=== PATIENT | female | born 1990 | race Caucasian/White ===

== ENCOUNTER 2023-07-03 10:30 | Day surgery (SDC) | payer BC, SELFPAY ==
[2023-07-03] VITALS (9 sets, daily range): BP systolic 94–151; BP diastolic 47–118; PULSE 82–127; RESP 16–21; TEMP 36.3–37.4; O2SAT 96–100
--- NOTE | 2023-07-03 10:56 | EDS_ITS ---
HPI HPI - Female History of Present Illness Chief Complaint: Vag Bld, Preg Detail of Chief Complaint: Spontaneous miscarriage 0930 this morning. Presents with significant vagin Pain Pain: Positive for Pelvic Pain and Vaginal Pain Current Severity: Moderate Maximum Severity: Severe Worsened by: - (Speculum exam) Relieved by: - (Nothing) Bleeding Issue: Positive for Vaginal bleeding, Passing clots and Passing tissue Onset: Today (0930) Context: Sudden Onset Timing: Continuous Current Severity: Heavy Associated Symptoms Associated Symptoms: Positive for Frequency; Negative for Dysuria, Urgency, Hematuria, Missed Period or Irregular Period Test: Positive Sexually: Positive for Active Control: No control P: 2 Narrative Narrative: Patient is a 33-year-old female. She is seen by a cabinetmaker apprentice. She does not have a web ui developer. She believes her blood type is a positive. She did not require RhoGAM with prior . She last ate last evening at 2100 per . She was seen by cabinetmaker apprentice. Apparently she passed fetus at approximately 0930. She presents because of severe bleeding and pain. Prior similar symptoms: No Recent Illness/Hospitalization: No PFSH PFSH Medical History (Updated 07/03/23 @ 12:[address] Marguerite Ayers MD) Connective tissue disease Medical History no medical history no medical history Home Medications ascorbic acid (vitamin C) 100 mg PO DAILY 03/07/18 [History Last Taken Unknown] Allergy/AdvReac Type Severity Reaction Status Date / Time No Known Allergies Allergy Verified 07/03/23 10:30 Surgical History no surgical history no surgical history Social History Smoking Status: Never smoker alcohol intake: never ROS ROS ED Constitutional Constitutional ED: Denies chills, fever(s), subjective or sweats Eyes Eyes: Denies blurry vision or change in vision ENT ENT ED: Denies ear pain or rhinorrhea Cardiovascular Cardiovascular: Denies chest pain or palpitations Respiratory/Chest Respiratory/Chest: Denies cough, dyspnea or dyspnea on exertion Gastrointestinal Gastrointestinal: Reports abdominal pain, nausea and vomiting; Denies constipation, diarrhea or melena Genitourinary Genitourinary ED: Reports urinary frequency; Denies dysuria or hematuria Musculoskeletal Musculoskeletal: Denies arthralgias, myalgias or neck pain Integumentary Denies rash Neurologic Neurologic: Denies paresthesias or weakness Endocrine Endocrinology: Denies heat intolerance, polydipsia or polyphagia Hematologic/Lymphatic Hematologic/Lymphatic: Denies easy bleeding or easy bruising EXAM Physical Exam Const Vital Signs: 07/03/23 10:30 07/03/23 11:30 07/03/23 11:53 Temperature 99 F 98.4 F Temperature Source Temporal Pulse Rate 127 H 97 105 H Respiratory Rate 20 H 21 H 16 Respiratory Pattern Blood Pressure 135/95 H 128/85 H 147/78 H Blood Pressure Mean 108 99 101 Blood Pressure Source Blood Pressure Position Blood Pressure Location Baseline BP Pulse Ox 97 98 98 Oxygen Delivery Method Room Air Room Air 07/03/23 13:01 07/03/23 13:05 07/03/23 13:10 Temperature 98 F Temperature Source Temporal Pulse Rate 103 H 90 92 Respiratory Rate 18 18 18 Respiratory Pattern Normal Blood Pressure 151/118 H 107/47 L 94/51 L Blood Pressure Mean 129 67 65 Blood Pressure Source Monitor Monitor Monitor Blood Pressure Position Semi-Fowlers Semi-Fowlers Semi-Fowlers Blood Pressure Location Right Arm Left Arm Right Arm Baseline BP 135/95 135/95 135/95 Pulse Ox 96 98 100 Oxygen Delivery Method Room Air Room Air Room Air 07/03/23 13:15 07/03/23 13:30 07/03/23 14:01 Temperature 99.4 F H Temperature Source Temporal Pulse Rate 95 82 Respiratory Rate 18 18 Respiratory Pattern Normal Blood Pressure 118/83 H 107/68 Blood Pressure Mean 94 81 Blood Pressure Source Monitor Monitor Blood Pressure Position Semi-Fowlers Semi-Fowlers Blood Pressure Location Right Arm Right Arm Baseline BP 135/95 135/95 Pulse Ox 99 100 Oxygen Delivery Method Room Air Room Air 07/03/23 14:56 Temperature 97.4 F L Temperature Source Temporal Pulse Rate 96 Respiratory Rate 16 Respiratory Pattern Blood Pressure 114/72 Blood Pressure Mean 86 Blood Pressure Source Monitor Blood Pressure Position Semi-Fowlers Blood Pressure Location Right Arm Baseline BP 135/95 Pulse Ox 100 Oxygen Delivery Method Room Air Positive well nourished, well developed and obese Constitutional Narrative: Patient is nervous and appears uncomfortable. Vital signs remarkable for heart rate of 127. General Appearance ED: well developed and pallor Nutritional Appearance: obese HEENT Reports dry mucous membranes HEENT Narrative: Head is atraumatic, cephalic. Mouth ED: Yes dry mucous membranes Mouth: dry mucous membranes Eyes PERRL and EOMs intact bilaterally General Eye ED: Negative for pale conjunctiva or scleral icterus Neck no lymphadenopathy, supple and no JVD Chest Wall inspection of chest normal and palpation of chest normal Resp normal respiratory effort and clear to auscultation bilaterally Cardio regular rhythm, S1 normal heart sound, no murmurs and no JVD GI normal to inspection, nondistended, normoactive bowel sounds, soft to palpation, non-tender, non-distended and no masses Auscultation: normoactive bowel sounds Narrative: Patient's external genitalia is normal. Unable to see the cervix. Every time the speculum was inserted the speculum was filled with large clots which were evacuated. This was repeated 3 times. Since patient is actively bleeding Dr. Ayers who is on-call for SENIOR CATERING SALES MANAGER was paged. Back/Spine no CVA tenderness Extremity normal to inspection and full ROM Neuro oriented x3 and CN's II-XII intact bilaterally Sensorium / Orientation: alert Psych Mood & Affect: anxious Skin no rashes or lesions noted and no wounds General Skin Exam: pallor; Negative for jaundice MDM MDM MDM Narrative Medical decision making narrative: Spontaneous miscarriage suspect incomplete versus complete. Patient been typed and screened. CBC was obtained to assess H&H and platelet count. IV was established. She received 1 L of normal saline since she is tachycardic. Patient was made NPO. She was placed on the monitor. Lab Data Attestation: I reviewed the patient's lab results. Lab results narrative: Hemoglobin is 15.2 with hematocrit of 42.6. Platelet count is normal. Patient does have a positive blood. Labs: Laboratory Results - last 24 hr 07/03/23 07/03/23 10:44 11:12 WBC 13.4 H RBC 4.78 Hgb 15.2 H Hct 42.6 MCV 89.1 MCH 31.8 MCHC 35.7 RDW Std Deviation 41.4 RDW Coeff of Judah 12.6 Plt Count 295 MPV 9.3 Sodium 139 Potassium 3.8 Chloride 109 H Carbon Dioxide 23.0 Anion Gap 7 BUN 7 Creatinine 0.61 Est GFR (MDRD) Af Amer 143 Est GFR (MDRD) Non-Af 118 BUN/Creatinine Ratio 11.5 Glucose 116 H Calcium 9.2 Blood Type Cancelled A POSITIVE Antibody Screen Cancelled NEGATIVE Radiography Diagnostic Testing: Clinical Impression(s) from Imaging Studies Pelvis Ultrasound 07/03/23 11:07 IMPRESSION: Heterogeneous thickening of the endometrium. Findings suggestive of retained products of conception within the endometrium. Electronically Signed: Phil Haddad MD at 12:47 EDT , Management Discussion w/another healthcare provider: Assistant Professor Of Marine Biology (Spoke with Dr. Solis. She requested 0.2 mg of Methergine. She would like an ultrasound. satellite tv technician was contacted.) Treatment and Re-Evaluation Narrative: Transabdominal ultrasound performed by fabric pattern grader Loren. There is retained products of conception right superior portion of the uterus and centrally as well. The uterus is full with blood as well. Will contact Dr. Ayers regarding ultrasound results. Plan is to OR With 800 cc of liter infused heart rate has improved to 108. Blood pressure has dropped to [address] Ayers was notified of results. She is on her way into see patient. She is currently on first stat D&C. Critical Care Time Critical Care Time: Yes Critical care time (excluding procedures): 30-74 minutes (32), Including time spent: (History, physical, documentation, review of prior records. There are no prior records), Discussing w/Patient &/or Family/Fiscal Economist, Discussing w/Consultants, Performing Direct Patient Care at Bedside and - (Contacted ultrasound for stat ultrasound at bedside since patient has been bleeding briskly.) Discharge Plan Dx/Rx/DC Orders Clinical Impression: Incomplete spontaneous , Sinus tachycardia, Acute hypotension Disposition Disposition: Acute Care Hospital [facility] Discharge Date/Time: 07/03/23 12:11
[2023-07-03] MEDS: 0.9% Normal Saline (1000mL) 1,000 ML 999 ML IV (11:02)
[2023-07-03 11:04] LABS: Hematocrit 42.6 % (37-47); Hemoglobin 15.2 g/dL (12.0-15.0); Mean Corp Hgb Conc 35.7 g/dL (32-36); Mean Corpuscular Hgb 31.8 pg (27.0-32.0); Mean Corpuscular Volume 89.1 fL (81-99); Mean Platelet Vol. 9.3 fl (6.2-12.0); Platelet Count 295 K/mm3 (150-450); RBC Distribution Width CV 12.6 % (11.6-14.6); RBC Distribution Width SD 41.4 fl (35.1-43.9); Red Blood Count 4.78 M/mm3 (4.2-5.4); White Blood Count 13.4 K/mm3 (4.4-11.0)
--- NOTE | 2023-07-03 11:07 | US_ITS ---
STUDY: ULTRASOUND OF THE FEMALE PELVIS - COMPLETE REASON FOR EXAM: Female, 33 years old. Vaginal bleeding / active miscarriage - Needs to be done portable LMP: Unknown TECHNIQUE: Transabdominal TECHNICAL QUALITY: Adequate. COMPARISON: None. FINDINGS: The uterus is retroverted and is in a midline position. The uterus measures 12.7 cm x 9.8 cm x 10.9 cm. Normal uterine cervix. The endometrium is heterogeneous and measures 22.4 mm in thickness, and is heterogeneous (striated). Findings suggestive of a retained products of conception. There is no demonstrated myometrial mass. I.U.D. - The patient does not have an I.U.D. The right ovary is non-visualized. The left ovary is non-visualized. There is no fluid in the cul-de-sac. US/Pelvic (Non ) IMPRESSION: Heterogeneous thickening of the endometrium. Findings suggestive of retained products of conception within the endometrium. Electronically Signed: Phil Haddad MD at 12:47 EDT ,
[2023-07-03 11:18] LABS: Anion Gap 7 (5-15); BUN 7 mg/dL (7-18); BUN/Creat Ratio 11.5 RATIO (10-20); Calcium,Total 9.2 mg/dL (8.5-10.1); Chloride 109 mmol/L (98-107); Creatinine, Serum 0.61 mg/dL (0.55-1.02); EST Glomerular Filtration Rate 118 mL/min (>60); Est Glom Filt Rate - Afr Amer 143 mL/min (>60); Glucose 116 mg/dL (74-106); Potassium 3.8 mmol/L (3.5-5.1); Sodium Level 139 mmol/L (136-145)
--- NOTE | 2023-07-03 11:51 | ED.RN ---
DR DEB HARMAN AT BEDSIDE
--- NOTE | 2023-07-03 11:52 | ED.RN ---
METHERGINE PUT ON HOLD BY DR HARMAN SINCE PT IS GOING TO OR. DR LINDER MADE AWARE ALSO
--- NOTE | 2023-07-03 11:53 | NURSING ---
DR HARMAN OR INCOMPLETE
--- NOTE | 2023-07-03 12:13 | HP.PCM_ITS ---
HPI - General General Date of Service: 07/03/23 Chief Complaint: Vaginal bleeding and pain HPI Narrative GIOVANNA VEGAS, is a 33 F who presents with vaginal bleeding. She reports passing the fetus at 9:30am today. Then patient starting to have heaving bleeding and intense cramping. Patient was seeing a surface lay out technician and reports being 16&3. Previously she had 2 FT vaginal deliveries at home without complications, REPLACED BY [facility] Medical History (Updated 07/03/23 @ 12:[address] Marguerite Ayers MD) Connective tissue disease Medical History no medical history Home Medications ascorbic acid (vitamin C) 100 mg PO DAILY 03/07/18 [History Last Taken Unknown] Allergy/AdvReac Type Severity Reaction Status Date / Time No Known Allergies Allergy Verified 07/03/23 10:30 Surgical History no surgical history Social History Smoking Status: Never smoker alcohol intake: never Vital Signs Vital Signs Vital Signs: 07/03/23 10:30 07/03/23 11:30 07/03/23 11:53 Temperature 99 F 98.4 F Temperature Source Temporal Pulse Rate 127 H 97 105 H Respiratory Rate 20 H 21 H 16 Blood Pressure 135/95 H 128/85 H 147/78 H Blood Pressure Mean 108 99 101 Pulse Ox 97 98 98 Oxygen Delivery Method Room Air Room Air Physical Exam Narrative - per ED physician patient with blood pouring out vaginal cavity on speculum exam Const alert and oriented x3 GI soft to palpation GI Narrative: minimal tenderness Extremity no calf tenderness Neuro CN's II-XII intact bilaterally Results Lab / Micro Data 07/03/23 10:44 07/03/23 10:44 Labs: Laboratory Results - last 24 hr 07/03/23 10:44: WBC 13.4 H, RBC 4.78, Hgb 15.2 H, Hct 42.6, MCV 89.1, MCH 31.8, MCHC 35.7, RDW Std Deviation 41.4, RDW Coeff of Judah 12.6, Plt Count 295, MPV 9.3, Sodium 139, Potassium 3.8, Chloride 109 H, Carbon Dioxide 23.0, Anion Gap 7, BUN 7, Creatinine 0.61, Est GFR (MDRD) Af Amer 143, Est GFR (MDRD) Non-Af 118, BUN/Creatinine Ratio 11.5, Glucose 116 H, Calcium 9.2, Blood Type Cancelled, Antibody Screen Cancelled Assessment & Plan Assessment/Plan (1) Incomplete : (2) Connective tissue disease: PLAN: Plan Discussed R/B/A of treatment options. Recommend proceeding with emergent D&C due to active bleeding and tachycardia. Informed consent signed and patient agrees with plan.
--- NOTE | 2023-07-03 12:45 | POC_PTH ---
PATIENT: GIOVANNA VEGAS LOC: [facility] – [place], [place] U#:[id number] AGE/SX: 33/F ROOM: RE07/03/[address]: Dr. Marguerite Ayers MD : 1990 BED: DIS: 07/03/2023 SPEC #: [id number] RECD: 07/03/23 13:22 STATUS: OVIDIO MANISHA #: [id number] IRON: 07/03/23 12:[address]: Marguerite Ayers DEPT: SURGICAL PATHOLOGY RECD BY: Jannet Torres ENTERED: 07/03/23 13:47 SP TYPE: PROD CONC OTHR DR: No Primary Care Phys Tissues: Product of conception, NOS Procedures: Surgery Specimen Level IV HEADER OPERATION: Dilation and Curetting, suction PRE-OP DIAGNOSIS: Incomplete TISSUE SUBMITTED: Products of conception MICROSCOPIC DIAGNOSIS Products of conception, dilation and curettage: Decidua and immature placental tissue (products of conception), clinically incomplete . SJ: 07/04/2023 MICROSCOPIC DESCRIPTION Slides are reviewed. GROSS DESCRIPTION Received in fixative is one container labeled with the patient's name and designated Products of conception. The specimen consists of multiple irregular fragments of pink soft tissue that in aggregate measure in aggregate 8.0 x 9.0 x 3.0 cm. tissue is not identified. Roofing Apprentice tissue is submitted in two cassettes. RACHNA/ 07/03/23 TC:5 CPT: 39230
[2023-07-03] MEDS: Methylergonovine 0.2 MG/ML Ampul IM (12:50)
--- NOTE | 2023-07-03 13:06 | PCM.OPRPT ---
Report of Operation Date of Procedure: 07/03/23 Pre-Operative Diagnosis: Incomplete Post-Operative Diagnosis: Same Surgery/Procedure Performed:: Suction dilation and curettage Description of Surgical Findings:: uterus with retained products of conception Surgeon: Marguerite Ayers Type of Anesthesia: MAC Specimen's removed: products of conception Drains: none Estimated Blood Loss (mL): 300ml Fluids Replaced: 1400ml Description of Procedure: Patient taken to OR when MAC anesthesia placed and found to be adequate. She was placed in the dorsal lithotomy position, prepped and draped in normal sterile fashion. Cervix was grasped with a tenaculum. Ring forceps used to removed some POC's. Then #12 suction curette gently inserted into the uterine cavity and used 5 times for good return of POC's. 1 pass of gentle sharp curettage performed to ensure no retained POC's. TAUS also completed and showed no retained POC's. At the end of the procedure all instruments were removed from the vaginal cavity and patient taken to the recovery room in stable condition. Procedure Start Time: 12:33 Procedure Stop Time: 12:50 Complications None Admit VTE Documentation VTE Present on Admission: No VTE Pharm Prophylaxis ordered?: No
--- NOTE | 2023-07-03 13:16 | DCINST_ITS ---
Discharge Instructions Diet Discharge Diet: No restrictions Activity Discharge Activity: May Shower May resume sexual activity in: 2 weeks Weight Bearing Status: Weight bearing as tolerated Dressing / Incision Call your doctor if you observe: Fever of 101 or Higher, Coldness, Increased Pain, Change in Color, Inability to urinate, Using more than 1 pad per hour, Shortness of breath, Dizziness, Fainting spells, Chest pain, Increased palpitations (irregular heartbeat), Calf discomfort and Uncontrolled pain Follow Up Care Please Follow Up With: Marguerite Ayers When: 2 weeks Test Results: Test results from this visit will be discussed in further detail at your follow-up appointment, if applicable. Discharge Plan Admission Primary Reason for Your Visit: Incomplete miscarriage Attending Provider: Marguerite Ayers Primary Care Provider: Care PhysicianCristal Primary Discharge Orders/Prescriptions Prescriptions: No Action ascorbic acid (vitamin C) crystals crystals 100 mg PO DAILY Referrals / Follow Up: Sin Elder MD [Med Staff - Automotive Glass Specialist] - Disposition Disposition (needs filled in before D/C Order can be placed): Home, Self Care
[2023-07-03] MEDS: Lactated Ringers 1,000 ML 75 ML IV (13:57)
== END 2023-07-03 14:59 | disposition home or self-care (01) ==
LOC: ED 11:37 → SDC 11:56 → AC 13:07
PROVIDERS: Emergency Provider Emergency Medicine; Visit Provider Obstetrics & Gynecology
PROC: (CPT 59812; principal; 2023-07-03 12:30)
DX: O03.4 Incomplete spontaneous abortion without complication (principal)
CPT/HCPCS: 59812; 01965; 76856; 80048; 85027; 86850; 86900; 86901; 88305; 99285; J7030; J7120; A4216; J2405

== ENCOUNTER → 2023-11-26 | Outpatient (CLI) | payer BC, SELFPAY ==
--- NOTE | 2023-11-26 08:44 | ECHOD_ITS ---
Reason For Study: CHEYENNE DANLOS Procedure This was a 2D Doppler, Color Flow transthoracic echocardiogram. Exam performed in department. Left Ventricle Normal size and thickness. The left ventricular ejection fraction is 60 %. Normal diastololic function. Right Ventricle Normal right ventricle. Atria The left and right atria are normal. Mitral Valve Trivial mitral valve insufficiency. Tricuspid Valve Normal tricuspid valve. Aortic Valve Trisinus/trileaflet aortic valve. Pulmonic Valve The pulmonic valve is not well visualized. Trivial pulmonic valve insufficiency. Great Vessels Normal sized aortic root. Pericardium/Pleural No pericardial effusion. MMode/2D Measurements & Calculations LVIDd: 5.1 cm IVSd: 0.65 cm LVOT diam: 1.9 cm LVIDs: 2.8 cm LVPWd: 0.94 cm LVOT area: 2.7 cm2 RVDd: 2.4 cm FS: 45.2 % Ao root diam: 2.7 cm LAV(MOD-bp): 33.8 ml LVAd ap4: 25.6 cm2 LAV(MOD-bp) Indexed: 16.5 ml/m2 LVLd ap4: 7.9 cm LAV(MOD-sp2): 22.0 ml EDV(MOD-sp4): 69.4 ml LAV(MOD-sp4): 39.6 ml EDV(sp4-el): 69.9 ml LVAs ap4: 15.1 cm2 LVLs ap4: 6.4 cm ESV(MOD-sp4): 31.3 ml ESV(sp4-el): 30.5 ml EF(MOD-sp4): 54.9 % EF(sp4-el): 56.4 % SV(MOD-sp4): 38.1 ml SV(sp4-el): 39.4 ml LA A4 area: 17.2 cm2 LA dimension(2D): 3.6 cm RA A4 area: 15.1 cm2 TAPSE: 2.8 cm Time Measurements MV dec time: 0.11 sec Doppler Measurements & Calculations MV E max [place]: 79.2 cm/sec Lat Peak E' [place]: 18.5 cm/sec Med Peak E' [place]: 11.3 cm/sec MV A max [place]: 55.7 cm/sec E/E' lat: 4.3 E/E' med: 7.0 MV E/A: 1.4 MV V2 max: 91.0 cm/sec Ao V2 max: 122.9 cm/sec MV max P.3 mmHg MV dec slope: 708.4 cm/sec2 Ao max P.0 mmHg MV V2 mean: 65.8 cm/sec Ao V2 mean: 87.3 cm/sec MV mean P.8 mmHg Ao mean P.4 mmHg MV V2 VTI: 23.5 cm Ao V2 VTI: 27.7 cm AV (velocity ratio): 0.90 MVA(VTI): 2.9 cm2 JOHANA(I,D): 2.4 cm2 JOHANA(V,D): 2.5 cm2 LV V1 max: 114.8 cm/sec SV(LVOT): 67.2 ml PA V2 max: 112.0 cm/sec LV V1 max P.3 mmHg PA V2 mean: 79.3 cm/sec LV V1 mean P.3 mmHg LV V1 mean: 87.4 cm/sec LV V1 VTI: 25.0 cm ECHO/Echo Complete Interpretation Summary The left ventricular ejection fraction is 60 %. Ordering Physician: Prerna Cleaning Referring Physician: Prerna Cleaning Performed By: Deana Liu RCS
== END | disposition home or self-care (01) ==
PROVIDERS: PCP Nurse Practitioner Family; Referring Provider Nurse Practitioner Family; Visit Provider Nurse Practitioner Family
DX: Q79.62 Hypermobile Ehlers-Danlos syndrome (principal); I34.0 Nonrheumatic mitral (valve) insufficiency
CPT/HCPCS: 93306

== ENCOUNTER → 2024-03-17 | Outpatient (CLI) | payer BC, SELFPAY ==
[2024-03-24 13:07] LABS: HPV APTIMA, High Risk Negative (Negative)
== END | disposition home or self-care (01) ==
LOC: BWCLAB 14:42
PROVIDERS: PCP Nurse Practitioner Family; Referring Provider Obstetrics & Gynecology; Visit Provider Obstetrics & Gynecology
DX: Z12.4 Encounter for screening for malignant neoplasm of cervix (principal)
CPT/HCPCS: 87624; 88175; G0145

== ENCOUNTER 2024-09-20 02:43 | Emergency (ER) | payer BC, SELFPAY ==
[2024-09-20 02:45] VITALS: BP 136/67; PULSE 95; RESP 18; TEMP 36.9; O2SAT 100; BMI 39.5
--- OUTSIDE RECORDS SUMMARY | 2024-09-20 02:53 | XMS RPT_ITS | CCD ---
Author Organization [facility] Care Team Providers Care Leg Breaker Name Role Phone Leena Elder MD Primary Care Provider [place] CNM, Crystal K Unavailable Drea SLATER, Darrell Unavailable Unavailable Leena Elder MD Primary Care Provider Leena Elder MD Primary Care Provider JAMES GREWAL Attending Unavailable GENERIC PROVIDER, NO ASSIGNED PCP Primary Care Unavailable Generic Provider , No Assigned Pcp Primary Car e Provider Unavailable Jessie Harman Attending Unavailable Care Physician, No Primary Primary Care Unava ilable Black CHUCKING MACHINE SET UP OPERATOR TOOL, Erick Primary Care Unavailable Jessica Benson Referring Unavailable Jessica Benson Attending Unavailable Black CHUCKING MACHINE SET UP OPERATOR TOOL, Erick Primary Care Unavailable Black CHUCKING MACHINE SET UP OPERATOR TOOL, Erick Referring Unavailable Black CHUCKING MACHINE SET UP OPERATOR TOOL, Erick Attending Unavailable Black CHUCKING MACHINE SET UP OPERATOR TOOL, Erick Primary Care Unavailable Care Physician, No Primary Referring Unava ilable Jessica Benson Attending Unavailable Black CHUCKING MACHINE SET UP OPERATOR TOOL, Erick Primary Care Unavailable Desirae Barnes Attending Unavailable BLACK, ERICK Admitting Unavailable BLACK, ERICK Primary Care Unavailable BLACK, ERICK Attending Unavailable JUAN RECINOS DO Consulting Unavailable PROVIDER, UNKNOWN Consulting Unavailable PROVIDER, UNKNOWN Consulting Unavailable BLACK, ERICK Primary Care Unavailable DHARMESH CLEANINGA Attending Unavailable JUAN RECINOS DO Consulting Unavailable BLACK, ERICK Admitting Unavailable PROVIDER, UNKNOWN Consulting Unavailable PROVIDER, UNKNOWN Consulting Unavailable LEENA ELDER Primary Care Unavailabl SHAKA Quiros Attending Unavailable LEENA ELDER Primary Care Unavailabl ALONDRA Garcia Attending Unavailable JESSIE HARMAN Referring Unavailable JASON DYKES Attending Unavailable LEENA ELDER Primary Care Unavailabl e Allergies Allergy Classification Reported Allergen(s) Allergy Type Date of Onset Reaction(s) Facility (2 sources) Naloxone Drug Allergy [facility], [facility]. (2 sources) Naltrexone Drug Allergy 05-28-2024 Other: See Comments [facility] Medications Current Medications Medication Drug Class(es) Dates Sig (Normalized) Sig (Original) ascorbic acid (vitamin C) crystals (2 sources) Start: 03-07-2018 take 100 mg by mouth once daily ascorbic acid (vitamin C) crystals Active 100 MG PO DAILY March 07, 2018 1:00am azithromycin 250 mg oral tablet (1 source) Macrolide Antimicrobial Start: 09-08-2023 azithromycin (Zithromax Z-Fede) 250 mg tablet Indications: Exposure to pertussis Take 2 tablets by mouth at once on day 1, then 1 tablet once a day on days 2-5. Take with a meal. 6 tablet 09/08/2023 Active Calcium Carbonate (9 sources) calcium carbonat e (CALCIUM 500 ORAL) Take by mouth once daily. Active calcium carbonat e (CALCIUM 500 ORAL) Take by mouth once daily. 0 Active calcium carbonate (Tums) 250 mg (manchester 100 mg) chewable split tablet (1 source) calcium carbonat e (Tums) 250 mg (manchester 100 mg) chewable split tablet Take by mouth once daily. Active magnesium oxide 400 mg oral capsule (10 sources) magnesium oxide 400 mg magnesium cap Take by mouth. Active nystatin [id number] unt oral tablet (13 sources) Polyene Antifungal Start: 12-13-2022 nystatin (Mycostatin) 500,000 unit tablet 12/13/2022 Active Start: 10-18-2022 take 2 tablets by mo uth twice daily nystatin (MYCOSTATIN, NILSTAT) 500,000 unit tab Take 2 tablets by mouth twice daily. 120 tablet 2 10/18/2022 Active Comment on above: Take 2 tablets by mo uth twice daily. Vitamin B Complex (9 sources) vitamin B comple x (B COMPLEX ORAL) Take by mouth once daily. Active vitamin B comple x (B COMPLEX ORAL) Take by mouth once daily. 0 Active vitamin-B complex split tablet (1 source) vitamin-B comple x split tablet Take by mouth once daily. Active WellBetX PGX Ultra Matrix (Natural Factors) diabetes/blood sugar/weight management (20 sources) Start: 08-16-2022 WellBetX PGX Ultra Matrix (Natural Factors) diabetes/blood sugar/weight management Take 2 capsules with 8 ounces of water 5-10 minutes before meals. 0 08/16/2022 Active Comment on above: Take 2 capsules with 8 ounces of water 5-10 minutes before meals. Completed/Discontinued Medications Medication Drug Class(es) Dates Sig (Normalized) Sig (Original) amoxicillin 500 mg oral capsule (2 sources) Penicillin-class Antibacterial Start: 03-07-2018 End: 03-17-2018 take 1000 mg by mouth twice daily Amoxicillin Discontinued 1000 MG PO TWICE A DAY 40 10 March 07, 2018 1:00am March 17, 2018 1:19am Biocidin Advanced Formula (Mark43) gut microbial (bacteria/yeast) balance (9 sources) Start: 10-18-2022 End: 01-12-2023 Biocidin Advanced Formula (Mark43) gut microbial (bacteria/yeast) balance Take 5 Drops by mouth three times daily. Biocidin - Begin with 1 drop and gradually increase up to 5 drops 3 times per day for 6-8 weeks 0 10/18/2022 01/12/2023 Discontinued Start: 10-18-2022 Biocidin Advan sarah Formula (Mark43) gut microbial (bacteria/yeast) balance Take 5 Drops by mouth three times daily. Biocidin - Begin with 1 drop and gradually increase up to 5 drops 3 times per day for 6-8 weeks 0 10/18/2022 Active Comment on above: Take 5 Drops by mout h three times daily. Biocidin - Begin with 1 drop and gradually increase up to 5 drops 3 times per day for 6-8 weeks Dentalcidin (Bio-Botanical) (9 sources) Start: 10-18-2022 End: 01-12-2023 Dentalcidin (Bio-Botanical) For adults and children 2 years of age and older, use approx. a 1/2 inch ribbon on your toothbrush. 0 10/18/2022 01/12/2023 Discontinued Start: 10-18-2022 Dentalcidin (B io-Botanical) For adults and children 2 years of age and older, use approx. a 1/2 inch ribbon on your toothbrush. 0 10/18/2022 Active Comment on above: For adults and child yana 2 years of age and older, use approx. a 1/2 inch ribbon on your toothbrush. Dentalcidin LS - Liposomal Oral Care Solution (Bio-Botanical) (9 sources) Start: 10-18-2022 End: 01-12-2023 Dentalcidin LS - Liposomal Oral Care Solution (Bio-Botanical) Swish using 2 pumps for 1 minute or more than expel. Use 2 - 3 times per day after brushing with Dentalcidin toothpaste. 0 10/18/2022 01/12/2023 Discontinued Start: 10-18-2022 Dentalcidin LS - Liposomal Oral Care Solution (Bio-Botanical) Swish using 2 pumps for 1 minute or more than expel. Use 2 - 3 times per day after brushing with Dentalcidin toothpaste. 0 10/18/2022 Active Comment on above: Swish using 2 pumps for 1 minute or more than expel. Use 2 - 3 times per day after brushing with Dentalcidin toothpaste. Digestive Enzymes Ultra 180 ct. (Pure Encapsulations) (9 sources) Start: 10-18-2022 End: 01-12-2023 Digestive Enzymes Ultra 180 ct. (Pure Encapsulations) Take 2 capsules twice daily. 0 10/18/2022 01/12/2023 Discontinued Start: 10-18-2022 Digestive Enzy mes Ultra 180 ct. (Pure Encapsulations) Take 2 capsules twice daily. 0 10/18/2022 Active Comment on above: Take 2 capsules twic e daily. fluconazole 100 mg oral tablet (13 sources) Azole Antifungal Start: take 1 tablet by mouth two times weekly fluconazole (DIFLUCAN) 100 mg tablet Indications: Thrush Take 1 tab by mouth twice weekly for 1 month. 8 tablet 1 01/12/2023 Active Start: 10-18-2022 End: 01-12-2023 fluconazole (DIFLUCAN) 150 m g tablet Indications: Bloating , Thrush (oral) Take one x 1, repeat in 3 days x 1. 2 tablet 1 10/18/2022 01/12/2023 Discontinued Comment on above: Take one x 1, repeat in 3 days x 1. Take 1 tab by mouth twice weekly for 1 month. G.I. Detox (Boutique Window) (8 sources) Start: 12-13-2022 G.I. Detox (Boutique Window) 1-2 capsules with full glass of water 2 times daily between meals 0 12/13/2022 Active Comment on above: 1-2 capsules with fu ll glass of water 2 times daily between meals NAC 600mg 90 ct. (Pure Encapsulations) (8 sources) Start: 12-13-2022 NAC 600mg 90 ct. (Pure Encapsulations) Take 1 capsule twice daily, between meals. 0 12/13/2022 Active Comment on above: Take 1 capsule twice daily, between meals. Naltrexone (3 sources) Opioid Antagonist Start: 01-15-2023 naltrexone capsule 1 mg (CPD) Start with 1 capsule by mouth every night, increase every 3-4 days by 1 capsule until pain relief. Max of 5 capsules daily. 90 capsule 1 01/15/2023 Active Start: 01-15-2023 naltrexone cap nakia 1 mg (CPD) Take 1 capsule by mouth once daily. Start with 1 mg every night, increase every 3-4 days by 1 mg until pain relief. Max dose 5 mg daily. 90 capsule 1 01/15/2023 Active Comment on above: Take 1 capsule by mo [facility] once daily. Start with 1 mg every night, increase every 3-4 days by 1 mg until pain relief. Max dose 5 mg daily. Start with 1 capsule by mouth every night, increase every 3-4 days by 1 capsule until pain relief. Max of 5 capsules daily. Saccharomyces boulardii (8 sources) Start: 12-14-19 take 1 capsule by mouth twice daily at mealtime Saccharomyces Boulardii 60 ct. (Klaire/Prothera) Take 1 capsule by mouth twice daily with meals. 0 12/13/2022 Active Comment on above: Take 1 capsule by mo [facility] twice daily with meals. The Whole Probiotic (Talkbits) (12 sources) Start: 10-19-19 take 1 capsule by mouth once daily The Whole Probiotic (Talkbits) Take 1 capsule by mouth once daily. Treatment 3-6 months 0 10/18/2022 Active Comment on above: Take 1 capsule by mo [facility] once daily. Treatment 3-6 months Yeast Balance Complex (Integrative Therapeutics) gut microbial (bacteria/yeast) balance (4 sources) Start: 01-13-20 Yeast Balance Complex (Integrative Therapeutics) gut microbial (bacteria/yeast) balance Take 2 capsules three times daily between meals. Take saccharomyces boullardi 2 hrs away. 0 01/12/2023 Active Comment on above: Take 2 capsules thre e times daily between meals. Take saccharomyces boullardi 2 hrs away. Problems Active Problems Problem Classification Problem Date Documented Da te Episodic/Chronic Administrative/social admission (3 sources) Patient encounter status; Translations: [Dietary counseling and surveillance] Episodic Allergic reactions (1 source) Chronic urticaria; Translations: [Other urticaria] 05-28-2024 Episodic Cardiac dysrhythmias (4 sources) Sinus tachycardia; Translations: [Tachycardia, unspecified] 07-03-2023 Episodic Deficiency and other anemia (3 sources) Anemia 05-08-2023 Episodic Comment on above: Concerns about anemi a. Had anemia with her first . Diseases of mouth; excluding dental (2 sources) Disorder of oral soft tissues; Translations: [Unspecified lesions of oral mucosa] 03-05-2023 Episodic Immunity disorders (2 sources) Monoclonal mast cell activation syndrome; Translations: [Other specified disorders involving the immune mechanism] Onset: 05-28-2024 05-22-2024 Chronic Immunizations and screening for infectious disease (3 sources) Contact with and (suspected) exposure to other bacterial communicable diseases; Translations: [Exposure to Bordetella pertussis] Onset: 09-08-2023 Episodic Malaise and fatigue (1 source) Fatigue; Translations: [Chronic fatigue, unspecified] 01-12-2023 Chronic Malaise and fatigue (2 sources) Fatigue; Translations: [Other fatigue] 07-10-2023 Episodic Mycoses (5 sources) Candidiasis of mouth; Translations: [Candidal stomatitis] 10-18-2022 Episodic Other circulatory disease (2 sources) Low blood pressure; Translations: [Hypotension, unspecified] 07-03-2023 Episodic Other circulatory disease (2 sources) Hypotension, unspecified; Translations: [Hypotension, unspecified] 07-03-2023 Episodic Other complications of (2 sources) Fatigue during ; Translations: [ related exhaustion and fatigue, unspecified trimester] 05-10-2023 Episodic Other connective tissue disease (1 source) Pelvic floor tension; Translations: [Other specified disorders of muscle] 09-18-2023 Episodic Other connective tissue disease (2 sources) Hypermobility syndrome; 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] 05-28-2024 Episodic Other connective tissue disease (1 source) Hypermobility syndrome; 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] Onset: 05-28-2024 Episodic Other endocrine disorders (1 source) Disorder of endocrine system; Translations: [Endocrine disorder, unspecified] 12-13-2022 Episodic Other female genital disorders (2 sources) Cervical incompetence; Translations: [Incompetence of cervix uteri] 05-28-2024 Episodic Other female genital disorders (1 source) Incompetence of cervix uteri; Translations: [Incompetent cervix] Onset: 05-28-2024 Episodic Other gastrointestinal disorders (2 sources) Abdominal bloating; Translations: [Abdominal distension (gaseous)] Episodic Other gastrointestinal disorders (3 sources) Other functional disorders of intestine; Translations: [Intestinal dysbiosis] 10-18-2022 Episodic Other hematologic conditions (2 sources) History of anemia; Translations: [Personal history of diseases of the blood and blood-forming organs and certain disorders involving the immune mechanism] 05-10-2023 Episodic Other nervous system disorders (1 source) Disturbance of attention; Translations: [Attention and concentration deficit] 05-28-2024 Chronic Other non-traumatic joint disorders (1 source) Instability of joint; Translations: [Other instability, unspecified joint] 05-28-2024 Episodic Other nutritional; endocrine; and metabolic disorders (1 source) Morbid (severe) obesity due to excess calories; Translations: [Morbid (severe) obesity due to excess calories] Onset: 11-05-2023 Chronic Other nutritional; endocrine; and metabolic disorders (2 sources) Weight gain; Translations: [Abnormal weight gain] Episodic Other skin disorders (1 source) Eruption; Translations: [Rash and other nonspecific skin eruption] 05-28-2024 Episodic Otitis media and related conditions (2 sources) Otitis media of left ear; Translations: [Otitis media, unspecified, left ear] 03-07-2018 Episodic Residual codes; unclassified (1 source) At risk for infection; Translations: [Other specified personal risk factors, not elsewhere classified] 12-18-2022 Episodic Residual codes; unclassified (2 sources) FH: Twin ; Translations: [Family history of other specified conditions] 05-10-2023 Episodic Residual codes; unclassified (2 sources) Sensation of being cold; Translations: [Other symptoms and signs involving general sensations and perceptions] 05-10-2023 Episodic Residual codes; unclassified (1 source) Total body pain syndrome; Translations: [Pain, unspecified] 05-28-2024 Episodic Systemic lupus erythematosus and connective tissue disorders (12 sources) Disorder of connective tissue; Translations: [Systemic involvement of connective tissue, unspecified] Onset: 08-21-2023 07-03-2023 Chronic Unclassified (2 sources) Number of Children 05-08-2023 Comment on above: 2. Unclassified (2 sources) Number of Pregnancies 05-08-2023 Comment on above: 3. Unclassified (2 sources) Vaginal deliveries 05-08-2023 Comment on above: 2. 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] Onset: 11-05-2023 Unclassified (1 source) Monoclonal MCAS (HCC) 05-28-2024 Past or Other Problems Problem Classification Problem Date Documented Date Episodic/Chronic Diabetes mellitus without complication (1 source) Impaired fasting glucose; Translations: [Impaired fasting glucose] Onset: 11-05-2023 Episodic Other complications of (3 sources) Supervision of with other poor reproductive or obstetric history, second trimester; Translations: [Supervision of high-risk with other poor reproductive history] Onset: 08-21-2023 07-10-2023 Episodic Other screening for suspected conditions (not mental disorders or infectious disease) (4 sources) Encounter for screening for malignant neoplasm of cervix; Translations: [Encounter for screening for diseases of the blood and blood-forming organs and certain disorders involving the immune mechanism] Onset: 11-05-2023 Episodic Residual codes; unclassified (15 sources) Contact with and (suspected) exposure to mold (toxic); Translations: [Contact with and (suspected) exposure to mold] Onset: 02-16-2023 12-13-2022 Episodic Residual codes; unclassified (10 sources) History of loss in non- woman; Translations: [Personal history of other complications of , childbirth and the puerperium] Onset: 08-21-2023 08-21-2023 Episodic Spontaneous (10 sources) Incomplete miscarriage; Translations: [Incomplete spontaneous without complication] Onset: 08-21-2023 07-03-2023 Episodic Unclassified (2 sources) 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 She is a with an NICANOR by LMP (03/23/2023) of 12/28/2023. EGA by LMP is 6 w 4 d. + UPT at home 2023. LMP was normal, lasting 5 days. Menses are regular every 27-28 days. States that she is often very cold, and feels very fatigued. Food aversions at this time, but denies N/V. 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 05-08-2023 Results Test Name Value Interpretation Reference Range Facility [facility] 08-01-2024 CNPN Telephone (RHEUMN) GIOVANNA DAY ([id number]) 1990 F Date Time Provider Department 08/01/24 SHAKA MOCK During your visit today, we recorded the following information about you: Jon Bowers Ma 08/01/2024 3:36 PM Signed Faxed written order form to [facility] [phone] Allergies As of Date: 08/01/2024 Noted Allergy Reaction NALTREXONE 05/28/2024 14 - Other: See Comments Date Reviewed: 05/28/2024 Reviewed by: Katerin Abebe OCCA - Fully Assessed Reason for Visit: Orders [681] Forms [973] Prescriptions as of 08/01/2024 - magnesium oxide 400 mg magnesium cap Take by mouth. - calcium carbonate (CALCIUM 500 ORAL) Take by mouth once daily. - vitamin B complex (B COMPLEX ORAL) Take by mouth once daily. - WellBetX PGX Ultra Matrix (Natural Factors) diabetes/blood sugar/weight management Take 2 capsules with 8 ounces of water 5-10 minutes before meals. Problem List As Of Date 08/01/2024 Noted Resolved Mold exposure [Z77.120] 02/16/2023 Connective tissue disorder (HCC) [M35.9] 08/21/2023 History of loss, not currently pregna*08/21/2023 Encounter Status:Closed by JON BOWERS MA on 08/01/24 Normal [facility] BMP with eGFRon 07-15-2024 AGE 34 years Normal [facility] Comment on above: Performed By: #### 2 [id number] #### [facility],[address] [place], [place] [id number] Anion gap [Moles/Vol] 15 mmol/L Normal 10 - 20 [facility] Comment on above: Performed By: #### 2 [id number] #### [facility],[address] [place] [address]294 BMP with eGFR Normal [facility] Comment on above: Result Comment: BASI C METABOLIC PANEL Performed By: #### 2 [id number] #### [facility],[address] [place] [address]9527 Calcium [Mass/Vol] 9.2 mg/dL Normal 8.5 - 10.1 [facility] Comment on above: Performed By: #### 2 [id number] #### [facility],[address] [place] [address] 62056 Chloride [Moles/Vol] 107 mmol/L Normal 98 - 107 [facility] Comment on above: Performed By: #### 2 [id number] #### [facility],[address] [place] [address] 03169 CO2 [Moles/Vol] 28.4 mmol/L Normal 21.0 - 32.0 [facility] Comment on above: Performed By: #### 2 [id number] #### [facility],[address] [place] [address] 22565 Creatinine [Mass/Vol] 0.72 mg/dL Normal 0.55 - 1.02 [facility] Comment on above: Performed By: #### 2 [id number] #### [facility],[address] [place] [address]386 GFR/1.73 sq M.predicted among non-blacks MDRD (S/P/Bld) [Vol rate/Area] mL/min/{1.73_m2} Normal 60 - 999 [facility] Comment on above: Performed By: #### 2 [id number] #### [facility],[address] [place], [place] [id number] Result Comment: ACCO RDING TO THE NATIONAL KIDNEY DISEASE EDUCATION PROGRAM(NKDE), A NORMAL eGFR IS A VALUE GREATER THAN OR EQUAL TO 60 ML/MIN/1.73 SQ METERS. CHRONIC KIDNEY DISEASE: <60mL/MIN/1.73 SQ METERS KIDNEY FAILURE: <15mL/MIN/1.73 SQ METERS THIS TEST SHOULD ONLY BE USED FOR PATIENTS 18 YEARS OF AGE AND OLDER. Glucose [Mass/Vol] 99 mg/dL Normal 74 - 106 [facility] Comment on above: Performed By: #### 2 [id number] #### [facility],[address] [place] [address]24 Potassium [Moles/Vol] 4.7 mmol/L Normal 3.5 - 5.1 [facility] Comment on above: Performed By: #### 2 [id number] #### [facility],[address] [place] [address] 03497 Sodium [Moles/Vol] 146 mmol/L High 136 - 145 [facility] Comment on above: Performed By: #### 2 [id number] #### [facility],[address] [place] [address] 12297 Urea nitrogen [Mass/Vol] 16 mg/dL Normal 7 - 18 [facility] Comment on above: Performed By: #### 2 [id number] #### [facility],[address] [place] [address]359 HEMOGLOBIN A1C (POM)on 07-15 Glucose [Mass/Vol] 96.8 mg/dL High 0.0 - 0.0 [facility] Comment on above: Result Comment: BLDo HEMOGLOBIN A1C REFERENCE RANGESBLDo Suggested Diagnosis HbA1c(%) HbA1C (mmol/mol Diabetic >/=6.5 >/=48 Prediabetes 5.7 - 6.4 39 - 47 Normal <5.7 <39 Performed By: #### 2 [id number] #### [facility],[address] [place] [address] HbA1c (Bld) [Mass fraction] 5.0 % Normal 0.0 - 6.5 [facility] Comment on above: Performed By: #### 2 [id number] #### [facility],[address] [place] [address] MAGNESIUMon 07-15-2024 Magnesium [Mass/Vol] 2.1 mg/dL Normal 1.8 - 2.4 [facility] Comment on above: Performed By: #### 2 [id number] #### [facility],[address] [place], [place] [id number] CNOVon 05-28-2024 CNOV Office Visit (RHARMN ) GIOVANNA DAY ([id number]) 1990 F Date Time Provider Department 05/28/24 9:00 AM SHAKA MOCK RHARMBrice During your visit today, we recorded the following information about you: Temperature Pulse Blood pressure Weight 98.1 degrees 104/minute 134/96 97.6 kg Last Period 05/25/24 Shaka Mock MD 05/28/2024 1:34 PM Signed +hypermobility, saw Dr. Vasquez in [place], diagnosed as hypermobility spectrum + loss, referred to [facility] clinic for management to see if she can safely get again (previously had two healthy pregnancies) +chronic pain entire life +Neck, back, hips subluxing No POTS symptoms No significant GI symptoms Wants to see allergy, previously had persistent hives, have since resolved +left hip labrum tear in 2019 Did not get repaired due to having young kids and recovery time, has significant hip pain as a result +fatigue, word finding difficulties, exhaustibility Passive Dorsiflexion of the fifth finger >90 degrees 2 Passive apposition of the thumb to the flexor aspect of the forearm 2 Hyperextension of the elbow >10 degrees 2 Hyperextensibility of the knees > 10 degrees 2 Flexion of the waist with palms on the floor (and with the knees fully extended) 1 Skin Hyperextensibility-str etch skin more than 4 cm from a neutral site YES Mitral Valve Prolapse 2 or more of the following A. Soft velvety skin YES mild skin hyperextensibility YES striae (without weight gain or loss) YES bilateral piezogenic heel papules YES abdominal hernias NO atrophic scarring prolapse of the pelvis floor She has a bladder prolapse, and uterus was tilted with last baby. 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 NO mitral valve prolapse B. Positive family history in first degree relatives diagnosed with these criteria Grandmother likely had this (on mom's side). Is one of 7 siblings, none of the other siblings have the same issues. C. Daily musculoskeletal pain in two or more extremities (for at least 3 months) YES Had a miscarriage back in July 2022, r/t incompetent cervix at 16.5 weeks Before trying to get again she was told she needed to be established with a printer maintainer [place] [address] Vasquez with a connective tissue disorder, he didn't think she qualified for EDS at that point Chronic pain for entire life Has very flat feet Seen a chiropractor her whole life Neck, back, hips are always out Neck locks up and she can't turn it Recently left shoulder has dislocated twice in the last couple months When she was younger tried to do karate and every time she tried to kick her hips would sublux No dislocations requiring ER care Chiropractor usually pops shoulder back in for her when it pops out No significant GI symptoms Has a lot of food sensitivities, can't eat a lot of things because it gives her terrible stomach pain Chronic hives for 2.5 years Never been worked up for [facility]AS, hives are now gone No POTS symptoms Has done PT on and off, has helped somewhat but not a huge amount Sleeps with a million pillows for shoulders while sleeping, and has computer elevated and propped up with pillows Not interested in bracing right now for knees or ankles I don't like to use a lot of extra things Ankles have not been problematic of late +fatigue +word finding difficulties +brain fog Everything feels good in the morning and about longterm through the day feels worse Left hip labrum tore when she was with first child in 2019, and then tore worse with second Difficult for her to function physically because of the hip pain from this Saw someone in ortho but they said she didn't qualify for the surgery and then she also had two toddlers and couldn't deal with the recovery time Thinks her pain is mostly muscles I think the muscles are over-compensating trying to hold everything together [facility] [place] Department of Rheumatic and Immunologic Diseases This consult was requested by the doctor listed below for an opinion regarding the chief complaint listed below, and my final recommendations will be communicated to the requesting health care provider by way of the shared medical record for internal providers or letter via the U.S. Postal Service for external providers. Referring Physician: No referring provider defined for this encounter. 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 Normal [facility] Vicente 05-26-2024 CNPN Telephone (RHEUMN) GIOVANNA DAY ([id number]) 1990 F Date Time Provider Department 05/26/24 SHAKA MOCK During your visit today, we recorded the following information about you: Jon Bowers Ma 05/26/2024 10:03 AM Signed Received office note from Dr Vasquez. New EDS patient scheduled for 05/28 Scan on 05/26/2024 9:42 AM by Provider, SHIRA Gabriel: Miscellaneous Clinical Documents Allergies As of Date: 05/26/2024 (No Known Allergies) Date Reviewed: 08/21/2023 Reviewed by: Naima Early LPN - Fully Assessed Reason for Visit: Received Outside Medical Records [3576] Prescriptions as of 05/26/2024 - magnesium oxide 400 mg magnesium cap Take by mouth. - calcium carbonate (CALCIUM 500 ORAL) Take by mouth once daily. - vitamin B complex (B COMPLEX ORAL) Take by mouth once daily. - WellBetX PGX Ultra Matrix (Natural Factors) diabetes/blood sugar/weight management Take 2 capsules with 8 ounces of water 5-10 minutes before meals. Problem List As Of Date 05/26/2024 Noted Resolved Mold exposure [Z77.120] 02/16/2023 Connective tissue disorder (HCC) [M35.9] 08/21/2023 History of loss, not currently pregna*08/21/2023 Encounter Status:Closed by JON BOWERS MA on 05/26/24 Normal [facility] PAP IG HPV APTIMA 16/18,45on 03-24-2024 ADEQ Comment Normal . [facility] Comment on above: Order Comment: Speci men Comment: [id number] Specimen Comment: Source.............Cervix Specimen Comment: No. of containers..01 ThinPrep Vial Result Comment: Sati sfactory for evaluation. Endocervical and/or squamous metaplastic cells (endocervical component) are present. Performed By: #### L 7400.0280 #### [facility] [address] [place], [address] COMM . Normal . [facility] Comment on above: Order Comment: Speci men Comment: [id number] Specimen Comment: Source.............Cervix Specimen Comment: No. of containers..01 ThinPrep Vial Performed By: #### L 7400.0280 #### [facility] [address] [place], [place], [id number] COMMENT Comment Normal . [facility] Comment on above: Order Comment: Speci men Comment: [id number] Specimen Comment: Source.............Cervix Specimen Comment: No. of containers..01 ThinPrep Vial Result Comment: This liquid based ThinPrep(R) pap test was screened with the use of an image guided system. Performed By: #### L 7400.0280 #### [facility] [address] [place], [address] DIAG Comment Normal . [facility] Comment on above: Order Comment: Speci men Comment: [id number] Specimen Comment: Source.............Cervix Specimen Comment: No. of containers..01 ThinPrep Vial Result Comment: NEGA TIVE FOR INTRAEPITHELIAL LESION OR MALIGNANCY. Performed By: #### L 7400.0280 #### [facility] [address] [place], [address] HPV APTIMA, HR Negative Normal Negative [facility] Comment on above: Order Comment: Speci men Comment: [id number] Specimen Comment: Source.............Cervix Specimen Comment: No. of containers..01 ThinPrep Vial Result Comment: This nucleic acid amplification test detects fourteen high- risk HPV types (16,18,31,33,35,39,45,51,52,56,58,59,66,68) without differentiation. Performed By: #### L 7400.0280 #### [facility] [address] [place], [place], [id number] HPV Ness Rfx Comment Normal . [facility] Comment on above: Order Comment: Speci men Comment: [id number] Specimen Comment: Source.............Cervix Specimen Comment: No. of containers..01 ThinPrep Vial Result Comment: Crit ergraham not met, HPV Genotype not performed. Performed at: - [facility] [id number] Gis Coordinator: Rhina Angeles MD, Phone: [phone] Performed at: = - [facility] [address] [id number] Gis Coordinator: Rhina Angeles MD, Phone: [phone] Performed By: #### L 7400.0280 #### [facility] [address] [place], [place], [id number] PAPSMR Comment Normal . [facility] Comment on above: Order Comment: Speci men Comment: [id number] Specimen Comment: Source.............Cervix Specimen Comment: No. of containers..01 ThinPrep Vial Result Comment: The Pap smear is a screening test designed to aid in the detection of premalignant and malignant conditions of the uterine cervix. It is not a diagnostic procedure and should not be used as the sole means of detecting cervical cancer. Both false-positive and false-negative reports do occur. Performed By: #### L 7400.0280 #### [facility] [address] [place], [place], [id number] PERFORM Comment Normal . [facility] Comment on above: Order Comment: Speci men Comment: [id number] Specimen Comment: Source.............Cervix Specimen Comment: No. of containers..01 ThinPrep Vial Result Comment: Leida Lee Manager Recruitment (ASCP) Performed By: #### L 7400.0280 #### [facility] [address] [place], [place], [address] Scrap Materials Buyer Office Visit Reporton 03-17-2024 Scrap Materials Buyer Office Visit Report [facility] [address], [address] [place] [address] OFFICE VISIT Date of Service: 03/17/24 MR#: [id number] Acct: [id number] Name: GIOVANNA DAY Rep #: [id number] : 1990 Provider: Dr. 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) Community Outreach Manager Required: No Is patient in pain?: No Medications ???Medication ???Instructions ???Recorded ???Confirmed ???Type NK 03/17/24 03/17/24 History Is last menstrual period known: Yes Last Menstrual Period: 03/02/24 Post menopausal: No Patient : No : No [facility] Medical History History of back problems Hives Gastrointestinal problem Hx of migraine headaches Connective tissue disease Surgical History (Updated 03/17/24 @ 11:42 by Susan Francois) S/P D C (status post dilation and curettage) Family History Grandfather Alcoholism Cancer skin cancer Grandmother Alcoholism Sister Anemia Mother Cancer, Onset Age: 40 cervical cancer Hypertension Brother Seizures Social History number of children: 2 current occupational status: unemployed current occupation: [employer] Smoking Status: Never smoker alcohol intake: never substance use type: does not use what type of physical activity do you participate in: walking farhan/christian: Sabianist seatbelt use: always do you feel safe at home: Yes additional social history: - Jonel History Past Pregnancies Del. Date Name GA/Weeks Outcome Route Bth Weight Infant Gen Labor Lgth Anesthesia Del Locatn Provider FOB Unknown 2019 Chrisi Home Unknown 2020 Sintia [facility] Home 07/03/23 boy Brad spontaneous HPI Encounter for routine gynecological examination Details: GIOVANNA DAY is a 34 year old who presents for annual exam. wants to establish care, saw M and wanting to conceive. Last PAP: has never had a PAP History of abnormal PAP: Last mammogram: not due Other preventative health care screenings: [facility]EN[facility] Cleaning at [facility] Female Reproductive History Last Menstrual Period: 03/02/24 Cycle Length: 21-35 Bleeding Duration: 5 Questions: metorrhagia: No, sexually active: Yes, dyspareunia: No and PCB: No Menopausal Symptoms: No hot flashes, No night sweats, No weight change, No mood changes, No difficulty concentrating, No sleep problems and No change in libido ROS Const Constitutional: Reports as per HPI; Denies fatigue, increased appetite, poor appetite, night sweats, weight gain or weight loss Cardio Card: Denies chest pain Resp Resp: Denies cough or dyspnea GI GI: Reports as per HPI; Denies abdominal pain, bloating, constipation, nausea or vomiting : Reports as per HPI and other; Denies difficulty voiding, dysuria, hematuria, hot flashes, nipple discharge, pelvic pain, prolapse symptoms, urinary frequency, urinary incontinence, urinary urgency, vaginal discharge, vaginal dryness, vaginal odor or vaginal pruritus Skin Skin/Breast: Denies changing lesions, breast mass, breast pain, breast skin changes or nipple discharge Psych Psych: Denies anxiety, change in libido, depression or difficulty concentrating Exam Const General: cooperative, healthy appearing, comfortable, no acute distress, well developed and well groomed [facility] Head: normal to inspection and normocephalic Ears: hearing grossly normal bilaterally and external ears normal Nose: external nose normal Face and sinus: normal facial exam Neck Neck: normal visual inspection, full ROM and no lymphadenopathy Thyroid: thyroid normal Chest Chest palpation inspection: normal inspection of the chest Breast inspection: normal inspection of the breasts and normal inspection of the axillae Breast palpation: normal palpation of the breasts, normal palpation of the axillae and no axillary lymphadenopathy Resp Effort Inspection: normal respiratory effort GI Inspection: normal to inspection and non-distended Palpation: soft, no hepatosplenomegaly and no guarding General: bladder normal to palpation External Female Exam: normal external appearance, normal appearance of the urethra and no lesions Urethra: normal appearance of the urethra and normal palpation Speculum Exam - Vagina: normal appearance of the vagina and normal vaginal discharge Speculum Exam - Cervix: normal appearance of the cervix, no cervical discharge, no lesions and nontender Bimanual Exam- Vagina Uterus: normal bimanual exam, uterine s (more content not included)... Normal [facility] Echo Completeon 11-26-2023 Echo Complete [facility] [place] [place] [address] Echo Complete 11/26/23 0908 MR#: [id number] Acct: [id number] Name: GIOVANNA DAY Rep #: [id number] : 1990 33 From: Desirae Barnes MD Attending Dr: Erick Cleaning CHUCKING MACHINE SET UP OPERATOR TOOL-C Status: REG CLI Ordering Dr: Erick Cleaning NP CHUCKING MACHINE SET UP OPERATOR TOOL-C Date: 11/26/23 Location: CVS Sex: F C Admitted: Reason For Study: CHEYENNE DANLOS Procedure This was a 2D Doppler, Color Flow transthoracic echocardiogram. Exam performed in department. Left Ventricle Normal size and thickness. The left ventricular ejection fraction is 60 %. Normal diastololic function. Right Ventricle Normal right ventricle. Atria The left and right atria are normal. Mitral Valve Trivial mitral valve insufficiency. Tricuspid Valve Normal tricuspid valve. Aortic Valve Trisinus/trileaflet aortic valve. Pulmonic Valve The pulmonic valve is not well visualized. Trivial pulmonic valve insufficiency. Great Vessels Normal sized aortic root. Pericardium/Pleural No pericardial effusion. MMode/2D Measurements Calculations LVIDd: 5.1 cm IVSd: 0.65 cm LVOT diam: 1.9 cm LVIDs: 2.8 cm LVPWd: 0.94 cm LVOT area: 2.7 cm2 RVDd: 2.4 cm FS: 45.2 % Ao root diam: 2.7 cm LAV(MOD-bp): 33.8 ml LVAd ap4: 25.6 cm2 LAV(MOD-bp) Indexed: 16.5 ml/m2 LVLd ap4: 7.9 cm LAV(MOD-sp2): 22.0 ml EDV(MOD-sp4): 69.4 ml LAV(MOD-sp4): 39.6 ml EDV(sp4-el): 69.9 ml LVAs ap4: 15.1 cm2 LVLs ap4: 6.4 cm ESV(MOD-sp4): 31.3 ml ESV(sp4-el): 30.5 ml EF(MOD-sp4): 54.9 % EF(sp4-el): 56.4 % SV(MOD-sp4): 38.1 ml SV(sp4-el): 39.4 ml LA A4 area: 17.2 cm2 LA dimension(2D): 3.6 cm RA A4 area: 15.1 cm2 TAPSE: 2.8 cm Time Measurements MV dec time: 0.11 sec Doppler Measurements Calculations MV E max nilda: 79.2 cm/sec Lat Peak E' Nilda: 18.5 cm/sec Med Peak E' Nilda: 11.3 cm/sec MV A max nilda: 55.7 cm/sec E/E' lat: 4.3 E/E' med: 7.0 MV E/A: 1.4 MV V2 max: 91.0 cm/sec Ao V2 max: 122.9 cm/sec MV max P.3 mmHg MV dec slope: 708.4 cm/sec2 Ao max P.0 mmHg MV V2 mean: 65.8 cm/sec Ao V2 mean: 87.3 cm/sec MV mean P.8 mmHg Ao mean P.4 mmHg MV V2 VTI: 23.5 cm Ao V2 VTI: 27.7 cm AV (velocity ratio): 0.90 MVA(VTI): 2.9 cm2 JOHANA(I,D): 2.4 cm2 JOHANA(V,D): 2.5 cm2 LV V1 max: 114.8 cm/sec SV(LVOT): 67.2 ml PA V2 max: 112.0 cm/sec LV V1 max P.3 mmHg PA V2 mean: 79.3 cm/sec LV V1 mean P.3 mmHg LV V1 mean: 87.4 cm/sec LV V1 VTI: 25.0 cm ECHO/Echo Complete Interpretation Summary The left ventricular ejection fraction is 60 %. Ordering Physician: Erick Cleaning Referring Physician: Erick Cleaning Performed By: Deana Liu RCS 11/26/23 1114 Date Desirae Barnes MD CC: CHUCKING MACHINE SET UP OPERATOR TOOL-Maggie Cleaning Date Dictated: 11/26/23907 Date Transcribed: 11/26/23 1114 Clinical Data Programmer: Signed Normal [facility] ALLERGEN FOOD ADULT/CHILD [C CL]on 11-08-2023 Clam <0.35 Normal <0.35 [facility] Comment on above: Performed By: #### 2 46405 #### [facility],[address] [place] [address] Clam-Class Class 0 Normal Class 0 [facility] Comment on above: Performed By: #### 2 36440 #### [facility],[address] [place] [address] Codfish <0.35 Normal <0.35 [facility] Comment on above: Performed By: #### 2 92067 #### [facility],[address] [place] [address] Codfish-Class Class 0 Normal Class 0 [facility] Comment on above: Performed By: #### 2 90900 #### [facility],[address] [place] [address] Delmont Class Class 0 Normal Class 0 [facility] Comment on above: Performed By: #### 2 52270 #### [facility],[address] [place], [place] [id number] Delmont IgE <0.35 Normal <0.35 [facility] Comment on above: Performed By: #### 2 13215 #### [facility],[address] [place], [place] [id number] Egg White Class Class 0 Normal Class 0 [facility] Comment on above: Result Comment: [address] [address] Devang Pitts III, M.D. [id number] Performed By: #### 2 32270 #### [facility],[address] [place] [address] Egg White IgE <0.35 Normal <0.35 [facility] Comment on above: Performed By: #### 2 36316 #### [facility],[address] [place] [address] Milk, Cow Class Class 0 Normal Class 0 [facility] Comment on above: Performed By: #### 2 36905 #### [facility],[address] [place] [address] Milk, Cow IgE <0.35 Normal <0.35 [facility] Comment on above: Performed By: #### 2 39822 #### [facility],[address] [place] [address] Peanut Class Class 0 Normal Class 0 [facility] Comment on above: Performed By: #### 2 91651 #### [facility],[address] [place] [address] Peanut IgE <0.35 Normal <0.35 [facility] Comment on above: Performed By: #### 2 47986 #### [facility],[address] [place] [address] Scallop <0.35 Normal <0.35 [facility] Comment on above: Performed By: #### 2 72672 #### [facility],[address] [place] [address] Scallop-Class Class 0 Normal Class 0 [facility] Comment on above: Performed By: #### 2 17148 #### [facility],[address] [place] [address] Shrimp Class Class 0 Normal Class 0 [facility] Comment on above: Performed By: #### 2 63118 #### [facility],[address] [place] [address] Shrimp IgE <0.35 Normal <0.35 [facility] Comment on above: Performed By: #### 2 31929 #### [facility],[address] [place], [place] [id number] Soybean Class Class 0 Normal Class 0 [facility] Comment on above: Performed By: #### 2 13817 #### [facility],[address] [place] [address] Soybean IgE <0.35 Normal <0.35 [facility] Comment on above: Performed By: #### 2 60977 #### [facility],[address] [place] [address] Rocky, IgE <0.35 Normal <0.35 [facility] Comment on above: Performed By: #### 2 52104 #### [facility],[address] [place] [address] Rocky-Class Class 0 Normal Class 0 [facility] Comment on above: Performed By: #### 2 36624 #### [facility],[address] [place] [address] Wheat Class Class 0 Normal Class 0 [facility] Comment on above: Performed By: #### 2 76105 #### [facility],[address] [place] [address] Wheat IgE <0.35 Normal <0.35 [facility] Comment on above: Performed By: #### 2 77571 #### [facility],[address] [place] [address] HIGH SENSITIVITY CRP [CCL]on 11-08-2023 UltraSens C-ReacProt 3.8 mg/L High <3.1 [facility] Comment on above: Result Comment: hsCR P < 1.0 mg/L, relative risk is low hsCRP 1.0-3.0 mg/L, relative risk is average hsCRP > 3.0 mg/L, relative risk is high Reference: Susu TA, Fely GA, Hao RW, et al. Markers of Inflammation and Cardiovascular Disease. Application to Clinical and Public Health Practice. A Statement for Healthcare Professionals from the Centers for Disease Control and Prevention and the [place] [employer]. Circulation 2003;107:499-511. [facility] [place] [id number] Devang Pitts III, M.D. [id number] Performed By: #### 2 85833 #### [facility],[address] [place] [address] INSULIN [CCL]on 11-08-2023 Insulin 4.9 mU/L Normal 3.0-25.0 [facility] Comment on above: Result Comment: [facility] [address] [place] [address] Devang Pitts III, M.D. [id number] Performed By: #### 2 96784 #### [facility],[address] [place] [address] ALGN FOOD ADULT/CHILDon Clam IgE Qn (S) <0.35 Normal <0.35 [facility] Comment on above: Order Comment: Speci men Type: BLOOD SPECIMEN Ordering Facility: [facility] Address: [address] [place], [place] [address] Performed By: #### Susanna FIGUEROA, 22866-9, #### [facility] CLIA [id number] [address] [place] [address] [place] Clam IgE RAST class (S) Class 0 Normal Class 0 [facility] Comment on above: Order Comment: Speci men Type: BLOOD SPECIMEN Ordering Facility: [facility] Address: [address] [place], [place] [address] Performed By: #### F [place], 88473-5, #### [facility] CLIA [id number] [address] [place] [address] [place] Codfish IgE Qn (S) <0.35 Normal <0.35 [facility] Comment on above: Order Comment: Speci men Type: BLOOD SPECIMEN Ordering Facility: [facility] Address: [address] [place] [address] Performed By: #### F CAROLINA, , #### [facility] CLIA [id number] [address] [place] [address] [place] Codfish IgE RAST class (S) Class 0 Normal Class 0 [facility] Comment on above: Order Comment: Speci men Type: BLOOD SPECIMEN Ordering Facility: [facility] Address: [address] [place] [address] Performed By: #### Susanna FIGUEROA, , #### [facility] CLIA [id number] [address] [place] [address] [place] Delmont IgE Qn (S) <0.35 Normal <0.35 [facility] Comment on above: Order Comment: Speci men Type: BLOOD SPECIMEN Ordering Facility: [facility] Address: [address] [place] [address] Performed By: #### Susanna FIGUEROA, , #### [facility] CLIA [id number] [address] [place] [address] [place] Delmont IgE RAST class (S) Class 0 Normal Class 0 [facility] Comment on above: Order Comment: Speci men Type: BLOOD SPECIMEN Ordering Facility: [facility] Address: [address] [place] [address] Performed By: #### Susanna FIGUEROA, , #### [facility] CLIA [id number] [address] [place] [id number] [place] Cow milk IgE Qn (S) <0.35 Normal <0.35 [facility] Comment on above: Order Comment: Speci men Type: BLOOD SPECIMEN Ordering Facility: [facility] Address: [address] [place] [address] Performed By: #### Susanna FIGUEROA, , #### [facility] CLIA [id number] [address] [place] [address] [place] Cow milk IgE RAST class (S) Class 0 Normal Class 0 [facility] Comment on above: Order Comment: Speci men Type: BLOOD SPECIMEN Ordering Facility: [facility] Address: [address] [place] [address] Performed By: #### F CAROL[place], 72380-9, #### [facility] CLIA [id number] [address] [place] [address] [place] Egg white IgE Qn (S) <0.35 Normal <0.[address] [facility] Comment on above: Order Comment: Speci men Type: BLOOD SPECIMEN Ordering Facility: [facility] Address: [address] [place] [address] Performed By: #### F CAROL[place], 37848-1, #### [facility] CLIA [id number] [address] [place] [address] [place] Egg white IgE RAST class (S) Class 0 Normal Class 0 [facility] Comment on above: Order Comment: Speci men Type: BLOOD SPECIMEN Ordering Facility: [facility] Address: [address] [place] [address] Performed By: #### F CAROLINA, , #### [facility] CLIA [id number] [address] [place] [address] [place] Peanut IgE Qn (S) <0.35 Normal <0.35 [facility] Comment on above: Order Comment: Speci men Type: BLOOD SPECIMEN Ordering Facility: [facility] Address: [address] [place] [address] Performed By: #### F [place], , #### [facility] CLIA [id number] [address] [id number] [place] Peanut IgE RAST class (S) Class 0 Normal Class 0 [facility] Comment on above: Order Comment: Speci men Type: BLOOD SPECIMEN Ordering Facility: [facility] Address: [address] [place] [address] Performed By: #### Susanna FIGUEROA, , #### [facility] CLIA [id number] [address] [place] [address] [place] Scallop IgE Qn (S) <0.35 Normal <0.35 [facility] Comment on above: Order Comment: Speci men Type: BLOOD SPECIMEN Ordering Facility: [facility] Address: [address] [place] [address] Performed By: #### Susanna FIGUEROA, , #### [facility] CLIA [id number] [address] [place] [address] [place] Scallop IgE RAST class (S) Class 0 Normal Class 0 [facility] Comment on above: Order Comment: Speci men Type: BLOOD SPECIMEN Ordering Facility: [facility] Address: [address] [place] [address] Performed By: #### Susanna FIGUEROA, , #### [facility] CLIA [id number] [address] [place] [address] [place] Shrimp IgE Qn (S) <0.35 Normal <0.35 [facility] Comment on above: Order Comment: Speci men Type: BLOOD SPECIMEN Ordering Facility: [facility] Address: [address] [place] [address] Performed By: #### Susanna FIGUEROA, , #### [facility] CLIA [id number] [address] [place] [address] [place] Shrimp IgE RAST class (S) Class 0 Normal Class 0 [facility] Comment on above: Order Comment: Speci men Type: BLOOD SPECIMEN Ordering Facility: [facility] Address: [address] [place] [address] Performed By: #### F [place], , #### [facility] CLIA [id number] [address] [place] [address] [place] Soybean IgE Qn (S) <0.35 Normal <0.35 [facility] Comment on above: Order Comment: Speci men Type: BLOOD SPECIMEN Ordering Facility: [facility] Address: [address] [place] [address] Performed By: #### Susanna FIGUEROA, , #### [facility] CLIA [id number] [address] [place] [address] [place] Soybean IgE RAST class (S) Class 0 Normal Class 0 [facility] Comment on above: Order Comment: Speci men Type: BLOOD SPECIMEN Ordering Facility: [facility] Address: [address] [place], [place] [address] Performed By: #### Susanna FIGUEROA, , #### [facility] CLIA [id number] [address] [place] [address] [place] Rocky IgE Qn (S) <0.35 Normal <0.35 [facility] Comment on above: Order Comment: Speci men Type: BLOOD SPECIMEN Ordering Facility: [facility] Address: [address] [place], [place] [address] Performed By: #### Susanna FIGUEROA, , #### [facility] CLIA [id number] [address] [place] [address] [place] Rocky IgE RAST class (S) Class 0 Normal Class 0 [facility] Comment on above: Order Comment: Speci men Type: BLOOD SPECIMEN Ordering Facility: [facility] Address: [address] [place], [place] [address] Performed By: #### Susanna FIGUEROA, , #### [facility] CLIA [id number] [address] [place] [address] [place] Wheat IgE Qn (S) <0.35 Normal <0.35 [facility] Comment on above: Order Comment: Speci men Type: BLOOD SPECIMEN Ordering Facility: [facility] Address: [address] [place] [address] Performed By: #### F [place], 78584-1, 32685-2 #### [facility] CLIA [id number] [address] [place] [address] [place] Wheat IgE RAST class (S) Class 0 Normal Class 0 [facility] Comment on above: Order Comment: Speci men Type: BLOOD SPECIMEN Ordering Facility: [facility] Address: [address] [place] [address] Performed By: #### F [place], 00691-1, #### [facility] CLIA [id number] [address] [place] [address] OF [facility] CBC + DIFFon 11-05-2023 Baso # 0.03 x10EE3/UL Normal 0.00 - 0.10 [facility] Comment on above: Performed By: #### 2 46629 #### [facility],[address] [place] [address] Basophils/100 WBC (Bld) 0.3 % Normal 0.0 - 2.0 [facility] Comment on above: Performed By: #### 2 32864 #### [facility],[address] [place] [address] CBC + DIFF Normal [facility] Comment on above: Result Comment: CBC- COMPLETE BLOOD COUNT Performed By: #### 2 57939 #### [facility],[address] [place] [address] 15766 EO # 0.39 x10EE3/UL Normal 0.00 - 0.50 [facility] Comment on above: Performed By: #### 2 80025 #### [place] [address],[place] [address] Eosinophils/100 WBC (Bld) 4.6 % Normal 0.0 - 7.0 [facility] Comment on above: Performed By: #### 2 22231 #### [facility],[address] [place] [address] Erythrocyte distribution width (RBC) [Ratio] 13.7 % Normal 12.0 - 15.6 [facility] Comment on above: Performed By: #### 2 64773 #### [facility],[address] [place] [address] Hematocrit (Bld) [Volume fraction] 46.7 % High 34.0 - 46.0 [facility] Comment on above: Performed By: #### 2 95818 #### [facility],[address] [place] [address] Hemoglobin (Bld) [Mass/Vol] 16.0 g/dL Normal 12.0 - 16.0 [facility] Comment on above: Performed By: #### 2 04288 #### [facility],[address] [place] [address] Lymph # 2.14 x10EE3/UL Normal 0.80 - 2.80 [facility] Comment on above: Performed By: #### 2 13906 #### [facility],[address] [place], [place] [address] Lymphocytes/100 WBC (Bld) 24.9 % Normal 20.0 - 45.0 [facility] Comment on above: Performed By: #### 2 06968 #### [facility],[address] [place] [address] MANUAL DIFF N/A Normal [facility] Comment on above: Performed By: #### 2 13378 #### [facility],[address] [place], [place] [address] MCH (RBC) [Entitic mass] 31 pg Normal 27 - 33 [facility] Comment on above: Performed By: #### 2 54397 #### [facility],[address] [place] [address] MCHC 34 X10 3 Normal 32 - 36 [facility] Comment on above: Performed By: #### 2 11389 #### [facility],[address] [place], [place] [address] MCV (RBC) [Entitic vol] 89 fL Normal 80 - 99 [facility] Comment on above: Performed By: #### 2 36271 #### [facility],[address] [place] [address] [place] # 0.43 x10EE3/UL Normal 0.20 - 1.00 [facility] Comment on above: Performed By: #### 2 96177 #### [facility],[address] [place] [address] MONOS % 5.0 % Normal 0.0 - 10.0 [facility] Comment on above: Performed By: #### 2 93384 #### [facility],[address] [place], [place] [address] Morphology Tin (Bld) [Interp] N/A Normal [facility] Comment on above: Performed By: #### 2 07089 #### [facility],[address] [place] [address] Neut # 5.61 x10EE3/UL Normal 1.50 - 7.10 [facility] Comment on above: Performed By: #### 2 13520 #### [facility],[address] [place], [place] [address] Neutrophils/100 WBC (Bld) 65.2 % Normal 46.0 - 76.0 [facility] Comment on above: Performed By: #### 2 33780 #### [facility],[address] [place] [address] PLATELET 281 x10EE3/UL Normal 150 - 450 [facility] Comment on above: Performed By: #### 2 31377 #### [facility],[address] [place] [address] Platelet mean volume (Bld) [Entitic vol] 8.4 fL Normal 6.6 - 10.5 [facility] Comment on above: Result Comment: AUTO MATED DIFFERENTIAL Performed By: #### 2 27630 #### [facility],[address] [place] [address]144 RBC 5.25 x 10EE6/UL Normal 4.10 - 5.30 [facility] Comment on above: Performed By: #### 2 67759 #### [facility],[address] [place] [address]39[address] WBC 8.6 x 10EE3/UL Normal 4.5 - 10.8 [facility] Comment on above: Performed By: #### 2 79967 #### [facility],[address] [place] [address] CMP with eGFRon 11-05-2023 AGE 33 years Normal [facility] Comment on above: Performed By: #### 2 48413 #### [facility],[address] [place] [address] 59198 Albumin [Mass/Vol] 3.8 g/dL Normal 3.4 - 5.0 [facility] Comment on above: Performed By: #### 2 85559 #### [facility],[address] [place] [address] 6[address]99 Albumin/Globulin [Mass ratio] 1.5 {ratio} Normal 0.9 - 1.6 [facility] Comment on above: Performed By: #### 2 19222 #### [facility],[address] [place] [address]204 ALK PHOS 50 U/L Normal 46 - 116 [facility] Comment on above: Performed By: #### 2 70857 #### [facility],[address] [place] [address] 91161 ALT [Catalytic activity/Vol] 24 U/L Normal 16 - 63 [facility] Comment on above: Performed By: #### 2 81530 #### [facility],[address] [place] [address]39 Anion gap [Moles/Vol] 13 mmol/L Normal 10 - 20 [facility] Comment on above: Performed By: #### 2 01145 #### [facility],[address] [place] [address] 92458 AST [Catalytic activity/Vol] 16 U/L Normal 13 - 39 [facility] Comment on above: Performed By: #### 2 50531 #### [facility],[address] [place] [address] 07749 B/C RATIO 15 ratio Normal 0 - 30 [facility] Comment on above: Performed By: #### 2 46912 #### [facility],[address] [place] [address]8817 Bilirubin [Mass/Vol] 1.8 mg/dL High 0.2 - 1.0 [facility] Comment on above: Performed By: #### 2 78295 #### [facility],[address] [place] [address]4494 Calcium [Mass/Vol] 9.1 mg/dL Normal 8.5 - 10.1 [facility] Comment on above: Performed By: #### 2 40234 #### [facility],[address] [place] [address] 57591 Chloride [Moles/Vol] 104 mmol/L Normal 98 - 107 [facility] Comment on above: Performed By: #### 2 19616 #### [facility],[address] [place] [address] 24141 CMP with eGFR Normal [facility] Comment on above: Result Comment: COMP REHENSIVE METABOLIC PANEL Performed By: #### 2 35534 #### [facility],[address] [place] [address] 38182 CO2 [Moles/Vol] 27.7 mmol/L Normal 21.0 - 32.0 [facility] Comment on above: Performed By: #### 2 49773 #### [facility],[address] [place] [address] 23601 Creatinine [Mass/Vol] 0.71 mg/dL Normal 0.55 - 1.02 [facility] Comment on above: Performed By: #### 2 96508 #### [facility],[address] [place] [address] 85626 GFR/1.73 sq M.predicted among non-blacks MDRD (S/P/Bld) [Vol rate/Area] mL/min/{1.73_m2} Normal 60 - 999 [facility] Comment on above: Performed By: #### 2 97166 #### [facility],[address] [place] [address] Result Comment: ACCO RDING TO THE NATIONAL KIDNEY DISEASE EDUCATION PROGRAM(NKDE), A NORMAL eGFR IS A VALUE GREATER THAN OR EQUAL TO 60 ML/MIN/1.73 SQ METERS. CHRONIC KIDNEY DISEASE: <60mL/MIN/1.73 SQ METERS KIDNEY FAILURE: <15mL/MIN/1.73 SQ METERS THIS TEST SHOULD ONLY BE USED FOR PATIENTS 18 YEARS OF AGE AND OLDER. Globulin (S) [Mass/Vol] 2.6 g/dL Normal 1.5 - 3.8 [facility] Comment on above: Performed By: #### 2 78311 #### [facility],[address] [place] [address]4635 Glucose [Mass/Vol] 92 mg/dL Normal 74 - 106 [facility] Comment on above: Performed By: #### 2 39025 #### [facility],[address] [place] [address] 07826 Potassium [Moles/Vol] 4.4 mmol/L Normal 3.5 - 5.1 [facility] Comment on above: Performed By: #### 2 54809 #### [facility],[address] [place] [address] 66496 Protein [Mass/Vol] 6.4 g/dL Normal 6.4 - 8.2 [facility] Comment on above: Performed By: #### 2 97708 #### [facility],[address] [place] [address] Sodium [Moles/Vol] 140 mmol/L Normal 136 - 145 [facility] Comment on above: Performed By: #### 2 18338 #### [facility],[address] [place] [address] Urea nitrogen [Mass/Vol] 11 mg/dL Normal 7 - 18 [facility] Comment on above: Performed By: #### 2 07638 #### [facility],[address] [place], [place] [address] CRP SerPl HS-mCncon 11-05-19 24 CRP High sensitivity method [Mass/Vol] 3.8 mg/L High <3.1 [facility] Comment on above: Order Comment: Speci men Type: BLOOD SPECIMEN Ordering Facility: [facility] Address: [address] [place] [address] Result Comment: hsCR P < 1.0 mg/L, relative risk is low hsCRP 1.0-3.0 mg/L, relative risk is average hsCRP > 3.0 mg/L, relative risk is high Reference: uSsu TA, Fely GA, Hao RW, et al. Markers of Inflammation and Cardiovascular Disease. Application to Clinical and Public Health Practice. A Statement for Healthcare Professionals from the Centers for Disease Control and Prevention and the [place] [employer]. Circulation 2003;107:499-511. Performed By: #### F [place], 13352-3, 68334-6 #### [facility] CLIA [id number] [address] [place] [address] [place] HEMOGLOBIN A1C (POM)on 11-04 Glucose [Mass/Vol] 91.1 mg/dL High 0.0 - 0.0 [facility] Comment on above: Result Comment: BLDo HEMOGLOBIN A1C REFERENCE RANGESBLDo Suggested Diagnosis HbA1c(%) HbA1C (mmol/mol Diabetic >/=6.5 >/=48 Prediabetes 5.7 - 6.4 39 - 47 Normal <5.7 <39 Performed By: #### 2 40731 #### [facility],[address] [place] [address] 64867 HbA1c (Bld) [Mass fraction] 4.8 % Normal 0.0 - 6.5 [facility] Comment on above: Performed By: #### 2 71951 #### [facility],[address] [place], [place] [address] Insulin SerPl-aCncon 024 Insulin Qn 4.9 u[IU]/mL Normal 3.0-25.0 [facility] Comment on above: Order Comment: Speci men Type: BLOOD SPECIMEN Ordering Facility: [facility] Address: [address] [place] [address] Performed By: #### F [place], 76951-4, 81026-1 #### [facility] CLIA [id number] [address] [place] [address] [place] LIPID PROFILEon 11-05-2023 Cholesterol [Mass/Vol] 193 mg/dL Normal 0 - 240 [facility] Comment on above: Performed By: #### 2 72793 #### [facility],[address] [place] [address] 10414 Cholesterol in HDL [Mass/Vol] 81 mg/dL High 40 - 60 [facility] Comment on above: Performed By: #### 2 47953 #### [facility],[address] [place] [address] 88352 Cholesterol in LDL [Mass/Vol] 102 mg/dL Normal 0 - 129 [facility] Comment on above: Performed By: #### 2 71746 #### [facility],[address] [place] [address] 56870 Cholesterol.total/Chol esterol in HDL [Mass ratio] 2.4 {ratio} Normal 0.0 - 5.0 [facility] Comment on above: Performed By: #### 2 10808 #### [facility],[address] [place] [address] 15688 Lipid 1996 panel Normal [facility] Comment on above: Result Comment: LIPI D PROFILE Performed By: #### 2 58451 #### [facility],[address] [place] [address]356 Triglyceride [Mass/Vol] 49 mg/dL Normal 0 - 150 [facility] Comment on above: Performed By: #### 2 41956 #### [facility],[address] [place] [address] 81537 URIC ACIDon 11-05-2023 Urate [Mass/Vol] 3.8 mg/dL Normal 2.6 - 6.0 [facility] Comment on above: Performed By: #### 2 66352 #### [facility],[address] [place], [place] [address] [facility] GIOVANNA DAY ([id number]) 1990 F Date Time Provider Department 09/27/23 JESSIE HARMAN During your visit today, we recorded the following information about you: Yissel Knowles RN 09/27/2023 11:28 AM Signed Received fax form from [facility]. Needs signature from Dr. Harman. Fax paperwork placed on Dr. Armen swann for signature. Vicky Moore, NOHEMY 09/27/2023 2:11 PM Signed Faxed Vicky Moore RN Allergies As of Date: 09/27/2023 (No Known Allergies) Date Reviewed: 08/21/2023 Reviewed by: Naima Early LPN - Fully Assessed Reason for Visit: Orders [681] Prescriptions as of 09/27/2023 - magnesium oxide 400 mg magnesium cap Take by mouth. - calcium carbonate (CALCIUM 500 ORAL) Take by mouth once daily. - vitamin B complex (B COMPLEX ORAL) Take by mouth once daily. - WellBetX PGX Ultra Matrix (Natural Factors) diabetes/blood sugar/weight management Take 2 capsules with 8 ounces of water 5-10 minutes before meals. Problem List As Of Date 09/27/2023 Noted Resolved Mold exposure [Z77.120] 02/16/2023 Connective tissue disorder (HCC) [M35.9] 08/21/2023 History of loss, not currently pregna*08/21/2023 Encounter Status:Closed by VICKY MOORE on 09/27/23 [facility] 09-17-2023 CNPN Telephone (OBGYWM) GIOVANNA DAY ([id number]) 1990 F Date Time Provider Department 09/17/23 JESISE HARMANWDaniel During your visit today, we recorded the following information about you: Yissel Knowles RN 09/17/2023 8:39 AM Signed Patient calling to ask for pelvic floor therapy order. Patient states she sees Truly Norris PT from [facility]. Pt has connective tissue disorder. States she wants this therapy for pelvic floor issues. Pt aware Dr Harman out of office until Sunday Pt would like faxed to [facility]. And would like a call to let her know it was completed. 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 Please inform patient. MD Jessica Westbrook Lindsey, NOHEMY 09/18/2023 2:07 PM Signed Patient notified and voiced understanding. Patient still wishes to have order faxed to [facility]. Order faxed. Beatris Ladd RN Allergies As of Date: 09/17/2023 (No Known Allergies) Date Reviewed: 08/21/2023 Reviewed by: Naima Early LPN - Fully Assessed Reason for Visit: Orders [681] Primary Visit Diagnosis:Pelvic floor tension [M62.89] Order(s):CONSULT TO PHYSICAL THERAPY [9032] Order #: [id number]: 1 FUTURE Prescriptions as of 09/18/2023 - magnesium oxide 400 mg magnesium cap Take by mouth. - calcium carbonate (CALCIUM 500 ORAL) Take by mouth once daily. - vitamin B complex (B COMPLEX ORAL) Take by mouth once daily. - WellBetX PGX Ultra Matrix (Natural Factors) diabetes/blood sugar/weight management Take 2 capsules with 8 ounces of water 5-10 minutes before meals. Problem List As Of Date 09/17/2023 Noted Resolved Mold exposure [Z77.120] 02/16/2023 Connective tissue disorder (HCC) [M35.9] 08/21/2023 History of loss, not currently pregna*08/21/2023 Encounter Status:Closed by BEATRIS LADD on 09/18/23 Normal [facility] CBC W Auto Differential pane l (Bld)on 07-10-2023 Basophils (Bld) [#/Vol] <0.11 k/uL [facility] Basophils/100 WBC (Bld) 0.3 % [facility] Differential cell count method Nom (Bld) Auto [facility] Eosinophils (Bld) [#/Vol] 0.23 10*3/uL <0.46 k/uL [facility] Eosinophils/100 WBC (Bld) 3.0 % [facility] Erythrocyte distribution width (RBC) [Ratio] 13.2 % 11.5 - 15.0 % [facility] Hematocrit (Bld) [Volume fraction] 33.1 % Low 36.0 - 46.0 % [facility] Hemoglobin (Bld) [Mass/Vol] 11.4 g/dL Low 11.5 - 15.5 g/dL [facility] Immature granulocytes (Bld) [#/Vol] 0.04 10*3/uL <0.10 k/uL [facility] Immature granulocytes/100 WBC (Bld) 0.5 % [facility] Lymphocytes (Bld) [#/Vol] 2.15 10*3/uL 1.00 - 4.00 k/uL [facility] Lymphocytes/100 WBC (Bld) 27.7 % [facility] MCH (RBC) [Entitic mass] 31.1 pg 26.0 - 34.0 pg [facility] MCHC (RBC) [Mass/Vol] 34.4 g/dL 30.5 - 36.0 g/dL [facility] MCV (RBC) [Entitic vol] 90.2 fL 80.0 - 100.0 fL [facility] Monocytes (Bld) [#/Vol] 0.40 10*3/uL <0.87 k/uL [facility] Monocytes/100 WBC (Bld) 5.1 % [facility] Neutrophils (Bld) [#/Vol] 4.93 10*3/uL 1.45 - 7.50 k/uL [facility] Neutrophils/100 WBC (Bld) 63.4 % [facility] Nucleated RBC (Bld) [#/Vol] <0.01 k/uL [facility] Nucleated RBC/100 WBC (Bld) [Ratio] 0.0 /100 WBC [facility] Platelet mean volume (Bld) [Entitic vol] 9.1 fL 9.0 - 12.7 fL [facility] Platelets (Bld) [#/Vol] 350 10*3/uL 150 - 400 k/uL [facility] RBC (Bld) [#/Vol] 3.67 10*6/uL Low 3.90 - 5.2 0 m/uL [facility] WBC (Bld) [#/Vol] 7.77 10*3/uL 3.70 - 11. 00 k/uL [facility] TSH BLDon 07-10-2023 TSH Qn 0.875 m[IU]/L 0.270 - 4.200 mIU/L [facility] VITAMIN D 25 HYDROXYon 07-09 25-hydroxyvitamin D3 [Mass/Vol] 57.5 ng/mL 31.0 - 80.0 ng/mL [facility] Basic Metabolic Profile (BMP )on 07-03-2023 BUN/CRE 11.5 RATIO Normal 10-20 [facility] Comment on above: Performed By: #### L 500.2500, L100.0500, BTS #### [facility] [address] [place], [address] CA,Total 9.2 mg/dL Normal 8.5-10.1 [facility] Comment on above: Performed By: #### L 500.2500, L100.0500, BTS #### [facility] [address] [place], [address] Chloride [Moles/Vol] 109 mmol/L High 98-107 [facility] Comment on above: Performed By: #### L 500.2500, L100.0500, BTS #### [facility] [address] [place], [address] CO2 [Moles/Vol] 23.0 mmol/L Normal 21.0-32.0 [facility] Comment on above: Performed By: #### L 500.2500, L100.0500, BTS #### [facility] [address] [place], [address] Creatinine [Mass/Vol] 0.61 mg/dL Normal 0.55-1.02 [facility] Comment on above: Result Comment: The validity of the calculated GFR GFRAA in patients over 70 years has not been determined. Clinical correlation is essential. Performed By: #### L 500.2500, L100.0500, BTS #### [facility] [address] [place], [address] EST GFR - AA 143 mL/min Normal >60 [facility] Comment on above: Result Comment: Afri can [place] GFR Calc Performed By: #### L 500.2500, L100.0500, BTS #### [facility] [address] [place], [address] GAP 7 Normal 5-15 [facility] Comment on above: Performed By: #### L 500.2500, L100.0500, BTS #### [facility] [address] [place], [address] GFR/1.73 sq M.predicted among non-blacks MDRD (S/P/Bld) [Vol rate/Area] 118 mL/min/{1.73_m2} Normal >60 [facility] Comment on above: Result Comment: Non- GFR Calc Performed By: #### L 500.2500, L100.0500, BTS #### [facility] [address] [place], [address] Glucose [Mass/Vol] 116 mg/dL High 74-106 [facility] Comment on above: Result Comment: Fast ing Glucose result from 100 to 125 mg/dL suggests IMPAIRED HOMEOSTASIS per A.D.A. criteria. Performed By: #### L 500.2500, L100.0500, BTS #### [facility] [address] [place], [address] Potassium [Moles/Vol] 3.8 mmol/L Normal 3.5-5.1 [facility] Comment on above: Performed By: #### L 500.2500, L100.0500, BTS #### [facility] [address] [place], [address] Sodium [Moles/Vol] 139 mmol/L Normal 136-145 [facility] Comment on above: Performed By: #### L 500.2500, L100.0500, BTS #### [facility] [address] [place], [address] Urea nitrogen [Mass/Vol] 7 mg/dL Normal 7-18 [facility] Comment on above: Performed By: #### L 500.2500, L100.0500, BTS #### [facility] [address] [place], [address] Basophil percentageOrdered B y: Michael Alfaro on 07-03-2023 Chloride [Moles/Vol] 109 mmol/L 98-107 [facility] Glucose [Mass/Vol] 116 mg/dL 74-106 [facility] Comment on above: Fasting Glucose resu lt from 100 to 125 mg/dL suggests IMPAIRED HOMEOSTASIS per A.D.A. criteria. Hemoglobin (Bld) [Mass/Vol] 15.2 g/dL 12.0-15.0 [facility] Potassium [Moles/Vol] 3.8 mmol/L 3.5-5.1 [facility] Sodium [Moles/Vol] 139 mmol/L 136-145 [facility] WBC (Bld) [#/Vol] 13.4 10*3/uL 4.4-11.0 [facility] CBC-Complete Blood Cnt No Di ffon 07-03-2023 Erythrocyte distribution width (RBC) [Ratio] 12.6 % Normal 11.6-14.6 [facility] Comment on above: Performed By: #### L 500.2500, L100.0500, BTS #### [facility] [address] [place], [address] Hematocrit (Bld) [Volume fraction] 42.6 % Normal 37-47 [facility] Comment on above: Performed By: #### L 500.2500, L100.0500, BTS #### [facility] [address] [place], [address] Hemoglobin (Bld) [Mass/Vol] 15.2 g/dL High 12.0-15.0 [facility] Comment on above: Performed By: #### L 500.2500, L100.0500, BTS #### [facility] [address] [place], [address] MCH (RBC) [Entitic mass] 31.8 pg Normal 27.0-32.0 [facility] Comment on above: Performed By: #### L 500.2500, L100.0500, BTS #### [facility] [address] [place], [address] MCHC (RBC) [Mass/Vol] 35.7 g/dL Normal 32-36 [facility] Comment on above: Performed By: #### L 500.2500, L100.0500, BTS #### [facility] [address] [place], [address] MCV (RBC) [Entitic vol] 89.1 fL Normal 81-99 [facility] Comment on above: Performed By: #### L 500.2500, L100.0500, BTS #### [facility] [address] [place], [address] Platelet mean volume (Bld) [Entitic vol] 9.3 fL Normal 6.2-12.0 [facility] Comment on above: Performed By: #### L 500.2500, L100.0500, BTS #### [facility] [address] [place], [address] Platelets (Bld) [#/Vol] 295 10*3/uL Normal 150-450 [facility] Comment on above: Performed By: #### L 500.2500, L100.0500, BTS #### [facility] [address] [place], [address] RBC (Bld) [#/Vol] 4.78 10*6/uL Normal 4.2-5.4 [facility] Comment on above: Performed By: #### L 500.2500, L100.0500, BTS #### [facility] [address] [place], [address] RDW SD 41.4 fl Normal 35.1-43.9 [facility] Comment on above: Performed By: #### L 500.2500, L100.0500, BTS #### [facility] [address] [place], [address] WBC (Bld) [#/Vol] 13.4 10*3/uL High 4.4-11.0 [facility] Comment on above: Performed By: #### L 500.2500, L100.0500, BTS #### [facility] [address] [place], [address] Determination of erythrocyte mean corpuscular volume (MCV)Ordered By: Michael Alfaro on 07-03-2023 MCV (RBC) [Entitic vol] 89.1 fL 81-99 [facility] Discharge Instructionon 04-0 Discharge Instruction [facility] Medical Records Department [address] [place] [address] Instructions for Home/Discharge Instructions 07/03/23 1316 MR#: [id number] Acct: [id number] Name: GIOVANNA DAY Rep #: [id number] : 1990 33 From: Jessie Harman MD PCP: Care Physician,No Primary Status:REG [facility] Discharge Instructions Diet Discharge Diet: No restrictions Activity Discharge Activity: May Shower May resume sexual activity in: 2 weeks Weight Bearing Status: Weight bearing as tolerated Dressing / Incision Call your doctor if you observe: Fever of 101 or Higher, Coldness, Increased Pain, Change in Color, Inability to urinate, Using more than 1 pad per hour, Shortness of breath, Dizziness, Fainting spells, Chest pain, Increased palpitations (irregular heartbeat), Calf discomfort and Uncontrolled pain Follow Up Care Please Follow Up With: Jessie Harman When: 2 weeks Test Results: Test results from this visit will be discussed in further detail at your follow-up appointment, if applicable. Discharge Plan Admission Primary Reason for Your Visit: Incomplete miscarriage Attending Provider: Jessie Harman Primary Care Provider: Care Physician,No Primary Discharge Orders/Prescriptions Prescriptions: No Action ascorbic acid (vitamin C) crystals crystals 100 mg PO DAILY Referrals / Follow Up: Sin Elder MD [Med Staff - [facility] Dipper] - Disposition Disposition (needs filled in before D/C Order can be placed): Home, Self Care 07/03/23 1317 Jessie Harman MD CC: No Primary Care Physician Signed Normal [facility] Emergency Department Summary on 07-03-2023 Emergency Department Summary [facility] Medical Records Department [address] [place] [address] Emergency Department Summary 07/03/23 MR#: [id number] Acct: [id number] Name: GIOVANNA DAY Rep #: [id number] : 1990 33 From: Michael Alfaro MD PCP: Care Physician,No Primary Status:DEP [facility] Location: [facility] HPI HPI - Female History of Present Illness Chief Complaint: Vag Bld, Preg Detail of Chief Complaint: Spontaneous miscarriage 0930 this morning. Presents with significant vagin Pain Pain: Positive for Pelvic Pain and Vaginal Pain Current Severity: Moderate Maximum Severity: Severe Worsened by: - (Speculum exam) Relieved by: - (Nothing) Bleeding Issue: Positive for Vaginal bleeding, Passing clots and Passing tissue Onset: Today (09) Context: Sudden Onset Timing: Continuous Current Severity: Heavy Associated Symptoms Associated Symptoms: Positive for Frequency; Negative for Dysuria, Urgency, Hematuria, Missed Period or Irregular Period Test: Positive Sexually: Positive for Active Control: No control P: 2 Narrative Narrative: Patient is a 33-year-old female. She is seen by a bacteriologist pharmaceutical. She does not have a bacteriologist pharmaceutical. She believes her blood type is a positive. She did not require RhoGAM with prior . She last ate last evening at 2100 per . She was seen by bacteriologist pharmaceutical. Apparently she passed fetus at approximately 0930. She presents because of severe bleeding and pain. Prior similar symptoms: No Recent Illness/Hospitalizatio n: No PFSH PFSH Medical History (Updated 07/03/23 @ 12:[address] Jessie Harman MD) Connective tissue disease Medical History no medical history no medical history Home Medications ascorbic acid (vitamin C) 100 mg PO DAILY 03/07/18 [History Last Taken Unknown] Allergy/AdvReac Type Severity Reaction Status Date / Time No Known Allergies Allergy Verified 07/03/23 10:30 Surgical History no surgical history no surgical history Social History Smoking Status: Never smoker alcohol intake: never ROS ROS ED Constitutional Constitutional ED: Denies chills, fever(s), subjective or sweats Eyes Eyes: Denies blurry vision or change in vision ENT ENT ED: Denies ear pain or rhinorrhea Cardiovascular Cardiovascular: Denies chest pain or palpitations Respiratory/Chest Respiratory/Chest: Denies cough, dyspnea or dyspnea on exertion Gastrointestinal Gastrointestinal: Reports abdominal pain, nausea and vomiting; Denies constipation, diarrhea or melena Genitourinary Genitourinary ED: Reports urinary frequency; Denies dysuria or hematuria Musculoskeletal Musculoskeletal: Denies arthralgias, myalgias or neck pain Integumentary Denies rash Neurologic Neurologic: Denies paresthesias or weakness Endocrine Endocrinology: Denies heat intolerance, polydipsia or polyphagia Hematologic/Lymphatic Hematologic/Lymphatic: Denies easy bleeding or easy bruising EXAM Physical Exam Const Vital Signs: 07/03/23 10:30 07/03/23 11:30 07/03/23 11:53 Temperature 99 F 98.4 F Temperature Source Temporal Pulse Rate 127 H 97 105 H Respiratory Rate 20 H 21 H 16 Respiratory Pattern Blood Pressure 135/95 H 128/85 H 147/78 H Blood Pressure Mean 108 99 101 Blood Pressure Source Blood Pressure Position Blood Pressure Location Baseline BP Pulse Ox 97 98 98 Oxygen Delivery Method Room Air Room Air 07/03/23 13:01 07/03/23 13:05 07/03/23 13:10 Temperature 98 F Temperature Source Temporal Pulse Rate 103 H 90 92 Respiratory Rate 18 18 18 Respiratory Pattern Normal Blood Pressure 151/118 H 107/47 L 94/51 L Blood Pressure Mean 129 67 65 Blood Pressure Source Monitor Monitor Monitor Blood Pressure Position Semi-Fowlers Semi-Fowlers Semi-Fowlers Blood Pressure Location Right Arm Left Arm Right Arm Baseline BP 135/95 135/95 135/95 Pulse Ox 96 98 100 Oxygen Delivery Method Room Air Room Air Room Air 07/03/23 13:15 07/03/23 13:30 07/03/23 14:01 Temperature 99.4 F H Temperature Source Temporal Pulse Rate 95 82 Respiratory Rate 18 18 Respiratory Pattern Normal Blood Pressure 118/83 H 107/68 Blood Pressure Mean 94 81 Blood Pressure Source Monitor Monitor Blood Pressure Position Semi-Fowlers Semi-Fowlers Blood Pressure Location Right Arm Right Arm Baseline BP 135/95 135/95 Pulse Ox 99 100 Oxygen Delivery Method Room Air Room Air 07/03/23 14:56 Temperature 97.4 F L Temperature Source Temporal Pulse Rate 96 Respiratory Rate 16 Respiratory Pattern Blood Pressure 114/72 Blood Pressure Mean 86 Blood Pressure Source Monitor Blood Pressure Position Semi-Fowlers Blood Pressure Loca (more content not included)... Normal [facility] Erythrocyte distribution wid th ratioOrdered By: Michael Alfaro on 07-03-2023 Erythrocyte distribution width (RBC) [Ratio] 12.6 % 11.6-14.6 [facility] Erythrocyte distribution wid th standard deviationOrdered By: Michaelcory Alfaro on 07-03-2023 Erythrocyte distribution width (RBC) [Entitic vol] 41.4 fL 35.1-43.9 [facility] Hematocrit Auto (Bld) [Volum e fraction]Ordered By: [facility] on 07-03-2023 Hematocrit (Bld) [Volume fraction] 42.6 % 37-47 [facility] - Chemistry and C hemistry - challengeOrdered By: [facility] on 07-03-2023 CO2 [Moles/Vol] 23.0 mmol/L 21.0-32.0 [facility] Urea nitrogen/Creatinine [Mass ratio] 11.5 mg/mg 10-20 [facility] - Hematology and Cell countsOrdered By: [facility] on 07-03-2023 MCH (RBC) [Entitic mass] 31.8 pg 27.0-32.0 [facility] MCHC (RBC) [Mass/Vol] 35.7 g/dL 32-36 [facility] Platelet mean volume (Bld) [Entitic vol] 9.3 fL 6.2-12.0 [facility] Platelets (Bld) [#/Vol] 295 10*3/uL 150-450 [facility] No Panel InformationOrdered By: Michaelcory Alfaro on 07-03-2023 Estimated GFR (MDRD) Amer 143 mL/min >60 [facility] Comment on above: GFR Calc Estimated GFR (MDRD) Non-Af Amer 118 mL/min >60 [facility] Comment on above: Non- GFR Calc Operative Reporton 4 Operative Report [facility] Medical Records Department [address] [place] [address] Operative Report 07/03/23 1306 MR#: [id number] Acct: [id number] Name: GIOVANNA DAY Rep #: [id number] : 1990 33 From: Jessie Harman MD PCP: Care Physician,No Primary Status:[facility] Location: [place] [address] Report of Operation Date of Procedure: 04/02/24 Pre-Operative Diagnosis: Incomplete Post-Operative Diagnosis: Same Surgery/Procedure Performed:: Suction dilation and curettage Description of Surgical Findings:: uterus with retained products of conception Surgeon: Jessie Harman Type of Anesthesia: MAC Specimen's removed: products of conception Drains: none Estimated Blood Loss (mL): 300ml Fluids Replaced: 1400ml Description of Procedure: Patient taken to OR when MAC anesthesia placed and found to be adequate. She was placed in the dorsal lithotomy position, prepped and draped in normal sterile fashion. Cervix was grasped with a tenaculum. Ring forceps used to removed some POC's. Then #12 suction curette gently inserted into the uterine cavity and used 5 times for good return of POC's. 1 pass of gentle sharp curettage performed to ensure no retained POC's. TAUS also completed and showed no retained POC's. At the end of the procedure all instruments were removed from the vaginal cavity and patient taken to the recovery room in stable condition. Procedure Start Time: 12:33 Procedure Stop Time: 12:50 Complications None Admit VTE Documentation VTE Present on Admission: No VTE Pharm Prophylaxis ordered?: No 07/03/23 1314 Cosigner Signature (if applicable): CC: Dr. Jessie Harman MD; No Primary Care Physician Signed Normal [facility] Pelvic (Non )on Pelvic (Non ) [facility] [address] [place] [address] Pelvic (Non ) MR#: [id number] Acct: [id number] Name: GIOVANNA DAY Rep #: [id number] : 1990 F 33 From: Phil olmos MD PCP: Care Physician,No Primary Status: [facility] Study: Pelvic (Non ) Date of Exam: 07/03/23 Exam# [id number] Ordering Dr: Michael Alfaro MD [id number] STUDY: ULTRASOUND OF THE FEMALE PELVIS - COMPLETE REASON FOR EXAM: Female, 33 years old. Vaginal bleeding / active miscarriage - Needs to be done portable LMP: Unknown TECHNIQUE: Transabdominal TECHNICAL QUALITY: Adequate. COMPARISON: None. FINDINGS: The uterus is retroverted and is in a midline position. The uterus measures 12.7 cm x 9.8 cm x 10.9 cm. Normal uterine cervix. The endometrium is heterogeneous and measures 22.4 mm in thickness, and is heterogeneous (striated). Findings suggestive of a retained products of conception. There is no demonstrated myometrial mass. I.U.D. - The patient does not have an I.U.D. The right ovary is non-visualized. The left ovary is non-visualized. There is no fluid in the cul-de-sac. US/Pelvic (Non ) IMPRESSION: Heterogeneous thickening of the endometrium. Findings suggestive of retained products of conception within the endometrium. Electronically Signed: Phil Haddad MD at 12:47 EDT , CC: Dr. Michael Alfaro MD; No Primary Care Physician Clinical Data Programmer: Signed Normal [facility] RBC Auto (Bld) [#/Vol]Ordere d By: Michael Alfaro on 07-03-2023 RBC (Bld) [#/Vol] 4.78 10*6/uL 4.2-5.4 [facility] Serum or plasma calcium rachid urement (mass/volume)Ordered By: Michael Alfaro on 07-03-2023 Calcium [Mass/Vol] 9.2 mg/dL 8.5-10.1 [facility] Serum or plasma creatinine m easurement (mass/volume)Ordered By: Michael Alfaro on 07-03-2023 Creatinine [Mass/Vol] 0.61 mg/dL 0.55-1.02 [facility] Comment on above: The validity of the calculated GFR & GFRAA in patients over 70 years has not been determined. Clinical correlation is essential. Serum or plasma urea nitroge n measurement (mass/volume)Ordered By: Michael Alfaro on 07-03-2023 Urea nitrogen [Mass/Vol] 7 mg/dL 7-18 [facility] Surgery Specimen Level Scot 07-03-2023 Surgery Specimen Level IV Patient Age/Sex Location Account Attending Physician ASCENCIONGIOVANNA 33/F [facility] [id number] Dr. Jessie Harman MD Specimen: [id number] Received: 07/03/23 Status: OVIDIO Venegas Num: [id number] Spec Type: PROD CONC Subm Dr: Dr. Jessie Harman MD HEADER OPERATION: Dilation and Curetting, suction PRE-OP DIAGNOSIS: Incomplete TISSUE SUBMITTED: Products of conception ---- MICROSCOPIC DIAGNOSIS Products of conception, dilation and curettage: Decidua and immature placental tissue (products of conception), clinically incomplete . SJ: 07/04/2023 MICROSCOPIC DESCRIPTION Slides are reviewed. GROSS DESCRIPTION Received in fixative is one container labeled with the patient's name and designated Products of conception. The specimen consists of multiple irregular fragments of pink soft tissue that in aggregate measure in aggregate 8.0 x 9.0 x 3.0 cm. tissue is not identified. Wood Boat Builder Supervisor tissue is submitted in two cassettes. / 07/03/23 TC:5 [facility]: [id number] ---- Patient Age/Sex Location Account Attending Physician ---- GIOVANNA DAY 33/F [facility] [id number] Dr. Jessie Harman MD ---- Signed (signature on file) Dr. Mario Birmingham MD 07/04/23 1450 ---- Normal [facility] Comment on above: Performed By: #### P SUIV #### [facility] [address] [facility] [place], [address] Thin prep Papanicolaou smear with manual screeningOrdered By: Michael Alfaro on 07-03-2023 Thin prep Papanicolaou smear with manual screening 7 5-15 [facility] Type AND Screenon 07-03-2023 ABO and Rh group Nom (Bld) Blood group A Rh(D) positive Normal [facility] Comment on above: Order Comment: ANGELICA Mcdowell PREVIOUS SPECIMEN REJECTED DUE TO DRAW TIME MISSING. 07/03/23 1116 Drea Presley. HVAG Performed By: #### B TS #### [facility] [address] [place], [address] A1 CELL Not performed Normal [facility] Comment on above: Order Comment: HVAG Result Comment: This specimen has been REJECTED due to Laboratory criteria: MisLabelled. EMBER has been notified of need of recollection. 07/03/235 Drea Presley Performed By: #### L 500.2500, L100.0500, BTS #### [facility] [address] [place], [address] Ab SCREEN GEL Not performed Normal [facility] Comment on above: Order Comment: HVAG Result Comment: This specimen has been REJECTED due to Laboratory criteria: MisLabelled. EMBER has been notified of need of recollection. 07/03/231114 Drea Presley Performed By: #### L 500.2500, L100.0500, BTS #### [facility] [address] [place], [address] ABO and Rh group Nom (Bld) Test Not Performed Normal [facility] Comment on above: Order Comment: HVAG Result Comment: This specimen has been REJECTED due to Laboratory criteria: MisLabelled. EMBER has been notified of need of recollection. 07/03/235 Drea Presley Performed By: #### L 500.2500, L100.0500, BTS #### [facility] [address] [place], [address] ANTI A Not performed Normal [facility] Comment on above: Order Comment: HVAG Result Comment: This specimen has been REJECTED due to Laboratory criteria: MisLabelled. EMBER has been notified of need of recollection. 07/03/23 1115 Drea Presley Performed By: #### L 500.2500, L100.0500, BTS #### [facility] [address] [place], [address] ANTI B Not performed Normal [facility] Comment on above: Order Comment: HVAG Result Comment: This specimen has been REJECTED due to Laboratory criteria: MisLabelled. EMBER has been notified of need of recollection. 04/02/24 1115 Drea Presley Performed By: #### L 500.2500, L100.0500, BTS #### [facility] [address] [place], [address] ANTI D Not performed Normal [facility] Comment on above: Order Comment: HVAG Result Comment: This specimen has been REJECTED due to Laboratory criteria: MisLabelled. EMBER has been notified of need of recollection. 07/03/23 1115 Drea Presley Performed By: #### L 500.2500, L100.0500, BTS #### [facility] [address] [place], [address] B CELLS Not performed Normal [facility] Comment on above: Order Comment: HVAG Result Comment: This specimen has been REJECTED due to Laboratory criteria: MisLabelled. EMBER has been notified of need of recollection. 07/03/23 1115 Drea Presley Performed By: #### L 500.2500, L100.0500, BTS #### [facility] [address] [place], [address] BLD TYPE RECHEK Not performed Normal [facility] Comment on above: Order Comment: HVAG Result Comment: This specimen has been REJECTED due to Laboratory criteria: MisLabelled. EMBER has been notified of need of recollection. 07/03/23 111 Drea Presley Performed By: #### L 500.2500, L100.0500, BTS #### [facility] [address] [place], [address] FERRITINon 05-09-2023 Ferritin [Mass/Vol] 93 ng/mL Normal 16-154 [facility] Comment on above: Performed By: #### 8 99, 866, 37732, 457 #### [facility] [address] [facility] [place] [address] Bander: Hasmukh Leon MD T3, FREEon 05-09-2023 Free T3 [Mass/Vol] 3.3 pg/mL Normal 2.3-4.2 [facility] Comment on above: Performed By: #### 8 99, 866, 60293, 457 #### [facility] [address], [address] [place] [address] Bander: Hasmukh Leon MD T4, FREEon 05-09-2023 Free T4 [Mass/Vol] 1.2 ng/dL Normal 0.8-1.8 [facility] Comment on above: Performed By: #### 8 99, 866, 42470, 457 #### [facility] [address], [address] [place] [address] Bander: Hasmukh Leon MD TSHon 05-09-2023 TSH Qn 0.78 m[IU]/L Normal [facility] Comment on above: Result Comment: Refe rence Range > or = 20 Years 0.40-4.50 Ranges First trimester 0.26-2.66 Second trimester 0.55-2.73 Third trimester 0.43-2.91 Performed By: #### 8 99, 866, 27272, 457 #### [facility] [address], [address] [place] [address] Bander: Hasmukh Leon MD Laboratory - Chemistry and C hemistry - challengeon 05-08-2023 Ferritin [Mass/Vol] 93 ng/mL Normal 16 - 154 ng/mL [facility] Free T3 [Mass/Vol] 3.3 pg/mL Normal 2.3 - 4.2 pg/mL [facility] Free T4 [Mass/Vol] 1.2 ng/dL Normal 0.8 - 1.8 ng/dL [facility] TSH Qn 0.78 m[IU]/L Normal [facility] VITAMIN B6/PYRIDOXINon 06-17 VITAMIN B6 190.5 nmol/L High 20.0-125.0 [facility] Comment on above: Order Comment: Speci men Type: BLOOD SPECIMEN Ordering Facility: [facility] Address: [address] [place] [address] Result Comment: INTE RPRETIVE INFORMATION: Vitamin B6 (Pyridoxal 5-Phosphate) Pyridoxal 5'-phosphate measured in a specimen collected following an 8-hour or overnight fast accurately indicates vitamin B6 nutritional status. Non-fasting specimen concentration reflects recent vitamin intake. This test was developed and its performance characteristics determined by [facility]. It has not been cleared or approved by the [place] Food and Drug Administration. This test was performed in a CLIA certified laboratory and is intended for clinical purposes. Performed By: [facility] [address] [place] [address] Front Office Secretary: Ortega Espinoza MD, PhD Performed By: #### V ITB6 #### [facility] CLIA [id number] [address] [place] [address] 1,25-dihydroxyvitamin D3 [Ma ss/Vol]on 06-15-2022 VIT D1,25 DIHYDROXY 60.7 pg/mL Normal 19.9-79.3 [facility] Comment on above: Order Comment: Speci men Type: BLOOD SPECIMEN Ordering Facility: [facility] Address: [address] [place] [address] Performed By: #### 1 649-3 #### [facility] CLIA [id number] [address] [place] [address] [place] HbA1c (Bld)on 06-15-2022 Average glucose Estimated from glycated hemoglobin (Bld) [Mass/Vol] 94 mg/dL Normal [facility] Comment on above: Order Comment: Speci men Type: BLOOD SPECIMEN Ordering Facility: [facility] Address: [address] [place] [address] Result Comment: eAG: (Estimated average glucose) is a calculated value from HgbA1c and is account development representative of the average blood glucose level in the last 2-3 month period. Performed By: #### 5 5454-3 #### [facility] CLIA [id number] [address] [place] [address] [place] HbA1c (Bld) [Mass fraction] 4.9 % Normal 4.3-5.6 [facility] Comment on above: Order Comment: Scott ramirez Type: BLOOD SPECIMEN Ordering Facility: [facility] Address: [address] [place] [address] Result Comment: Amer ican Diabetes Association guidelines indicate that patients with HgbA1c in the range 5.7-6.4% are at increased risk for development of diabetes, and intervention by lifestyle modification may be beneficial. HgbA1c greater or equal to 6.5% is considered diagnostic of diabetes. Performed By: #### 5 5454-3 #### [facility] CLIA [id number] [address] [place] [address] [place] HGB A1Con 07-16-2021 Average glucose Estimated from glycated hemoglobin (Bld) [Mass/Vol] 88 mg/dL Normal [facility] Comment on above: Order Comment: Scott ramirez Type: BLOOD SPECIMEN Ordering Facility: [facility] Address: [address] [place] [address] Result Comment: eAG: (Estimated average glucose) is a calculated value from HgbA1c and is account development representative of the average blood glucose level in the last 2-3 month period. Performed By: #### 2 0448-7, HBA1C #### [facility] CLIA [id number] [address] [place] [address] [place] HbA1c (Bld) [Mass fraction] 4.7 % Normal 4.3-5.6 [facility] Comment on above: Order Comment: Scott ramirez Type: BLOOD SPECIMEN Ordering Facility: [facility] Address: [address] [place] [address] Result Comment: Amer ican Diabetes Association guidelines indicate that patients with HgbA1c in the range 5.7-6.4% are at increased risk for development of diabetes, and intervention by lifestyle modification may be beneficial. HgbA1c greater or equal to 6.5% is considered diagnostic of diabetes. Performed By: #### 2 0448-7, HBA1C #### [facility] CLIA [id number] [address] [place] [address] [place] Insulin SerPl-aCncon 022 Insulin Qn 12.9 u[IU]/mL Normal 3.0-25.0 [facility] Comment on above: Order Comment: Speci men Type: BLOOD SPECIMEN Ordering Facility: [facility] Address: [place] [address] Performed By: #### 2 0448-7, HBA1C #### [facility] CLIA [id number] [address] [facility] [place] [address] [place] LYME AB SCREEN + REFLEX TO I MMUNOBLOT; <4 WKS POST SYMPTOMSon 11-23-2019 LYME ANTIBODIES SCREEN 0.20 BETSY Normal 0.00-1.20 [facility] Comment on above: Result Comment: When the Borrelia burgdorferi Abs, Total by HAO result is negative, no further testing is done. INTERPRETIVE INFORMATION: Borrelia Burgdorferi Abs,Total by HAO 0.99 BETSY or Less: ...... Negative: Antibody to B. burgdorferi not detected. 1.00 - 1.20 BETSY......... Equivocal: Repeat testing in 10-14 days may be helpful. 1.21 BETSY or Greater: ... Positive: Probable presence of antibody to B. burgdorferi detected. Performed By: [facility] [address] [place] [address] Front Office Secretary: Jignesh Bazzi MD, [place] Performed By: #### L YMED #### [facility] [address] [place] [address] Provider Note - ED v2on 08-31 Provider Note - ED v2 Provider Note - ED v2: Chart Review: HISTORY OF PRESENTING ILLNESS GIOVANNA is a 29 year old Female and was seen by me at 18-Sep-2019 08:24. Triage Information: Most recent Vital Sign Value Date PAST MEDICAL HISTORY ATTESTATION: I have reviewed and confirmed nurse's/medic's notes for patient's medications, allergies, medical history, and surgical history ALLERGIES/INTOLERANCES : No Known Allergies HEALTH HISTORY: No documented data. OUTPATIENT MEDICATIONS: Home Medications Review Status for Reconciliation: Complete Med Status: Patient Currently Takes Medications Drug Name: amoxicillin-clavulanat e 875 mg-125 mg oral tablet Instructions: 875 milligram(s) orally 2 times a day SIGNIFICANT EVENTS: No documented data. INDUSTRIAL SAFETY AND HEALTH SPECIALIST: Is : yes Is : no RESULTS/VITAL SIGNS VITAL SIGNS: T PRBP SpO2O2(LPM) %FiO2 Method 18-Sep-2019 08:26:[id number] 3 100 MEDICAL DECISION MAKING/ED COURSE MDM/ED COURSE: This note was generated with voice recognition software and may contain errors including spelling, grammar, syntax, and misrecognization of what was dictated Chief Complaint Pain and swelling to left foot History of Present Illness Patient presents with complaints of sunburn to her feet bilaterally which has since resolved. Over the past 3 days patient has developed some pain and swelling to the left foot. Patient states there is a slight pain still remaining from the sunburn however, the swelling and erythema have increased over the past 3 days. Patient does not rate the severity of her pain at this time and she does complain of some tingling to the distal left foot. Patient denies use of any yjhv-dtj-sthgpyi medications at home prior to her for symptom management Review of Systems 10 systems reviewed negative with exception of history of present illness listed above Physical Examination General: Alert and oriented, No acute distress. Eye: Pupils are equal, round and reactive to light. HENT: Normocephalic Neck: Supple Cardiovascular: Capillary refill less than 3 seconds to the distal left foot Musculoskeletal: Normal range of motion, normal strength, there is some tenderness and swelling noted to the anterior aspect of the left foot Integumentary: [place], warm, with some erythema noted on the anterior aspect of the left foot with a band of tender erythematous cellulitis is approximately 6 cm in length by 3 cm in width. At the center of the cellulitis is a yellowish patch of fluid-filled blisters Neurologic: Alert, Oriented, Normal sensory, Normal motor function. Cognition and Speech: Oriented, Speech clear and coherent. Psychiatric: Cooperative, Appropriate mood & affect. Impression and Plan Course: Worsening Plan: Patient will be discharged home with oral antibiotics, instructed to use appropriate over the counter medications for symptom management, and is instructed to follow-up with their primary care provider in 3-5 days for any increase in severity of symptoms or any additional concerns. Patient agrees with plan of care, questions were encouraged and answered. Patient Instructions: Cellulitis CLINICAL IMPRESSION Diagnosis/Annotation: ED Dx Name:Cellulitis of left foot Code:L03.116 Dispostion: discharged Type: home ATTESTATION CRITICAL CARE TIME Is this a critically ill patient: no Electronic Signatures: Judah Morales (FENCE INSTALLER FOREMAN-TRACK INSPECTING SUPERVISOR) (Signed 18-Sep-2019 08:57) Authored: Provider Note - ED v2 Last Updated: 18-Sep-2019 08:57 by Judah Morales (FENCE INSTALLER FOREMAN-TRACK INSPECTING SUPERVISOR) [facility] Vital Signs Date Time Vital Sign Value Performing Clinician Facility 05-28-2024 09:38-0500 Body temperature 98.1 [degF] Shaka Mock MD Work Phone: [facility] 05-28-2024 09:38-0500 Body weight 97.57 kg Shaka Mock MD Work Phone: [facility] 05-28-2024 09:38-0500 Diastolic blood pressure 96 mm[Hg] Shaka Mock MD Work Phone: [facility] 05-28-2024 09:38-0500 Heart rate 104 /min Shaka Mock MD Work Phone: [facility] 05-28-2024 09:38-0500 Systolic blood pressure 134 mm[Hg] Shaka Mock MD Work Phone: [facility] 09-08-2023 11:05-0400 Body height 162.6 cm James Grewal FENCE INSTALLER FOREMAN-TRACK INSPECTING SUPERVISOR Work Phone: [facility] 09-08-2023 11:05-0400 Body mass index (BMI) [Ratio] 39.48 kg/m2 James Grewal FENCE INSTALLER FOREMAN-TRACK INSPECTING SUPERVISOR Work Phone: [facility] 09-08-2023 11:05-0400 Body temperature 97.59 [degF] James Platata FENCE INSTALLER FOREMAN-TRACK INSPECTING SUPERVISOR Work Phone: [facility] 09-08-2023 11:05-0400 Body weight 104.33 kg James Grewal FENCE INSTALLER FOREMAN-TRACK INSPECTING SUPERVISOR Work Phone: [facility] 09-08-2023 11:05-0400 Diastolic blood pressure 79 mm[Hg] James Platata FENCE INSTALLER FOREMAN-TRACK INSPECTING SUPERVISOR Work Phone: [facility] 09-08-2023 11:05-0400 Heart rate 75 /min James Grewal FENCE INSTALLER FOREMAN-TRACK INSPECTING SUPERVISOR Work Phone: [facility] 09-08-2023 11:05-0400 Respiratory rate 16 /min James Aleks FENCE INSTALLER FOREMAN-TRACK INSPECTING SUPERVISOR Work Phone: [facility] 09-08-2023 11:05-0400 SaO2% (BldA) [Mass fraction] 97 % James Platata FENCE INSTALLER FOREMAN-TRACK INSPECTING SUPERVISOR Work Phone: [facility] 09-08-2023 11:05-0400 Systolic blood pressure 113 mm[Hg] James Platata FENCE INSTALLER FOREMAN-TRACK INSPECTING SUPERVISOR Work Phone: [facility] 08-21-2023 10:20-0400 Body weight 103.42 kg Jason Dykes MD Work Phone: [facility] 08-21-2023 10:20-0400 Diastolic blood pressure 78 mm[Hg] Jason Dykes MD Work Phone: [facility] 08-21-2023 10:20-0400 Systolic blood pressure 112 mm[Hg] Jason Dykes MD Work Phone: [facility] 07-10-2023 14:27-0400 Body weight 101.52 kg Jessie Harman MD Work Phone: [facility] 07-10-2023 14:27-0400 Diastolic blood pressure 70 mm[Hg] Jessie Harman MD Work Phone: [facility] 07-10-2023 14:27-0400 Systolic blood pressure 102 mm[Hg] Jessie Harman MD Work Phone: [facility] 07-03-2023 14:56-0400 Body temperature 97.4 [degF] [facility] 07-03-2023 14:56-0400 Diastolic blood pressure 72 mm[Hg] [facility] 07-03-2023 14:56-0400 Heart rate 96 /min [facility] 07-03-2023 14:56-0400 Respiratory rate 16 /min [facility] 07-03-2023 14:56-0400 SaO2% (BldA) [Mass fraction] 100 % [facility] 07-03-2023 14:56-0400 Systolic blood pressure 114 mm[Hg] [facility] 07-03-2023 11:53-0400 Body temperature 98.4 [degF] [facility] 07-03-2023 11:53-0400 Diastolic blood pressure 78 mm[Hg] [facility] 07-03-2023 11:53-0400 Heart rate 105 /min [facility] 07-03-2023 11:53-0400 Respiratory rate 16 /min [facility] 07-03-2023 11:53-0400 SaO2% (BldA) [Mass fraction] 98 % [facility] 07-03-2023 11:53-0400 Systolic blood pressure 147 mm[Hg] [facility] 07-03-2023 10:30-0400 Body height 162.56 cm [facility] 05-08-2023 14:03-0500 Body height 162.56 cm Darrell Shepard RN [facility] [employer] 05-08-2023 14:03-0500 Body mass index (BMI) [Ratio] 39.14 kg/m2 Darrell Shepard [facility] [employer]. 05-08-2023 14:03-0500 Body surface area Derived from formula 2.07 m2 Darrell Shepard RN [facility] [employer] 05-08-2023 14:03-0500 Body weight 103.42 kg Darrell Shepard RN [employer] [facility] [employer]. 05-08-2023 14:03-0500 Diastolic blood pressure 82 mm[Hg] Darrell Shepard RN [employer]. Comment on above: Patient Position: Sitting; Cuff Location : Left Arm; Cuff Size: Standard 05-08-2023 14:03-0500 Heart rate 92 /min Darrell Shepard RN [facility] [employer]. Comment on above: Pattern: Regular 05-08-2023 14:03-0500 Systolic blood pressure 127 mm[Hg] Darrell Shepard RN [facility] Comment on above: Patient Position: Sitting; Cuff Location : Left Arm; Cuff Size: Standard Encounters Encounter Date Encounter Type Care Provider Facility Start: 08-01-2024 End: 08-01-2024 Telephone encounter Shaka Mock MD Work Phone: Rheumatology Comment on above: Orders; Forms Start: 07-15-2024 End: 07-15-2024 ambulatory [facility] Start: 05-28-2024 End: 05-28-2024 ambulatory LEENA ELDER Facility:[facility] Start: 05-28-2024 End: 05-28-2024 Patient encounter procedure Shaka Mock MD Work Phone: [facility] Comment on above: Monoclonal MCAS (HCC ) (Primary Dx); Incompetent cervix; Hypermobility syndrome; Rash and nonspecific skin eruption; Chronic urticaria; Joint instability; Malaise and fatigue; Concentration deficit; Total body pain Start: 05-26-2024 End: 05-26-2024 Telephone encounter Shaka Mock MD Work Phone: Rheumatology Comment on above: Received Outside Med [facility] Start: 03-17-2024 End: 03-17-2024 ambulatory Erick Cleaning CHUCKING MACHINE SET UP OPERATOR TOOL Facility:[facility] Start: 03-17-2024 End: 03-17-2024 ambulatory Erick Cleaning CHUCKING MACHINE SET UP OPERATOR TOOL Facility:[facility] Start: 11-26-2023 ambulatory Erick Cleaning CHUCKING MACHINE SET UP OPERATOR TOOL Facility :[facility] Start: 11-26-2023 End: 11-26-2023 ambulatory Erick Cleaning CHUCKING MACHINE SET UP OPERATOR TOOL Facility:[facility] Start: 11-05-2023 End: 11-05-2023 ambulatory [facility] Start: 11-05-2023 Encounter for genera l adult medical examination without abnormal findings [facility] Start: 09-27-2023 End: 09-27-[address] Functional Medicine Comment on above: Weight gain (Primary Dx); Dietary counseling and surveillance Start: 09-27-2023 End: 09-27-2023 Telemedicine consultation with patient Alondra Monahan RD [facility] Start: 09-27-2023 Telephone encounter Jessie nova MD Work Phone: OB/Gynecology Comment on above: Orders Start: 09-17-2023 Telephone encounter Jessie nova MD Work Phone: OB/Gynecology Comment on above: Orders Start: 09-08-2023 End: 09-08-2023 Patient encounter procedure James Grewal FENCE INSTALLER FOREMAN-TRACK INSPECTING SUPERVISOR Work Phone: [facility] Comment on above: Exposure to pertussi s (Primary Dx) Start: 09-08-2023 End: 09-08-2023 ambulatory [facility] Start: 08-24-2023 ambulatory Jessie Miranda Work Phone: OB/Gynecology Start: 08-24-2023 Patient encounter procedure Jessie Harman MD Work Phone: OB/Gynecology Comment on above: Referral Start: 08-23-2023 ambulatory Jessie Miranda Work Phone: OB/Gynecology Comment on above: Fluid retention Start: 08-21-2023 End: 08-21-2023 ambulatory JESSIE HARMAN Facility:[facility] Start: 08-21-2023 End: 08-21-2023 Patient encounter procedure Jason Dykes MD Work Phone: Maternal Medicine Comment on above: Connective tissue di sorder (HCC) (Primary Dx); Complete miscarriage; Prior loss, antepartum, second trimester; History of loss, not currently Start: 07-10-2023 End: 07-10-2023 Patient encounter procedure Jessie Harman MD Work Phone: OB/Gynecology Comment on above: Other fatigue (Prima ry Dx); Complete miscarriage; Prior loss, antepartum, second trimester Start: 07-09-2023 Telephone encounter Jessie nova MD Work Phone: OB/Gynecology Comment on above: f/u d&c Start: 07-03-2023 End: 07-03-2023 Admission to same day surgery center [facility] Start: 07-03-2023 End: 07-03-2023 ambulatory Jessie Harman [facility] Work Phone: Start: 05-08-2023 End: 05-10-2023 Office outpatient new 20 minutes Crystal Uptain CNM Work Phone: [facility] Start: 05-08-2023 Review Margot Uptain CNM Work Phone: [facility] Start: 03-05-2023 End: 03-05-2023 ambulatory Ernesto Shah MD Work Phone: Infectious Disease Comment on above: Diseases of the oral soft tissues, excluding lesions specific for gingiva and tongue (Primary Dx); Lesion of tongue Start: 03-05-2023 End: 03-05-2023 Telemedicine consultation with patient Ernesto Shah MD Work Phone: [facility] Start: 02-16-2023 End: 02-16-2023 ambulatory Estela Fontanez APRN.TRACK INSPECTING SUPERVISOR Work Phone: Functional Medicine Comment on above: Mold exposure (Prima ry Dx); Thrush Start: 02-16-2023 End: 02-16-2023 Telemedicine consultation with patient Estela Fontanez APRN.TRACK INSPECTING SUPERVISOR Work Phone: [facility] Start: 01-15-2023 Orders Only Estela Fontanez FENCE INSTALLER FOREMAN.TRACK INSPECTING SUPERVISOR Work Phone: Functional Medicine Start: 01-12-2023 End: 01-12-2023 ambulatory Estela Fontanez APRN.TRACK INSPECTING SUPERVISOR Work Phone: Functional Medicine Comment on above: Thrush (Primary Dx); Chronic fatigue Start: 01-12-2023 End: 01-12-2023 Telemedicine consultation with patient Estela Fontanez APRN.TRACK INSPECTING SUPERVISOR Work Phone: [facility] Start: 12-28-2022 End: 12-28-[address] Work Phone: Functional Medicine Comment on above: Thrush (oral) (Prima ry Dx); Intestinal dysbiosis; Dietary counseling and surveillance Start: 12-28-2022 End: 12-28-2022 Telemedicine consultation with patient Kendal Coffman RD Work Phone: [facility] Start: 12-18-2022 Orders Only Estela Fontanez FENCE INSTALLER FOREMAN.TRACK INSPECTING SUPERVISOR Work Phone: Functional Medicine Comment on above: Risk of exposure to Lyme disease (Primary Dx) Start: 12-13-2022 End: 12-13-2022 ambulatory Estela Fontanez FENCE INSTALLER FOREMAN.TRACK INSPECTING SUPERVISOR Work Phone: Functional Medicine Comment on above: Hormone imbalance (P rimary Dx); Intestinal dysbiosis; Thrush; Mold exposure Tick bite Start: 12-13-2022 End: 12-13-2022 Telemedicine consultation with patient Estela Fontanez MIRI.TRACK INSPECTING SUPERVISOR Work Phone: [facility] Start: 12-07-2022 ambulatory Whitley amaro MD Work Phone: Functional Medicine Comment on above: Nystatin Start: 11-16-2022 ambulatory Whitley amaro MD Work Phone: Functional Medicine Comment on above: Still have thrush an d stomach pain Start: 10-29-2022 ambulatory Whitley amaro MD Work Phone: Functional Medicine Comment on above: Biocidin Start: 10-18-2022 End: 10-18-2022 ambulatory Whitley Pollard MD Work Phone: Functional Medicine Comment on above: Bloating (Primary Dx ); Thrush (oral); Intestinal dysbiosis Start: 10-18-2022 End: 10-18-2022 Telemedicine consultation with patient Whitley Pollard MD Work Phone: [facility] Start: 09-20-2022 End: 09-20-[address] Work Phone: [facility] Start: 09-20-2022 End: 09-20-2022 FQHC visit, estab pt Kendal Coffman RD Work Phone: Functional Medicine Comment on above: Established Patient Procedures Date Procedure Procedure Detail Performing Clinician Start: 07-03-2023 Dilation and curetta ge of uterus Start: 07-03-2023 Pelvic echography Unlisted procedure dentoalveolar structures Crystal K Douglas CNM Work Phone: Comment on above: No post-op complicat ions. Plan of Treatment Date Care Activity Detail Author Start: 2038 Zoster Vaccines (1 o f 2) Zoster Vaccines (1 of 2) [facility] Start: 12-01-2024 Influenza vaccination Influenz a Vaccine (Season Ended) [facility] Start: 05-28-2024 End: 05-28-2024 Patient encounter procedure 05/28/2024 9:00 AM EST Office Visit [facility] [address] [id number] Shaka Mock MD [address] [place], [place] [id number] [facility] Comment on above: [facility] Start: 12-02-2023 Covid-19 Vaccine ( season) Covid-19 Vaccine ( season) [facility] Start: 12-02-2023 Influenza vaccination C [facility] Start: 08-21-2023 End: 11-20-2023 Hemoglobin A1c in Blood HEMOGLOBIN A1C Lab Routine History of loss, not currently Expected: 08/21/2023, Expires: 11/20/2023 [facility] Work Phone: Comment on above: Expected: 08/21/2023 , Expires: 11/20/2023 Start: 07-03-2023 Ambulation without limitation [facility] Start: 07-03-2023 Medication education [facility] Start: 07-03-2023 Patient discharge [facility] Start: 07-03-2023 Taking patient vital signs [facility] Start: 07-03-2023 Vital signs measurements [facility] Start: 07-03-2023 [facility] Start: 07-03-2023 Planned voiding [facility] Start: 07-03-2023 Dilation and curetta ge of uterus Dilation and Curettage, Suction (Not Applicable) [facility] Start: 07-03-2023 [facility] Start: 07-03-2023 Pelvic echography Pelvic (Non Pregna nt) [facility] Start: 07-03-2023 US Pelvis [facility] Start: 05-10-2023 Us uterus limited 1/> fetuses LIMITED OBSTETRICAL ULTRASOUND (10798) Start: 10-May-2023 [facility] Start: 04-02-2023 Behavioral Health Screening Behavioral Health Screening [facility] Start: 03-05-2023 End: 06-04-2023 HIV 1+2 Ab [Presence] in Serum or Plasma by Immunoassay HIV 1 2 COMBO(AG/AB),WITH REFLEX TO DIFFERENTIATION Lab Routine Diseases of the oral soft tissues, excluding lesions specific for gingiva and tongue Lesion of tongue Expected: 03/05/2023, Expires: 06/04/2023 [facility] Work Phone: Comment on above: Expected: 03/05/2023 , Expires: 06/04/2023 Start: 03-05-2023 End: 06-04-2023 SYPHILIS TOTAL W/REFLEX SYPHILIS TOTAL W/REFLEX Lab Routine Diseases of the oral soft tissues, excluding lesions specific for gingiva and tongue Lesion of tongue Expected: 03/05/2023, Expires: 06/04/2023 [facility] Work Phone: Comment on above: Expected: 03/05/2023 , Expires: 06/04/2023 Start: 03-05-2023 End: 06-04-2023 T-cell helper (CD4) subset panel - Blood CD4 ABSOLUTE COUNT Lab Routine Diseases of the oral soft tissues, excluding lesions specific for gingiva and tongue Lesion of tongue Expected: 03/05/2023, Expires: 06/04/2023 [facility] Work Phone: Comment on above: Expected: 03/05/2023 , Expires: 06/04/2023 Start: 01-13-2023 End: 03-15-2023 DHEA-S BLD DHEA-S BLD Lab Routine Hormone imbalance Expected: 01/13/2023, Expires: 03/15/2023 [facility] Work Phone: Comment on above: Expected: 01/13/2023 , Expires: 03/15/2023 Start: 01-13-2023 End: 03-15-2023 ESTROGEN FRACTION BL ESTROGEN FRACTION BL Lab Routine Hormone imbalance Expected: 01/13/2023, Expires: 03/15/2023 [facility] Work Phone: Comment on above: Expected: 01/13/2023 , Expires: 03/15/2023 Start: 01-13-2023 End: 03-15-2023 Follitropin [Units/volume] in Serum or Plasma FSH BLD Lab Routine Hormone imbalance Expected: 01/13/2023, Expires: 03/15/2023 [facility] Work Phone: Comment on above: Expected: 01/13/2023 , Expires: 03/15/2023 Start: 01-13-2023 End: 03-15-2023 Lutropin [Units/volume] in Serum or Plasma LUTEINIZING HORMONE Lab Routine Hormone imbalance Expected: 01/13/2023, Expires: 03/15/2023 [facility] Work Phone: Comment on above: Expected: 01/13/2023 , Expires: 03/15/2023 Start: 01-13-2023 End: 03-15-2023 Sex hormone binding globulin [Moles/volume] in Serum or Plasma SEX-HORMONE BINDING Lab Routine Hormone imbalance Expected: 01/13/2023, Expires: 03/15/2023 [facility] Work Phone: Comment on above: Expected: 01/13/2023 , Expires: 03/15/2023 Start: 01-12-2023 End: 03-14-2023 MISC SEND OUT TST 1 MISC SEND OUT TST 1 Lab Routine Chronic fatigue Expected: 01/12/2023, Expires: 03/14/2023 [facility] Work Phone: Comment on above: Expected: 01/12/2023 , Expires: 03/14/2023 Start: 12-18-2022 End: 11-18-2023 BABESIA GIOVANNI IGG/IGM BABESIA GIOVANNI IGG/IGM Lab Routine Risk of exposure to Lyme disease Expected: 12/18/2022, Expires: 02/17/2023 [facility] Work Phone: Comment on above: Expected: 12/18/2022 , Expires: 02/17/2023 Start: 12-18-2022 End: 02-17-2023 BARTONELLA AB PANEL BARTONELLA AB PANEL Lab Routine Risk of exposure to Lyme disease Expected: 12/18/2022, Expires: 02/17/2023 [facility] Work Phone: Comment on above: Expected: 12/18/2022 , Expires: 02/17/2023 Start: 12-18-2022 End: 02-17-2023 BARTONELLA PCR BARTONELLA PCR Lab Routine Risk of exposure to Lyme disease Expected: 12/18/2022, Expires: 02/17/2023 [facility] Work Phone: Comment on above: Expected: 12/18/2022 , Expires: 02/17/2023 Start: 12-18-2022 End: 02-17-2023 Borrelia burgdorferi IgG and IgM panel - Serum LYME AB LATE >30 DAYS SYMPTOMS Lab Routine Risk of exposure to Lyme disease Expected: 12/18/2022, Expires: 02/17/2023 [facility] Work Phone: Comment on above: Expected: 12/18/2022 , Expires: 02/17/2023 Start: 12-18-2022 End: 02-17-2023 EHRLICHIA CHAF ABS EHRLICHIA CHAF ABS Lab Routine Risk of exposure to Lyme disease Expected: 12/18/2022, Expires: 02/17/2023 [facility] Work Phone: Comment on above: Expected: 12/18/2022 , Expires: 02/17/2023 Start: 12-13-2022 End: 02-12-2023 Progesterone [Mass/volume] in Serum or Plasma PROGESTERONE BLD Lab Routine Hormone imbalance Expected: 12/13/2022, Expires: 02/12/2023 [facility] Work Phone: Comment on above: Expected: 12/13/2022 , Expires: 02/12/2023 Start: 12-01-2022 Covid-19 Vaccine () Covid-19 Vaccine ( season) [facility] Start: 12-01-2022 Influenza vaccination [facility] Start: 04-02-2022 DEPRESSION ASSESSMENT DEPRESSION ASS ESSMENT [facility] Start: 2018 HPV TESTING HPV TESTING [facility] Start: 2018 Screening for malignant neoplasm of cervix HPV Testing [facility] Start: 2010 DTaP/Tdap/Td Vaccine s (1 - Tdap) DTaP/Tdap/Td Vaccines (1 - Tdap) [facility] Start: 2009 PAP TESTING PAP TESTING [facility] Start: 2009 Screening for malignant neoplasm of cervix [facility] Start: 2007 Hepatitis B Vaccine (1 of 3 - 19+ 3-dose series) Hepatitis B Vaccine (1 of 3 - 19+ 3-dose series) [facility] Start: 2007 Hepatitis B Vaccines (1 of 3 - 19+ 3-dose series) Hepatitis B Vaccines (1 of 3 - 19+ 3-dose series) [facility] Start: 2007 Urine microalbumin profile [facility] Start: 2006 Anxiety Screening Anxiety Screening [facility] Start: 2006 Depression Screening Depression Scre [facility] Start: 2006 HEPATITIS C SCREENING HEPATITIS C [facility] Start: 2006 Hepatitis C screening Hepatitis C [facility] Start: 2006 HIV SCREENING HIV SCREENING [facility] Start: 2006 HIV screening HIV Screening [facility] Start: 2001 Varicella vaccination Varicell a Vaccines (1 of 2 - 13+ 2-dose series) [facility] Start: 1989 MMR Vaccines (1 of 1 - Standard series) MMR Vaccines (1 of 1 - Standard series) [facility] Start: 1988 COVID-19 VACCINE (#1) COVID-19 VACCI NE (#1) [facility] Start: 1988 HEPATITIS B (1 of 3 - 3-dose series) HEPATITIS B (1 of 3 - 3-dose series) [facility] Start: 1988 Hepatitis B Vaccine (1 of 3 - 3-dose series) Hepatitis B Vaccine (1 of 3 - 3-dose series) [facility] Start: 1988 HIV screening HIV Screening [facility] Start: 1988 Lipid panel Lipid Panel [facility] Start: 1988 Yearly Adult Physical Yearly Adult P [facility] Patient referral [facility] Work Phone: [facility] Payers Date Payer Category Payer Self-pay [id number] 2023 Unknown [id number] 2022 Blue Cross Blue Shield BLUE CARD PPO OOS Member Subscriber Plan / Payer (Effective 2022-Present) Name: Giovanna Day Relation to Subscriber: Self Name: Giovanna Day Payer ID: [id number] (NAIC) Type: PPO Address: [facility] [id number] [place] [id number] 2022 Unknown [id number] 2022 Unknown [id number] 2022 Unknown [id number] 2021 Private Health Insurance [employer] O[employer] [id number] 2021-Present [phone] [id number] [place] [id number] Open Access [id number] 1988 Unknown [id number] 1988 Unknown [id number] Unknown [id number] Unknown [id number] Unknown [id number] Unknown [id number] Unknown [id number] Social History Date Type Detail Facility Start: 12-19-2018 End: 07-10-2023 Tobacco smoking status NHIS Never smoked tobacco [facility] Start: 12-19-2018 End: 07-10-2023 Tobacco use and exposure Smokeless tobacco non-user [facility] Start: 12-19-2018 End: 07-10-2023 Alcohol intake Not Asked [facility] Start: 1988 Sex Assigned At Not on file [facility] Start: 12-19-2018 End: 05-28-2024 History of Social function [facility] Start: 12-19-2018 End: 05-28-2024 Tobacco use panel [facility] National Score (1-100), lower number is lower risk Not on file [facility] Start: 1990 Female [facility] Start: 07-03-2023 Tobacco smokin g consumption unknown [facility] Start: 08-21-2023 End: 05-28-2024 Alcohol intake Ex-drinker (finding) [facility] Start: 08-29-2023 End: 09-08-2023 Exposure to SARS-CoV-2 (event) Not sure [facility] NEGATED: Highlighted row No Social History Information Available No Social History Information Available [facility] [employer] [facility] Work Phone: Mental Status Date Assessment Result Facility 07-03-2023 Cognitive function Voice/Name [facility] Work Phone: Clinical Notes 09-20-2022 to 08-01-2024 Telephone Encounter - Jon Bowers Ma - 08/01/2024 3:35 PM EDTTelephone Encounter - Jon Bowers Ma - 08/01/2024 3:35 PM EDTBShaak martines MD - 05/28/2024 9:00 AM ESTPatient Instructions Note Date & Type Note Facility 08-01-2024 Telephone encounter Note Faxed written order form to [facility] [phone] [facility] 08-01-2024 Miscellaneous Notes Faxed written order form to [facility] [phone] documented in this encounter [facility] 05-28-2024 History of Present illness Narrative +hypermobility, saw Dr. Vasquez in [place], diagnosed as hypermobility spectrum + loss, referred to EDS clinic for management to see if she can safely get again (previously had two healthy pregnancies) +chronic pain entire life +Neck, back, hips subluxing No POTS symptoms No significant GI symptoms Wants to see allergy, previously had persistent hives, have since resolved +left hip labrum tear in 2019 Did not get repaired due to having young kids and recovery time, has significant hip pain as a result +fatigue, word finding difficulties, exhaustibility Passive Dorsiflexion of the fifth finger >90 degrees 2 Passive apposition of the thumb to the flexor aspect of the forearm 2 Hyperextension of the elbow >10 degrees 2 Hyperextensibility of the knees > 10 degrees 2 Flexion of the waist with palms on the floor (and with the knees fully extended) 1 Skin Hyperextensibility-stretch skin more than 4 cm from a neutral site YES Mitral Valve Prolapse 2 or more of the following A. Soft velvety skin YES mild skin hyperextensibility YES striae (without weight gain or loss) YES bilateral piezogenic heel papules YES abdominal hernias NO atrophic scarring prolapse of the pelvis floor She has a bladder prolapse, and uterus was tilted with last baby. 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 NO mitral valve prolapse B. Positive family history in first degree relatives diagnosed with these criteria Grandmother likely had this (on mom's side). Is one of 7 siblings, none of the other siblings have the same issues. C. Daily musculoskeletal pain in two or more extremities (for at least 3 months) YES Had a miscarriage back in July 2022, r/t incompetent cervix at 16.5 weeks Before trying to get again she was told she needed to be established with a printer maintainer [place] [address] Vasquez with a connective tissue disorder, he didn't think she qualified for EDS at that point Chronic pain for entire life Has very flat feet Seen a chiropractor her whole life Neck, back, hips are always out Neck locks up and she can't turn it Recently left shoulder has dislocated twice in the last couple months When she was younger tried to do karate and every time she tried to kick her hips would sublux No dislocations requiring ER care Chiropractor usually pops shoulder back in for her when it pops out No significant GI symptoms Has a lot of food sensitivities, can't eat a lot of things because it gives her terrible stomach pain Chronic hives for 2.5 years Never been worked up for [facility], hives are now gone No POTS symptoms Has done PT on and off, has helped somewhat but not a huge amount Sleeps with a million pillows for shoulders while sleeping, and has computer elevated and propped up with pillows Not interested in bracing right now for knees or ankles I don't like to use a lot of extra things Ankles have not been problematic of late +fatigue +word finding difficulties +brain fog Everything feels good in the morning and about longterm through the day feels worse Left hip labrum tore when she was with first child in 2019, and then tore worse with second Difficult for her to function physically because of the hip pain from this Saw someone in ortho but they said she didn't qualify for the surgery and then she also had two toddlers and couldn't deal with the recovery time Thinks her pain is mostly muscles I think the muscles are over-compensating trying to hold everything together [facility] [place] Department of Rheumatic and Immunologic Diseases This consult was requested by the doctor listed below for an opinion regarding the chief complaint listed below, and my final recommendations will be communicated to the requesting health care provider by way of the shared medical record for internal providers or letter via the U.S. Postal Service for external providers. Referring Physician: No referring provider defined for this encounter. SUBJECTIVE: CC: hypermobility History of Present Illness: 34 year old female is evaluated in the Rheumatology Clinic for hypermobility Hypermobility spectrum diagnosis previously + total body pain + left labral tear + fatigue + concentration difficulties + word finding difficulties PMHx: PAST MEDICAL HISTORY Diagnosis Date Connective tissue disorder (HCC) PSHx: PAST SURGICAL HISTORY Procedure Laterality Date D&C SUCTION 07/03/2023 incomplete ab ORAL SURGERY PROCEDURE FamHx: No family history on file. SocHx: Social History Tobacco Use Smoking status: Never Smokeless tobacco: Never Vaping Use Vaping status: Never Used Substance Use Topics Alcohol use: Not Currently Drug use: Never MEDICATIONS: magnesium oxide 400 mg magnesium cap Take by mouth. calcium carbonate (CALCIUM 500 ORAL) Take by mouth once daily. vitamin B complex (B COMPLEX ORAL) Take by mouth once daily. WellBetX PGX Ultra Matrix (Natural Factors) diabetes/blood sugar/weight management Take 2 capsules with 8 ounces of water 5-10 minutes before meals. (Patient not taking: Reported on 08/21/2023) ALLERGIES: ALLERGIES No Known Allergies OBJECTIVE: Physical Examination: Vitals: BP 134/96 Pulse 104 Temp 36.7 C (98.1 F) (Temporal) Wt 97.6 kg (215 lb 1.6 oz) LMP 05/25/2024 (Exact Date) General: Looks well, NAD, A & Ox3. HEENT: PERRLA & EOMs intact. Throat clear without exudates. Neck: No LAD. CVS: RRR, nl S1/S2, no R/M/G,. Resp: CTAB. No rales or wheezing. Abdo: NL BS present, soft & non-tender, Ext: Good DP/PTs palpable bilaterally. No edema. Neuro: No rash. No ulcers. Musculoskeletal: Neck: Good flexion/extension/lateral rotation Shoulders: No swelling, no tenderness, good ROM Elbows: No swelling, no tenderness, no flexion contractures, no nodules, good ROM Wrists: No swelling, no tenderness, no limitation in flexion and extension Hands: No evidence of synovitis. 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 Total body pain, muscles and joints worse with activity. Fatigue, concentration difficulties, word finding difficulty and easy exhaustion. Spend the majority of the visit discussing central sensitization as well as lifestyle modifications to hopefully improve symptoms over time. Joint instability-discussed PT Chronic hives-have resolved but had them for 2.5 years, low yield for workup currently which we discussed but if returns would have allergy/immunology evaluate -Will call pt with results Impression and recommendations/plan discussed with the patient in person. Old records and films reviewed as noted above. Consult will be sent to the requesting physician and/or the patient. Laboratory tests and Radiology: As outlined in orders. Shaka Mock, Rheumatology Staff [id number] documented in this encounter [facility] 05-28-2024 Note HNO ID: [id number] Author: SHAKA MOCK MD Service: ? Author Type: Physician Type: Progress Notes Filed: 05/28/2024 13:34 Note Text: +hypermobility, saw Dr. Vasquez in [place], diagnosed as hypermobility spectrum + loss, referred to EDS clinic for management to see if she can safely get again (previously had two healthy pregnancies) +chronic pain entire life +Neck, back, hips subluxing No POTS symptoms No significant GI symptoms Wants to see allergy, previously had persistent hives, have since resolved +left hip labrum tear in 2019 Did not get repaired due to having young kids and recovery time, has significant hip pain as a result +fatigue, word finding difficulties, exhaustibility Passive Dorsiflexion of the fifth finger >90 degrees 2 Passive apposition of the thumb to the flexor aspect of the forearm 2 Hyperextension of the elbow >10 degrees 2 Hyperextensibility of the knees > 10 degrees 2 Flexion of the waist with palms on the floor (and with the knees fully extended) 1 Skin Hyperextensibility-stretch skin more than 4 cm from a neutral site YES Mitral Valve Prolapse 2 or more of the following A. Soft velvety skin YES mild skin hyperextensibility YES striae (without weight gain or loss) YES bilateral piezogenic heel papules YES abdominal hernias NO atrophic scarring prolapse of the pelvis floor She has a bladder prolapse, and uterus was tilted with last baby. 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 NO mitral valve prolapse B. Positive family history in first degree relatives diagnosed with these criteria Grandmother likely had this (on mom's side). Is one of 7 siblings, none of the other siblings have the same issues. C. Daily musculoskeletal pain in two or more extremities (for at least 3 months) YES Had a miscarriage back in July 2022, r/t incompetent cervix at 16.5 weeks Before trying to get again she was told she needed to be established with a printer maintainer Diagn[place] [address] Vasquez with a connective tissue disorder, he didn't think she qualified for EDS at that point Chronic pain for entire life Has very flat feet Seen a chiropractor her whole life Neck, back, hips are always out Neck locks up and she can't turn it Recently left shoulder has dislocated twice in the last couple months When she was younger tried to do karate and every time she tried to kick her hips would sublux No dislocations requiring ER care Chiropractor usually pops shoulder back in for her when it pops out No significant GI symptoms Has a lot of food sensitivities, can't eat a lot of things because it gives her terrible stomach pain Chronic hives for 2.5 years Never been worked up for [facility], hives are now gone No POTS symptoms Has done PT on and off, has helped somewhat but not a huge amount Sleeps with a million pillows for shoulders while sleeping, and has computer elevated and propped up with pillows Not interested in bracing right now for knees or ankles I don't like to use a lot of extra things Ankles have not been problematic of late +fatigue +word finding difficulties +brain fog Everything feels good in the morning and about longterm through the day feels worse Left hip labrum tore when she was with first child in 2019, and then tore worse with second Difficult for her to function physically because of the hip pain from this Saw someone in ortho but they said she didn't qualify for the surgery and then she also had two toddlers and couldn't deal with the recovery time Thinks her pain is mostly muscles I think the muscles are over-compensating trying to hold everything together [facility] [place] Department of Rheumatic and Immunologic Diseases This consult was requested by the doctor listed below for an opinion regarding the chief complaint listed below, and my final recommendations will be communicated to the requesting health care provider by way of the shared medical record for internal providers or letter via the U.S. Postal Service for external providers. Referring Physician: No referring provider defined for this encounter. SUBJECTIVE: CC: hypermobility History of Present Illness: 34 year old female is evaluated in the Rheumatology Clinic for hypermobility Hypermobility spectrum diagnosis previously + total body pain + left labral tear + fatigue + concentration difficulties + word finding difficulties PMHx: PAST MEDICAL HISTORY Diagnosis Date Connective tissue disorder (HCC) PSHx: PAST SURGICAL HISTORY Procedure Laterality Date DANDC SUCTION 07/03/2023 incomplete ab ORAL S (more content not included)... [facility] 05-26-2024 Telephone encounter Note Received office note from Dr Vasquez. New EDS patient scheduled for 05/28 Scan on 05/26/2024 9:42 AM by Provider, SHIRA Gabriel: Miscellaneous Clinical Documents [facility] 05-26-2024 Miscellaneous Notes Received office note from Dr Vasquez. New EDS patient scheduled for 05/28 Scan on 05/26/2024 9:42 AM by Provider, Nery, PARosi: Miscellaneous Clinical Documents documented in this encounter [facility] 09-28-[address] - 09/28/2023 9:51 AM EDT [facility] FOLLOW UP NUTRITION INSTRUCTIONS Nutrition Follow-up: In as needed with Alondra Monahan RD. Nutrition Plan: It is recommended to get labs and approval from your PCP prior to starting Ketogenic Diet. Labs to consider: CMP, CBC, Uric Acid, HS-CRP, Insulin The Ketogenic Diet is a high-fat, adequate-protein, low-carbohydrate diet that mimics a fasted state in the body. Ratios to start (we can always adjust) 80% fat, 6% Carb, 14% protein Calories: 1700 calories per day (using adjusted [place] body weight) Protein: 60 grams per day Carbohydrate: 26=5 grams per day (net carbs) Fats: 151 grams per day You will need to weigh and measure your food and a food scale is the most accurate and easiest way to do this I suggest sitting at numbers for a least 2 weeks and seeing how they feel. Then, you can adjust depending on how you are feeling. Other: Adequate hydration - at least 90 oz of fluids per day (water, sparkling water, herbal teas, unsweetened nut milks, bone broth). Daily electrolytes are recommended- Nuun tablets, LMNT, Nooma Hydration Self-Monitoring: Track food/beverage intake (KetoDietApp, MyFitnessPal, Cronometer are several options). You can also use KetoMojo (https://keto-mojo.com/) to track ketone levels. Optimal levels of blood ketones are between 0.6-4.0. Once you are into ketosis you should slowly increase your carbs by 5-10g per week to determine your threshold, increase until you drop out of ketosis (as determined by ketone testing). ADDITIONAL INSTRUCTIONS: How to Contact Your Functional Medicine Team (Open M-F 8am-5pm): 1. MyChart is the BEST form of communication to reach the Functional Medicine Team, see test results and request refills. Please allow 72 business hours for a response. Directions for signing up are included in your New Patient Folder. (Or you can go to [email or web address]) 2. For nutrition related questions or concerns, Greetzt message your physician and include Attn: Alondra Monahan RD at the top of the message. [facility] messaging is meant to support implementation of previously outlined nutrition care plans. In the interest of safe, effective and personalized care, you are asked to schedule a follow-up appointment if: It has been >6 months since your last nutrition appointment Your question requires reassessment or involves a new plan of care Your question concerns a new diagnosis, symptoms(s) and/or health concern Ordering Supplements: Supplements can be ordered from the [facility]'s Online Store: [email or web address] New patients to the Healthy Living Shop will need to enter the provider code [id number] documented in this encounter [facility] 09-27-2023 History of Present illness Narrative [facility] Nutrition Therapy: Follow-Up Assessment (Individual) VIRTUALVISITPN I have communicated my name and active licensure. The patient's identity and physical location were verified at the time of this visit. Either the patient or their legal account development representative has been informed of the risks and benefits of -- and alternatives to -- treatment through a remote evaluation and consents to proceed with the evaluation remotely. Patient is located in the [facility] at the time of the virtual visit. Patient Name: Giovanna Day Past Medical History: PAST MEDICAL HISTORY Diagnosis Date Connective tissue disorder (HCC) Allergies: Patient has no known allergies. Current Medications/Supplements Current Outpatient Medications on File Prior to Visit Medication Sig magnesium oxide 400 mg magnesium cap Take by mouth. calcium carbonate (CALCIUM 500 ORAL) Take by mouth once daily. vitamin B complex (B COMPLEX ORAL) Take by mouth once daily. WellBetX PGX Ultra Matrix (Natural Factors) diabetes/blood sugar/weight management Take 2 capsules with 8 ounces of water 5-10 minutes before meals. (Patient not taking: Reported on 08/21/2023) No current facility-administered medications on file prior to visit. Primary ICD-10 Diagnosis Addressed: Weight gain [R63.5] Provider Nutrition Notes:Nutrition only today Status of Chief Concerns Desires weight loss Nutrition Assessment (updated 09/27/23) Current Symptom Review: Weight gain . No longer (lost her baby) Food and Nutrition History (update): She would like to start ketogenic diet. Education on diet guidelines: high fat, not high protein. She Was able to tolerate carbs when she was . Advised to get a ketone urine strip., and speak with PCP prior to starting, to get approval. She is hunger all the time, gets shaky if she doesn't eat Current Adverse Reactions to Foods: Yes, all sugar and carbs Avocados Diet Recall: Yes 24 Hour Recall Breakfast: ground beef and coleslaw Lunch: cheese and meat and cucumbers Dinner: al Snacks: fruit (once in a while) Beverages: dandy blend with coconut oil (heps with hunger) Trying to add in some nuts which is helping Anthropometrics LMP 08/03/2023 Last Height: Last 1 Encounter Ht Readings: Date: Ht: 11/23/2009 162.6 cm (5' 4) Last Weight: Last Wt 08/21/23 : 103.4 kg (228 lb) 07/10/23 : 101.5 kg (223 lb 12.8 oz) 12/19/18 : 76.7 kg (169 lb) Wt: 103.4 kg (228 lb) BMI: 39.14 kg/(m^2) Learning Needs Assessment: Barriers to Learning: Ready to Learn (no barriers noted) Assessed motivation to learn: moderate Biochemical and Laboratory Data Conventional/Advanced Testing Latest Reference Range & Units 07/10/23 15:05 Vitamin D 25 Hydroxy 31.0 - 80.0 ng/mL 57.5 TSH 0.270 - 4.200 mIU/L 0.875 WBC 3.70 - 11.00 k/uL 7.77 RBC 3.90 - 5.20 m/uL 3.67 (L) Hemoglobin 11.5 - 15.5 g/dL 11.4 (L) Hematocrit 36.0 - 46.0 % 33.1 (L) Platelet Count 150 - 400 k/uL 350 MCV 80.0 - 100.0 fL 90.2 MCH 26.0 - 34.0 pg 31.1 MCHC 30.5 - 36.0 g/dL 34.4 MPV 9.0 - 12.7 fL 9.1 RDW-CV 11.5 - 15.0 % 13.2 DTYPE Auto Neut% % 63.4 Abs Neut (ANC) 1.45 - 7.50 k/uL 4.93 Lymph% % 27.7 Abs Lymph 1.00 - 4.00 k/uL 2.15 [place]% % 5.1 Abs [place] <0.87 k/uL 0.40 Eosin% % 3.0 Abs Eosin <0.46 k/uL 0.23 Baso% % 0.3 Abs Baso <0.11 k/uL <0.03 Immature Gran % % 0.5 IMMATURE GRANS (ABS) <0.10 k/uL 0.04 NRBC /100 WBC 0.0 Absolute nRBC <0.01 k/uL <0.01 (L): Data is abnormally low Laboratory Values Addressed: None addressed today Nutrition Prescription Energy: Resting Metabolic Rate: 1716 Protein: 0.8g/kg Nutrients of Concern: Fiber Nutrition Diagnosis: Overweight/Obesity related to unclear etiology as evidenced by BMI Status: Active Nutrition Intervention (New and Reinforcement): Current Nutrition Goal(s): decrease inflammation and promote weight loss towards patients goal weight Food Plan: Ketogenic or Modified Ketogenic The Ketogenic Diet is a high-fat, adequate-protein, low-carbohydrate diet that mimics a fasted state in the body Estimated Macronutrient Distributions You will need to weigh and measure your food and a food scale is the most accurate and easiest way to do this I suggest sitting at numbers for a least 2 weeks and seeing how they feel. Then, you can adjust depending on how you are feeling. Ratios to start (we can always adjust) 80% fat, 6% Carb, 14% protein Calories: 1700 calories per day (using adjusted [place] body weight) Protein: 60 grams per day Carbohydrate: 26=5 grams per day (net carbs) Fats: 151 grams per day Other: Adequate hydration - at least 90 oz of fluids per day (water, sparkling water, herbal teas, unsweetened nut milks, bone broth). Daily electrolytes are recommended- Nuun tablets, LMNT, Nooma Hydration Self-Monitoring: Track food/beverage intake (KetoDietApp, MyFitnessPal, Cronometer are several options). You can also use KetoMojo ([email or web address]-mojo.[employer]/) to track ketone levels. Optimal levels of blood ketones are between 0.6-4.0. Once you are into ketosis you should slowly increase your carbs by 5-10g per week to determine your threshold, increase until you drop out of ketosis (as determined by ketone testing). Resources/Educational Materials Provided embedded above Adherence Potential to Goals/Care Plan: High Nutrition Monitoring & Evaluation: Meal and Snack Pattern, Nutrition Related Laboratory Values, Protein Intake, and Subjective Symptoms Criteria: Laboratory Data, MSQ, Dietary Recall Follow up: 6 weeks Time Spent with patient: 30 minutes Consult Billing Type: Reassessment/15 minutes, 2 increment(s), 30 minutes Number of Increments: 2 (30 minutes) Referred/Supervised by: Allyn Fontanez CNP Signed by: Alondra Monahan RD documented in this encounter [facility] 09-27-2023 Note HNO ID: [id number] Author: ALONDRA MONAHAN RD Service: ? Author Type: Registered Dietitian Type: Progress Notes Filed: 10/08/2023 06:42 Note Text: [facility] Nutrition Therapy: Follow-Up Assessment (Individual) VIRTUALVISITPN I have communicated my name and active licensure. The patient's identity and physical location were verified at the time of this visit. Either the patient or their legal account development representative has been informed of the risks and benefits of -- and alternatives to -- treatment through a remote evaluation and consents to proceed with the evaluation remotely. Patient is located in the [facility] at the time of the virtual visit. Patient Name: Giovanna Day Past Medical History: PAST MEDICAL HISTORY Diagnosis Date Connective tissue disorder (HCC) Allergies: Patient has no known allergies. Current Medications/Supplements Current Outpatient Medications on File Prior to Visit Medication Sig magnesium oxide 400 mg magnesium cap Take by mouth. calcium carbonate (CALCIUM 500 ORAL) Take by mouth once daily. vitamin B complex (B COMPLEX ORAL) Take by mouth once daily. WellBetX PGX Ultra Matrix (Natural Factors) diabetes/blood sugar/weight management Take 2 capsules with 8 ounces of water 5-10 minutes before meals. (Patient not taking: Reported on 08/21/2023) No current facility-administered medications on file prior to visit. Primary ICD-10 Diagnosis Addressed: Weight gain [R63.5] Provider Nutrition Notes:Nutrition only today Status of Chief Concerns Desires weight loss Nutrition Assessment (updated 09/27/23) Current Symptom Review: Weight gain . No longer (lost her baby) Food and Nutrition History (update): She would like to start ketogenic diet. Education on diet guidelines: high fat, not high protein. She Was able to tolerate carbs when she was . Advised to get a ketone urine strip., and speak with PCP prior to starting, to get approval. She is hunger all the time, gets shaky if she doesn't eat Current Adverse Reactions to Foods: Yes, all sugar and carbs Avocados Diet Recall: Yes 24 Hour Recall Breakfast: ground beef and coleslaw Lunch: cheese and meat and cucumbers Dinner: al Snacks: fruit (once in a while) Beverages: dandy blend with coconut oil (heps with hunger) Trying to add in some nuts which is helping Anthropometrics [facility] 08/03/2023 Last Height: Last 1 Encounter Ht Readings: Date: Ht: 11/23/2009 162.6 cm (5' 4) Last Weight: Last Wt 08/21/23 : 103.4 kg (228 lb) 07/10/23 : 101.5 kg (223 lb 12.8 oz) 12/19/18 : 76.7 kg (169 lb) Wt: 103.4 kg (228 lb) BMI: 39.14 kg/(m2) Learning Needs Assessment: Barriers to Learning: Ready to Learn (no barriers noted) Assessed motivation to learn: moderate Biochemical and Laboratory Data Conventional/Advanced Testing Latest Reference Range AND Units 07/10/23 15:05 Vitamin D 25 Hydroxy 31.0 - 80.0 ng/mL 57.5 TSH 0.270 - 4.200 mIU/L 0.875 WBC 3.70 - 11.00 k/uL 7.77 RBC 3.90 - 5.20 m/uL 3.67 (L) Hemoglobin 11.5 - 15.5 g/dL 11.4 (L) Hematocrit 36.0 - 46.0 % 33.1 (L) Platelet Count 150 - 400 k/uL 350 MCV 80.0 - 100.0 fL 90.2 MCH 26.0 - 34.0 pg 31.1 MCHC 30.5 - 36.0 g/dL 34.4 MPV 9.0 - 12.7 fL 9.1 RDW-CV 11.5 - 15.0 % 13.2 DTYPE Auto Neut% % 63.4 Abs Neut (ANC) 1.45 - 7.50 k/uL 4.93 Lymph% % 27.7 Abs Lymph 1.00 - 4.00 k/uL 2.15 [place]% % 5.1 Abs [place] <0.87 k/uL 0.40 Eosin% % 3.0 Abs Eosin <0.46 k/uL 0.23 Baso% % 0.3 Abs Baso <0.11 k/uL <0.03 Immature Gran % % 0.5 IMMATURE GRANS (ABS) <0.10 k/uL 0.04 NRBC /100 WBC 0.0 Absolute nRBC <0.01 k/uL <0.01 (L): Data is abnormally low Laboratory Values Addressed: None addressed today Nutrition Prescription Energy: Resting Metabolic Rate: 1716 Protein: 0.8g/kg Nutrients of Concern: Fiber Nutrition Diagnosis: Overweight/Obesity related to unclear etiology as evidenced by BMI Status: Active Nutrition Intervention (New and Reinforcement): Current Nutrition Goal(s): decrease inflammation and promote weight loss towards patients goal weight Food Plan: Ketogenic or Modified Ketogenic The Ketogenic Diet is a high-fat, adequate-protein, low-carbohydrate diet that mimics a fasted state in the body Estimated Macronutrient Distributions You will need to weigh and measure your food and a food scale is the most accurate and easiest way to do this I suggest sitting at numbers for a least 2 weeks and seeing how they feel. Then, you can adjust depending on how you are feeling. Ratios to start (we can always adjust) 80% fat, 6% Carb, 14% protein Calories: 1700 calories per day (using adjusted [place] body weight) Protein: 60 grams per day Carbohydrate: 26=5 grams per day (net carbs) Fats: 151 grams per day Other: Adequate hydration - at least 90 oz of fluids per day (water, sparkling water, herbal teas, unsweetened nut milks, bone broth). [place] (more content not included)... [facility] 09-27-2023 Telephone encounter Note Faxed Vicky Moore RN [facility] 09-27-2023 Miscellaneous Notes Faxed Vicky Moore RN Received fax form from [facility] Needs signature from Dr. Harman. Fax paperwork placed on Dr. Armen swann for signature. documented in this encounter [facility] 09-27-2023 Telephone encounter Note Received fax form from [facility]. Needs signature from Dr. Harman. Fax paperwork placed on Dr. Armen swann for signature. [facility] 09-18-2023 Telephone encounter Note Patient notified and voiced understanding. Patient still wishes to have order faxed to [facility] in [place]. Order faxed. Beatris Ladd RN [facility] 09-18-2023 Miscellaneous Notes Patient notified and voiced understanding. Patient still wishes to have order faxed to [facility] in [place]. Order faxed. 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 Please inform patient. Jessie Harman MD Patient calling to ask for pelvic floor therapy order. Patient states she sees Truly Norris PT from [facility] in [place]. Pt has connective tissue disorder. States she wants this therapy for pelvic floor issues. Pt aware Dr Harman out of office until Sunday Pt would like faxed to [facility]. And would like a call to let her know it was completed. 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 Please inform patient. Jessie Harman MD [facility] 09-17-2023 Telephone encounter Note Patient calling to ask for pelvic floor therapy order. Patient states she sees Truly Norris PT from [facility]. Pt has connective tissue disorder. States she wants this therapy for pelvic floor issues. Pt aware Dr Harman out of office until Sunday Pt would like faxed to [facility]. And would like a call to let her know it was completed. [facility] 09-08-2023 History of Present illness Narrative [facility] James Grewal APRN-TRACK INSPECTING SUPERVISOR Visit Note - 09/08/2023 12:02 PM This note was generated with voice recognition software and may contain errors including spelling, grammar, syntax, and misrecognization of what was dictated. Patient: Giovanna Day, , 33 y.o., female PCP: No primary care provider on file. --- ALLERGIES: No Known Allergies CURRENT MEDICATIONS: Current Outpatient Medications Medication Instructions azithromycin (Zithromax Z-Fede) 250 mg tablet Take 2 tablets by mouth at once on day 1, then 1 tablet once a day on days 2-5. Take with a meal. calcium carbonate (Tums) 250 mg ([place] 100 mg) chewable split tablet oral, Daily RT magnesium oxide 400 mg magnesium capsule oral nystatin (Mycostatin) 500,000 unit tablet vitamin-B complex split tablet oral, Daily RT --- PAST MEDICAL HX: Has hypermobility spectrum disorder/connective tissue disorder. No other known health issues. SURGICAL HX: History reviewed. No pertinent surgical history. FAMILY HX: No pertinent history. SOCIAL HX: reports that she has never smoked. She has never used smokeless tobacco. ; has children. --- CHIEF COMPLAINT: Chief Complaint Patient presents with exposure to pertussis Patient is a symptomatic at this time with exposure to pertussis X approx 3 weeks ago on August 11, 2023 HISTORY OF PRESENT ILLNESS: The history was obtained from patient. Giovanna is a 33 y.o. female, who presents with a chief complaint of known exposure to pertussis on 08/11/23. Reports she has been completely asymptomatic, but her children, who were also exposed to the individual who was being treated for Pertussis, recently started to develop coughs and cold symptoms. Has not been vaccinated. Is not a smoker. No recent antibiotic use. Is requesting prophylactic treatment based on known exposure. Reports she had whooping cough ~10 years ago. REVIEW OF SYSTEMS: 10 systems reviewed negative with exception of history of present illness as listed above. TODAY'S VITALS: BP 113/79 Pulse 75 Temp 36.4 C (97.6 F) Resp 16 Ht 1.626 m (5' 4) Wt 104 kg (230 lb) LMP 09/01/2023 SpO2 97% BMI 39.48 kg/m PHYSICAL EXAMINATION: General: Pleasant female; alert and oriented; in no acute distress. Sitting comfortably on exam chair. Non-dyspneic. Eyes: Pupils equal, round and reactive to light. No conjunctival erythema; no scleral icterus. HENT: No frontal or maxillary sinus tenderness; No audible nasal congestion. Airway patent, TMs and ear canals clear/unremarkable bilaterally. Nasal mucosa unremarkable. Oral mucosa moist. Posterior pharynx unremarkable Uvula is midline. Managing oral secretions without difficulty. Neck: Supple. No palpable lymphadenopathy. Trachea is midline. Respiratory: Respirations easy and unlabored, Breath sounds equal. Lungs are clear to auscultation; no wheezes, rhonchi, or rales; has good air movement throughout. No cough noted. Non-dyspneic with ambulation; able to maintain SpO2. Cardiovascular: Normal rate, Regular rhythm. Normal S1S2. No m/r/g. No peripheral edema. Gastrointestinal: Abdomen soft, non-tender, non-distended; Bowel sounds normoactive. Musculoskeletal: Grossly normal; appropriate for age. Integumentary: [place], warm, dry, and intact. No rashes or skin discoloration appreciated. Good skin turgor. Neurologic: Alert and oriented, no gross deficits. Cognition and Speech: Oriented, Speech clear and coherent. Psychiatric: Cooperative, Appropriate mood & affect. --- Medical Decision Making LABORATORY or RADIOLOGICAL IMAGING ORDERS/RESULTS: None IMPRESSION/PLAN: Course: Worsening; stable 1. Exposure to pertussis - azithromycin (Zithromax Z-Fede) 250 mg tablet; Take 2 tablets by mouth at once on day 1, then 1 tablet once a day on days 2-5. Take with a meal. Dispense: 6 tablet; Refill: 0 Discussed testing for pertussis, but as she is asymptomatic, patient requesting to defer. No red flags on exam today. Per CDC guidelines, will begin post-exposure prophylaxis with Zithromax today. Instructions provided. Should finish full course of antibiotics. Instructed to push fluids, rest, and to use appropriate over the counter medications as needed for management of symptoms if they develop. Reviewed red flags to monitor for, counseled on potential adverse reactions of treatments, expectations for improvement in sxs, and advised to follow-up with primary care provider in 3-5 days if symptoms persist, or sooner if worsening or if any additional concerns/red flags develop. Patient verbalized understanding and agreed with plan of care; questions were encouraged and answered. RITCHIE Santillan Advanced Practice Provider [facility] documented in this encounter [facility] Work Phone: 08-28-2023 Telephone encounter Note Faxed requested records to [facility]. [facility] 08-28-2023 Miscellaneous Notes Faxed requested records to [facility]. She had a preconception consult. I don't think she needs another one. She could plan to see [facility] when she conceives. Jessie Harman MD Please see pt's mychart note and further advise. Pt aware that you are not in the office today but will return 08/28/23. Beena Desai LPN documented in this encounter [facility] 08-28-2023 Telephone encounter Note She had a preconception consult. I don't think she needs another one. She could plan to see [facility] when she conceives. Jessie Harman MD [facility] Work Phone: 08-24-2023 Telephone encounter Note Please see pt's mychart note and further advise. Pt aware that you are not in the office today but will return 08/28/23. Beena Desai LPN [facility] 08-23-2023 Telephone encounter Note Fluid retention would not be related to the miscarriage. I recommend she follow up with her pcp Jessie Harman MD [facility] Work Phone: 08-23-2023 Miscellaneous Notes Fluid retention would not be related to the miscarriage. I recommend she follow up with her pcp Jessie Harman MD documented in this encounter [facility] 08-21-2023 Note HNO ID: [id number] Author: JASON DYKES MD Service: ? Author Type: Physician Type: Progress Notes Filed: 08/21/2023 12:50 Note Text: [employer] [place] OUTPATIENT VISIT DATE August 21, 2023 OUTPATIENT VISIT TYPE CONSULT REFERRING PROVIDER: Jessie Harman MD Recommendations from today's consultation will be conveyed through the electronic medical record. History of Present Illness: 33 year old presenting for consultation with Maternal- Medicine at the [facility] in the setting of recent 16 week loss. Her history is reviewed with the patient as noted below. G1: Normal , home delivery G2: Normal , home delivery G3: Measured small at 8 weeks based on ultrasound by home bacteriologist pharmaceutical, bleeding started at 10 weeks, continued on and off, eventually miscarried at home 16w3d. Presented to [facility], [facility] for retained placenta. Not aware of any genetic testing on the products of . This occurred recently, 07/03/23. The child morphologically looked normal, she shares a picture of her son with me today on her phone. 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 She does not currently have printer maintainer or provider she is following up with for MCTD. She does have concern that MCTD may have contributed to her recent loss. She also has concern that she may be experiencing symptoms of pelvic organ prolapse which may have been related to loss. She also had been experiencing lower back pain/urinary retention around time of loss, wondered if she could have had uterine incarceration. These symptoms have resolved but she is concerned for future . Her relevant histories have been updated and are reviewed below: Obstetric History: # 1 - Date: 01/24/20, Sex: Male, Weight: 6 lb 8 oz (2.948 kg), GA: 40w0d, Delivery: Vaginal, Spontaneous, Apgar1: None, Apgar5: None, Living: Living, Comments: None # 2 - Date: 01/29/21, Sex: Female, Weight: 6 lb (2.722 kg), GA: None, Delivery: Vaginal, Spontaneous, Apgar1: None, Apgar5: None, Living: Living, Comments: None # 3 - Date: 07/03/23, Sex: None, Weight: None, GA: 16w0d, Delivery: SPONTANEOUS , Apgar1: None, Apgar5: None, Living: None, Comments: seen by bacteriologist pharmaceutical-presented to [facility] after passing tissue and having heavy bleeding-[facility] for retained POC by M[facility] Gynecologic History: Regular cycles Occasional pain with ovulation, told might have ovarian cyst in past Denies history uterine fibroids, heavy menstrual bleeding or other gynecologic problems Past Medical History: PAST MEDICAL HISTORY Diagnosis Date Connective tissue disorder (HCC) 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 Allergies: ALLERGIES No Known Allergies Social History: Social History Tobacco Use Smoking status: Never Smokeless tobacco: Never Vaping Use Vaping Use: Never used Substance Use Topics Alcohol use: Not Currently Drug use: Never Family History: No family history on file. Mother and sister had miscarriages (her mother had 20 week loss) Patient's has family history of sibling with Trisomy 18, lived for a few weeks. He also has family history of likely second Trisomy 18 sibling that resulted in miscarriage Review of Systems: Negative other than as noted above. Physical Exam: BP 112/78 Wt 228 lb (103.4 kg) LMP 08/03/2023 Gen: Well-appearing, no acute distress CV/Resp: Non-labored breathing on room air Ext: Moving spontaneously, no significant edema b/l Assessment and Plan: 33 year old presenting for preconception counseling after recent loss at 16w3d. 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 No genetic or testing available to review pertaining to the loss. The differential diagnosis for etiology of second trimester loss is broad, including (not limited to): genetic conditions such as chromosomal aneuploidy, placental complications such as placental abruption, advanced cervical dilation leading to loss, or other multitude of maternal or complications. Maternal TSH normal, hemoglobin A1c ordered today for next blood draw (may have (more content not included)... [facility] 08-21-2023 History of Present illness Narrative Images from the original note were not included. [employer] [place] OUTPATIENT VISIT DATE August 21, 2023 OUTPATIENT VISIT TYPE CONSULT REFERRING PROVIDER: Jessie Harman MD Recommendations from today's consultation will be conveyed through the electronic medical record. History of Present Illness: 33 year old presenting for consultation with Maternal- Medicine at the [facility] in the setting of recent 16 week loss. Her history is reviewed with the patient as noted below. G1: Normal , home delivery G2: Normal , home delivery G3: Measured small at 8 weeks based on ultrasound by home bacteriologist pharmaceutical, bleeding started at 10 weeks, continued on and off, eventually miscarried at home 16w3d. Presented to [facility], had D&C for retained placenta. Not aware of any genetic testing on the products of . This occurred recently, 07/03/23. The child morphologically looked normal, she shares a picture of her son with me today on her phone. 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 She does not currently have printer maintainer or provider she is following up with for MCTD. She does have concern that MCTD may have contributed to her recent loss. She also has concern that she may be experiencing symptoms of pelvic organ prolapse which may have been related to loss. She also had been experiencing lower back pain/urinary retention around time of loss, wondered if she could have had uterine incarceration. These symptoms have resolved but she is concerned for future . Her relevant histories have been updated and are reviewed below: Obstetric History: # 1 - Date: 01/24/20, Sex: Male, Weight: 6 lb 8 oz (2.948 kg), GA: 40w0d, Delivery: Vaginal, Spontaneous, Apgar1: None, Apgar5: None, Living: Living, Comments: None # 2 - Date: 01/29/21, Sex: Female, Weight: 6 lb (2.722 kg), GA: None, Delivery: Vaginal, Spontaneous, Apgar1: None, Apgar5: None, Living: Living, Comments: None # 3 - Date: 07/03/23, Sex: None, Weight: None, GA: 16w0d, Delivery: SPONTANEOUS , Apgar1: None, Apgar5: None, Living: None, Comments: seen by bacteriologist pharmaceutical-presented to [facility] after passing tissue and having heavy bleeding-D& C for retained POC by MARYELLEN Gynecologic History: Regular cycles Occasional pain with ovulation, told might have ovarian cyst in past Denies history uterine fibroids, heavy menstrual bleeding or other gynecologic problems Past Medical History: PAST MEDICAL HISTORY Diagnosis Date Connective tissue disorder (HCC) 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 Allergies: ALLERGIES No Known Allergies Social History: Social History Tobacco Use Smoking status: Never Smokeless tobacco: Never Vaping Use Vaping Use: Never used Substance Use Topics Alcohol use: Not Currently Drug use: Never Family History: No family history on file. Mother and sister had miscarriages (her mother had 20 week loss) Patient's has family history of sibling with Trisomy 18, lived for a few weeks. He also has family history of likely second Trisomy 18 sibling that resulted in miscarriage Review of Systems: Negative other than as noted above. Physical Exam: BP 112/78 Wt 228 lb (103.4 kg) LMP 08/03/2023 Gen: Well-appearing, no acute distress CV/Resp: Non-labored breathing on room air Ext: Moving spontaneously, no significant edema b/l Assessment and Plan: 33 year old presenting for preconception counseling after recent loss at 16w3d. 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 No genetic or testing available to review pertaining to the loss. The differential diagnosis for etiology of second trimester loss is broad, including (not limited to): genetic conditions such as chromosomal aneuploidy, placental complications such as placental abruption, advanced cervical dilation leading to loss, or other multitude of maternal or complications. Maternal TSH normal, hemoglobin A1c ordered today for next blood draw (may have been done at admission at [facility] in which case not necessary). While hypermobile EDS has been correlated with complications including loss and delivery, her history of 2 prior term vaginal deliveries (children aged 2 and 3) complicate a presumed diagnosis of cervical insufficiency. In particular we discussed that the largest quality trial investigating cervical length screening/cerclage intervention enrolled patients who delivered after 17 weeks. Therefor the benefit of cervical length screening is uncertain, however this fairly non-invasive/low risk intervention may provide benefit if cervix shortened < 25mm, in which case we can discuss vaginal progesterone and/or cervical cerclage. She is interested in cervical length screening if she conceives. I also referred Giovanna to rheumatology/immunology for care here at [facility] for mixed connective tissue disease assessment and care. 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 Limited data may show correlation with second trimester loss, therefore this may have been related although difficult to conclude for certain. We discussed potential early intervention such as exam, positioning, bladder catheter placement in subsequent if indicated which may help reduce risk for recurrence. We also discussed possible underlying genetic condition related to loss. Genetic screening and diagnosis are available in future . In particular, cell-free DNA screening around 10 weeks can screen for the most common chromosomal aneuploidies, the risk of which increase with increasing maternal age. They are considering early cell-free DNA screening for aneuploidy next . CVS and amniocentesis are also available for genetic testing. 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 History of loss, not currently Overview G1: term (home delivery) G2: term (home delivery) G3: 16 week loss, had been on and off bleeding since 10 weeks, had D&C for retained POCs at [facility] Current Assessment & Plan If conceives, plan cervical length screening 16, 18, 20 and 22 weeks Discuss vaginal progesterone and/or cerclage if TVCL < 25mm No genetic testing on loss available to review, plan cell-free DNA screening 10 weeks next Relevant Orders HEMOGLOBIN A1C Other Connective tissue disorder (HCC) - Primary Overview Per patient most consistent with hypermobile EDS although in past was told she did not meet full clinical criteria Current Assessment & Plan Referred to rheumatology/immunology for care Plan early viability/OB visit 6-8 weeks if conceives Cervical length screening next Relevant Orders CONSULT TO RHEUM/IMMUN DISEASE Other Visit Diagnoses Complete miscarriage Prior loss, antepartum, second trimester Thank you for allowing us to participate in the care of this patient. Please do not hesitate to contact our office with any questions or concerns. Consultation requested by Dr. Harman for an opinion regarding second trimester loss, mixed connective tissue disorder. My final recommendations will be communicated back to the requesting physician by way of shared Medical record or letter to requesting physician via US mail. I spent 55 minutes in the visit, with more than 50% of the total [id number] time of the visit in counseling / coordination of care. Jason Dykes MD August 21, 2023 12:49 PM documented in this encounter [facility] 07-10-2023 History of Present illness Narrative Giovanna Day is a 33 year old female who presents for post-op visit. HPI: Patient presents 1 week after D&C. She reports feeling tired. When she stands up she feels dizzy at times but this seems to be slowly getting better. Her vaginal bleeding is just spotting. OB History No obstetric history on file. Chief Service Dispatcher History LMP: 12/11/2018, Having periods Age at Menarche: Age at First : Age at Menopause: Chief Service Dispatcher History Comments: Sexual Activity: Not Asked; No partner data on record Contraception: No contraception data on record No past medical history on file. PAST SURGICAL HISTORY Procedure Laterality Date D&C SUCTION 07/03/2023 incomplete ab No family history on file. Social History Tobacco Use Smoking status: Never Smokeless tobacco: Never Current Outpatient Medications Medication Sig WellBetX PGX Ultra Matrix (Natural Factors) diabetes/blood sugar/weight management Take 2 capsules with 8 ounces of water 5-10 minutes before meals. No current facility-administered medications for this visit. Allergies As of Date: 07/10/2023 (No Known Allergies) Fully Assessed 07/10/2023 Allergies and current medication updated:Yes EXAM: BP 102/70 Wt 223 lb 12.8 oz (101.5kg) LMP 12/11/2018 GENERAL: pleasant, female in no apparent distress ASSESSMENT AND PLAN: 33yo female s/p D&C for incomplete AB at 16 weeks and with fatigue Labs ordered Recommend MFM consult preconception for possible cervical incompetence. Also discussed option of co-care if desired in future as she's had home births in the past. Jessie Harman MD documented in this encounter [facility] 07-09-2023 Miscellaneous Notes Patient does not have a fever. Scheduled with Dr. Harman tomorrow. Advised to go to ED if heavy bleeding, chest pain or shortness of breath. Cami Moore RN Does she have a fever? If no fever and bleeding minimal, recommend sooner appointment with . Thanks, Danisha Islas APRN.CNM Patient had a suction D&C after mab with MARYELLEN at [facility] 07/03/23. Calling c/o extreme weakness, feeling shaky, headaches and reports being pale. Bleeding is currently light spotting. Asking if labs can be done. Please advise. F/u scheduled with MARYELLEN 07/17/23. Cami Moore RN documented in this encounter [facility] 07-03-2023 History and physical note Note Date/Time July 03, 2023 12:1 6pm [facility] Medical Records Department [address] [place] [id number] History & Physical Exam 07/03/23 1213 MR#: [id number] Acct: [id number] Name: GIOVANNA DAY Rep #:[id number] : 1990 33 From: Jessie Harman MD PCP: Care Physician,No Primary Status :[facility] Location: [facility] HPI - General General Date of Service: 07/03/23 Chief Complaint: Vaginal bleeding and pain HPI Narrative GIOVANNA DAY, is a 33 F who presents with vaginal bleeding. She reports passing the fetus at 9:30am today. Then patient starting to have heaving bleeding and intense cramping. Patient was seeing a relay tester helper and reports being 16&3. Previously she had 2 FT vaginal deliveries at home without complications, [facility] Medical History (Updated 07/03/23 @ 12:[address] Jessie Harman MD) Connective tissue disease Medical History no medical history Home Medications ascorbic acid (vitamin C) 100 mg PO DAILY 03/07/18 [History Last Taken Unknown] Allergy/AdvReac Type Severity Reaction Status Date / Time No Known Allergies Allergy Verified 07/03/23 10:30 Surgical History no surgical history Social History Smoking Status: Never smoker alcohol intake: never Vital Signs Vital Signs Vital Signs: 07/03/23 10:30 07/03/23 11:30 07/03/23 11:53 Temperature 99 F 98.4 F Temperature Source Temporal Pulse Rate 127 H 97 105 H Respiratory Rate 20 H 21 H 16 Blood Pressure 135/95 H 128/85 H 147/78 H Blood Pressure Mean 108 99 101 Pulse Ox 97 98 98 Oxygen Delivery Method Room Air Room Air Physical Exam Narrative - per ED physician patient with blood pouring out vaginal cavity on speculum exam Const alert and oriented x3 GI soft to palpation GI Narrative: minimal tenderness Extremity no calf tenderness Neuro CN's II-XII intact bilaterally Results Lab / Micro Data 07/03/23 10:44 07/03/23 10:44 Labs: Laboratory Results - last 24 hr 07/03/23 10:44: WBC 13.4 H, RBC 4.78, Hgb 15.2 H, Hct 42.6, MCV 89.1, MCH 31.8, MCHC 35.7, RDW Std Deviation 41.4, RDW Coeff of Judah 12.6, Plt Count 295, MPV 9.3, Sodium 139, Potassium 3.8, Chloride 109 H, Carbon Dioxide 23.0, Anion Gap 7, BUN 7, Creatinine 0.61, Est GFR (MDRD) Af Amer 143, Est GFR (MDRD) Non-Af 118, BUN/Creatinine Ratio 11.5, Glucose 116 H, Calcium 9.2, Blood Type Cancelled, Antibody Screen Cancelled Assessment & Plan Assessment/Plan (1) Incomplete : (2) Connective tissue disease: PLAN: Plan Discussed R/B/A of treatment options. Recommend proceeding with emergent D&C due to active bleeding and tachycardia. Informed consent signed and patient agrees with plan. 07/03/23 1306 <Electronically signed by Jessie Harman MD> Cosigner Signature (if applicable): CC: Dr. Jessie Harman MD; No Primary Care Physician~ Signed [facility] Work Phone: [phone] 795-726004-02-2024 Procedure [facility] 07-03-2023 [facility] Medical Records Department [address] [place] [address] History Physical Exam 07/03/23 1213 MR#: [id number] Acct: [id number] Name: GIOVANNA DAY Rep #: [id number] : 1990 33 From: Jessie Harman MD PCP: Care Physician,No Primary Status:[facility] Location: [facility] HPI - General General Date of Service: 07/03/23 Chief Complaint: Vaginal bleeding and pain HPI Narrative GIOVANNA DAY, is a 33 F who presents with vaginal bleeding. She reports passing the fetus at 9:30am today. Then patient starting to have heaving bleeding and intense cramping. Patient was seeing a relay tester helper and reports being 16 3. Previously she had 2 FT vaginal deliveries at home without complications, [facility] Medical History (Updated 07/03/23 @ 12:[address] Jessie Harman MD) Connective tissue disease Medical History no medical history Home Medications ascorbic acid (vitamin C) 100 mg PO DAILY 03/07/18 [History Last Taken Unknown] Allergy/AdvReac Type Severity Reaction Status Date / Time No Known Allergies Allergy Verified 07/03/23 10:30 Surgical History no surgical history Social History Smoking Status: Never smoker alcohol intake: never Vital Signs Vital Signs Vital Signs: 07/03/23 10:30 07/03/23 11:30 07/03/23 11:53 Temperature 99 F 98.4 F Temperature Source Temporal Pulse Rate 127 H 97 105 H Respiratory Rate 20 H 21 H 16 Blood Pressure 135/95 H 128/85 H 147/78 H Blood Pressure Mean 108 99 101 Pulse Ox 97 98 98 Oxygen Delivery Method Room Air Room Air Physical Exam Narrative - per ED physician patient with blood pouring out vaginal cavity on speculum exam Const alert and oriented x3 GI soft to palpation GI Narrative: minimal tenderness Extremity no calf tenderness Neuro CN's II-XII intact bilaterally Results Lab / Micro Data 07/03/23 10:44 07/03/23 10:44 Labs: Laboratory Results - last 24 hr 07/03/23 10:44: WBC 13.4 H, RBC 4.78, Hgb 15.2 H, Hct 42.6, MCV 89.1, MCH 31.8, MCHC 35.7, RDW Std Deviation 41.4, RDW Coeff of Judah 12.6, Plt Count 295, MPV 9.3, Sodium 139, Potassium 3.8, Chloride 109 H, Carbon Dioxide 23.0, Anion Gap 7, BUN 7, Creatinine 0.61, Est GFR (MDRD) Af Amer 143, Est GFR (MDRD) Non-Af 118, BUN/Creatinine Ratio 11.5, Glucose 116 H, Calcium 9.2, Blood Type Cancelled, Antibody Screen Cancelled Assessment Plan Assessment/Plan (1) Incomplete : (2) Connective tissue disease: PLAN: Plan Discussed R/B/A of treatment options. Recommend proceeding with emergent D C due to active bleeding and tachycardia. Informed consent signed and patient agrees with plan. 07/03/23 1306 Cosigner Signature (if applicable): CC: Dr. Jessie Harman MD; No [facility] History of Present illness Narrative * Ernesto Shah MD - 03/05/2023 9:03 AM EST Images from the original note were not included. INFECTIOUS DISEASE CONSULT NOTE Date: March 05, 2023 Patient Name: Giovanna Day Asked to see patient by Estela Fontanez APRN.BARTOLO or deangelo. My recommendations will be communicated back by way of shared medical record. HISTORY OF PRESENT ILLNESS I have communicated my name and active licensure. The patient's identity and physical location wereverified at the time of this visit. Either the patient or their legal account development representative has been informed of the risks and benefits of -- and alternatives to -- treatment through a remote evaluation andconsents to proceed with the evaluation remotely. Giovanna requested this visit to be conducted virtually. Giovanna Day is a 32 year old woman who presents for thrush. She states that she had a lot of digestive issues since 2019. She describes having terrible bloating when she eats and she narrowed it down to carbs and sugars. She continues to have abdominal pain every time she eats. She describes bloating and 8/10 epigastric upper quadrant pain with some radiation to back at times. She states painstarted about 15 minutes after she started to eat. This appears to be only related to to sugars or carbs intakes. This pain would last for a couple hours. [place] foods does not seem to bother her. She has no issues with dairy products. She has no nausea, vomiting, or weight loss. She denies any diarrhea. She initially has thrush in 2019 which she recalling having possibly related to the mold in her house. She has not had been able to get rid of it since. The thrush never really resolved despite taking Diflucan and Nystatin for months. She does note have any discomfort or burning sensation in her mouth. When does does get thrush, her taste buds become a little off. She has been on and off Nystatin and Diflucan for 2-3 weeks. She had done these alternating regimens and they did not seem to haveany effect. She intermittently has vaginal yeast infections. She still having thrush today and describes as a white patch on her tongue and she can't smell. She states that the tongue coating gets worse when she is not on probiotics. She takes no steroids, steroid inhalers, antibiotics or immunosuppressants. 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 She has joint pain, diffuse and symmetric. [place] from [place]. She never had an HIV test done and has no concerns for STD. PAST MEDICAL HISTORY and PAST SURGICAL HISTORY: reviewed and noted below. FAMILY HISTORY: Parents and siblings are healthy. SOCIAL HISTORY: She is [id number] mother. She has 2 children (2 and 3 years). She used to work [employer]. . Pets: outside cats. IMMUNIZATION HISTORY There is no immunization history on file for this patient. MEDICATIONS: Medications reviewed. Current Outpatient Medications on File Prior to Visit Medication Sig naltrexone capsule 1 mg (CPD) Start with 1 capsule by mouth every night, increase every 3-4 days by1 capsule until pain relief. Max of 5 capsules daily. Yeast Balance Complex (Integrative Therapeutics) gut microbial (bacteria/yeast) balance Take 2 capsules three times daily between meals. Take saccharomyces boullardi 2 hrs away. Saccharomyces Boulardii 60 ct. (Klaire/Prothera) Take 1 capsule by mouth twice daily with meals. G.I. Detox (Boutique Window) 1-2 capsules with full glass of water 2 times daily between meals NAC 600mg 90 ct. (Pure Encapsulations) Take 1 capsule twice daily, between meals. The Whole Probiotic (iRezQ) Take 1 capsule by mouth once daily. Treatment 3-6 months WellBetX PGX Ultra Matrix (Natural Factors) diabetes/blood sugar/weight management Take 2 capsules with 8 ounces of water 5-10 minutes before meals. ALLERGIES No Known Allergies REVIEW OF SYSTEMS: CONSTITUTIONAL: No fevers, chills, nightsweats, unintended weight loss HEENT: Denies headaches, nasal congestion/sinus symptoms, problematic allergy problems. EYES: No diplopia or blurry vision. CARDIOVASCULAR: No chest pain, dyspnea, palpitations, orthopnea, PND, ankle edema. PULM: No dyspnea, unexplained cough. GI: No dysphagia/odynophagia, problematic reflux, constipation, diarrhea, changes in stool habits, hematochezia, melena. : No new urinary complaints, including dysuria, gross hematuria or pyuria. NEURO: No new balance problems, peripheral weakness/paresthesias or numbness of concern. MUSC-SKEL: No new joint pain, swelling, or erythema. PSY: No concerns regarding depression, anxiety or panic. INTEGUMENTARY: No new skin changes (rash, new or changing mole, new growth) Examination: [facility] 12/11/2018 Vital signs: not available Gen: no distress, on room air, pleasant appearing. Heent: has a white discoloration on the center of the tongue, no signs of thrush, teeth in perfect repair, no neck swelling/redness visible CV: not examined Abd: no distension Ext: no rashes/deformities MSK: no joint swelling/redness Neuro: no deficits seen Skin: warm and dry w/o rashes. Laboratory data: Reviewed. CrCl cannot be calculated (No successful lab value found.). Microbiology data: Reviewed. Imaging data: I personally reviewed images obtained for this admission and noted impressions below. Antimicrobials: None. 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 Per note Physical exam: virtual. # per call : finished the entire round of nystatin and almost the entire bottles of biocidin and dentalcidin. Yet, I still have thrush! I was reading that the nystatin should get rid of it within 7 days, unless one is dealing with a resistant strain. She was given another round of Nystatin x1 month. # seen on 01/12/23 and per note: oral thrush x 4 years treated with probiotics. She was given Diflucan 100 mg twice weekly x 1 month and Nystatin was stopped. Today's impressions: 33-year-old woman who is being referred to be for evaluation of recurrent/persistent ?oral candidiasis despite being treated w/ prolonged courses of oral Nystatin and then Fluconazole. Exam is performed within the confines of a virtual platform and does appear to have a white di scoloration in the center of the tongue, with not other lesions in the pharynx or buccal surfaces. This does not appear to be thrush and would be extremely unusual to not respond with oral Nystatin/Fluconazole. RECOMMENDATIONS: # Check HIV, CD4, and Syphilis screen. # Refer to ENT locally for further evaluation. # Chart to Functional medicine team. Signature: Ernesto Shah MD Infectious Disease Office PAGER: [phone] Approximately 47 minutes spent for this video visit. [facility] Instructions* Patient Instructions* Estela Fontanez APRN.[facility] - 02/16/2023 11:21 AM EST Plan and Lifestyle Prescription Plan/Instructions/Resources: Reviewed labs and plan with patient. Discussed opportunities to communicate with myself and team ifneeded before next appointment, ie, MyChart, telephone, virtual visits. Lab - CD 57 is pending Consult to infectious disease for persistent yeast Continue current supplements - for nutrients and mold detox Medications/Supplements Recommended: No orders of the defined types were placed in this encounter. I recommend the supplements from the [facility] Healthy Living Store Online Store at [email or web address] as we have thoroughly evaluated the research and use only highest quality supplements. Please use code: functional. Future Plans: Follow up: Please schedule a follow up visit with the following Caregivers: As scheduled LIFESTYLE PRESCRIPTION Functional Nutrition: Per automotive service writer Sleep: Sleep goal for most adults is a minimum of 7-9 hours nightly. Exercise Prescription: Numerous studies confirm the benefits of regular moderate aerobic exercise (walking, swimming, elliptical machine, cycling, etc.) for 30 min 5 days per week (150 min goal). Stress Management: 1) Please look into this Heart Rate Variability BioFeedback Tool (www.heartmath.org). 2) A regular, daily meditation practice of at least 15-20 minutes will change your brain--as well as your genes! Behavioral Health Therapist: If I recommended counseling or individual therapy, please schedule an individual appointment with our Functional Medicine Behavioral Health Therapist after your visit today. The Behavioral Health Therapist helps patients identify and understand feelings and behaviors, experience the process of making positive change, and gain healthy coping skills. Health Coaching: Please consider scheduling with our [facility] Functional Medicine health coaches for a phone or virtual visit for accountability, goal setting and help with behavior change release manager the next 6-8 weeks to be successful with your goals. [phone]. Smart phone apps to begin a meditative practice: Headspace (free for first 10 days) Insight Meditation Timer- (Free)-Great all-around homar to use for guided meditations of many different types and lengths or just to use as a tool to time and track your meditation practice. This is myabsolute favorite! Calm- (Free) Walking Meditations-($1.99)- Get your walk AND meditation done together. A good way to start out for individuals who feel they just can't sit still to begin a meditative practice. During the next 6-8 weeks you'll be working on your diet plan discussed with our automotive service writer, allowing for gentle detoxification and decreasing inflammation - while we are gathering your lab resultsand combining those with your complete history to formulate a very personalized treatment plan. LAB results: Due to the complexity of the testing performed, we are not able to review labs via Greetzt or over the phone, but please know, if any of your labs are critical we will contact you. Otherwise, we will review all your labs at your next visit. We will go over a lot of information during your follow up visit - so please be well-rested and youmay want to bring someone with you, if possible. Also make sure to schedule with the automotive service writer (this will not happen automatically) as you did with your first visit so that she can review nutritional aspects of your treatment plan. By your 3rd visit, as things are improving, we will likely transition you to one of our very capable Certified Nurse Practitioners/Physician Assistants for further follow-up. Potential future labs: Any Tra labs ordered take about 4 weeks to return. Do them as soon as possible so that we have the results before your next appointment. You can access them on the Tail website and it can be beneficial if you review them prior to your next visit. [email or web address]. Read about NutrEval if this was ordered. *Estela Fontanez APRN.CNP [facility] History of Present illness Narrative* Estela Fontanez APRN.CNP - 02/16/2023 11:00 AM EST Follow-up Visit - virtual I have communicated my name and active licensure. The patient's identity and physical location wereverified at the time of this visit. Either the patient or their legal account development representative has been informed of the risks and benefits of -- and alternatives to -- treatment through a remote evaluation andconsents to proceed with the evaluation remotely. Patient: Giovanna Day There is no height or weight on file to calculate BMI. RMR can't be calculated - Weight unrecorded in last 120 days. Waist measurement: No waist measurement recorded. BP: ALLERGIES No Known Allergies Current Outpatient Medications on File Prior to Visit Medication Sig naltrexone capsule 1 mg (CPD) Start with 1 capsule by mouth every night, increase every 3-4 days by1 capsule until pain relief. Max of 5 capsules daily. fluconazole (DIFLUCAN) 100 mg tablet Take 1 tab by mouth twice weekly for 1 month. Yeast Balance Complex (Integrative Therapeutics) gut microbial (bacteria/yeast) balance Take 2 capsules three times daily between meals. Take saccharomyces boullardi 2 hrs away. Saccharomyces Boulardii 60 ct. (Klaire/Prothera) Take 1 capsule by mouth twice daily with meals. G.I. Detox (Omniata Research) 1-2 capsules with full glass of water 2 times daily between meals NAC 600mg 90 ct. (Pure Encapsulations) Take 1 capsule twice daily, between meals. nystatin (MYCOSTATIN, NILSTAT) 500,000 unit tab Take 2 tablets by mouth twice daily. The Whole Probiotic (BioJogli) Take 1 capsule by mouth once daily. Treatment 3-6 months WellBetX PGX Ultra Matrix (Natural Factors) diabetes/blood sugar/weight management Take 2 capsules with 8 ounces of water 5-10 minutes before meals. No current facility-administered medications on file prior to visit. No past medical history on file. No past surgical history on file. Social History Tobacco Use Smoking status: Never Smokeless tobacco: Never Functional Medicine Timeline MSQ: Patient Entered Questionnaire PROMIS Scale T-Scores -- HIGHER SCORES BETTER PROMIS Global Health - (T-Scores - the mean of general population = 50. Five points is a clinicallymeaningful difference.) 08/09/2022 08/09/2022 12/12/2022 Physical T-Score 42.3 42.3 37.4 Mental T-Score 53.3 53.3 45.8 Depression Screening: PHQ-9 Self-Harm (Item 9) response options: 0 Not at all 1 Several days 2 More than half the days 3 Nearly every day PHQ-9 Levels: 0-4 Minimal depression 5-9 Mild depression 10-14 Moderate depression 15-19 Moderately severe depression 20-27 Severe depression February 16, 2023 Estela Fontanez APRN.TRACK INSPECTING SUPERVISOR Subjective: Goals: Update progress CD 57 in process Finished Diflucan twice weekly for 1 month and didn't make any difference with the thrush Got depressed on LDN after a week. Tried yeast balance for a month and stopped. Hx of thrush since 2019. Digestive issues started in 2020. Moved into house in 2019 - huge renovation of old home. Later found to have mold. Chronic fatigue Diet - eliminated carbs and sugar BM - daily, formed Supplements - Gi detox, tumeric, magnesium, calcium, PNV, omega 3's, vit D, Vit C, Wellbet PGX, saccharomyces, proibiotic, NAC January 12, 2023 Estela Fontanez APRN.TRACK INSPECTING SUPERVISOR Subjective: Goals; Review labs Things are the same as last month when last seen. Chronic fatigue. Unable to lose weight since age 11. Still taking Nystatin. Still has thrush. Has not improved at all. Bloating is better with controlling carbs Diet - eliminated carbs and sugar Supplements - Biocidin, digestive enzymes, tumeric, magnesium, calcium, PNV, omega 3's, vit D, Vit C, glutagenics, PGX, saccharomyces December 13, 2022 Estela Fontanez APRN.TRACK INSPECTING SUPERVISOR Subjective: Goals: Update progress Check hormones Last seen 09/[address] Pollard. Patient is new to me today. Feels the same. Has had thrush for 4 years. Took Diflucan and nystatin Has been taking Biocidin for 6 weeks. Will start probiotic when biocidin is completed. Had mold in house and had remediated last year. Had cold symptoms before it was remediated. [place] better when she left house. Menses monthly. More Gi symptoms during ovulation and menstrual cycle. Has hypermobility disorder Diet - reacts to carbs - bloated, cramps BM - daily, formed Supplements - Biocidin, digestive enzymes, tumeric, magnesium, calcium, PNV, omega 3's, vit D, Vit C, glutagenics October 18, 2022 Whitley Pollard MD Subjective: Virtual Pt here for her first follow up . She did do the gi effects stool testing. Still not feeling great. Potatoes upset her stomach. Anything will do this. August 15, 2022 Whitley Pollard MD Patient Goals: [facility], [facility] - [facility] - [place], [place] - [facility] Physician Name:None- just recently left practice [place] about our practice from:Referral from friend or family Health Goals What do you hope to achieve in your visit with us?:Resolve Digestive issues and inflammation. Weight loss. Also, would like to know if there more natural options to help with pain/inflammation for torn hip labrum When was the last time you felt well?:It's been a long time. 2019 was when I started feeling especially worse. Did something trigger your change in health?:Not that I know of. I did get a case of thrush in 2018at has never really gone away. What makes you feel better?:Avoiding many foods, probiotics What makes you feel worse?:Skipping probiotics, eating certain foods How does your condition affect you?:Have bouts if severe digestive pain and upset stomach. Also joint pain, tiredness. What do you think is happening and why?:Leaky Gut, Catherine overgrowth. Connective tissue disorder probably also contributes to the issue.What do you feel needs to happen for you to get better?:Heal gut, bring inflammation down. HPI: 32 yr old female here for her initial functional medicine assessment. Pt wanting to reduce inflammation and found foods make things worse like sugar, wheat, rice. Current Health Concerns Current Problem Name Date Started Priority Severity Prior Treatment Success of Prior Treatment Digestive issues - 1 Moderate No n/a Connective tissue disorder which leads to chronic pain and inflammation. Currently dealing with torn labrum. - 2 Moderate No - : Full term Vaginal Breast fed ( Pt is one of 8 ) A lot of ear infections/ ? 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 #60 pounds total #245 now ( # 160-180 pre children) At home now Weight- cutting out carbs, high protein helps the most [place] shaky, eating helped, tested glucose 120 fasting all night, B vitamins high at the time Some hair loss recently. 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 Reactions- Exposures: Tick bites Yes / 2019 when , bull's eye rash, tested / no medications Silver amalgams No Drinking water Yes / bottles Fish consumption Yes occ, tilapia salmon Mold Yes / in her own house last Dec, had respiratory symptoms, in basement re mediated- chest tightness, coughing, sinus congestion Chemical/Industrial/Pesticides No Chemical sensitivities Yes fragrances itchy, lungs, cough Foreign travel/Frequent airplane travel No Supplements: Magnesium Vit c Biotin mcv Antecedents: Family History - Parents and Grandparents State of Health Current Age (or age at if ) Cause of if Father - 55 - Mother Good 55 - Mother : Cancer, Hypertension or high blood pressure, Obesity, Irritable bowel syndrome Grandfathers : Obesity Grandmothers : Obesity Siblings: Brother severe epilepsy Sister covid related heart Review of Systems: See above Objective: virtual LMP 12/11/2018 Bioelectrical Impedance Analysis Results by [employer] Recent Results from: 02/16/23 at 11:20 AM BMI: 29.01 kg/m General Test Result Range Phase Angle (PA) Basal Metabolic Rate (BMR) Fat & Fat Free Mass Test Result Range Fat (lbs) Fat % Fat Free Mass (FFM) lbs Total Body Water Test Result Range TBW (lbs) TBW % of FFM Intracellular Water Test Result Range ICW (lbs) ICW % of FFM Extracellular Water Test Result Range ECW (lbs) ECW % of FFM Physical Exam: virtual CURRENT Functional Medicine Assessment/ PLAN Underlying Causes: toxins, adverse reaction to food, infection, nutritional insufficiencies or excessess Triggers/Mediators: Food sensitivities/ weight gain Today's Focus: gut healing, mitochondrial repair Nutritional Assessment: Gluten free x 10 yrs, sugar free Digestive Function: Thrush oral x 4 yrs tx with probiotics Eggs bother her trigger digestive cramps in stomach, rice joint ache Avocado stomach cramps/bloating, ? hummus Occ constipation and diarrhea GI Effects July 2022 PE 249 Low SCFA 12 + extra 1+ catherine Inflammation/Immune Function: Infections-ear Joint pain-left hip/ all others EDS like syndrome Chronic pain, left hip labrum tear- 10/10 if on feet all day, normal day 2-5 pain Hscrp 7.6 Energy Production/Function: Weight gain with pregnancies #60 Headaches a lot ? Related to EDS, sees chiropractor neck goes out Migraines occ Sleep hard to stay asleep Detoxification Function: Chemical sensitivity Medications Mold exposure 12/2022 - VCS negative Hormonal Function: Occ pain with menses , occ ibuprofen No control presently Structural Function: Hip labrum tear-left Assessment Assessment: Z77.120 Mold exposure (primary encounter diagnosis) B37.0 Thrush Plan and Lifestyle Prescription Plan/Instructions/Resources: Reviewed labs and plan with patient. Discussed opportunities to communicate with myself and team ifneeded before next appointment, ie, MyChart, telephone, virtual visits. Lab - CD 57 is pending Consult to infectious disease for persistent yeast Continue current supplements - for nutrients and mold detox Medications/Supplements Recommended: No orders of the defined types were placed in this encounter. I recommend the supplements from the [facility] Store Online Store at [email or web address] as we have thoroughly evaluated the research and use only highest quality supplements. Please use code: functional. Future Plans: Follow up: Please schedule a follow up visit with the following Caregivers: As scheduled LIFESTYLE PRESCRIPTION Functional Nutrition: Per automotive service writer Sleep: Sleep goal for most adults is a minimum of 7-9 hours nightly. Exercise Prescription: Numerous studies confirm the benefits of regular moderate aerobic exercise (walking, swimming, elliptical machine, cycling, etc.) for 30 min 5 days per week (150 min goal). Stress Management: 1) Please look into this Heart Rate Variability BioFeedback Tool (www.heartmath.org). 2) A regular, daily meditation practice of at least 15-20 minutes will change your brain--as well as your genes! Behavioral Health Therapist: If I recommended counseling or individual therapy, please schedule an individual appointment with our Functional Medicine Behavioral Health Therapist after your visit today. The Behavioral Health Therapist helps patients identify and understand feelings and behaviors, experience the process of making positive change, and gain healthy coping skills. Health Coaching: Please consider scheduling with our [place] for Functional Medicine health coaches for a phone or virtual visit for accountability, goal setting and help with behavior change release manager the next 6-8 weeks to be successful with your goals. [phone]. Smart phone apps to begin a meditative practice: Headspace (free for first 10 days) Insight Meditation Timer- (Free)-Great all-around homar to use for guided meditations of many different types and lengths or just to use as a tool to time and track your meditation practice. This is myabsolute favorite! Calm- (Free) Walking Meditations-($1.99)- Get your walk AND meditation done together. A good way to start out for individuals who feel they just can't sit still to begin a meditative practice. During the next 6-8 weeks you'll be working on your diet plan discussed with our automotive service writer, allowing for gentle detoxification and decreasing inflammation - while we are gathering your lab resultsand combining those with your complete history to formulate a very personalized treatment plan. LAB results: Due to the complexity of the testing performed, we are not able to review labs via MyChart or over the phone, but please know, if any of your labs are critical we will contact you. Otherwise, we will review all your labs at your next visit. We will go over a lot of information during your follow up visit - so please be well-rested and youmay want to bring someone with you, if possible. Also make sure to schedule with the automotive service writer (this will not happen automatically) as you did with your first visit so that she can review nutritional aspects of your treatment plan. By your 3rd visit, as things are improving, we will likely transition you to one of our very capable Certified Nurse Practitioners/Physician Assistants for further follow-up. Potential future labs: Any Tra labs ordered take about 4 weeks to return. Do them as soon as possible so that we have the results before your next appointment. You can access them on the Tail website and it can be beneficial if you review them prior to your next visit. [email or web address]. Read about NutrEval if this was ordered. *Estela Fontanez APRN.CNP I spent a total of 30 minutes on the date of the service which included [id number] patient care. [facility] Instructions* Patient Instructions* Estela Fontanez APRN.CNP - 01/12/2023 9:54 AM EDT Plan and Lifestyle Prescription Plan/Instructions/Resources: Reviewed labs and plan with patient. Discussed opportunities to communicate with myself and team ifneeded before next appointment, ie, MyChart, telephone, virtual visits. [facility]M labs - CD 57 For thrush: Stop Nystatin fluconazole (DIFLUCAN) 100 mg tablet Sig: Take 1 tab by mouth twice weekly for 1 month. Dispense: 8 tablet Refill: 1 Yeast Balance Complex (Integrative Therapeutics) gut microbial (bacteria/yeast) balance Sig: Take 2 capsules three times daily between meals. Take saccharomyces boullardi 2 hrs away. Refill: 0 Continue current supplements For fatigue and inflammation: Low dose naltrexone can be helpful for pain. Start with 1 mg every night, increase every 3-4 days by 1 mg until pain relief. Max dose 5 mg daily. This [facility] to[facility]. They will contact you for payment information and then mail the prescription to you. Check out [email or web address] Message me if you want the prescription Medications/Supplements Recommended: Medication orders placed this encounter fluconazole (DIFLUCAN) 100 mg tablet Sig: Take 1 tab by mouth twice weekly for 1 month. Dispense: 8 tablet Refill: 1 Yeast Balance Complex (Integrative Therapeutics) gut microbial (bacteria/yeast) balance Sig: Take 2 capsules three times daily between meals. Take saccharomyces boullardi 2 hrs away. Refill: 0 I recommend the supplements from the [facility] Living Store Online Store at [email or web address] as we have thoroughly evaluated the research and use only highest quality supplements. Please use code: functional. Future Plans: Follow up: Please schedule a follow up visit with the following Caregivers: As scheduled LIFESTYLE PRESCRIPTION Functional Nutrition: Per automotive service writer Sleep: Sleep goal for most adults is a minimum of 7-9 hours nightly. Exercise Prescription: Numerous studies confirm the benefits of regular moderate aerobic exercise (walking, swimming, elliptical machine, cycling, etc.) for 30 min 5 days per week (150 min goal). Stress Management: 1) Please look into this Heart Rate Variability BioFeedback Tool (www.heartmath.org). 2) A regular, daily meditation practice of at least 15-20 minutes will change your brain--as well as your genes! Behavioral Health Therapist: If I recommended counseling or individual therapy, please schedule an individual appointment with our Functional Medicine Behavioral Health Therapist after your visit today. The Behavioral Health Therapist helps patients identify and understand feelings and behaviors, experience the process of making positive change, and gain healthy coping skills. Health Coaching: Please consider scheduling with our [facility] health coaches for a phone or virtual visit for accountability, goal setting and help with behavior change release manager the next 6-8 weeks to be successful with your goals. [phone]. Smart phone apps to begin a meditative practice: Headspace (free for first 10 days) Insight Meditation Timer- (Free)-Great all-around homar to use for guided meditations of many different types and lengths or just to use as a tool to time and track your meditation practice. This is myabsolute favorite! Calm- (Free) Walking Meditations-($1.99)- Get your walk AND meditation done together. A good way to start out for individuals who feel they just can't sit still to begin a meditative practice. During the next 6-8 weeks you'll be working on your diet plan discussed with our automotive service writer, allowing for gentle detoxification and decreasing inflammation - while we are gathering your lab resultsand combining those with your complete history to formulate a very personalized treatment plan. LAB results: Due to the complexity of the testing performed, we are not able to review labs via Greetzt or over the phone, but please know, if any of your labs are critical we will contact you. Otherwise, we will review all your labs at your next visit. We will go over a lot of information during your follow up visit - so please be well-rested and youmay want to bring someone with you, if possible. Also make sure to schedule with the automotive service writer (this will not happen automatically) as you did with your first visit so that she can review nutritional aspects of your treatment plan. By your 3rd visit, as things are improving, we will likely transition you to one of our very capable Certified Nurse Practitioners/Physician Assistants for further follow-up. Potential future labs: Any Tail labs ordered take about 4 weeks to return. Do them as soon as possible so that we have the results before your next appointment. You can access them on the Tail website and it can be beneficial if you review them prior to your next visit. [email or web address]. Read about NutrEval if this was ordered. *Estela Fontanez APRN.CNP documented in [facility] History of Present illness Narrative* Estela Fontanez APRN.CNP - 01/12/2023 9:30 AM EDT Follow-up Visit - virtual I have communicated my name and active licensure. The patient's identity and physical location wereverified at the time of this visit. Either the patient or their legal account development representative has been informed of the risks and benefits of -- and alternatives to -- treatment through a remote evaluation andconsents to proceed with the evaluation remotely. Patient: Giovanna Day There is no height or weight on file to calculate BMI. RMR can't be calculated - Weight unrecorded in last 120 days. Waist measurement: No waist measurement recorded. BP: ALLERGIES No Known Allergies Current Outpatient Medications on File Prior to Visit Medication Sig Saccharomyces Boulardii 60 ct. (Klaire/Prothera) Take 1 capsule by mouth twice daily with meals. G.I. Detox ([employer]) 1-2 capsules with full glass of water 2 times daily between meals NAC 600mg 90 ct. (Pure Encapsulations) Take 1 capsule twice daily, between meals. fluconazole (DIFLUCAN) 150 mg tablet Take one x 1, repeat in 3 days x 1. nystatin (MYCOSTATIN, NILSTAT) 500,000 unit tab Take 2 tablets by mouth twice daily. The Whole Probiotic (iRezQ) Take 1 capsule by mouth once daily. Treatment 3-6 months Biocidin Advanced Formula (Mark43) gut microbial (bacteria/yeast) balance Take 5 Drops by mouth three times daily. Biocidin - Begin with 1 drop and gradually increase up to 5 drops 3 times per day for 6-8 weeks Digestive Enzymes Ultra 180 ct. (Pure Encapsulations) Take 2 capsules twice daily. Dentalcidin (U.Gene.us) For adults and children 2 years of age and older, use approx. a 1/2 inch ribbon on your toothbrush. Dentalcidin LS - Liposomal Oral Care Solution (U.Gene.us) Swish using 2 pumps for 1 minute or more than expel. Use 2 - 3 times per day after brushing with Dentalcidin toothpaste. WellBetX PGX Ultra Matrix (Natural Factors) diabetes/blood sugar/weight management Take 2 capsules with 8 ounces of water 5-10 minutes before meals. No current facility-administered medications on file prior to visit. No past medical history on file. No past surgical history on file. Social History Tobacco Use Smoking status: Never Smokeless tobacco: Never Functional Medicine Timeline MSQ: Patient Entered Questionnaire PROMIS Scale T-Scores -- HIGHER SCORES BETTER PROMIS Global Health - (T-Scores - the mean of general population = 50. Five points is a clinicallymeaningful difference.) 08/09/2022 08/09/2022 12/12/2022 Physical T-Score 42.3 42.3 37.4 Mental T-Score 53.3 53.3 45.8 Depression Screening: PHQ-9 Self-Harm (Item 9) response options: 0 Not at all 1 Several days 2 More than half the days 3 Nearly every day PHQ-9 Levels: 0-4 Minimal depression 5-9 Mild depression 10-14 Moderate depression 15-19 Moderately severe depression 20- Severe depression January 12, 2023 Estela Fontanez APRN.TRACK INSPECTING SUPERVISOR Subjective: Goals; Review labs Things are the same as last month when last seen. Chronic fatigue. Unable to lose weight since age 11. Still taking Nystatin. Still has thrush. Has not improved at all. Bloating is better with controlling carbs Diet - eliminated carbs and sugar Supplements - Biocidin, digestive enzymes, tumeric, magnesium, calcium, PNV, omega 3's, vit D, Vit C, glutagenics, PGX, saccharomyces December 13, 2022 Estela Fontanez APRN.TRACK INSPECTING SUPERVISOR Subjective: Goals: Update progress Check hormones Last seen 09/[address] Pollard. Patient is new to me today. Feels the same. Has had thrush for 4 years. Took Diflucan and nystatin Has been taking Biocidin for 6 weeks. Will start probiotic when biocidin is completed. Had mold in house and had remediated last year. Had cold symptoms before it was remediated. [place] better when she left house. Menses monthly. More Gi symptoms during ovulation and menstrual cycle. Has hypermobility disorder Diet - reacts to carbs - bloated, cramps BM - daily, formed Supplements - Biocidin, digestive enzymes, tumeric, magnesium, calcium, PNV, omega 3's, vit D, Vit C, glutagenics October 18, 2022 Whitley Pollard MD Subjective: Virtual Pt here for her first follow up . She did do the gi effects stool testing. Still not feeling great. Potatoes upset her stomach. Anything will do this. August 15, 2022 Whtiley Pollard MD Patient Goals: General InfoLast Medical Care:Jun 13, 2022 - [facility] - [place], [place] - [facility] Physician Name:None- just recently left practice [place] about our practice from:Referral from friend or family Health Goals What do you hope to achieve in your visit with us?:Resolve Digestive issues and inflammation. Weight loss. Also, would like to know if there more natural options to help with pain/inflammation for torn hip labrum When was the last time you felt well?:It's been a long time. 2019 was when I started feeling especially worse. Did something trigger your change in health?:Not that I know of. I did get a case of thrush in 2018at has never really gone away. What makes you feel better?:Avoiding many foods, probiotics What makes you feel worse?:Skipping probiotics, eating certain foods How does your condition affect you?:Have bouts if severe digestive pain and upset stomach. Also joint pain, tiredness. What do you think is happening and why?:Leaky Gut, Catherine overgrowth. Connective tissue disorder probably also contributes to the issue.What do you feel needs to happen for you to get better?:Heal gut, bring inflammation down. HPI: 32 yr old female here for her initial functional medicine assessment. Pt wanting to reduce inflammation and found foods make things worse like sugar, wheat, rice. Current Health Concerns Current Problem Name Date Started Priority Severity Prior Treatment Success of Prior Treatment Digestive issues - 1 Moderate No n/a Connective tissue disorder which leads to chronic pain and inflammation. Currently dealing with torn labrum. - 2 Moderate No - : Full term Vaginal Breast fed ( Pt is one of 8 ) A lot of ear infections/ ? 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 #60 pounds total #245 now ( # 160-180 pre children) At home now Weight- cutting out carbs, high protein helps the most [place] shaky, eating helped, tested glucose 120 fasting all night, B vitamins high at the time Some hair loss recently. 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 Reactions- Exposures: Tick bites Yes / 2020 when , bull's eye rash, tested / no medications Silver amalgams No Drinking water Yes / bottles Fish consumption Yes occ, tilapia salmon Mold Yes / in her own house last Dec, had respiratory symptoms, in basement re mediated- chest tightness, coughing, sinus congestion Chemical/Industrial/Pesticides No Chemical sensitivities Yes fragrances itchy, lungs, cough Foreign travel/Frequent airplane travel No Supplements: Magnesium Vit c Biotin mcv Antecedents: Family History - Parents and Grandparents State of Health Current Age (or age at if ) Cause of if Father - 55 - Mother Good 55 - Mother : Cancer, Hypertension or high blood pressure, Obesity, Irritable bowel syndrome Grandfathers : Obesity Grandmothers : Obesity Siblings: Brother severe epilepsy Sister covid related heart Review of Systems: See above Objective: virtual LMP 12/11/2018 Bioelectrical Impedance Analysis Results by [employer] Recent Results from: 01/12/23 at 9:50 AM BMI: 29.01 kg/m General Test Result Range Phase Angle (PA) Basal Metabolic Rate (BMR) Fat & Fat Free Mass Test Result Range Fat (lbs) Fat % Fat Free Mass (FFM) lbs Total Body Water Test Result Range TBW (lbs) TBW % of FFM Intracellular Water Test Result Range ICW (lbs) ICW % of FFM Extracellular Water Test Result Range ECW (lbs) ECW % of FFM Component Latest Ref Rng & Units 12/14/2022 12/20/2022 Bartonella henselae Ab, IgG <1:64 Bartonella henselae Ab, IgM < 1:16 Bartonella gomez Ab, IgG <1:64 Bartonella gomez Ab, IgM < 1:16 Estradiol pg/mL 34.2 Estrone pg/mL 32.2 Estrogens Total pg/mL 66.4 Babesia microti, IgG <1:16 < 1:16 Babesia microti, IgM <1:20 <1:20 Bartonella PCR Source Plasma Bartonella PCR Result Not Detected Ehrlichia chaffeensis Antibody, IgG <1:64 <1:64 Ehrlichia chaffeensis Antibody, IgM <1:16 < 1:16 Progesterone See comment ng/mL 8.8 FSH See comment mIU/mL 9.0 Sex Hormone Bind GLB 25 - 122 nmol/L 68 LH See comment mIU/mL 7.5 DHEA-S 98.8 - 340.0 ug/dL 164.5 Lyme Abs, IgG/IgM Negative Negative Labs reviewed with patient Physical Exam: virtual CURRENT Functional Medicine Assessment/ PLAN Underlying Causes: toxins, adverse reaction to food, infection, nutritional insufficiencies or excessess Triggers/Mediators: Food sensitivities/ weight gain Today's Focus: gut healing, mitochondrial repair Nutritional Assessment: Gluten free x 10 yrs, sugar free Digestive Function: Thrush oral x 4 yrs tx with probiotics Eggs bother her trigger digestive cramps in stomach, rice joint ache Avocado stomach cramps/bloating, ? hummus Occ constipation and diarrhea GI Effects July 2022 PE 249 Low SCFA 12 + extra 1+ catherine Inflammation/Immune Function: Infections-ear Joint pain-left hip/ all others EDS like syndrome Chronic pain, left hip labrum tear- 10/10 if on feet all day, normal day 2-5 pain Hscrp 7.6 Energy Production/Function: Weight gain with pregnancies #60 Headaches a lot ? Related to EDS, sees chiropractor neck goes out Migraines occ Sleep hard to stay asleep Detoxification Function: Chemical sensitivity Medications Mold exposure 12/2022 - VCS negative Hormonal Function: Occ pain with menses , occ ibuprofen No control presently Structural Function: Hip labrum tear-left Assessment Assessment: B37.0 Thrush (primary encounter diagnosis) R53.82 Chronic fatigue Plan and Lifestyle Prescription Plan/Instructions/Resources: Reviewed labs and plan with patient. Discussed opportunities to communicate with myself and team ifneeded before next appointment, ie, MyChart, telephone, virtual visits. M labs - CD 57 For thrush: Stop Nystatin fluconazole (DIFLUCAN) 100 mg tablet Sig: Take 1 tab by mouth twice weekly for 1 month. Dispense: 8 tablet Refill: 1 Yeast Balance Complex ([employer]rapeutics) gut microbial (bacteria/yeast) balance Sig: Take 2 capsules three times daily between meals. Take saccharomyces boullardi 2 hrs away. Refill: 0 Continue current supplements For fatigue and inflammation: Low dose naltrexone can be helpful for pain. Start with 1 mg every night, increase every 3-4 days by 1 mg until pain relief. Max dose 5 mg daily. This will be sent to\[facility]. They will contact you for payment information and then mail the prescription to you. Check out [email or web address] Message me if you want the prescription Medications/Supplements Recommended: Medication orders placed this encounter fluconazole (DIFLUCAN) 100 mg tablet Sig: Take 1 tab by mouth twice weekly for 1 month. Dispense: 8 tablet Refill: 1 Yeast Balance Complex ([employer]) gut microbial (bacteria/yeast) balance Sig: Take 2 capsules three times daily between meals. Take saccharomyces boullardi 2 hrs away. Refill: 0 I recommend the supplements from the [facility] [employer] company[employer]td[employer] Online Store at [email or web address] as we have thoroughly evaluated the research and use only highest quality supplements. Please use code: functional. Future Plans: Follow up: Please schedule a follow up visit with the following Caregivers: As scheduled LIFESTYLE PRESCRIPTION Functional Nutrition: Per automotive service writer Sleep: Sleep goal for most adults is a minimum of 7-9 hours nightly. Exercise Prescription: Numerous studies confirm the benefits of regular moderate aerobic exercise (walking, swimming, elliptical machine, cycling, etc.) for 30 min 5 days per week (150 min goal). Stress Management: 1) Please look into this Heart Rate Variability BioFeedback Tool (www.heartmath.org). 2) A regular, daily meditation practice of at least 15-20 minutes will change your brain--as well as your genes! Behavioral Health Therapist: If I recommended counseling or individual therapy, please schedule an individual appointment with our Functional Medicine Behavioral Health Therapist after your visit today. The Behavioral Health Therapist helps patients identify and understand feelings and behaviors, experience the process of making positive change, and gain healthy coping skills. Health Coaching: Please consider scheduling with our [facility] health coaches for a phone or virtual visit for accountability, goal setting and help with behavior change release manager the next 6-8 weeks to be successful with your goals. [phone]. Smart phone apps to begin a meditative practice: Headspace (free for first 10 days) Insight Meditation Timer- (Free)-Great all-around homar to use for guided meditations of many different types and lengths or just to use as a tool to time and track your meditation practice. This is myabsolute favorite! Calm- (Free) Walking Meditations-($1.99)- Get your walk AND meditation done together. A good way to start out for individuals who feel they just can't sit still to begin a meditative practice. During the next 6-8 weeks you'll be working on your diet plan discussed with our automotive service writer, allowing for gentle detoxification and decreasing inflammation - while we are gathering your lab resultsand combining those with your complete history to formulate a very personalized treatment plan. LAB results: Due to the complexity of the testing performed, we are not able to review labs via Greetzt or over the phone, but please know, if any of your labs are critical we will contact you. Otherwise, we will review all your labs at your next visit. We will go over a lot of information during your follow up visit - so please be well-rested and youmay want to bring someone with you, if possible. Also make sure to schedule with the automotive service writer (this will not happen automatically) as you did with your first visit so that she can review nutritional aspects of your treatment plan. By your 3rd visit, as things are improving, we will likely transition you to one of our very capable Certified Nurse Practitioners/Physician Assistants for further follow-up. Potential future labs: Any [facility] labs ordered take about 4 weeks to return. Do them as soon as possible so that we have the results before your next appointment. You can access them on the [facility] website and it can be beneficial if you review them prior to your next visit. [email or web address]. Read about NutrEval if this was ordered. *Estela Fontanez APRN.BARTOLO I spent a total of 30 minutes on the date of the service which included [id number] patient care. documented in this encounterC[facility] Instructions* Patient Instructions* Kendal Gutierrez, MAX - 12/28/2022 5:25 PM EDT [facility] FOLLOW UP NUTRITION INSTRUCTIONS Nutrition Follow-up: In 3 months with Kendal Coffman RD. Your Prescribed Nutrition Plan: Anti-Catherine Food Plan While addressing the presence of catherine, please refer to the following nutritional recommendations: Overall Guidelines Use the [facility] Anti-Catherine Food Plan to select whole and minimally processed foods Include a protein source with every meal and snack Include nuts, seeds, whole food fats, and/or cold pressed oil with every meal and snack Include ?5 bolded blue (anti-fungal) foods daily (discussed more coconut oil, including oil pulling) Incorporate foods rich in inulin (prebiotic) daily Tanner, onion, garlic, chicory, artichoke, jerusalem artichoke, rye, yacon, dandelion Foods to Avoid Alcohol Refined grains Processed or cured meats High-sugar/fructose fruits and vegetables Kombucha and Kefir (yeast-based) Caloric sweeteners, other than propolis-containing honey 2. Try expanding veggies (as less-dense carbohydrate option) with these foods: -Use amounts below to guide portion at initial trial Arugula Bamboo shoots Mccarthy sprouts Bok Darrell *1 small or 1 cup English cabbage Green beans, *25 beans Greens(beet, dany, kale, mustard, turnip) Kohlrabi Lettuce, all Microgreens Mushroom (oyster) Parsnip Radicchio, *5 cups Radish Rutabaga Scallion (no white part or bulb) Seaweed (mary) Squash (delicata, kabocha, bo downs, spaghetti) Bahraini chard Thyme Turnip, *2/3 turnip Water chestnuts Watercress Yam, *2 cups Zucchini squash, *1/3 cup 3. Work with [facility] health coaches for lifestyle support 4. Continue Dandyblend in AM (prebiotic fiber) 5. Without garlic in your diet, ask provider about option for caprylic acid supplementation ADDITIONAL INSTRUCTIONS: How to Contact Your Functional Medicine Team (Open M-F 8am-5pm): 1. MyChart is the BEST form of communication to reach the Functional Medicine Team, see test results and request refills. Please allow 72 business hours for a response. Directions for signing up are included in your New Patient Folder. (Or you can go to [email or web address]) 2. For nutrition related questions or concerns, Ask The Doctorhart message your physician and include Attn: Kendal Coffman RD at the top of the message. [facility] messaging is meant to support implementation of previously outlined nutrition care plans. In the interest of safe, effective and personalized care, you are asked to schedule a follow-up appointment if: It has been >6 months since your last nutrition appointment Your question requires reassessment or involves a new plan of care Your question concerns a new diagnosis, symptoms(s) and/or health concern Ordering Supplements: Supplements can be ordered from the [facility]'s [facility]'s Online Store: [email or web address] New patients to the [facility] will need to enter the provider code FUNCTIONAL to registertheir account. documented in this encounterCleveland [facility]09-28-2023 History of Present illness Narrative* Kendal Gutierrez RD - 12/28/2022 10:07 AM EDT [facility] Functional Medicine Nutrition Therapy: Follow-Up Assessment (Individual) VIRTUALVISITPN I have communicated my name and active licensure. The patient's identity and physical location were verified at the time of this visit. Either the patient or their legal representativehas been informed of the risks and benefits of -- and alternatives to -- treatment through a remoteevaluation and consents to proceed with the evaluation remotely. Patient is located in the [facility] at the time of the virtual visit. 10:09a Patient Name: Giovanna Day Past Medical History: No past medical history on file. Allergies: Patient has no known allergies. Current Medications/Supplements Current Outpatient Medications on File Prior to Visit Medication Sig Saccharomyces Boulardii 60 ct. (Klaire/Prothera) Take 1 capsule by mouth twice daily with meals. G.I. Detox (Boutique Window) 1-2 capsules with full glass of water 2 times daily between meals NAC 600mg 90 ct. (Pure Encapsulations) Take 1 capsule twice daily, between meals. fluconazole (DIFLUCAN) 150 mg tablet Take one x 1, repeat in 3 days x 1. nystatin (MYCOSTATIN, NILSTAT) 500,000 unit tab Take 2 tablets by mouth twice daily. The Whole Probiotic (iRezQ) Take 1 capsule by mouth once daily. Treatment 3-6 months Biocidin Advanced Formula (Mark43) gut microbial (bacteria/yeast) balance Take 5 Drops by mouth three times daily. Biocidin - Begin with 1 drop and gradually increase up to 5 drops 3 times per day for 6-8 weeks Digestive Enzymes Ultra 180 ct. (Pure Encapsulations) Take 2 capsules twice daily. Dentalcidin (U.Gene.us) For adults and children 2 years of age and older, use approx. a 1/2 inch ribbon on your toothbrush. Dentalcidin LS - Liposomal Oral Care Solution (U.Gene.us) Swish using 2 pumps for 1 minute or more than expel. Use 2 - 3 times per day after brushing with Dentalcidin toothpaste. WellBetX PGX Ultra Matrix (Natural Factors) diabetes/blood sugar/weight management Take 2 capsules with 8 ounces of water 5-10 minutes before meals. No current facility-administered medications on file prior to visit. Primary ICD-10 Diagnosis Addressed: Thrush (oral) [B37.0] Provider Nutrition Notes:Nutrition only today Status of Chief Concerns: Resolve Digestive issues and inflammation. Weight loss. Also, would like to know if there more natural options to help with pain/inflammation for torn hip labrum. Have boutsif severe digestive pain and upset stomach. Also joint pain, tiredness. Digestive issues - 1 Moderate No n/a Connective tissue disorder which leads to chronic pain and inflammation. Currently dealing with torn labrum. - 2 Moderate No - Did something trigger your change in health?:Not that I know of. I did get a case of thrush in 2018at has never really gone away. What do you think is happening and why?:Leaky Gut, Catherine overgrowth. Connective tissue disorder probably also contributes to the issue. What do you feel needs to happen for you to get better?:Heal gut, bring inflammation down Nutrition Assessment (updated 12/28/22) Current Symptom Review: 'nothing has changed unless it is worse' Bloating/cramping as primary complaints Taking Nystatin, Lauricidin, recently Biocidin Previously increased vegetables to about 6 cups per day: 10# weight loss Food and Nutrition History (update): has eliminated more foods; was previously grain-free and recently removed potatoes Current Adverse Reactions to Foods: Joint pain improvement with reduction in carbohydrate/potatoes No bloating or cramping after eating cabbage or broccoli [place] sprouts trigger bloating Used to eat fresh garlic but upsets my stomach now Nutrition Assessment (updated 09/20/22) Current Symptom Review: No evident reduction in pain or digestive symptoms Wondering about blood sugar issues Would feel like going to pass out if not eating frequently enough Shaky if go too long without eating Frequently fatigued, hungry Had been spot-testing blood sugar: fasting blood glucose at 120mg/dL Within hour after eating, feel hungry again Feel better with lower carbohydrate eating, but if too low will not feel well Generous with fat intake at meals (I.e. olive oil) Food and Nutrition History (update): Began PGX (was taking this before every meal), Inflammatone from Dr. Pollard, 5# weight loss since last visit Began elimination food plan 08/29/[address] 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 Nutrition Assessment (08/21/22) Digestive symptoms: Yes, bloated feeling , intestinal or stomach pain Other relevant symptoms: pain or aches in joints/muscles, excessive weight, swollen or discolored tongue, gums or lips, dry skin, fatigue Food and Nutrition History (special diet(s) or nutritional program): Gluten-free X 12 years Adverse Reactions to Foods: Wheat and rice (rice past year)- joint pain, overall poor feeling, Eggs(last year or so, make me sick), avocados - digestive pain, cramping, sometimes nausea, aversion: peanut butter Diet Recall: Yes 24 Hour Recall Breakfast: 2 cups of cabbage, pork chop, applesauce Lunch: hamburger, 2 cups of vegetables (green beans, broccoli, cabbage, yellow squash) Dinner: chicken, 2 cups of vegetables Beverages: Water, DandyBlend Anthropometrics LMP 12/11/2018 Last Height: Last 1 Encounter Ht Readings: Date: Ht: 11/23/2009 162.6 cm (5' 4) Last Weight: Last Wt 12/19/18 : 76.7 kg (169 lb) 11/23/09 : 78.9 kg (174 lb) 11/23/09 : 78.9 kg (174 lb) Wt: 76.7 kg (169 lb) BMI: 29.01 kg/(m^2) Learning Needs Assessment: Barriers to Learning: Ready to Learn (no barriers noted) Assessed motivation to learn: moderate Biochemical and Laboratory Data Conventional/Advanced Testing GI Effects July 2022 Adapted from provider notes PE 249 Low SCFA 12 + extra 1+ catherine Laboratory Values Addressed: Relevant Items in Bold Nutrition Prescription Energy: RMR can't be calculated - Weight unrecorded in last 120 days. Protein: 0.8g/kg Nutrients of Concern: Fiber Nutrition Diagnosis: Altered Nutrition Related Laboratory Values (CRP) related to underlying inflammatory process as evidenced by CRP 7.6 Status: Active Nutrition Intervention (New and Reinforcement): Current Nutrition Goal(s): facilitate beneficial microbiome balance and diversity Food Plan: Anti-Catherine Food Plan While addressing the presence of catherine, please refer to the following nutritional recommendations: Overall Guidelines Use the CFM Anti-Catheirne Food Plan to select whole and minimally processed foods Include a protein source with every meal and snack Include nuts, seeds, whole food fats, and/or cold pressed oil with every meal and snack Include ?5 bolded blue (anti-fungal) foods daily (discussed more coconut oil, including oil pulling) Incorporate foods rich in inulin (prebiotic) daily Tanner, onion, garlic, chicory, artichoke, jerusalem artichoke, rye, yacon, dandelion Foods to Avoid Alcohol Refined grains Processed or cured meats High-sugar/fructose fruits and vegetables Kombucha and Kefir (yeast-based) Caloric sweeteners, other than propolis-containing honey 2. Try expanding veggies (as less-dense carbohydrate option) with these foods: -Use amounts below to guide portion at initial trial Arugula Bamboo shoots Mccarthy sprouts Bok Darrell *1 small or 1 cup English cabbage Green beans, *25 beans Greens(beet, dany, kale, mustard, turnip) Kohlrabi Lettuce, all Microgreens Mushroom (oyster) Parsnip Radicchio, *5 cups Radish Rutabaga Scallion (no white part or bulb) Seaweed (mary) Squash (delicata, kabocha, bo downs, spaghetti) Bahraini chard Thyme Turnip, *2/3 turnip Water chestnuts Watercress Yam, *2 cups Zucchini squash, *1/3 cup 3. Work with [facility] health coaches for lifestyle support 4. Continue Dandyblend in AM (prebiotic fiber) 5. Without garlic in your diet, ask provider about option for caprylic acid supplementation Resources/Educational Materials Provided embedded above Adherence Potential to Goals/Care Plan: Moderate Nutrition Monitoring & Evaluation: Meal and Snack Pattern, Nutrition Related Laboratory Values,and Subjective Symptoms Criteria: Laboratory Data, MSQ, Dietary Recall Follow up: as needed Time Spent with patient: 30 minutes Consult Billing Type: Reassessment/15 minutes, 2 increment(s), 30 minutes Number of Increments: 2 (30 minutes) Referred/Supervised by: Allyn Fontanez CNP Signed by: Kendal Coffman RD documented in this [facility] Instructions* Patient Instructions* Estela Fontanez APRN.CNP - 12/13/2022 2:30 PM EDT Plan and Lifestyle Prescription Plan/Instructions/Resources: Reviewed labs and plan with patient. Discussed opportunities to communicate with myself and team ifneeded before next appointment, ie, MyChart, telephone, virtual visits. [facility] labs - we will e-mail these to you Day 21-23 - progesterone Day 2-3 - all the rest of the hormones Continue current supplement For gut balancing: Finish Biocidin and start probiotic Continue Nystatin until next appt Saccharomyces Boulardii 60 ct. (Klaire/Prothera) Sig: Take 1 capsule by mouth twice daily with meals. Follow up with taker out for support with macronutrients [facility] Mycotoxin test - we will send this to you To do test: 1. Take 500 mg glutathione twice daily for 3 days prior to testing. Liposomal glutathione ([employer]) may be purchased on our [employer] 2. On the day of the test get in an infrared sauna for 30 minutes (if no sauna then OK to use Hot bath/vigorous exercise - as long as you are sweating) 2. 30min later collect urine in vials provided in kit 3. Mail kit. After mold testing, begin: G.I. Detox (Boutique Window) Si-2 capsules with full glass of water 2 times daily between meals NAC 600mg 90 ct. (Pure Encapsulations) Sig: Take 1 capsule twice daily, between meals. Natural ways to detox: 1. IR saunas 5 min to start and increase as tolerated to 30 minutes 3-5x/week. Start at 135F degrees. 2. Dry brushing: use loofah brush over body, always moving towards the heart daily before showering. If you feel worse with the above two, this is a sign of a lot of toxin build up, decrease what youare doing to the level you can tolerate. 3. Air quality in your house and work are important. Consider investing in a good quality air purifier to clean the air. You can visit www.FanXchange to learn more. If you wish to buy one from them, you can use the the code CCFUNMED. Other ways to improve air quality are to keep windows open even for a few minutes to improve air quality, changing your HVAC filter more often and using a higher grade (10 is preferred). You can also open the windows to let the air circulate. Outside air generally is parts cleaner than indoor air. 4. Drink water: 60oz with organic lemon 5. Eat organic as much as possible. Please visit the environmental working group to learn about fruits and veggies with the highest amount of toxins on them called the dirty dozen. EWG.org. Try to eat clean sources of meat as well. If you can not afford this, more vegetables than fruits are important to consume since they help up regulate your detoxification ability. 6. Get the free homar: think dirty. It evaluates your personal care products and household products to make sure they are toxin free or low in toxins. Aim for a grade of 3 or less. 7. Read Toxic Home/Conscious Home by Dr Tuan Mock on how to make your house more toxin free. 8. Regular use of brayden, cilantro, chlorella and fiber from vegetables, juicing fiber (don't throw it away, eat it!), and adding Rice Bran Fiber to your daily smoothie or food can help you detoxify as well as making sure you urinate mostly clear urine except for the first morning void, daily large bowel movements and sweating can help detoxify the body. 9. Decrease EMF exposure by turning off the wifi at night, setting up a day with no computer/tablet/phone time to let the body recover. You can read more about the hazards of EMF by reading the Non-Tinfoil Guide to EMF by David Narayan. MOLD Exposure and Toxicity - Mold exposure is unfortunately common. To see if mold could be causing an adverse reaction in your body consider the following. Visual contrast test -Please go to [employer] and do the test for visual contrast sensitivity to see if evidence of mold toxicity. Please bring in report at next visit or email the results to . if high this indicates a biotoxin-exactly which one, we will need to work on this. Inspection of your home and or work place (school) Always start with your house. You can do several different ways: Environmental Relative Moldy Index Testing- ERMI to be done to evaluate home for mold. Https://www.emlab.com/s/services/ERMI_testing.html ERMI to be done to evaluate home for mold. https://www.mycAdXpose.com/products.html B Immunolytics-https://immunolytics.com/ They run mold culture plates. Please go to the website to learn more C.. Professional indoor home inspections-these are qualified people who come to help assess the mold and the damage in the house. You can visit several websites: 1. Www.environmentalanalysis.net 2. www.survivingmold.com 3. International Society of Environmental Acquired Illness (ISEAI) 4. National Association of Mold Remediators and Inspectors (NAMRI)-this is great to help you find someone in your area D. For you to learn more about home remediation, listen to the podcast: IEP radio show (IEP: IndoorEnvironmental Professional) or the moldfinders radio show. They review common home owners concerns about testing, renovating, moving, what to take with you, etc. E. Mold Inspectors Other mold inspectors we have used Contact Guerrero Forte with [employer]. He can come to your home or offer you a virtual consult for home inspection of water damage/mold. [phone]. (Located in [place]) Contact Yes We can mold inspectors. They are a virtual and in person group for mold remediation. This is if you want to stay in your house forever. They do a great job for the mold sensitive patient. Https://DragonRAD/ [employer] ([facility]) -[phone]. No cost for initial phone call. She is located in [facility] [place], [place], [facility] Generally the indoor environmental sampler, IEP, is the belt molder and will be the guide for the remodeling. They do not do the remodeling or treatment to stay objective. Always have the house tested before the remodeling is done to confirm the mold is gone. 3. Books to read - read Dr. Kam Mejias's Mold treatment ebook on Han-this is about mold and lyme -Read Dr Arcelia Saleem's book Break the Mold-this is just about mold - Website: The Mold Medic - www.Base CRM.[employer]. Judah Johnson Medications/Supplements Recommended: Medication orders placed this encounter G.I. Detox (Omniata Research) Si-2 capsules with full glass of water 2 times daily between meals NAC 600mg 90 ct. (Pure Encapsulations) Sig: Take 1 capsule twice daily, between meals. Saccharomyces Boulardii 60 ct. (Klaire/Prothera) Sig: Take 1 capsule by mouth twice daily with meals. I recommend the supplements from the [facility] Healthy Living Store Online Store at https://store.PlayyOn.[employer]/ as we have thoroughly evaluated the research and use only highest quality supplements. Please use code: functional. Future Plans: Follow up: Please schedule a follow up visit with the following Caregivers: As scheduled LIFESTYLE PRESCRIPTION Functional Nutrition: Per automotive service writer Sleep: Sleep goal for most adults is a minimum of 7-9 hours nightly. Exercise Prescription: Numerous studies confirm the benefits of regular moderate aerobic exercise (walking, swimming, elliptical machine, cycling, etc.) for 30 min 5 days per week (150 min goal). Stress Management: 1) Please look into this Heart Rate Variability BioFeedback Tool (www.heartmath.org). 2) A regular, daily meditation practice of at least 15-20 minutes will change your brain--as well as your genes! Behavioral Health Therapist: If I recommended counseling or individual therapy, please schedule an individual appointment with our Functional Medicine Behavioral Health Therapist after your visit today. The Behavioral Health Therapist helps patients identify and understand feelings and behaviors, experience the process of making positive change, and gain healthy coping skills. Health Coaching: Please consider scheduling with our [place] for Functional Medicine health coaches for a phone or virtual visit for accountability, goal setting and help with behavior change release manager the next 6-8 weeks to be successful with your goals. [phone]. Smart phone apps to begin a meditative practice: Headspace (free for first 10 days) Insight Meditation Timer- (Free)-Great all-around homar to use for guided meditations of many different types and lengths or just to use as a tool to time and track your meditation practice. This is myabsolute favorite! Calm- (Free) Walking Meditations-($1.99)- Get your walk AND meditation done together. A good way to start out for individuals who feel they just can't sit still to begin a meditative practice. During the next 6-8 weeks you'll be working on your diet plan discussed with our automotive service writer, allowing for gentle detoxification and decreasing inflammation - while we are gathering your lab resultsand combining those with your complete history to formulate a very personalized treatment plan. LAB results: Due to the complexity of the testing performed, we are not able to review labs via [facility] or over the phone, but please know, if any of your labs are critical we will contact you. Otherwise, we will review all your labs at your next visit. We will go over a lot of information during your follow up visit - so please be well-rested and youmay want to bring someone with you, if possible. Also make sure to schedule with the automotive service writer (this will not happen automatically) as you did with your first visit so that she can review nutritional aspects of your treatment plan. By your 3rd visit, as things are improving, we will likely transition you to one of our very capable Certified Nurse Practitioners/Physician Assistants for further follow-up. Potential future labs: Any [facility] labs ordered take about 4 weeks to return. Do them as soon as possible so that we have the results before your next appointment. You can access them on the [facility] website and it can be beneficial if you review them prior to your next visit. www.Bilbus.net. Read about NutrEval if this was ordered. *Estela Fontanez APRN.BARTOLO documented in this encounterC[facility]09-13-2023 History of Present illness Narrative* Estela Fontanez APRN.CNP - 12/13/2022 2:00 PM EDT Follow-up Visit - virtual I have communicated my name and active licensure. The patient's identity and physical location wereverified at the time of this visit. Either the patient or their legal account development representative has been informed of the risks and benefits of -- and alternatives to -- treatment through a remote evaluation andconsents to proceed with the evaluation remotely. Patient: Giovanna Day There is no height or weight on file to calculate BMI. RMR can't be calculated - Weight unrecorded in last 120 days. Waist measurement: No waist measurement recorded. BP: ALLERGIES No Known Allergies Current Outpatient Medications on File Prior to Visit Medication Sig fluconazole (DIFLUCAN) 150 mg tablet Take one x 1, repeat in 3 days x 1. nystatin (MYCOSTATIN, NILSTAT) 500,000 unit tab Take 2 tablets by mouth twice daily. The Whole Probiotic (iRezQ) Take 1 capsule by mouth once daily. Treatment 3-6 months Biocidin Advanced Formula (BioBotanical Research) gut microbial (bacteria/yeast) balance Take 5 Drops by mouth three times daily. Biocidin - Begin with 1 drop and gradually increase up to 5 drops 3 times per day for 6-8 weeks Digestive Enzymes Ultra 180 ct. (Pure Encapsulations) Take 2 capsules twice daily. Dentalcidin (Talkbits-P[employer]) For adults and children 2 years of age and older, use approx. a 1/2 inch ribbon on your toothbrush. Dentalcidin LS - Liposomal Oral Care Solution (Talkbits[employer]) Swish using 2 pumps for 1 minute or more than expel. Use 2 - 3 times per day after brushing with Dentalcidin toothpaste. WellBetX PGX Ultra Matrix (Natural Factors) diabetes/blood sugar/weight management Take 2 capsules with 8 ounces of water 5-10 minutes before meals. No current facility-administered medications on file prior to visit. No past medical history on file. No past surgical history on file. Social History Tobacco Use Smoking status: Never Smokeless tobacco: Never Functional Medicine Timeline MSQ: Patient Entered Questionnaire PROMIS Scale T-Scores -- HIGHER SCORES BETTER PROMIS Global Health - (T-Scores - the mean of general population = 50. Five points is a clinicallymeaningful difference.) 08/09/2022 08/09/2022 12/12/2022 Physical T-Score 42.3 42.3 37.4 Mental T-Score 53.3 53.3 45.8 Depression Screening: PHQ-9 Self-Harm (Item 9) response options: 0 Not at all 1 Several days 2 More than half the days 3 Nearly every day PHQ-9 Levels: 0-4 Minimal depression 5-9 Mild depression 10-14 Moderate depression 15-19 Moderately severe depression 20-27 Severe depression December 13, 2022 Estela Fontanez APRN.TRACK INSPECTING SUPERVISOR Subjective: Goals: Update progress Check hormones Last seen 09/[address] Pollard. Patient is new to me today. Feels the same. Has had thrush for 4 years. Took Diflucan and nystatin Has been taking Biocidin for 6 weeks. Will start probiotic when biocidin is completed. Had mold in house and had remediated last year. Had cold symptoms before it was remediated. [place] better when she left house. Menses monthly. More Gi symptoms during ovulation and menstrual cycle. Has hypermobility disorder Diet - reacts to carbs - bloated, cramps BM - daily, formed Supplements - Biocidin, digestive enzymes, tumeric, magnesium, calcium, PNV, omega 3's, vit D, Vit C, glutagenics, lauricidin October 18, 2022 Whitley Pollard MD Subjective: Virtual Pt here for her first follow up . She did do the gi effects stool testing. Still not feeling great. Potatoes upset her stomach. Anything will do this. August 15, 2022 Whitley Pollard MD Patient Goals: General InfoLast Medical Care:Jun 13, 2022 - [place], [place] - [facility] Physician Name:None- just recently left practice [place] about our practice from:Referral from friend or family Health Goals What do you hope to achieve in your visit with us?:Resolve Digestive issues and inflammation. Weight loss. Also, would like to know if there more natural options to help with pain/inflammation for torn hip labrum When was the last time you felt well?:It's been a long time. 2019 was when I started feeling especially worse. Did something trigger your change in health?:Not that I know of. I did get a case of thrush in 2018at has never really gone away. What makes you feel better?:Avoiding many foods, probiotics What makes you feel worse?:Skipping probiotics, eating certain foods How does your condition affect you?:Have bouts if severe digestive pain and upset stomach. Also joint pain, tiredness. What do you think is happening and why?:Leaky Gut, Catherine overgrowth. Connective tissue disorder probably also contributes to the issue.What do you feel needs to happen for you to get better?:Heal gut, bring inflammation down. HPI: 32 yr old female here for her initial functional medicine assessment. Pt wanting to reduce inflammation and found foods make things worse like sugar, wheat, rice. Current Health Concerns Current Problem Name Date Started Priority Severity Prior Treatment Success of Prior Treatment Digestive issues - 1 Moderate No n/a Connective tissue disorder which leads to chronic pain and inflammation. Currently dealing with torn labrum. - 2 Moderate No - : Full term Vaginal Breast fed ( Pt is one of 8 ) A lot of ear infections/ ? 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 #60 pounds total #245 now ( # 160-180 pre children) At home now Weight- cutting out carbs, high protein helps the most [place] shaky, eating helped, tested glucose 120 fasting all night, B vitamins high at the time Some hair loss recently. 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 Reactions- Exposures: Tick bites Yes / 2019 when , bull's eye rash, tested / no medications Silver amalgams No Drinking water Yes / bottles Fish consumption Yes occ, tilapia salmon Mold Yes / in her own house last Dec, had respiratory symptoms, in basement re mediated- chest tightness, coughing, sinus congestion Chemical/Industrial/Pesticides No Chemical sensitivities Yes fragrances itchy, lungs, cough Foreign travel/Frequent airplane travel No Supplements: Magnesium Vit c Biotin mcv Antecedents: Family History - Parents and Grandparents State of Health Current Age (or age at if ) Cause of if Father - 55 - Mother Good 55 - Mother : Cancer, Hypertension or high blood pressure, Obesity, Irritable bowel syndrome Grandfathers : Obesity Grandmothers : Obesity Siblings: Brother severe epilepsy Sister covid related heart Review of Systems: See above Objective: virtual LMP 12/11/2018 Bioelectrical Impedance Analysis Results by [employer] Recent Results from: 12/13/22 at 14:29 PM BMI: 29.01 kg/m General Test Result Range Phase Angle (PA) Basal Metabolic Rate (BMR) Fat & Fat Free Mass Test Result Range Fat (lbs) Fat % Fat Free Mass (FFM) lbs Total Body Water Test Result Range TBW (lbs) TBW % of FFM Intracellular Water Test Result Range ICW (lbs) ICW % of FFM Extracellular Water Test Result Range ECW (lbs) ECW % of FFM Physical Exam: virtual CURRENT Functional Medicine Assessment/ PLAN Underlying Causes: toxins, adverse reaction to food, infection, nutritional insufficiencies or excessess Triggers/Mediators: Food sensitivities/ weight gain Today's Focus: gut healing, mitochondrial repair Nutritional Assessment: Gluten free x 10 yrs, sugar free Digestive Function: Thrush oral x 4 yrs tx with probiotics Eggs bother her trigger digestive cramps in stomach, rice joint ache Avocado stomach cramps/bloating, ? hummus Occ constipation and diarrhea GI Effects July 2022 PE 249 Low SCFA 12 + extra 1+ catherine Inflammation/Immune Function: Infections-ear Joint pain-left hip/ all others EDS like syndrome Chronic pain, left hip labrum tear- 10/10 if on feet all day, normal day 2-5 pain Hscrp 7.6 Energy Production/Function: Weight gain with pregnancies #60 Headaches a lot ? Related to EDS, sees chiropractor neck goes out Migraines occ Sleep hard to stay asleep Detoxification Function: Chemical sensitivity Medications Mold exposure Hormonal Function: Occ pain with menses , occ ibuprofen No control presently Structural Function: Hip labrum tear-left Assessment Assessment: E34.9 Hormone imbalance (primary encounter diagnosis) K59.89 Intestinal dysbiosis B37.0 Thrush Z77.120 Mold exposure Plan and Lifestyle Prescription Plan/Instructions/Resources: Reviewed labs and plan with patient. Discussed opportunities to communicate with myself and team ifneeded before next appointment, ie, MyChart, telephone, virtual visits. [facility] labs - we will e-mail these to you Day 21-23 - progesterone Day 2-3 - all the rest of the hormones Continue current supplement For gut balancing: Finish Biocidin and start probiotic Continue Nystatin until next appt Saccharomyces Boulardii 60 ct. (Klaire/Prothera) Sig: Take 1 capsule by mouth twice daily with meals. Follow up with taker out for support with macronutrients [facility] Mycotoxin test - we will send this to you To do test: 1. Take 500 mg glutathione twice daily for 3 days prior to testing. Liposomal glutathione ([employer]) may be purchased on our [employer] 2. On the day of the test get in an infrared sauna for 30 minutes (if no sauna then OK to use Hot bath/vigorous exercise - as long as you are sweating) 2. 30min later collect urine in vials provided in kit 3. Mail kit. After mold testing, begin: G.I. Detox (Omniata Research) Si-2 capsules with full glass of water 2 times daily between meals NAC 600mg 90 ct. (Pure Encapsulations) Sig: Take 1 capsule twice daily, between meals. Natural ways to detox: 1. IR saunas 5 min to start and increase as tolerated to 30 minutes 3-5x/week. Start at 135F degrees. 2. Dry brushing: use loofah brush over body, always moving towards the heart daily before showering. If you feel worse with the above two, this is a sign of a lot of toxin build up, decrease what youare doing to the level you can tolerate. 3. Air quality in your house and work are important. Consider investing in a good quality air purifier to clean the air. You can visit www.FanXchange to learn more. If you wish to buy one from them, you can use the the code CCFUNMED. Other ways to improve air quality are to keep windows open even for a few minutes to improve air quality, changing your HVAC filter more often and using a higher grade (10 is preferred). You can also open the windows to let the air circulate. Outside air generally is parts cleaner than indoor air. 4. Drink water: 60oz with organic lemon 5. Eat organic as much as possible. Please visit the environmental working group to learn about fruits and veggies with the highest amount of toxins on them called the dirty dozen. EWG.org. Try to eat clean sources of meat as well. If you can not afford this, more vegetables than fruits are important to consume since they help up regulate your detoxification ability. 6. Get the free homar: think dirty. It evaluates your personal care products and household products to make sure they are toxin free or low in toxins. Aim for a grade of 3 or less. 7. Read Toxic Home/Conscious Home by Dr Tuan Mock on how to make your house more toxin free. 8. Regular use of brayden, cilantro, chlorella and fiber from vegetables, juicing fiber (don't throw it away, eat it!), and adding Rice Bran Fiber to your daily smoothie or food can help you detoxify as well as making sure you urinate mostly clear urine except for the first morning void, daily large bowel movements and sweating can help detoxify the body. 9. Decrease EMF exposure by turning off the wifi at night, setting up a day with no computer/tablet/phone time to let the body recover. You can read more about the hazards of EMF by reading the Non-Tinfoil Guide to EMF by David Narayan. MOLD Exposure and Toxicity - Mold exposure is unfortunately common. To see if mold could be causing an adverse reaction in your body consider the following. Visual contrast test -Please go to [employer] and do the test for visual contrast sensitivity to see if evidence of mold toxicity. Please bring in report at next visit or email the results to . if high this indicates a biotoxin-exactly which one, we will need to work on this. Inspection of your home and or work place (school) Always start with your house. You can do several different ways: Environmental Relative Moldy Index Testing- ERMI to be done to evaluate home for mold. Https://www.emlab.E[employer]/s/services/ERMI_testing.html ERMI to be done to evaluate home for mold. https://www.mycAdXpose.com/products.html B Immunolytics-https://immunolytics.com/ They run mold culture plates. Please go to the website to learn more C.. Professional indoor home inspections-these are qualified people who come to help assess the mold and the damage in the house. You can visit several websites: 1. Www.environmentalanalysis.net 2. www.survivingmold.com 3. International Society of Environmental Acquired Illness (ISEAI) 4. National Association of Mold Remediators and Inspectors (NAMRI)-this is great to help you find someone in your area D. For you to learn more about home remediation, listen to the podcast: IEP radio show (IEP: IndoorEnvironmental Professional) or the moldfinders radio show. They review common home owners concerns about testing, renovating, moving, what to take with you, etc. E. Mold Inspectors Other mold inspectors we have used Contact Guerrero Forte with [employer]. He can come to your home or offer you a virtual consult for home inspection of water damage/mold. [phone]. (Located in [place]) Contact Yes We can mold inspectors. They are a virtual and in person group for mold remediation. This is if you want to stay in your house forever. They do a great job for the mold sensitive patient. Https://DragonRAD/ Ruth [employer] ([facility]) -[phone]. No cost for initial phone call. She is located in [facility] [place] [employer], , [facility] Generally the indoor environmental sampler, IEP, is the belt molder and will be the guide for the remodeling. They do not do the remodeling or treatment to stay objective. Always have the house tested before the remodeling is done to confirm the mold is gone. 3. Books to read - read Dr. Kam Mejias's Mold treatment ebook on Han-this is about mold and lyme -Read Dr Arcelia Saleem's book Break the Mold-this is just about mold - Website: The Mold Medic - www.Ma-papeterie. Judah Johnson Medications/Supplements Recommended: Medication orders placed this encounter G.I. Detox (Symonicsanical Research) Si-2 capsules with full glass of water 2 times daily between meals NAC 600mg 90 ct. (Pure Encapsulations) Sig: Take 1 capsule twice daily, between meals. Saccharomyces Boulardii 60 ct. (Klaire/Prothera) Sig: Take 1 capsule by mouth twice daily with meals. I recommend the supplements from the [facility] Healthy Living Store Online Store at https://store.TapToLearn/ as we have thoroughly evaluated the research and use only highest quality supplements. Please use code: functional. Future Plans: Follow up: Please schedule a follow up visit with the following Caregivers: As scheduled LIFESTYLE PRESCRIPTION Functional Nutrition: Per automotive service writer Sleep: Sleep goal for most adults is a minimum of 7-9 hours nightly. Exercise Prescription: Numerous studies confirm the benefits of regular moderate aerobic exercise (walking, swimming, elliptical machine, cycling, etc.) for 30 min 5 days per week (150 min goal). Stress Management: 1) Please look into this Heart Rate Variability BioFeedback Tool (www.heartmath.org). 2) A regular, daily meditation practice of at least 15-20 minutes will change your brain--as well as your genes! Behavioral Health Therapist: If I recommended counseling or individual therapy, please schedule an individual appointment with our Functional Medicine Behavioral Health Therapist after your visit today. The Behavioral Health Therapist helps patients identify and understand feelings and behaviors, experience the process of making positive change, and gain healthy coping skills. Health Coaching: Please consider scheduling with our [facility] Functional Medicine health coaches for a phone or virtual visit for accountability, goal setting and help with behavior change release manager the next 6-8 weeks to be successful with your goals. [phone]. Smart phone apps to begin a meditative practice: Headspace (free for first 10 days) Insight Meditation Timer- (Free)-Great all-around homar to use for guided meditations of many different types and lengths or just to use as a tool to time and track your meditation practice. This is myabsolute favorite! Calm- (Free) Walking Meditations-($1.99)- Get your walk AND meditation done together. A good way to start out for individuals who feel they just can't sit still to begin a meditative practice. During the next 6-8 weeks you'll be working on your diet plan discussed with our automotive service writer, allowing for gentle detoxification and decreasing inflammation - while we are gathering your lab resultsand combining those with your complete history to formulate a very personalized treatment plan. LAB results: Due to the complexity of the testing performed, we are not able to review labs via Greetzt or over the phone, but please know, if any of your labs are critical we will contact you. Otherwise, we will review all your labs at your next visit. We will go over a lot of information during your follow up visit - so please be well-rested and youmay want to bring someone with you, if possible. Also make sure to schedule with the automotive service writer (this will not happen automatically) as you did with your first visit so that she can review nutritional aspects of your treatment plan. By your 3rd visit, as things are improving, we will likely transition you to one of our very capable Certified Nurse Practitioners/Physician Assistants for further follow-up. Potential future labs: Any Tra labs ordered take about 4 weeks to return. Do them as soon as possible so that we have the results before your next appointment. You can access them on the Tail website and it can be beneficial if you review them prior to your next visit. www.Bilbus.net. Read about NutrEval if this was ordered. *Estela Fontanez APRN.CNP I spent a total of 30 minutes on the date of the service which included ovsp-hp-ewaa patient care. documented [facility] History of Present illness Narrative* Whitley Pollard MD - 10/18/2022 11:00 AM EDT [place] Virtual Functional Medicine Follow-up Visit This Team Access Model visit is a virtual encounter. It required patient- provider interaction for the medical decision making as documented below. I have communicated my name and active licensure. The patient's identity and physical location wereverified at the time of this visit. Either the patient or their legal account development representative has been informed of the risks and benefits of -- and alternatives to -- treatment through a remote evaluation andconsents to proceed with the evaluation remotely. Patient: Giovanna Day There is no height or weight on file to calculate BMI. RMR can't be calculated - Weight unrecorded in last 120 days. ALLERGIES No Known Allergies Current Outpatient Medications on File Prior to Visit Medication Sig WellBetX PGX Ultra Matrix (Natural Factors) diabetes/blood sugar/weight management Take 2 capsules with 8 ounces of water 5-10 minutes before meals. No current facility-administered medications on file prior to visit. No past medical history on file. No past surgical history on file. Social History Tobacco Use Smoking status: Never Smokeless tobacco: Never Functional Medicine Timeline Patient Entered Questionnaires PROMIS Global Health Summary Physical Health Summary Score Components 08/09/2022 08/09/2022 Physical health Good - Everyday physical activity MOSTLY (!) - Fatigue Moderate - Pain 4 (!) - Social activities and roles Good - Physical Health T-Score 42.3 (Good) - Physical Health Percentile 22 22 Mental Health Summary Score Components 08/09/2022 08/09/2022 Quality of life Very good - Mental health (mood, thinking) Excellent - Social satisfaction Good - Emotional problems (anxious,depressed) Rarely - Mental Health T-Score 53.3 (Very Good) - Mental Health Percentile 63 63 Other 08/09/2022 In general, health is: Good PROMIS CAT Physical Function 08/09/2022 PROMIS Physical Function T-Score 39 (moderate dysfunction) PROMIS PAIN INTERFERENCE T-SCORE 08/09/2022 PROMIS Pain Interference T-Score 62 (moderate) Anxiety Screening(KATHRYN-7) Sleep Apnea Probability Snores loudly: No Tired, fatigued or sleepy in daytime: Yes Stops breathing or choking/gasping during sleep: No High blood pressure: No Sleep Apnea Probability Score 08/09/2022 Sleep Apnea Screen V2 7 (Sleep study not recommended) Depression Screening (PHQ-9) PHQ-9 Levels: PHQ-9 Self-Harm (Item 9) response options: 0-4 Minimal depression 0 Not at all 5-9 Mild depression 1 Several days 10-14 Moderate depression 2 More than half the days 15-19 Moderately severe depression 3 Nearly every day 20-27 Severe depression October 18, 2022 Whitley Pollard MD Subjective: Virtual Pt here for her first follow up . She did do the gi effects stool testing. Still not feeling great. Potatoes upset her stomach. Anything will do this. August 15, 2022 Whitley Pollard MD Patient Goals: General [facility] Medical Care:Jun 13, 2022 - [place], [place] - [facility] Physician Name:None- just recently left practice [place] about our practice from:Referral from friend or family Health Goals What do you hope to achieve in your visit with us?:Resolve Digestive issues and inflammation. Weight loss. Also, would like to know if there more natural options to help with pain/inflammation for torn hip labrum When was the last time you felt well?:It's been a long time. 2019 was when I started feeling especially worse. Did something trigger your change in health?:Not that I know of. I did get a case of thrush in 2018that has never really gone away. What makes you feel better?:Avoiding many foods, probiotics What makes you feel worse?:Skipping probiotics, eating certain foods How does your condition affect you?:Have bouts if severe digestive pain and upset stomach. Also joint pain, tiredness. What do you think is happening and why?:Leaky Gut, Catherine overgrowth. Connective tissue disorder probably also contributes to the issue.What do you feel needs to happen for you to get better?:Heal gut, bring inflammation down. HPI: 32 yr old female here for her initial functional medicine assessment. Pt wanting to reduce inflammation and found foods make things worse like sugar, wheat, rice. Current Health Concerns Current Problem Name Date Started Priority Severity Prior Treatment Success of Prior Treatment Digestive issues - 1 Moderate No n/a Connective tissue disorder which leads to chronic pain and inflammation. Currently dealing with torn labrum. - 2 Moderate No - : Full term Vaginal Breast fed ( Pt is one of 8 ) A lot of ear infections/ ? 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 #60 pounds total #245 now ( # 160-180 pre children) At home now Weight- cutting out carbs, high protein helps the most [place] shaky, eating helped, tested glucose 120 fasting all night, B vitamins high at the time Some hair loss recently. 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 Reactions- Exposures: Tick bites Yes / 2020 when , bull's eye rash, tested / no medications Silver amalgams No Drinking water Yes / bottles Fish consumption Yes occ, tilapia salmon Mold Yes / in her own house last Dec, had respiratory symptoms, in basement re mediated- chest tightness, coughing, sinus congestion Chemical/Industrial/Pesticides No Chemical sensitivities Yes fragrances itchy, lungs, cough Foreign travel/Frequent airplane travel No Supplements: Magnesium Vit c Biotin mcv Antecedents: Family History - Parents and Grandparents State of Health Current Age (or age at if ) Cause of if Father - 55 - Mother Good 55 - Mother : Cancer, Hypertension or high blood pressure, Obesity, Irritable bowel syndrome Grandfathers : Obesity Grandmothers : Obesity Siblings: Brother severe epilepsy Sister covid related heart Review of Systems: Bloating Objective: Virtual Physical Exam: Virtual CURRENT Functional Medicine Assessment/ PLAN Underlying Causes: toxins, adverse reaction to food, infection, nutritional insufficiencies or excessess Triggers/Mediators: Food sensitivities/ weight gain Today's Focus: gut healing, mitochondrial repair Nutritional Assessment: Gluten free x 10 yrs, sugar free Digestive Function: Thrush oral x 4 yrs tx with probiotics Eggs bother her trigger digestive cramps in stomach, rice joint ache Avocado stomach cramps/bloating, ? hummus Occ constipation and diarrhea GI Effects July 2022 PE 249 Low SCFA 12 + extra 1+ catherine Inflammation/Immune Function: Infections-ear Joint pain-left hip/ all others EDS like syndrome Chronic pain, left hip labrum tear- 10/10 if on feet all day, normal day 2-5 pain Hscrp 7.6 Energy Production/Function: Weight gain with pregnancies #60 Headaches a lot ? Related to EDS, sees chiropractor neck goes out Migraines occ Sleep hard to stay asleep Detoxification Function: Chemical sensitivity Medications Mold exposure Hormonal Function: Occ pain with menses , occ ibuprofen No control presently Structural Function: Hip labrum tear-left Assessment Assessment: R14.0 Bloating (primary encounter diagnosis) B37.0 Thrush (oral) K59.89 Intestinal dysbiosis Plan and Lifestyle Prescription Plan/Instructions/Resources: (For ongoing medical care please follow up with your primary care provider or specialist while working with functional medicine .) Start supplements one at a time, use only what you can tolerate. Add each new supplement every 3-4 days if you are okay with it and not having side effects. If you can not tolerate any supplement, stop taking it and do not use it. Tests ordered : Bloating / Intestinal dysbiosis/ Thrush Will treat with 2 days Diflucan, followed by Nystatin x 1 month. Add Biohm probiotic daily before breakfast. For 3-6 months. Digestive enzymes with each meal. Add Meriva-SR ( tumeric ) or Inflammatone 2/d for pain. Then add Biocidin: Biocidin -Biocidin is a potent broad-spectrum botanical compound designed to support a healthy digestive and immune system. Begin with 1 drop 3 times per day and gradually increase up to 5 drops 3 times per day for 4-6 weeks ( if you forget the mid day dose, then take 8 drops twice daily ). You mayput in water and drink it or place on your tongue. Take without food: by taking more than 30 min before food and over 2 hours after food. 4. Dental care: basic floss daily, use a electric brush sharon with gum receding, do coconut oil pulling. Aim for 8 glasses of water per day. Medications/Supplements Recommended: Medication orders placed this encounter Biocidin Advanced Formula (Mark43) gut microbial (bacteria/yeast) balance Sig: Take 5 Drops by mouth three times daily. Biocidin - Begin with 1 drop and gradually increase up to 5 drops 3 times per day for 6-8 weeks Refill: 0 Digestive Enzymes Ultra 180 ct. (Pure Encapsulations) Sig: Take 2 capsules twice daily. fluconazole (DIFLUCAN) 150 mg tablet Sig: Take one x 1, repeat in 3 days x 1. Dispense: 2 tablet Refill: 1 nystatin (MYCOSTATIN, NILSTAT) 500,000 unit tab Sig: Take 2 tablets by mouth twice daily. Dispense: 120 tablet Refill: 2 The Whole Probiotic (Biohm) Sig: Take 1 capsule by mouth once daily. Treatment 3-6 months Current Outpatient Medications Medication Sig fluconazole (DIFLUCAN) 150 mg tablet Take one x 1, repeat in 3 days x 1. nystatin (MYCOSTATIN, NILSTAT) 500,000 unit tab Take 2 tablets by mouth twice daily. The Whole Probiotic (Biohm) Take 1 capsule by mouth once daily. Treatment 3-6 months Biocidin Advanced Formula (Mark43) gut microbial (bacteria/yeast) balance Take 5 Drops by mouth three times daily. Biocidin - Begin with 1 drop and gradually increase up to 5 drops 3 times per day for 6-8 weeks Digestive Enzymes Ultra 180 ct. (Pure Encapsulations) Take 2 capsules twice daily. WellBetX PGX Ultra Matrix (Natural Factors) diabetes/blood sugar/weight management Take 2 capsules with 8 ounces of water 5-10 minutes before meals. No current facility-administered medications for this visit. I recommend the supplements from the [facility] astamuse company, ltd. Online Store as we have thoroughly evaluated the research and use only highest quality supplements. Get started by following four easy steps: Visit the following webpage: [email or web address] Create an account: Enter your first name, last name, email address which will be your username Create password Select a referring physician from the dropdown box. If they are not listed, select other If you are a new patient, enter the following provider code: Functional Order recommended supplementation Enter the supplement name in the search box Add all supplements to your cart and proceed to checkout. Orders of $100 or more qualify for free shipping. *Please allow 5-7 business days for delivery. For issues with your MRN please call [phone] Provider Code: Functional (not case sensitive) Future Plans: Follow up: Please schedule a follow up visit with the following Caregivers: Provider: Virtual visit with Dr Pollard in 10-12 weeks or first available. Please call or go to [employer] to schedule a follow up visit. Nutrition: as needed Health curriculum coach: as needed LIFESTYLE PRESCRIPTION Functional Nutrition: per nutrition Sleep: Sleep goal for most adults is a minimum of 7-9 hours nightly. Exercise Prescription: Numerous studies confirm the benefits of regular moderate aerobic exercise (walking, swimming, elliptical machine, cycling, etc.) for 30 min 5 days per week (150 min goal). Stress Management: 1) Please look into this Heart Rate Variability BioFeedback Tool (www.heartmath.org). 2) A regular, daily meditation practice of at least 15-20 minutes will change your brain--as well as your genes! Behavioral Health Therapist: If I recommended counseling or individual therapy, please schedule an individual appointment with our Functional Medicine Behavioral Health Therapist after your visit today. The Behavioral Health Therapist helps patients identify and understand feelings and behaviors, experience the process of making positive change, and gain healthy coping skills. Health Coaching: Please consider scheduling with our [place] for Functional Medicine health coaches for a phone or virtual visit for accountability, goal setting and help with behavior change release manager the next 6-8 weeks to be successful with your goals. [phone]. Smart phone apps to begin a meditative practice: Headspace (free for first 10 days) Insight Meditation Timer- (Free)-Great all-around homar to use for guided meditations of many different types and lengths or just to use as a tool to time and track your meditation practice. This is myabsolute favorite! Calm- (Free) Walking Meditations-($1.99)- Get your walk AND meditation done together. A good way to start out for individuals who feel they just can't sit still to begin a meditative practice. During the next 6-8 weeks you'll be working on your diet plan discussed with our automotive service writer, allowing for gentle detoxification and decreasing inflammation - while we are gathering your lab resultsand combining those with your complete history to formulate a very personalized treatment plan. LAB results: Due to the complexity of the testing performed, we are not able to review labs via [facility] or over the phone, but please know, if any of your labs are critical we will contact you. Otherwise, we will review all your labs at your next visit. Make sure to schedule with the automotive service writer (this will not happen automatically) as you did with your first visit so that she can review nutritional aspects of your treatment plan. Potential future labs: Any Tra labs ordered take about 6 -8 weeks to return. Do them as soon as possible so that we have the results before your next appointment. You can access them on the Bioject Medical Technologiesite and it can be beneficial if you review them prior to your next visit. www.Bilbus.net. Read about NutrEval/GI Effects if this was ordered. Tail Billing Questions: [email or web address] Please log into the link if you have questions regarding how to perform any of the Tail Testing Kits ( such as GI Effects, Nutreval, Hydrogen Breath Test ). Please obtain blood draws for the Tail [facility] NutrEval Profile and other test kits ordered by your provider at the [facility] at designated [facility] Labs and times.The designated labs are as follows: ~[place] : Q2 @ [facility] Sunday-Sunday 8am-1 pm and 1:30pm-4:30 pm G-10 Sunday-Sunday 8am-5pm. ~[facility] : Labs Sunday-Sunday 8am-1pm. ~Or at a local lab where you live: [employer] Whitley Pollard MD Time spend with patient: I spent 30 minutes in the visit with more than 50% of the time spent counseling in regards to above. documented in this encounterC[facility]06-[facility]23 Instructions* Patient Instructions* Kendal Coffman RD - 09/20/2022 2:09 PM EDT [facility] MEDICINE FOLLOW UP NUTRITION INSTRUCTIONS Nutrition Follow-up: In as needed with Kendal Coffman RD. Your Prescribed Nutrition Plan: Elimination->Reintroduction->Gluten-Free, whole foods based with avoidance of known sensitivities Check with [facility] medical provider regarding: -Questions about adrenal status/testing -Supplemental turmeric (I.e. Meriva form) -[place]-Check 2. Modify eating patterns further with goal of blood glucose balancing: #1: Start Your Meals with fiber: seeds (ant/flax/hemp), small handful of nuts, non-starchy vegetables sharon raw broccoli or brussels sprouts, supplemental fiber (I.e. PGX) #2: Eat Your Protein Next #3: Consume your carbohydrate last #4: 6 cups of non-starchy vegetables daily Ant Fresca recipe: https://www.Synetiq.co/ant-fresca/ 3. Consider continuous glucose monitor to measure glucose levels throughout the day and night X 2-4weeks More information about CGM's: https://www.healthline.com/diabetesmine/iebi-dg-lreakappcg-qonmvms-drxqkih-oax-c hoosing-one#Vkom-bypjvjp-KZB-systems https://www.zlien.Eupraxia Pharmaceuticals/blog/dflx-cqy-dfsnuqttbj-jearczk-twewrlmlcm-esnosvd-and-ho v-jd-jtmhmy-a-cgm/ CGM Manufacturers: Abbot Freestyle Weston 2 and 3 Weston Sense Sport Glucose Biosensor Dexcom Dexcom G6 Eversense Eversense CGM System Medtronic Guardian Sensor Without insurance factored in, CGM systems supplies can range from roughly $160 per month all the way up to $500 per month (based on retail prices provided by manufacturers online). Membership-based programs that use CGM's: NutriSense Utilizes CGM (Freestyle Weston) paired with the Nutrisense homar Free Dietitian support for one month Food tracking via homar Oh:$175-$350 per month, dependent on the level of support you choose. Link: https://www.nutrisense.io/ Levels Utilizes CGM Dexcom G6 or Freestyle Weston Dietitian support (for an additional cost) Food tracking via homar Oh: $199 per month + $199 annual membership fee Link: https://www.Stylistpick/ Signos: Uses Dexcom G6 paired with Signos homar Uses AI generated tips for support Food tracking via homar Oh: based on 1, 3, or 6 month plans based on your current goals. 1 month- $399, 3 months $747, 6 months $1194 Link: https://www.PBworks/ Veristable Veri Utilizes Freestlye Weston paired with Veri Homar No dietitian support Food tracking via homar Oh: $199 per month, or $169 per month (depending on the number of sensors) Link:[email or web address]/ April PAMELA Utilizes Gregory FreeStyle Weston Homar not available yet Oh: $288/month Link:https://www.april./ [place] Uses Gregory Weston Sense Sport Glucose Biosensor Aimed for athletes No food tracking No dietitian support Oh: $240/month Link: https://www.Axsome Therapeuticscom/en-EN/ *Information updated as of 03/2022 4. Incorporate anti-inflammatory foods daily Include these foods: -Fatty fish, such as wild-caught salmon, mackerel, cod, tuna, and sardines, provide a balance of essential fatty acids high in anti-inflammatory omega-3 fats. Target: 3-4X per week and/or supplementation -Grass-fed beatty or buffalo meats contain significant amounts of omega-3 fats than meat from grain-fed animals. All beef and dairy should be grass-fed when reintroduced. -Nuts and seeds, especially almonds, walnuts, and flax seeds, contain omega-3 fats and healthy fiber: Target: 1-2 handfuls per day -Dark leafy greens, such as kale, broccoli, collards, cabbage, and other cruciferous vegetables arehigh in fiber and may protect the body from pro- inflammatory molecules called cytokines. They are also high in phytonutrients called glucosinolates that assist detoxification. Target: 4 cups per day -Red and blue colored fruits and vegetables such as red cabbage and onion, red farley pepper, all berries, red grapes, cherries (especially tart red juice; 2- 4oz per day), and plums contain anti-inflammatory phytonutrients. Target: 1-2 cups per day -Extra-virgin olive oil and olives contain anti-inflammatory phytonutrients called polyphenols. Target: olive oil as default for cold applications -Moist heat cooking using low temperatures, such as crock-pot cooking, creates fewer inflammatory by-products. -Certain spices, such as turmeric, feliz, oregano, garlic, brayden, cayenne, cloves, and cinnamon, have anti-inflammatory properties. Use them in combination with food, especially when using high-heat cooking methods. Target: daily use -Green tea or matcha. Target: daily use Options with higher catechins/EGCG per serving, per [employer] Maureen Rea Matcha (247.4mg Catechins) Naphthalene Operator Helper Rebeca FRUCT Green Tea (brewed) (241.5mg) [email or web address] Matcha Green Tea powder (212.6mg) Kojoque Tea Crystals Ashlee (powder) (202.4mg) [facility] Pure Green Tea (brewed) (202.3mg) [facility] Green tea (brewed) (141.5mg) 5. Please reintroduce foods one at a time into your diet using the following instructions: Protocol: On the first day of the reintroduction phase, choose a single food to challenge. Eat a generous amount of that food throughout Day 1 (two or three challenge portions), while continuing to eat foods on the Elimination Diet. The next 2 days (Days 2-3), do not eat any of the challenge food and return to the Elimination Diet. During all 3 days, record any symptoms. If there is no reaction, keep that food in the food plan and repeat the above process with the nextchallenge. If any food provokes symptoms, stop eating that food immediately, wait till the symptoms clear, andreintroduce the next food. After testing all of the challenge foods, try the problem food again using the same procedure (one day of eating the food and noting symptoms during the following two-day period). Sample challenge doses: Delmont (organic) : Fresh or frozen corn kernels 1/2c Pork (pastured): Cooked meat, not in a casserole 3-6oz Beef (organic, grass fed): cooked meat, not in a casserole 3-6oz Egg: Hard or soft boiled or poached 2 eggs Peanuts (organic): Raw or dry roasted peanuts 1/4c OR Peanut butter made from 100% peanuts 2T Soy (organic): Edamame 1/2c OR Soy Milk 1c OR Tofu or Tempeh 1/2c Shellfish: Challenge individual shellfish each time 3-6oz Dairy: This is a two-step process. First, reintroduce cheese. Next, reintroduce milk. Cheese to test for dairy protein: any low-lactose cheese I.e. cheddar, parmesan, Bahraini, camembert, gouda, provolone 1oz Note: for a more conservative reintroduction: goat milk cheese (Chevre, Goat Gouda) or sheep milk cheese(Halloumi, Manchego, Pecorino Velez) Cow's milk to test for milk sugar (lactose) using liquid milk: 1-2 cups per serving 6. If re-incorporating more caffeine (including matcha/green tea, if new): -Begin with 1/3-1/2 of typical dose, as tolerance can change -Monitor for any changes in sleep quality/quantity, subjective stress or anxiety and energy 'dips' after stimulating effect 7. Try wild rice, quinoa, buckwheat and/or amaranth for additional whole food based carbohydrate variety 8. Monitor for any symptoms when consuming foods from the AppNexushade family; these include: Hot peppers (chili, jalapeno, habanero, and scotch bonnet, Tabasco pepper, etc.) Farley (sweet) Peppers Tomatoes Eggplant Potatoes (except sweet potatoes) Pimentos Other foods within the nightshade family include: Other Vegetables: tomatillos (groundcherry), pimentos Fruits: Cape gooseberries, goji berries, naranjillas, tamarillo, garden huckleberries, pepino, sunberries, cocon Spices: chili-based like cayenne, chili powder, crushed red pepper, and paprika Other: ashwagandha, tobacco 9. Schedule with CFM dietitian after GI effects returns ADDITIONAL INSTRUCTIONS: How to Contact Your Functional Medicine Team (Open M-F 8am-5pm): 1. MyChart is the BEST form of communication to reach the Functional Medicine Team, see test results and request refills. Please allow 72 business hours for a response. Directions for signing up are included in your New Patient Folder. (Or you can go to [email or web address]) 2. For nutrition related questions or concerns, Greetzt message your physician and include Attn: Kendal Coffman RD at the top of the message. [facility] messaging is meant to support implementation of previously outlined nutrition care plans. In the interest of safe, effective and personalized care, you are asked to schedule a follow-up appointment if: It has been >6 months since your last nutrition appointment Your question requires reassessment or involves a new plan of care Your question concerns a new diagnosis, symptoms(s) and/or health concern Ordering Supplements: Supplements can be ordered from the [facility]'s Online Store: [email or web address] New patients to the Healthy Living Shop will need to enter the provider code FUNCTIONAL to registertheir account. documented in this [facility] History of Present illness Narrative* Kendal Coffman RD - 09/20/2022 1:01 PM EDT [facility] Nutrition Therapy: Follow-Up Assessment (Individual) VIRTUALVISITPN I have communicated my name and active licensure. The patient's identity and physical location were verified at the time of this visit. Either the patient or their legal representativehas been informed of the risks and benefits of -- and alternatives to -- treatment through a remoteevaluation and consents to proceed with the evaluation remotely. Patient is located in the [facility] at the time of the virtual visit. Patient Name: Giovanna Day Past Medical History: No past medical history on file. Allergies: Patient has no known allergies. Current Medications/Supplements Current Outpatient Medications on File Prior to Visit Medication Sig WellBetX PGX Ultra Matrix (Natural Factors) diabetes/blood sugar/weight management Take 2 capsules with 8 ounces of water 5-10 minutes before meals. No current facility-administered medications on file prior to visit. Primary ICD-10 Diagnosis Addressed: Weight gain [R63.5] Provider Nutrition Notes:Nutrition only today Status of Chief Concerns: Resolve Digestive issues and inflammation. Weight loss. Also, would like to know if there more natural options to help with pain/inflammation for torn hip labrum. Have boutsif severe digestive pain and upset stomach. Also joint pain, tiredness. Digestive issues - 1 Moderate No n/a Connective tissue disorder which leads to chronic pain and inflammation. Currently dealing with torn labrum. - 2 Moderate No - Did something trigger your change in health?:Not that I know of. I did get a case of thrush in 2018at has never really gone away. What do you think is happening and why?:Leaky Gut, Catherine overgrowth. Connective tissue disorder probably also contributes to the issue. What do you feel needs to happen for you to get better?:Heal gut, bring inflammation down Nutrition Assessment (updated 09/20/22) Current Symptom Review: No evident reduction in pain or digestive symptoms Wondering about blood sugar issues Would feel like going to pass out if not eating frequently enough Shaky if go too long without eating Frequently fatigued, hungry Had been spot-testing blood sugar: fasting blood glucose at 120mg/dL Within hour after eating, feel hungry again Feel better with lower carbohydrate eating, but if too low will not feel well Generous with fat intake at meals (I.e. olive oil) Food and Nutrition History (update): Began PGX (was taking this before every meal), Inflammatone from Dr. Pollard, 5# weight loss since last visit Began elimination food plan 08/29/[address] 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 Nutrition Assessment (08/21/22) Digestive symptoms: Yes, bloated feeling , intestinal or stomach pain Other relevant symptoms: pain or aches in joints/muscles, excessive weight, swollen or discolored tongue, gums or lips, dry skin, fatigue Food and Nutrition History (special diet(s) or nutritional program): Gluten-free X 12 years Adverse Reactions to Foods: Wheat and rice (rice past year)- joint pain, overall poor feeling, Eggs(last year or so, make me sick), avocados - digestive pain, cramping, sometimes nausea, aversion: peanut butter Diet Recall: Yes B: 8-8:30a: grilled chicken (1/2 to a full chicken breast: 1-2 deck of cards), sweet potato or plantains (tomato, cucumber, hummus (1/4 cup) (whole cucumber, 1-2 slices of tomato), 2tbsp olive oil L: grilled chicken, sweet potato or plantains, tomato, cucumber, hummus D: grilled chicken, sweet potato or plantains, tomato, cucumber, hummus Snacks: Beverages: ~4 cups of non-starchy vegetable/d now Anthropometrics LMP 12/11/2018 Last Height: Last 1 Encounter Ht Readings: Date: Ht: 11/23/2009 162.6 cm (5' 4) Last Weight: Last Wt 12/19/18 : 76.7 kg (169 lb) 11/23/09 : 78.9 kg (174 lb) 11/23/09 : 78.9 kg (174 lb) Wt: 76.7 kg (169 lb) BMI: 29.01 kg/(m^2) Learning Needs Assessment: Barriers to Learning: Ready to Learn (no barriers noted) Assessed motivation to learn: moderate Biochemical and Laboratory Data Conventional/Advanced Testing Component Latest Ref Rng & Units 08/19/2022 08/19/2022 08/19/2022 7:54 AM 7:54 AM 7:54 AM KENNEDY Interpretation The HLA-DQ genotype of the patient is not supportive of an increased risk of celiac disease. HLA-DQA1 Genotype HLA-DQA1*: 05, 01 HLA-DQB1 Genotype HLA-DQB1*: 03:01, 06 Celiac Risk Haplotype Negative Celiac Category Category 0 Hemoglobin A1C 4.3 - 5.6 % 4.9 Estimated Average Glucose mg/dL 94 Transglutaminase Ab, IgA <20 Units 3 Transglutaminase IgA Qualitative Negative, Test not Indicated Negative Transglutaminase Ab, IgG <20 Units 7 Negative Gliadin Ab, IgG <20 Units 5 Gliad Deamidated IgG Qual Negative, Test not Indicated Negative Gliadin Ab, IgA <20 Units 1 Gliad Deamidated IgA Qual Negative, Test not Indicated Negative UltraSens C-Reactive Protein <3.1 mg/L 7.6 (H) Homocysteine, Serum <15.1 umol/L 5.0 Microsomal Antibody <5.6 IU/mL <3.0 Thyroglobulin Ab, Serum <4.0 IU/mL <0.9 Free T3 2.3 - 4.1 pg/mL 3.5 Free T4 0.9 - 1.7 ng/dL 1.2 TSH 0.270 - 4.200 mIU/L 0.847 Arsenic, Blood <=12.0 ug/L <10.0 Lead <3.5 ug/dL 1.8 Mercury Blood <=10.0 ug/L <2.5 Magnesium RBC 4.0 - 6.5 mg/dL 5.2 Copper 80 - 155 ug/dL 88 Zinc 60 - 120 ug/dL 85 Vitamin B6, Plasma 20.0 - 125.0 nmol/L 90.6 Vitamin B12 232 - 1,245 pg/mL 1,163 Laboratory Values Addressed: Relevant Items in Bold Nutrition Prescription Energy: RMR can't be calculated - Weight unrecorded in last 120 days. Protein: 0.8g/kg Nutrients of Concern: Fiber Nutrition Diagnosis: Altered Nutrition Related Laboratory Values (CRP) related to underlying inflammatory process as evidenced by CRP 7.6 Status: Active Nutrition Intervention (New and Reinforcement): Current Nutrition Goal(s): reduce diet-related inflammation suspected as symptom trigger and improve nutritional inadequacies suspected as symptom or disease contributor Food Plan: Elimination->Reintroduction->Gluten-Free, whole foods based with avoidance of known sensitivities Check with [facility] medical provider regarding: -Questions about adrenal status/testing -Supplemental turmeric (I.e. Meriva form) -[place]-Check 2. Modify eating patterns further with goal of blood glucose balancing: #1: Start Your Meals with fiber: seeds (ant/flax/hemp), small handful of nuts, non-starchy vegetables sharon raw broccoli or brussels sprouts, supplemental fiber (I.e. PGX) #2: Eat Your Protein Next #3: Consume your carbohydrate last #4: 6 cups of non-starchy vegetables daily Ant Fresca recipe: https://www.Asia Media/ant-fresca/ 3. Consider continuous glucose monitor to measure glucose levels throughout the day and night X 2-4weeks More information about CGM's: https://www.ZoeMobline.Eupraxia Pharm[employer]/diabetesmine/xndd-tz-ezbhfdtkcs-wlkjgqr-bwreixv-rlh-c hoosing-one#Lqaz-cnrpapz-VHS-systems https://www.zlien.Eup[employer]ia [employer]/blog/ouge-nzx-fbmztaibcu-oesvlao-bawmyremas-zderpbz-and-ho w-pa-ztdwbd-a-cgm/ CGM Manufacturers: Freestyle Weston 2 and 3 Weston Sense Sport Glucose Biosensor Dexcom Dexcom G6 Eversense Eversense CGM System Medtronic Guardian Sensor Without insurance factored in, CGM systems supplies can range from roughly $160 per month all the way up to $500 per month (based on retail prices provided by manufacturers online). Membership-based programs that use CGM's: NutriSense Utilizes CGM (Freestyle Weston) paired with the Nutrisense homar Free Dietitian support for one month Food tracking via homar Oh:$175-$350 per month, dependent on the level of support you choose. Link: https://www.nutrisense.io/ Levels Utilizes CGM Dexcom G6 or Freestyle Weston Dietitian support (for an additional cost) Food tracking via homar Oh: $199 per month + $199 annual membership fee Link: https://www.Stylistpick/ Signos: Uses Dexcom G6 paired with Signos homar Uses AI generated tips for support Food tracking via homar Oh: based on 1, 3, or 6 month plans based on your current goals. 1 month- $399, 3 months $747, 6 months $1194 Link: https://www.PBworks/ Veristable Veri Utilizes Freestlye Weston paired with Veri Homar No dietitian support Food tracking via homar Oh: $199 per month, or $169 per month (depending on the number of sensors) Link:https://Localisto.Andera/ April PAMELA Utilizes Aceris 3D Inspection FreeStyle Weston Homar not available yet Oh: $288/month Link:https://www.tanya.Cerahelix/ Albert Medical DevicescalebapiOmat Uses Gregory Weston Sense Sport Glucose Biosensor Aimed for athletes No food tracking No dietitian support Oh: $240/month Link: https://www.Bahamaslocal.com/en-EN/ *Information updated as of 03/2022 4. Incorporate anti-inflammatory foods daily Include these foods: -Fatty fish, such as wild-caught salmon, mackerel, cod, tuna, and sardines, provide a balance of essential fatty acids high in anti-inflammatory omega-3 fats. Target: 3-4X per week and/or supplementation -Grass-fed beatty or buffalo meats contain significant amounts of omega-3 fats than meat from grain-fed animals. All beef and dairy should be grass-fed when reintroduced. -Nuts and seeds, especially almonds, walnuts, and flax seeds, contain omega-3 fats and healthy fiber: Target: 1-2 handfuls per day -Dark leafy greens, such as kale, broccoli, collards, cabbage, and other cruciferous vegetables arehigh in fiber and may protect the body from pro- inflammatory molecules called cytokines. They are also high in phytonutrients called glucosinolates that assist detoxification. Target: 4 cups per day -Red and blue colored fruits and vegetables such as red cabbage and onion, red farley pepper, all berries, red grapes, cherries (especially tart red juice; 2- 4oz per day), and plums contain anti-inflammatory phytonutrients. Target: 1-2 cups per day -Extra-virgin olive oil and olives contain anti-inflammatory phytonutrients called polyphenols. Target: olive oil as default for cold applications -Moist heat cooking using low temperatures, such as crock-pot cooking, creates fewer inflammatory by-products. -Certain spices, such as turmeric, feliz, oregano, garlic, brayden, cayenne, cloves, and cinnamon, have anti-inflammatory properties. Use them in combination with food, especially when using high-heat cooking methods. Target: daily use -Green tea or matcha. Target: daily use Options with higher catechins/EGCG per serving, per Consumer [employer] Maureen Rea Matcha (247.4mg Catechins) Naphthalene Operator Helper JayCogniscan Green Tea (brewed) (241.5mg) [employer] Matcha Green Tea powder (212.6mg) Pique Tea Crystals Ashlee (powder) (202.4mg) [facility] Pure Green Tea (brewed) (202.3mg) [facility] Green tea (brewed) (141.5mg) 5. Please reintroduce foods one at a time into your diet using the following instructions: Protocol: On the first day of the reintroduction phase, choose a single food to challenge. Eat a generous amount of that food throughout Day 1 (two or three challenge portions), while continuing to eat foods on the Elimination Diet. The next 2 days (Days 2-3), do not eat any of the challenge food and return to the Elimination Diet. During all 3 days, record any symptoms. If there is no reaction, keep that food in the food plan and repeat the above process with the nextchallenge. If any food provokes symptoms, stop eating that food immediately, wait till the symptoms clear, andreintroduce the next food. After testing all of the challenge foods, try the problem food again using the same procedure (one day of eating the food and noting symptoms during the following two-day period). Sample challenge doses: Delmont (organic) : Fresh or frozen corn kernels 1/2c Pork (pastured): Cooked meat, not in a casserole 3-6oz Beef (organic, grass fed): cooked meat, not in a casserole 3-6oz Egg: Hard or soft boiled or poached 2 eggs Peanuts (organic): Raw or dry roasted peanuts 1/4c OR Peanut butter made from 100% peanuts 2T Soy (organic): Edamame 1/2c OR Soy Milk 1c OR Tofu or Tempeh 1/2c Shellfish: Challenge individual shellfish each time 3-6oz Dairy: This is a two-step process. First, reintroduce cheese. Next, reintroduce milk. Cheese to test for dairy protein: any low-lactose cheese I.e. cheddar, parmesan, Bahraini, camembert, gouda, provolone 1oz Note: for a more conservative reintroduction: goat milk cheese (Chevre, Goat Gouda) or sheep milk cheese(Halloumi, Manchego, Pecorino Velez) Cow's milk to test for milk sugar (lactose) using liquid milk: 1-2 cups per serving 6. If re-incorporating more caffeine (including matcha/green tea, if new): -Begin with 1/3-1/2 of typical dose, as tolerance can change -Monitor for any changes in sleep quality/quantity, subjective stress or anxiety and energy 'dips' after stimulating effect 7. Try wild rice, quinoa, buckwheat and/or amaranth for additional whole food based carbohydrate variety 8. Monitor for any symptoms when consuming foods from the Nightshade family; these include: Hot peppers (chili, jalapeno, habanero, and scotch bonnet, Tabasco pepper, etc.) Farley (sweet) Peppers Tomatoes Eggplant Potatoes (except sweet potatoes) Pimentos Other foods within the nightshade family include: Other Vegetables: tomatillos (groundcherry), pimentos Fruits: Cape gooseberries, goji berries, naranjillas, tamarillo, garden huckleberries, pepino, sunberries, cocon Spices: chili-based like cayenne, chili powder, crushed red pepper, and paprika Other: ashwagandha, tobacco 9. Schedule with CFM dietitian after GI effects returns Resources/Educational Materials Provided embedded above Adherence Potential to Goals/Care Plan: Moderate Nutrition Monitoring & Evaluation: Meal and Snack Pattern, Nutrition Related Laboratory Values,and Subjective Symptoms Criteria: Laboratory Data, MSQ, Dietary Recall Follow up: as needed Time Spent with patient: 45 minutes Consult Billing Type: Reassessment/15 minutes, 3 increment(s), 45 minutes Number of Increments: 3 (45 minutes) Referred/Supervised by: Whitley Pollard MD Signed by: Kendal Coffman RD documented [facility] Author Jessie Harman [facility] July 03, 2023 1:17pm Note Date/Time July 03, 2023 1:17 pm [facility] Medical Records Department [address] [place] [id number] Instructions for Home/Discharge Instructions 07/03/23 1316 MR#: [id number] Acct: [id number] Name: GIOVANNA DAY Rep #:[id number] : 1990 33 From: Jessie Harman MD PCP: Care Physician,No Primary [place] [place] Instructions Diet Discharge Diet: No restrictions Activity Discharge Activity: May Shower May resume sexual activity in: 2 weeks Weight Bearing Status: Weight bearing as tolerated Dressing / Incision Call your doctor if you observe: Fever of 101 or Higher, Coldness, Increased Pain, Change in Color, Inability to urinate, Using more than 1 pad per hour, Shortness of breath, Dizziness, Fainting spells, Chest pain, Increased palpitations (irregular heartbeat), Calf discomfort and Uncontrolled pain Follow Up Care Please Follow Up With: Jessie Harman When: 2 weeks Test Results: Test results from this visit will be discussed in further detail at your follow- up appointment, if applicable. Discharge Plan Admission Primary Reason for Your Visit: Incomplete miscarriage Attending Provider: Jessie Harman Primary Care Provider: Care Physician,No Primary Discharge Orders/Prescriptions Prescriptions: No Action ascorbic acid (vitamin C) crystals crystals 100 mg PO DAILY Referrals / Follow Up: Sin Elder MD [Med Staff - [facility]] - Disposition Disposition (needs filled in before D/C Order can be placed): Home, Self Care 07/03/23 1317<Electronically signed by Jessie Harman MD>Jessie Harman MD CC: No Primary Care Physician ~ Signed [facility] Work Phone: Evaluation note* Diagnosis Weight gain- Primary Abnormal weight gain Bloating Flatulence, eructation, and gas pain Dietary counseling and surveillance Dietary surveillance and counseling documented in this encounter [facility] note* Diagnosis Bloating- Primary Flatulence, eructation, and gas pain Thrush (oral) Intestinal dysbiosis documented in this encounter [facility] note* Diagnosis Hormone imbalance- Primary Unspecified endocrine disorder Intestinal dysbiosis Thrush Candidiasis of mouth Mold exposure Contact with and (suspected) exposure to mold documented in this encounter [facility] note* Diagnosis Risk of exposure to Lyme disease- Primary Other specified personal history presenting hazards to health documented in this encounter [facility] note* Diagnosis Thrush (oral)- Primary Intestinal dysbiosis Dietary counseling and surveillance Dietary surveillance and counseling documented in this encounter [facility] note* Diagnosis Thrush- Primary Candidiasis of mouth Chronic fatigue Other malaise and fatigue documented in this encounter [facility] note* Diagnosis Mold exposure- Primary Contact with and (suspected) exposure to mold Thrush Candidiasis of mouth documented in this encounter [facility] note* Diagnosis Diseases of the oral soft tissues, excluding lesions specific for gingiva and tongue- Primary Lesion of tongue Other specified conditions of the tongue documented in this encounter [facility] note* Diagnosis Onset Date Resolution Status Acute hypotension acute Incomplete spontaneous acute Sinus tachycardia [facility] Work Phone: Evaluation note* Diagnosis Onset Date Resolution Status Acute hypotension acute Connective tissue disease ac cathryn Incomplete acute Incomplete spontaneous acute Sinus tachycardia [facility] Work Phone: Evaluation note* Diagnosis Other fatigue- Primary Complete miscarriage Complete spontaneous without mention of complication Prior loss, antepartum, second trimester documented in this encounter [facility] note* Diagnosis Connective tissue disorder (HCC)- Primary Unspecified diffuse connective tissue disease Complete miscarriage Complete spontaneous without mention of complication Prior loss, antepartum, second trimester History of loss, not currently * Assessment & Plan Note - Jason Dykes MD - 08/21/2023 12:45 PM EDT Associated Problem(s): Connective tissue disorder (HCC) Referred to rheumatology/immunology for care Plan early viability/OB visit 6-8 weeks if conceives Cervical length screening next * Assessment & Plan Note - Jason Dykes MD - 08/21/2023 12:44 PM EDT Associated Problem(s): History of loss, not currently If conceives, plan cervical length screening 16, 18, 20 and 22 weeks Discuss vaginal progesterone and/or cerclage if TVCL < 25mm No genetic testing on loss available to review, plan cell-free DNA screening 10 weeks next [facility] Exposure to pertussis- Primary documented in this encounter [facility] Work Phone: Evaluation note* Diagnosis Pelvic floor tension- Primary [facility] Diagnosis Weight gain- Primary Abnormal weight gain Dietary counseling and surveillance Dietary surveillance and counseling [facility] Diagnosis Connective tissue disorder (HCC)- Primary Unspecified diffuse connective tissue disease Complete miscarriage Complete spontaneous without mention of complication Prior loss, antepartum, second trimester History of loss, not currently Monoclonal MCAS (HCC)- Primary Incompetent cervix Incompetence of cervix Hypermobility syndrome Rash and nonspecific skin eruption Rash and other nonspecific skin eruption Chronic urticaria Other specified urticaria Joint instability Other joint derangement, not elsewhere classified, unspecified site Malaise and fatigue Other malaise and fatigue Concentration deficit Attention or concentration deficit Total body pain Generalized pain documented in this encounter [facility] Summary Purpose Family History No Family History Records Found Cervical Cancer Status:Active Comments:Mother. Hypertension Status:Active Comments:Mother. Advance Directives No Advanced Directives Records Found Advance Directive Response Recorded Date/ Time Living Will No July 03, 2023 11:06am Power of Ash Worker No July 02 11:06am Reason for Referral Specialty Diagnoses / Procedures Referred By Latoya ortiz Referred To Contact Infectious Diseases Diagnoses Thrush Procedures CONSULT TO INFECTIOUS DISEASES OFFICE/OUTPATIENT [facility] 60-74 MINUTES Estela Fontanez APRN.[employer]ACK INSPECTING SUPERVISOR [address] [place] [address] Referral ID Status Reason Start Date Expiration Date Visits Requested Visits Authorized [id number] Authorized PCP Requested Referral 02/16/2024 1 1 Specialty Diagnoses / Procedures Referred By Contac t Referred To Contact Ent - Otolaryngology Diagnoses Diseases of the oral soft tissues, excluding lesions specific for gingiva and tongue Lesion of tongue Procedures CONSULT TO ENT OFFICE/OUTPATIENT [facility] 60-74 MINUTES Ernesto Shah MD [address] [place] [address] Referral ID Status Reason Start Date Expiration Date Visits Requested Visits Authorized [id number] Authorized PCP Requested Referral 03/05/2023 03/04/2024 1 1 Specialty Diagnoses / Procedures Referred By Contac t Referred To Contact Diagnoses Complete miscarriage Prior loss, antepartum, second trimester Procedures CONSULT TO MATERNAL MEDI OFFICE/OUTPATIENT [facility] 60 MINUTES Jessie Harman MD [address] [place] [address] Referral ID Status Reason Start Date Expiration Date Visits Requested Visits Authorized [id number] Authorized PCP Requested Referral Auto-Generate d Referral 07/10/2023 07/09/2024 1 1 Specialty Diagnoses / Procedures Referred By Contac t Referred To Contact Rheumatology Diagnoses Connective tissue disorder (HCC) Procedures CONSULT TO RHEUM/IMMUN DISEASE OFFICE/OUTPATIENT [facility] MDM 60 [place] [address] [place] [address] Referral ID Status Reason Start Date Expiration Date Visits Requested Visits Authorized [id number] Authorized PCP Requested Referral 08/21/2023 08/20/2024 1 1 Specialty Diagnoses / Procedures Referred By Contac t Referred To Contact [facility] Diagnoses Pelvic floor tension Procedures CONSULT TO PHYSICAL THERAPY PHYSICAL THERAPY EVALUATION HIGH COMPLEX 45 MINS Jessie Harman MD [address] [place] [address] [facility] [place] [id number] [place] [address] Referral ID Status Reason Start Date Expiration Date Visits Requested Visits Authorized [id number] Pending Review Auto-Generat ed Referral 09/18/2023 09/16/2024 1 1 Chief Complaint and Reason for Visit Chief Complaint IMCOMPLETE Reason for Visit Acute hypotension Incomplete spontaneous Sinus tachycardia Chief Complaint IMCOMPLETE Reason for Visit Acute hypotension Connective tissue disease Incomplete Incomplete spontaneous Sinus tachycardia Additional Source Comments INFORMATION SOURCE (unrecogn ized section and content) DATE CREATED AUTHOR 11/24/2019 [facility] DATE CREATED AUTHOR AUTHOR'S ORGANIZ ATION 06/23/2022 [facility] DATE CREATED AUTHOR AUTHOR'S ORGANIZ ATION 05/10/2023 [facility] DATE CREATED AUTHOR AUTHOR'S ORGANIZ ATION 09/09/2023 [facility] DATE CREATED AUTHOR AUTHOR'S ORGANIZ ATION 04/20/2024 [facility] DATE CREATED AUTHOR AUTHOR'S ORGANIZ ATION 07/17/2024 [facility] DATE CREATED AUTHOR AUTHOR'S ORGANIZ ATION 08/07/2024 [facility] Source Comments (unrecognize d section and content) In the event this informatio n is protected by the Federal Confidentiality of Alcohol and Drug Abuse Patient Records regulations: The Federal rules restrict any use of the information to criminally investigate or prosecute any alcohol or drug abuse patient.[facility] the event this information is protected by the Federal Confidentiality of Alcohol and Drug Abuse Patient Records regulations: The Federal rules restrict any use of the information to criminally investigate or prosecute any alcohol or drug abuse patient.[facility] the event this information is protected by the Federal Confidentiality of Alcohol and Drug Abuse Patient Records regulations: The Federal rules restrict any use of the information to criminally investigate or prosecute any alcohol or drug abuse patient.[facility] the event this information is protected by the Federal Confidentiality of Alcohol and Drug Abuse Patient Records regulations: The Federal rules restrict any use of the information to criminally investigate or prosecute any alcohol or drug abuse patient.[facility] the event this information is protected by the Federal Confidentiality of Alcohol and Drug Abuse Patient Records regulations: The Federal rules restrict any use of the information to criminally investigate or prosecute any alcohol or drug abuse patient.[facility] the event this information is protected by the Federal Confidentiality of Alcohol and Drug Abuse Patient Records regulations: The Federal rules restrict any use of the information to criminally investigate or prosecute any alcohol or drug abuse patient.[facility] the event this information is protected by the Federal Confidentiality of Alcohol and Drug Abuse Patient Records regulations: The Federal rules restrict any use of the information to criminally investigate or prosecute any alcohol or drug abuse patient.[facility] the event this information is protected by the Federal Confidentiality of Alcohol and Drug Abuse Patient Records regulations: The Federal rules restrict any use of the information to criminally investigate or prosecute any alcohol or drug abuse patient.[facility] the event this information is protected by the Federal Confidentiality of Alcohol and Drug Abuse Patient Records regulations: The Federal rules restrict any use of the information to criminally investigate or prosecute any alcohol or drug abuse patient.[facility] the event this information is protected by the Federal Confidentiality of Alcohol and Drug Abuse Patient Records regulations: The Federal rules restrict any use of the information to criminally investigate or prosecute any alcohol or drug abuse patient.[facility] the event this information is protected by the Federal Confidentiality of Alcohol and Drug Abuse Patient Records regulations: The Federal rules restrict any use of the information to criminally investigate or prosecute any alcohol or drug abuse patient.[facility] the event this information is protected by the Federal Confidentiality of Alcohol and Drug Abuse Patient Records regulations: The Federal rules restrict any use of the information to criminally investigate or prosecute any alcohol or drug abuse patient.[facility] the event this information is protected by the Federal Confidentiality of Alcohol and Drug Abuse Patient Records regulations: The Federal rules restrict any use of the information to criminally investigate or prosecute any alcohol or drug abuse patient.[facility] the event this information is protected by the Federal Confidentiality of Alcohol and Drug Abuse Patient Records regulations: The Federal rules restrict any use of the information to criminally investigate or prosecute any alcohol or drug abuse patient.[facility] the event this information is protected by the Federal Confidentiality of Alcohol and Drug Abuse Patient Records regulations: The Federal rules restrict any use of the information to criminally investigate or prosecute any alcohol or drug abuse patient.[facility] the event this information is protected by the Federal Confidentiality of Alcohol and Drug Abuse Patient Records regulations: The Federal rules restrict any use of the information to criminally investigate or prosecute any alcohol or drug abuse patient.[facility] the event this information is protected by the Federal Confidentiality of Alcohol and Drug Abuse Patient Records regulations: The Federal rules restrict any use of the information to criminally investigate or prosecute any alcohol or drug abuse patient.[facility] the event this information is protected by the Federal Confidentiality of Alcohol and Drug Abuse Patient Records regulations: The Federal rules restrict any use of the information to criminally investigate or prosecute any alcohol or drug abuse patient.[facility] the event this information is protected by the Federal Confidentiality of Alcohol and Drug Abuse Patient Records regulations: The Federal rules restrict any use of the information to criminally investigate or prosecute any alcohol or drug abuse patient.[facility] Hospital[facility] the event this information is protected by the Federal Confidentiality of Alcohol and Drug Abuse Patient Records regulations: The Federal rules restrict any use of the information to criminally investigate or prosecute any alcohol or drug abuse patient.[facility] Hospital[facility] the event this information is protected by the Federal Confidentiality of Alcohol and Drug Abuse Patient Records regulations: The Federal rules restrict any use of the information to criminally investigate or prosecute any alcohol or drug abuse patient.[facility] Hospital[facility] the event this information is protected by the Federal Confidentiality of Alcohol and Drug Abuse Patient Records regulations: The Federal rules restrict any use of the information to criminally investigate or prosecute any alcohol or drug abuse patient.[facility] the event this information is protected by the Federal Confidentiality of Alcohol and Drug Abuse Patient Records regulations: The Federal rules restrict any use of the information to criminally investigate or prosecute any alcohol or drug abuse patient.[facility] the event this information is protected by the Federal Confidentiality of Alcohol and Drug Abuse Patient Records regulations: The Federal rules restrict any use of the information to criminally investigate or prosecute any alcohol or drug abuse patient.[facility] Reason for Visit (unrecogniz ed section and content) Reason Comments Established Patient Reason Comments Established Patient Reason Comments Mouth/Lip Problem Reason Comments f/u d&c Reason Comments Follow Up Discuss possible ane ender Reason Comments Consult Preconception counse ling Specialty Diagnoses / Procedures Referred By Contmattie t Referred To Contact Diagnoses Complete miscarriage Prior loss, antepartum, second trimester Procedures CONSULT TO MATERNAL MEDI OFFICE/OUTPATIENT NEW HIGH MDM 60 MINUTES Jessie Harman MD [address] [place] [address] Referral ID Status Reason Start Date Expiration Date V isits Requested Visits Authorized [id number] Closed PCP Requested Referral Auto-Generated Referral 07/10/2023 07/09/2024 1 1 Reason Comments exposure to pertussis Patient is a sympt omatic at this time with exposure to pertussis X approx 3 weeks ago on August 11, 2023 Reason Comments Orders Reason Comments Orders Reason Comments Received Outside Medical Records Reason Comments Orders Forms Care Teams (unrecognized sec tion and content) Team Status: Active Member Role Status Dates No Primary Care Physician Primary Care Provider Active Team Status: Inactive Member Role Status Dates Dr. Michael Alfaro MD Emergency Provider Active No Primary Care Physician Primary Care Provider Active Dr. Jessie Harman MD Attending Provider Active Leg Breaker Relationship Specialty Start Date End Date Leena Elder MD [address] [place] [address] PCP - General 11/20/09 Leg Breaker Relationship Specialty Start Date End Date Leena Elder MD [address] [place], [place] [id number] PCP - General 11/20/09 Leg Breaker Relationship Specialty Start Date End Date Leena Elder MD [address] [place], [place] [address] PCP - General 11/20/09 Leg Breaker Relationship Specialty Start Date End Date Leena Elder MD [address] [place] [id number] PCP - General 11/20/09 Leg Breaker Relationship Specialty Start Date End Date Leena Elder MD [address] [facility] [address] [place], [place] [address] PCP - General 11/20/09 Leg Breaker Relationship Specialty Start Date End Date Leena Elder MD [address] [place], [place] [address] PCP - General 11/20/09 Leg Breaker Relationship Specialty Start Date End Date Leena Elder MD [address] [place], [place] [address] PCP - General 11/20/09 Leg Breaker Relationship Specialty Start Date End Date Leena Elder MD [address] [place], [place] [address] PCP - General 11/20/09 Leg Breaker Relationship Specialty Start Date End Date Leena Elder MD [address] [place] [address] PCP - General 11/20/09 Leg Breaker Relationship Specialty Start Date End Date Leena Elder MD [address] [place] [address] PCP - General 11/20/09 Leg Breaker Relationship Specialty Start Date End Date Leena Elder MD [address] [place] [address] PCP - General 11/20/09 Team Status: Active Member Role Status Dates Dr. Michael Alfaro MD Emergency Provider Active No Primary Care Physician Primary Care Provider Active Dr. Jessie Harman MD Attending Provider Active Leg Breaker Relationship Specialty Start Date End Date Leena Elder MD [address] [place], [place] [address] PCP - General 11/20/09 Leg Breaker Relationship Specialty Start Date End Date Leena Elder MD [address] [place] [address] PCP - General 11/20/09 Leg Breaker Relationship Specialty Start Date End Date Leena Elder MD [address] [place] [address] PCP - General 11/20/09 Leg Breaker Relationship Specialty Start Date End Date Leena Elder MD [address] [place] [address] PCP - General 11/20/09 Leg Breaker Relationship Specialty Start Date End Date Leena Elder MD [address] [place] [address] PCP - General 11/20/09 Leg Breaker Relationship Specialty Start Date End Date Generic Provider, No Assigned [place] [address] PCP - General Brief Writer 09/08/23 Leg Breaker Relationship Specialty Start Date End Date Leena Elder MD [address] [place] [address] PCP - General 11/20/09 Leg Breaker Relationship Specialty Start Date End Date Leena Elder MD [address] [place] [address] PCP - General 11/20/09 Leg Breaker Relationship Specialty Start Date End Date Leena Elder MD [address] [place] [address] PCP - General 11/20/09 Leg Breaker Relationship Specialty Start Date End Date Leena Elder MD [address] [place] [address] PCP - General 11/20/09 Leg Breaker Relationship Specialty Start Date End Date Leena Elder MD [address] [place] [address] PCP - General 11/20/09 Goals (unrecognized section and content) Goals may be documented in a n alternate sectionGoals may be documented in an alternate section FOR RECORDS PERTAINING TO PATIENTS WHO ARE OR HAVE BEEN ENROLLED IN A CHEMICAL DEPENDENCY/SUBSTANCEABUSE PROGRAM, SOME INFORMATION MAY BE OMITTED. This clinical summary was aggregated from multiple sources. Caution should be exercised in using it in the provision of clinical care. This summary normalizes information from multiple sources, and as a consequence, information in this document may materially change the coding, format and clinical context of patient data. In addition, data may be omitted in some cases. CLINICAL DECISIONS SHOULD BE BASED ON THE PRIMARY CLINICAL RECORDS. [facility] [employer] [facility]. provides no warranty or guarantee of the accuracy or completeness of information in this document.
--- NOTE | 2024-09-20 02:57 | US_ITS ---
PROCEDURE: TRANSVAGINAL W/PREG US 09/20/2024 REASON FOR EXAM: ? ECTOPIC TECHNIQUE: TRANSVAGINAL W/PREG US COMPARISON: 07/03/2023. FINDINGS The uterus measures 9.1 x 7 x 5.8 cm. No intrauterine is visualized. The right ovary measures 1.9 x 1.2 x 1.8 cm. Heterogeneous area measuring 3.2 x 1.5 cm and free fluid is noted inferior to the right ovary suspicious for ectopic . This needs correlation with beta HCG level and follow-up exam. The left ovary measures 2.6 x 2.5 x 1.5 cm. Left ovarian simple cyst is noted measuring 1.7 x 1.5 x 1.3 cm, possibly corpus luteum cyst. Multiple cysts with associated calcifications are noted within the cervix, probably benign and chronic. The endometrium measures 11 mm in its thickness. Normal bilateral ovarian flow without evidence of ovarian torsion. The cervix is closed. US/Transvaginal w/Preg US IMPRESSION: Heterogeneous area in the right adnexa suspicious for ectopic . This needs correlation with beta HCG level and follow-up exam. Left ovarian simple cyst, possibly corpus luteum cyst. Scattered benign chronic nabothian cysts of the cervix. Free fluid in the pelvis. Normal bilateral ovarian flow. No intrauterine is visualized. Reading Location: [facility]FABIOLADDFORMERLY [facility], [facility]
[2024-09-20] MEDS: 0.9% Normal Saline (1000mL) 1,000 ML 999 ML IV (03:06)
--- NOTE | 2024-09-20 03:08 | ED.VIS.FEGU ---
HPI HPI - Female History of Present Illness Chief Complaint: Vag Bleeding Informant: patient and spouse/S.O. Narrative Narrative: Patient is a 34-year-old female who is a G4, P2 with 1 spontaneous miscarriage. She states the miscarriage occurred at 16 weeks and was roughly a year and a half ago. She did have complications with that as she had retained products of conception. She states her last menstrual cycle was approximately August 14. She states she is approximately 5 weeks . She states that yesterday she noticed some pink tinge blood with using the bathroom. She contacted her FINANCE ADMIN because of this and her history of miscarriage. She has an appointment scheduled for next week but was advised if she has worsening bleeding or pain she may need to go to the ER. The patient reports that around 930 this evening she tried to sleep but was having increasing right sided pain that is sharp in nature. She states she then noticed that the blood had changed from pink-tinged to bright red. She denies any history of bleeding disorder or blood thinner use. She states there is been no dysuria or flank pain. With concern she is having a complication such as another miscarriage she presents for evaluation. [facility] Medical History History of back problems Hives Gastrointestinal problem Hx of migraine headaches Connective tissue disease Home Medications ?Medication ?Instructions ?Recorded ?Last Taken ?Type ondansetron 4 mg disintegrating 4 mg PO TID PRN nausea and 09/20/24 Unknown Rx tablet vomiting #21 tabs oxycodone-acetaminophen 5 mg-325 1 tab PO Q6H PRN pain 5 days #20 09/20/24 Unknown Rx mg tablet (Percocet) tabs Allergy/AdvReac Type Severity Reaction Status Date / Time No Known Allergies Allergy Verified 09/20/24 02:44 Family History Grandfather Alcoholism Cancer skin cancer Grandmother Alcoholism Sister Anemia Mother Cancer, Onset Age: 40 cervical cancer Hypertension Brother Seizures Surgical History S/P D&C (status post dilation and curettage) Social History number of children: 2 current occupational status: unemployed current occupation: [employer] Smoking Status: Never smoker alcohol intake: never substance use type: does not use what type of physical activity do you participate in: walking farhan/hinduism: Judaism seatbelt use: always do you feel safe at home: Yes additional social history: - Jonel [facility] ED Constitutional Constitutional ED: Denies chills or fever(s) Eyes Eyes: Denies change in vision ENT ENT ED: Denies sore throat Cardiovascular Cardiovascular: Denies chest pain Respiratory/Chest Respiratory/Chest: Denies cough or dyspnea Gastrointestinal Gastrointestinal: Reports abdominal pain and nausea; Denies diarrhea or vomiting Genitourinary Genitourinary ED: Reports other Details: Positive vaginal bleeding ; Denies dysuria Musculoskeletal Musculoskeletal: Reports other Details: No CVA pain ; Denies myalgias Integumentary Denies rash Neurologic Neurologic: Denies headache(s) Hematologic/Lymphatic Hematologic/Lymphatic: Denies easy bleeding or easy bruising EXAM Physical Exam Const Vital Signs: 09/20/24 02:45 09/20/24 04:43 09/20/24 06:00 Temperature 98.5 F Temperature Source Oral Pulse Rate 95 98 89 Respiratory Rate 18 16 18 Blood Pressure 136/67 H 128/72 H 157/93 H Blood Pressure Mean 90 90 114 Pulse Ox 100 98 98 Oxygen Delivery Method Room Air Room Air Room Air Positive well nourished and well developed General Appearance ED: well developed; Negative for pallor HEENT HEENT Narrative: Normocephalic atraumatic Eyes PERRL and EOMs intact bilaterally General Eye ED: Negative for scleral icterus Neck supple Neck Narrative: No nuchal rigidity or meningeal signs Resp normal respiratory effort and clear to auscultation bilaterally Resp Narrative: No nasal flaring retractions tachypnea or accessory muscle use Cardio regular rate and regular rhythm Rate: other Other Details: Heart is regular rate and rhythm without murmurs rubs or gallops Radial and carotid pulses are equal and symmetric GI soft to palpation, non-distended and no masses GI Narrative: Abdomen is soft and nondistended with normal active bowel sounds There is pain on palpation in the suprapubic region that extends along the right lateral abdomen. There is no voluntary guarding or rigidity however. No peritoneal signs. No rigidity or pulsatile mass Auscultation: normoactive bowel sounds Palpation: soft Back/Spine no CVA tenderness Extremity normal to inspection and full ROM Extremity Narrative: No asymmetric edema no pitting edema negative Homans' sign bilaterally Neuro oriented x3, CN's II-XII intact bilaterally and no sensory deficits noted Sensorium / Orientation: alert Motor Exam: strength 5/5 throughout Psych Mood & Affect: tearful Skin no rashes or lesions noted and no wounds Skin Narrative: Capillary refill is less than 3 seconds No overlying soft tissue skin changes to suggest trauma or infection General Skin Exam: Negative for jaundice or pallor MDM MDM MDM Narrative Medical decision making narrative: Patient arrived to the ER with stable vitals. She reported that she was approximately 4 to 5 weeks and in the last 24 hours is developed sharp right sided pain with minimal blood. Based on her early status and worsening pain there is concern that this is from an ectopic . Secondary to this basic laboratory studies urine sample and a transvaginal ultrasound were performed. Patient's white count is normal going against a secondary infection such as appendicitis. She denies any dysuria; there is +2 bacteria in the urine sample but there is contamination with skin cells and therefore without urinary symptoms I do not feel this is a true UTI and there is no need for antibiotics. The ultrasound showed a heterogeneous mass in the right adnexa which correlates with her pain and nothing within the uterus. This is most likely an ectopic . Her hCG value is low at 34 indicating this is early and at this time her vitals are stable and she has no signs of acute blood loss anemia. I discussed the case with FINANCE ADMIN on-call (oracle engineer Logan) who recommends that as there is nothing within the uterus and there is a change to the right adnexa which correlates with her symptoms that this is most likely an ectopic and she recommends methotrexate at this time. Therefore the patient was given IM methotrexate for the ectopic . However without hypotension acute blood loss anemia or systemic infection she does not need to undergo emergent surgery and there is no need for admission. The patient was informed of the ectopic and does agree to treatment at this time. She understands she needs to follow-up with FINANCE ADMIN on Sunday to track her hCG values and to have repeat evaluation. History & Record Review Discussion w/independent historian: Patient and Significant other Lab Data Attestation: I reviewed the patient's lab results. Labs: Laboratory Results - last 24 hr 09/20/24 09/20/24 09/20/24 02:50 03:01 04:00 WBC 8.6 RBC 4.72 Hgb 14.8 Hct 42.2 MCV 89.4 MCH 31.4 MCHC 35.1 RDW Std Deviation 41.3 RDW Coeff of Judah 12.6 Plt Count 261 MPV 9.4 Immature Gran % (Auto) 0.200 Neut % (Auto) 59.9 Lymph % (Auto) 30.0 Eagle % (Auto) 7.4 Eos % (Auto) 2.3 Baso % (Auto) 0.2 Absolute Neuts (auto) 5.2 Absolute Lymphs (auto) 2.59 Nucleated RBC % 0 PT 12.7 INR 0.9 APTT 27.1 Sodium 139 Potassium 4.1 Chloride 105 Carbon Dioxide 23.3 Anion Gap 11 BUN 12 Creatinine 0.70 Estim Creat Clear Calc 130.88 Est GFR (MDRD) Non-Af 115 BUN/Creatinine Ratio 17.0 Glucose 111 H Calcium 9.4 HCG, Quant 32 H Urine Color Yellow Urine Clarity Clear Urine pH 6.5 Ur Specific Smock 1.010 Urine Protein 15 H Urine Glucose (UA) Normal Urine Ketones Negative Urine Occult Blood 250 H Urine Nitrite Negative Urine Bilirubin Negative Urine Urobilinogen Normal Ur Leukocyte Esterase 25 H Urine RBC 10-25 SEEN Urine WBC 0-5 SEEN Ur Squamous Epith Cells 10-25 SEEN Urine Bacteria 2+ Urine Mucus 0 SEEN Radiography Diagnostic Testing: Clinical Impression(s) from Imaging Studies Obstetrics Ultrasound 09/20/24 02:57 IMPRESSION: Heterogeneous area in the right adnexa suspicious for ectopic . This needs correlation with beta HCG level and follow-up exam. Left ovarian simple cyst, possibly corpus luteum cyst. Scattered benign chronic nabothian cysts of the cervix. Free fluid in the pelvis. Normal bilateral ovarian flow. No intrauterine is visualized. [facility] Discussion w/another healthcare provider: Weather Reporter Discharge Plan Triage Chief Complaint: Vag Bleeding ED Provider: Cody Canseco Dx/Rx/DC Orders Clinical Impression: Ectopic Instructions: Ectopic Prescriptions: New oxycodone-acetaminophen [Percocet] 5-325 mg tablet 1 tab PO Q6H PRN (Reason: pain) 5 Days Qty: 20 0RF ondansetron 4 mg tablet,disintegrating 4 mg PO TID PRN (Reason: nausea and vomiting) Qty: 21 0RF Primary Care Provider: Prerna Cleaning NP Referrals: Jessica Benson MD [Med Staff - Active Staff] - (Ectopic ) Prerna Cleaning NP, BL[employer]J[facility] SUPERVISOR-C [Primary Care Provider] - Activity Restrictions/Additional Instructions: Please contact your FINANCE ADMIN's office on Sunday morning so that you can have a repeat marker obtained which will help guide treatment regarding your ectopic . Use the prescribed medication for pain control. If you develop severe pain despite taking the medication worsening bleeding or fever over 100.4 please return to the ER for repeat evaluation. Print Language: Finnish Disposition Disposition: Home, Self Care
[2024-09-20 03:09] LABS: Absolute Lymphocyte Count 2.59 X10^3/uL (0.83-4.51); Absolute Neutrophil Count 5.2 X10^3/uL (2.0-7.7); Basophil# 0.02 X10^3/uL; Basophil% 0.2 % (0-1); Eosinophils% 2.3 % (0-5); Hematocrit 42.2 % (37-47); Hemoglobin 14.8 g/dL (12.0-15.0); Lymphocyte # 2.59 X10^3/ul (0.83-4.51); Mean Corp Hgb Conc 35.1 g/dL (32-36); Mean Corpuscular Hgb 31.4 pg (27.0-32.0); Mean Corpuscular Volume 89.4 fL (81-99); Mean Platelet Vol. 9.4 fl (6.2-12.0); Monocyte# 0.64 X10^3/uL; Monocyte% 7.4 % (0-10); NRBC Flagged by Analyzer 0 % (0-5); Neutrophil # 5.16 X10^3/uL (2.7-7.7); Neutrophil % 59.9 % (47-70); Platelet Count 261 K/mm3 (150-450); RBC Distribution Width CV 12.6 % (11.6-14.6); RBC Distribution Width SD 41.3 fl (35.1-43.9); Red Blood Count 4.72 M/mm3 (4.2-5.4); White Blood Count 8.6 K/mm3 (4.4-11.0)
[2024-09-20 03:17] LABS: International Normalized Ratio 0.9; Prothrombin Time (Protime)PT. 12.7 SECONDS (11.7-14.9)
[2024-09-20 03:18] LABS: Partial Thromboplast Time 27.1 Seconds (24.1-36.2)
[2024-09-20 03:27] LABS: Anion Gap 11 (5-15); BUN 12 mg/dL (4-19); Calcium,Total 9.4 mg/dL (7.6-11.0); Carbon Dioxide 23.3 mmol/L (21.0-32.0); Chloride 105 mmol/L (98-108); EST Glomerular Filtration Rate 115 (>60); Estimated Creatinine Clearance 130.88 ml/min (50-250); Glucose 111 mg/dL (70-99); Potassium 4.1 mmol/L (3.3-5.1); Sodium Level 139 mmol/L (133-145)
[2024-09-20 03:51] LABS: hCG Titer Quant., Serum 32 mIU/mL (<9 non-preg)
[2024-09-20 04:07] LABS: Mucous, Urine 0 SEEN /hpf (<or=2+)
[2024-09-20 04:09] LABS: Color, Urine Yellow (Yellow); Glucose, Dipstick Normal (Normal); Ketone-Dipstick Negative (Negative); Leukocyte Esterase-Dipstick 25 /ul (Negative); Nitrite-Dipstick Negative (Negative); Occult Blood-Urine 250 /ul (Negative); Protein-Dipstick 15 mg/dl (Negative); Urine Bilirubin Dipstick Negative (Negative); Urine Clarity Clear (Clear); Urine Urobilinogen Normal (Normal); Urine pH 6.5 (5.0 - 8.0)
[2024-09-20 04:43] VITALS: BP 128/72; PULSE 98; RESP 16; O2SAT 98
[2024-09-20 05:00] LABS: Bacteria 2+ /hpf (None Seen); Red Blood Cells-Urine 10-25 SEEN /hpf (0-5); Squamous Epithelial Cells - UA 10-25 SEEN /hpf (5-10); White Blood Cells 0-5 SEEN /hpf (0-5)
[2024-09-20 06:00] VITALS: BP 157/93; PULSE 89; RESP 18; O2SAT 98
[2024-09-20] MEDS: METHOTREXATE 1497.6 MG IM (06:15)
[2024-09-20 06:20] VITALS: BP 127/71; PULSE 85; RESP 16; TEMP 36.8; O2SAT 99
== END 2024-09-20 06:35 | disposition home or self-care (01) ==
PROVIDERS: Emergency Provider Emergency Medicine; PCP Nurse Practitioner Family; Visit Provider Emergency Medicine
DX: O00.101 Right tubal pregnancy without intrauterine pregnancy (principal); Z3A.01 Less than 8 weeks gestation of pregnancy; O09.521 Supervision of elderly multigravida, first trimester
CPT/HCPCS: 76817; 80048; 81001; 84702; 85025; 85610; 85730; 96361; 96374; 99283; A4216; J9260

== ENCOUNTER → 2024-09-23 | Outpatient (CLI) | payer BC, SELFPAY ==
--- OUTSIDE RECORDS SUMMARY | 2024-09-23 07:25 | XMS RPT_ITS | CCD ---
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 Name Role Phone Leena Elder MD Primary Care Provider Douglas MAY, Crystal K Unavailable Drea SLATER, Darrell Unavailable Unavailable Leena Elder MD Primary Care Provider Leena Elder MD Primary Care Provider JAMES GREWAL Attending Unavailable GENERIC PROVIDER, NO ASSIGNED PCP Primary Care Unavailable Generic Provider MD, No Assigned Pcp Primary Car e Provider Unavailable ERICK CLEANING Admitting Unavailable ERICK CLEANING Primary Care Unavailable ERICK CLEANING Attending Unavailable JUAN RECINOS DO Consulting Unavailable PROVIDER, UNKNOWN Consulting Unavailable PROVIDER, UNKNOWN Consulting Unavailable ERICK CLEANING Primary Care Unavailable ERICK CLEANING Attending Unavailable JUAN RECINOS DO Consulting Unavailable ERICK CLEANING Admitting Unavailable PROVIDER, UNKNOWN Consulting Unavailable PROVIDER, UNKNOWN Consulting Unavailable LEENA ELDER Primary Care Unavailabl e SHAKA MOCK Attending Unavailable LEENA ELDER Primary Care Unavailabl e ALONDRA MONAHAN Attending Unavailable JESSIE HARMAN Referring Unavailable JASON DYKES Attending Unavailable LEENA ELDER Primary Care Unavailabl e Black ARCEO-C, Erick Primary Care Provider [phone] Dr. Cody Canseco DO Emergency Provider Jessica Benson Attending Unavailable Jessica Benson Referring Unavailable Black CLINICAL TRAINING COORDINATOR, Erick Primary Care Unavailable Black CLINICAL TRAINING COORDINATOR, Erick Primary Care Unavailable Black CLINICAL TRAINING COORDINATOR, Erick Attending Unavailable Black CLINICAL TRAINING COORDINATOR, Erick Referring Unavailable Cody Canseco Attending Unavailable Black CLINICAL TRAINING COORDINATOR, Erick Primary Care Unavailable Care Physician, No Primary Referring Unava ilable Jessica Benson Attending Unavailable Black CLINICAL TRAINING COORDINATOR, Erick Primary Care Unavailable Black CLINICAL TRAINING COORDINATOR, Erick Primary Care Unavailable Desirae Barnes Attending Unavailable Allergies Allergy Classification Reported Allergen(s) Allergy Type Date of Onset Reaction(s) Facility (2 sources) Naloxone Drug Allergy [facility]; [facility] (2 sources) Naltrexone Drug Allergy 05-28-2024 Other: See Comments [facility] Medications Current Medications Medication Drug Class(es) Dates Sig (Normalized) Sig (Original) acetaminophen 325 mg / oxyCODONE hydrochloride 5 mg oral tablet (1 source) Opioid Agonist Start: 09-20-2024 take 1 tablet by mouth every six hours as needed for pain Oxycodone-Acetami nophen (Percocet) 5-325 mg tablet Active 1 {tbl} PO EVERY 6 HOURS as needed for pain 19 08September 20, 2024 Start: 09-20-2024 take 1 tablet by [facility] every six hours as needed for pain Oxycodone-Acetaminophen (Percocet) 5-325 mg tablet Active 1 {tbl} PO EVERY 6 HOURS as needed for pain 19 08September 20, 2024 ascorbic acid (vitamin C) crystals (2 sources) [...] 0 Active calcium carbonate (Tums) 250 mg ([place] 100 mg) chewable split tablet (1 source) calcium carbonat e (Tums) 250 mg ([place] 100 mg) chewable split tablet Take by mouth once daily. Active magnesium oxide 400 mg oral capsule (10 sources) magnesium oxide 400 mg magnesium cap Take by mouth. Active nystatin [id number] unt oral tablet (13 sources) Polyene Antifungal Start: 12-13-2022 nystatin (Mycostatin) 500,000 unit tablet 12/13/2022 Active Start: 10-18-2022 take 2 tablets by mo [facility] twice daily nystatin (MYCOSTATIN, NILSTAT) 500,000 unit tab Take 2 tablets by mouth twice daily. 120 tablet 2 10/18/2022 Active Comment on above: Take 2 tablets by [facility] twice daily. ondansetron 4 mg disintegrating oral tablet (1 source) Serotonin-3 Receptor Antagonist Start: 09-21-19 take 1 tablet by mouth three times daily as needed for nausea and vomiting Ondansetron 4 mg tablet,disintegrati ng Active 4 mg PO THREE TIMES A DAY as needed for nausea and vomiting September 20, 2024 6:20am Vitamin B Complex (9 sources) vitamin B [...] Sig (Original) amoxicillin 500 mg oral capsule (3 sources) Penicillin-class Antibacterial Start: 03-07-2018 End: 03-17-2018 take 2 capsules by mouth twice daily Amoxicillin 500 mg capsule Discontinued 1000 mg PO TWICE A DAY 40 March 07, 2018 1:00am March 16, 2018 1:00am March 17, 2018 1:19am Start: 03-07-2018 End: 03-17-2018 take 1000 mg by mouth twice daily Amoxicillin Discontinued 1000 MG PO TWICE A DAY 40 March 07, 2018 1:00am March 17, 2018 1:19am Ascorbic Acid (Vitamin C) crystals (1 source) Start: 03-07-2018 End: 03-17-2024 take 100 mg by mouth once daily Ascorbic Acid (Vitamin C) crystals Discontinued 100 mg PO DAILY March 07, 2018 1:00am March 17, 2024 12:33pm Biocidin Advanced Formula ([employer]) gut microbial (bacteria/yeast) balance (9 sources) Start: 10-18-2022 End: 01-12-2023 Biocidin Advanced Formula ([employer]) gut microbial (bacteria/yeast) balance Take 5 Drops by mouth three times daily. Biocidin - Begin with 1 drop and gradually increase up to 5 drops 3 times per day for 6-8 weeks 0 10/18/2022 01/12/2023 Discontinued Start: 10-18-2022 Biocidin Advan sarah Formula ([employer]) gut microbial (bacteria/yeast) balance Take 5 Drops [...] twice weekly for 1 month. G.I. Detox ([employer]) (8 sources) Start: 12-13-2022 G.I. Detox ([employer]) 1-2 capsules with full glass of water [...] on above: Take 1 capsule by mo uth once daily. Start with 1 mg every [...] on above: Take 1 capsule by mo uth twice daily with meals. The Whole Probiotic ([employer]) (12 sources) Start: 10-19-19 take 1 capsule by mouth once daily The Whole Probiotic ([employer]) Take 1 capsule by mouth once daily. Treatment 3-6 months 0 10/18/2022 Active Comment on above: Take 1 capsule by mo uth once daily. Treatment 3-6 months Yeast Balance [...] Translations: [Other urticaria] 05-28-2024 Episodic Cardiac dysrhythmias (5 sources) Sinus tachycardia; Translations: [Tachycardia, unspecified] 07-03-2023 Episodic Deficiency and other anemia (3 sources) Anemia 05-08-2023 Episodic Comment on above: Concerns about anemi a. Had anemia with her first . Diseases of mouth; excluding dental (2 sources) Disorder of oral soft tissues; Translations: [Unspecified lesions of oral mucosa] 03-05-2023 Episodic Ectopic (3 sources) Ectopic ; Translations: [Unspecified ectopic without intrauterine ] Onset: Episodic Hemorrhage during ; abruptio placenta; placenta previa (1 source) Antepartum hemorrhage; Translations: [Hemorrhage in early , unspecified] 09-19-2024 Episodic Immunity disorders (2 sources) Monoclonal mast cell activation syndrome; Translations: [Other specified disorders involving the immune mechanism] Onset: 5 05-22-2024 Chronic Immunizations and screening for infectious disease (3 sources) Contact with and (suspected) exposure to other bacterial communicable diseases; Translations: [Exposure to Bordetella pertussis] Onset: Episodic Malaise and fatigue (1 source) Fatigue; Translations: [Chronic fatigue, unspecified] 01-12-2023 Chronic Malaise and fatigue (2 sources) Fatigue; Translations: [Other fatigue] 07-10-2023 Episodic Mycoses (5 sources) Candidiasis of mouth; Translations: [Candidal stomatitis] 10-18-2022 Episodic Other circulatory disease (3 sources) Low blood pressure; Translations: [Hypotension, unspecified] [...] source) Hypermobility syndrome; 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] Onset: 5 Episodic Other connective tissue disease (1 source) H/O: back problem; Translations: [Personal history of other diseases of the musculoskeletal system and connective tissue] 03-17-2024 Episodic Other endocrine disorders (1 source) Disorder of endocrine system; Translations: [Endocrine disorder, unspecified] 12-13-2022 Episodic Other female genital disorders (2 sources) Cervical incompetence; Translations: [Incompetence of cervix uteri] 05-28-2024 Episodic Other female genital disorders (1 source) Incompetence of cervix uteri; Translations: [Incompetent cervix] Onset: Episodic Other gastrointestinal disorders (2 sources) Abdominal bloating; Translations: [Abdominal distension (gaseous)] Episodic Other gastrointestinal disorders (3 sources) Other functional disorders of intestine; Translations: [Intestinal dysbiosis] 10-18-2022 Episodic Other gastrointestinal disorders (1 source) Gastrointestinal tract problem; Translations: [Other specified symptoms and signs involving the digestive system and abdomen] 03-17-2024 Episodic Other hematologic conditions (2 sources) History of anemia; Translations: [Personal history of diseases of the blood and blood-forming organs and certain disorders involving the immune mechanism] 05-10-2023 Episodic Other nervous system disorders (1 source) Disturbance of attention; Translations: [Attention and concentration deficit] 05-28-2024 Chronic Other nervous system disorders (1 source) H/O: migraine; Translations: [Personal history of other diseases of the nervous system and sense organs] 03-17-2024 Episodic Other non-traumatic joint disorders (1 source) Instability of joint; Translations: [Other instability, unspecified joint] 05-28-2024 Episodic Other nutritional; endocrine; and metabolic disorders (1 source) Morbid (severe) obesity due to excess calories; Translations: [Morbid (severe) obesity due to excess calories] Onset: Chronic Other nutritional; endocrine; and metabolic disorders (2 sources) Weight gain; Translations: [Abnormal weight gain] Episodic Other skin disorders (1 source) Eruption; Translations: [Rash and other nonspecific skin eruption] 05-28-2024 Episodic Otitis media and related conditions (3 sources) Otitis media of left ear; Translations: [...] pain syndrome; Translations: [Pain, unspecified] 05-28-2024 Episodic Spontaneous (11 sources) Incomplete miscarriage; Translations: [Incomplete spontaneous without complication] Onset: 4 07-03-2023 Episodic Systemic lupus erythematosus and connective tissue disorders (13 sources) Disorder of connective tissue; Translations: [Systemic involvement of connective tissue, unspecified] Onset: 4 07-03-2023 Chronic Unclassified (2 sources) Number of Children 05-08-2023 Comment on above: 2. Unclassified (2 sources) Number of Pregnancies 05-08-2023 Comment on above: 3. Unclassified (2 sources) Vaginal deliveries 05-08-2023 Comment on above: 2. 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] Onset: Past or Other Problems Problem Classification Problem [...] disease) (4 sources) Encounter for screening for diseases of the blood and blood-forming organs and certain disorders involving the immune mechanism; Translations: [Encounter for screening for other metabolic disorders] Onset: 11-05-2023 Episodic Residual codes; unclassified (15 sources) Contact with and (suspected) exposure to mold (toxic); Translations: [Contact with and (suspected) exposure to mold] Onset: 02-16-2023 12-13-2022 Episodic Residual codes; unclassified (10 sources) History of loss in non- woman; Translations: [Personal history of other complications of , childbirth and the puerperium] Onset: 08-21-2023 08-21-2023 Episodic Unclassified (2 sources) scowman patient - Giovanna is here with concerns [...] Test Name Value Interpretation Reference Range Facility Absolute lymphocyte countOrd ered By: Cody Canseco on 09-20-2024 Lymphocytes Auto (Unsp spec) [#/Vol] 2.59 10*3/uL 0.83-4.51 [facility] Absolute neutrophil countOrd ered By: Cody Canseco on 09-20-2024 Neutrophils (Bld) [#/Vol] 5.2 10*3/uL 2.0-7.7 [facility] Activated partial thrombopla stin time (aPTT) in platelet poor plasma by coagulation aOrdered By: Cody Canseco on 09-20-2024 aPTT Coag (PPP) [Time] 27.1 s 24.1-36.2 [facility] Anion gap in Serum or Plasma Ordered By: Cody Canseco on 09-20-2024 Anion gap [Moles/Vol] 11 mmol/L 5-15 [facility] Automated lymphocyte count a s percentage of total leukocytesOrdered By: Cody Canseco on 09-20-2024 Lymphocytes/100 WBC Auto (Unsp spec) 30.0 % 19-41 [facility] BUN/creatinine ratioOrdered By: Cody Canseco on 09-20-2024 Urea nitrogen/Creatinine [Mass ratio] 17.0 mg/mg 10- [facility] Basic Metabolic Profile (BMP )on 09-20-2024 BUN/CRE 17.0 RATIO Normal - [facility] Comment on above: Performed By: #### L 500.2500, L300.3900, L100.0100, L300.4310, L700.8000 #### [facility] [address] [place], [address] Calcium [Mass/Vol] 9.4 mg/dL Normal 7.6-11.0 [facility] Comment on above: Performed By: #### L 500.2500, L300.3900, L100.0100, L300.4310, L700.8000 #### [facility] [address] [place], [address] Chloride [Moles/Vol] 105 mmol/L Normal 98-108 [facility] Comment on above: Performed By: #### L 500.2500, L300.3900, L100.0100, L300.4310, L700.8000 #### [facility] [address] [place], [address] CO2 [Moles/Vol] 23.3 mmol/L Normal 21.0-32.0 [facility] Comment on above: Performed By: #### L 500.2500, L300.3900, L100.0100, L300.4310, L700.8000 #### [facility] [address] [place], [address] Creatinine [Mass/Vol] 0.70 mg/dL Normal 0.70-1.20 [facility] Comment on above: Performed By: #### L 500.2500, L300.3900, L100.0100, L300.4310, L700.8000 #### [facility] [address] [place], [address] ECRCL 130.88 ml/min Normal 50-250 [facility] Comment on above: Performed By: #### L 500.2500, L300.3900, L100.0100, L300.4310, L700.8000 #### [facility] [address] [place], [address] GAP 11 Normal 5-15 [facility] Comment on above: Performed By: #### L 500.2500, L300.3900, L100.0100, L300.4310, L700.8000 #### [facility] [address] [place], [address] GFR/1.73 sq M.predicted among non-blacks MDRD (S/P/Bld) [Vol rate/Area] 115 mL/min/{1.73_m2} Normal >60 [facility] Comment on above: Result Comment: mL/m in/1.73m2 CKD-EPI Creatinine Equation (2020) Performed By: #### L 500.2500, L300.3900, L100.0100, L300.4310, L700.8000 #### [facility] [address] [place], [address] Glucose [Mass/Vol] 111 mg/dL High 70-99 [facility] Comment on above: Performed By: #### L 500.2500, L300.3900, L100.0100, L300.4310, L700.8000 #### [facility] [address] [place], [address] Potassium [Moles/Vol] 4.1 mmol/L Normal 3.3-5.1 [facility] Comment on above: Performed By: #### L 500.2500, L300.3900, L100.0100, L300.4310, L700.8000 #### [facility] [address] [place], [address] Sodium [Moles/Vol] 139 mmol/L Normal 133-145 [facility] Comment on above: Performed By: #### L 500.2500, L300.3900, L100.0100, L300.4310, L700.8000 #### [facility] [address] [place], [address] Urea nitrogen [Mass/Vol] 12 mg/dL Normal 4-19 [facility] Comment on above: Performed By: #### L 500.2500, L300.3900, L100.0100, L300.4310, L700.8000 #### [facility] [address] [place], [address] Basophil percentageOrdered B y: Cody Canseco on 09-20-2024 Basophils/100 WBC (Bld) 0.2 % 0-1 [facility] Bilirubin Test strip Ql (U)O rdered By: Codymark Canseco on 09-20-2024 Bilirubin Ql (U) Negative Negative [facility] CBC W/Diff, Automatedon 09-01-2024 Absolute Lymph 2.59 X10 3/uL Normal 0.83-4.51 [facility] Comment on above: Performed By: #### L 500.2500, L300.3900, L100.0100, L300.4310, L700.8000 #### [facility] [address] [place], [address] Absolute Neut 5.2 X10 3/uL Normal 2.0-7.7 [facility] Comment on above: Performed By: #### L 500.2500, L300.3900, L100.0100, L300.4310, L700.8000 #### [facility] [address] [place], [address] Basophils/100 WBC (Bld) 0.2 % Normal 0-1 [facility] Comment on above: Performed By: #### L 500.2500, L300.3900, L100.0100, L300.4310, L700.8000 #### [facility] [address] [place], [address] Eosinophils/100 WBC (Bld) 2.3 % Normal 0-5 [facility] Comment on above: Performed By: #### L 500.2500, L300.3900, L100.0100, L300.4310, L700.8000 #### [facility] [address] [place], [address] Erythrocyte distribution width (RBC) [Ratio] 12.6 % Normal 11.6-14.6 [facility] Comment on above: Performed By: #### L 500.2500, L300.3900, L100.0100, L300.4310, L700.8000 #### [facility] [address] [place], [address] Hematocrit (Bld) [Volume fraction] 42.2 % Normal 37-47 [facility] Comment on above: Performed By: #### L 500.2500, L300.3900, L100.0100, L300.4310, L700.8000 #### [facility] [address] [place], [address] Hemoglobin (Bld) [Mass/Vol] 14.8 g/dL Normal 12.0-15.0 [facility] Comment on above: Performed By: #### L 500.2500, L300.3900, L100.0100, L300.4310, L700.8000 #### [facility] [address] [place], [address] IG% 0.200 Normal 0.0-0.9 [facility] Comment on above: Result Comment: IG% - Immature Granulocytes (promyelocytes, myelocytes and metamyelocytes) > 1% indicates that a LEFT SHIFT is Present. Performed By: #### L 500.2500, L300.3900, L100.0100, L300.4310, L700.8000 #### [facility] [address] [place], [address] Lymphocytes/100 WBC (Bld) 30.0 % Normal 19-41 [facility] Comment on above: Performed By: #### L 500.2500, L300.3900, L100.0100, L300.4310, L700.8000 #### [facility] [address] [place], [address] MCH (RBC) [Entitic mass] 31.4 pg Normal 27.0-32.0 [facility] Comment on above: Performed By: #### L 500.2500, L300.3900, L100.0100, L300.4310, L700.8000 #### [facility] [address] [place], [address] MCHC (RBC) [Mass/Vol] 35.1 g/dL Normal 32-36 [facility] Comment on above: Performed By: #### L 500.2500, L300.3900, L100.0100, L300.4310, L700.8000 #### [facility] [address] [place], [address] MCV (RBC) [Entitic vol] 89.4 fL Normal 81-99 [facility] Comment on above: Performed By: #### L 500.2500, L300.3900, L100.0100, L300.4310, L700.8000 #### [facility] [address] [place], [address] Monocytes/100 WBC (Bld) 7.4 % Normal 0-10 [facility] Comment on above: Performed By: #### L 500.2500, L300.3900, L100.0100, L300.4310, L700.8000 #### [facility] [address] [place], [address] Neutrophils/100 WBC (Bld) 59.9 % Normal 47-70 [facility] Comment on above: Performed By: #### L 500.2500, L300.3900, L100.0100, L300.4310, L700.8000 #### [facility] [address] [place], [address] Nucleated RBC (Bld) [#/Vol] 0 10*3/uL Normal 0-5 [facility] Comment on above: Performed By: #### L 500.2500, L300.3900, L100.0100, L300.4310, L700.8000 #### [facility] [address] [place], [address] Platelet mean volume (Bld) [Entitic vol] 9.4 fL Normal 6.2-12.0 [facility] Comment on above: Performed By: #### L 500.2500, L300.3900, L100.0100, L300.4310, L700.8000 #### [facility] [address] [place], [address] Platelets (Bld) [#/Vol] 261 10*3/uL Normal 150-450 [facility] Comment on above: Performed By: #### L 500.2500, L300.3900, L100.0100, L300.4310, L700.8000 #### [facility] [address] [place], [address] RBC (Bld) [#/Vol] 4.72 10*6/uL Normal 4.2-5.4 [facility] Comment on above: Performed By: #### L 500.2500, L300.3900, L100.0100, L300.4310, L700.8000 #### [facility] [address] [place], [address] RDW SD 41.3 fl Normal 35.1-43.9 [facility] Comment on above: Performed By: #### L 500.2500, L300.3900, L100.0100, L300.4310, L700.8000 #### [facility] [address] [place], [address] WBC (Bld) [#/Vol] 8.6 10*3/uL Normal 4.4-11.0 [facility] Comment on above: Performed By: #### L 500.2500, L300.3900, L100.0100, L300.4310, L700.8000 #### [facility] [address] [place], [address] Carbon dioxide, total [Moles /volume] in Central venous bloodOrdered By: Cody Canseco on 09-20-2024 CO2 [Moles/Vol] 23.3 mmol/L 21.0-32.0 [facility] Chloride assayOrdered By: Yenny Canseco on 09-20-2024 Chloride [Moles/Vol] 105 mmol/L 98-108 [facility] Emergency Department Summary on 09-20-2024 Emergency Department Summary [facility] Medical Records Department [address] [place] [address] Emergency Department Summary 09/20/24 MR#: [id number] Acct: [id number] Name: GIOVANNA DAY Rep #: [id number] : 1990 34 From: Cody Canseco DO PCP: CELSA Mitchell Status:REG ER Location: ED HPI HPI - Female History of Present Illness Chief Complaint: Vag Bleeding Informant: patient and spouse/S.O. Narrative Narrative: Patient is a 34-year-old female who is a G4, P2 with 1 spontaneous miscarriage. She states the miscarriage occurred at 16 weeks and was roughly a year and a half ago. She did have complications with that as she had retained products of conception. She states her last menstrual cycle was approximately August 14. She states she is approximately 5 weeks . She states that yesterday she noticed some pink tinge blood with using the bathroom. She contacted her EAR SPECIALIST because of this and her history of miscarriage. She has an appointment scheduled for next week but was advised if she has worsening bleeding or pain she may need to go to the ER. The patient reports that around 930 this evening she tried to sleep but was having increasing right sided pain that is sharp in nature. She states she then noticed that the blood had changed from pink-tinged to bright red. She denies any history of bleeding disorder or blood thinner use. She states there is been no dysuria or flank pain. With concern she is having a complication such as another miscarriage she presents for evaluation. [facility] Medical History History of back problems Hives Gastrointestinal problem Hx of migraine headaches Connective tissue disease Home Medications ???Medication ???Instructions ???Recorded ???Last Taken ???Type ondansetron 4 mg disintegrating 4 mg PO TID PRN nausea and 5 Unknown Rx tablet vomiting #21 tabs oxycodone-acetaminoph en 5 mg-325 1 tab PO Q6H PRN pain 5 days #20 0 09/20/24 Unknown Rx mg tablet (Percocet) tabs Allergy/AdvReac Type Severity Reaction Status Date / Time No Known Allergies Allergy Verified 09/20/24 02:44 Family History Grandfather Alcoholism Cancer skin cancer Grandmother Alcoholism Sister Anemia Mother Cancer, Onset Age: 40 cervical cancer Hypertension Brother Seizures Surgical History S/P D C (status post dilation and curettage) Social History number of children: 2 current occupational status: unemployed current occupation: [employer] Smoking Status: Never smoker alcohol intake: never substance use type: does not use what type of physical activity do you participate in: walking farhan/confucianism: Pentecostalism seatbelt use: always do you feel safe at home: Yes additional social history: - Jonel STAFFORD NYDIA ED Constitutional Constitutional ED: Denies chills or fever(s) Eyes Eyes: Denies change in vision ENT ENT ED: Denies sore throat Cardiovascular Cardiovascular: Denies chest pain Respiratory/Chest Respiratory/Chest: Denies cough or dyspnea Gastrointestinal Gastrointestinal: Reports abdominal pain and nausea; Denies diarrhea or vomiting Genitourinary Genitourinary ED: Reports other Details: Positive vaginal bleeding ; Denies dysuria Musculoskeletal Musculoskeletal: Reports other Details: No CVA pain ; Denies myalgias Integumentary Denies rash Neurologic Neurologic: Denies headache(s) Hematologic/Lymphatic Hematologic/Lymphatic : Denies easy bleeding or easy bruising EXAM Physical Exam Const Vital Signs: 09/20/24 02:45 09/20/24 04:43 09/20/24 06:00 Temperature 98.5 F Temperature Source Oral Pulse Rate 95 98 89 Respiratory Rate 18 16 18 Blood Pressure 136/67 H 128/72 H 157/93 H Blood Pressure Mean 90 90 114 Pulse Ox 100 98 98 Oxygen Delivery Method Room Air Room Air Room Air Positive well nourished and well developed General Appearance ED: well developed; Negative for pallor HEENT HEENT Narrative: Normocephalic atraumatic Eyes PERRL and EOMs intact bilaterally General Eye ED: Negative for scleral icterus Neck supple Neck Narrative: No nuchal rigidity or meningeal signs Resp normal respiratory effort and clear to auscultation bilaterally Resp Narrative: No nasal flaring retractions tachypnea or accessory muscle use Cardio regular rate and regular rhythm Rate: other Other Details: Heart is regular rate and rhythm without murmurs rubs or gallops Radial and carotid pulses are equal and symmetric GI soft to palpation, non-distended and no masses GI Narrative: Abdomen is soft and nondistended with normal active bowel (more content not included)... Normal [facility] Eosinophil percentageOrdered By: Cody Canseco on 09-20-2024 Eosinophils/100 WBC (Bld) 2.3 % 0-5 [facility] Erythrocyte distribution wid th ratioOrdered By: Cody Canseco on 09-20-2024 Erythrocyte distribution width (RBC) [Ratio] 12.6 % 11.6-14.6 [facility] Erythrocyte distribution wid th standard deviationOrdered By: Cody Canseco on 09-20-2024 Erythrocyte distribution width (RBC) [Ratio] 41.3 fl 35.1-43.9 [facility] Glomerular filtration rate ( GFR) estimation/1.73 sq m using serum, plasma, or whole bOrdered By: Cody Canseco on 09-20-2024 GFR/1.73 sq M.predicted among non-blacks MDRD (S/P/Bld) [Vol rate/Area] 115 mL/min/{1.73_m2} >60 [facility] Comment on above: mL/min/1.73m2 CKD-EP I Creatinine Equation (2020) Hematocrit Auto (Bld) [Volum e fraction]Ordered By: Cody Canseco on 09-20-2024 Hematocrit (Bld) [Volume fraction] 42.2 % 37-47 [facility] Hemoglobin measurementOrdere d By: Cody Canseco on 09-20-2024 Hemoglobin (Bld) [Mass/Vol] 14.8 g/dL 12.0-15.0 [facility] Immature granulocytes/100 WB C Auto (Bld)Ordered By: Cody Canseco on 09-20-2024 Immature granulocytes/100 WBC (Bld) 0.200 % 0.0-0.9 [facility] Comment on above: IG% - Immature Granu locytes (promyelocytes, myelocytes and metamyelocytes) > 1% indicates that a LEFT SHIFT is Present. International normalized rat io (INR) calculationOrdered By: Cody Canseco on 09-20-2024 INR Coag (Bld) [Relative time] 0.9 {INR} [facility] Ketones Test strip Ql (U)Ord ered By: Cody Canseco on 09-20-2024 Ketones Ql (U) Negative Negative [facility] MCV (mean corpuscular volume ) determinationOrdered By: Cody Canseco on 09-20-2024 MCV (RBC) [Entitic vol] 89.4 fL 81-99 [facility] Mean corpuscular hemoglobin (MCH) determinationOrdered By: Cody Canseco on 09-20-2024 MCH (RBC) [Entitic mass] 31.4 pg 27.0-32.0 [facility] Mean corpuscular hemoglobin concentration (MCHC) determinationOrdered By: Cody Canseco on 09-20-2024 MCHC (RBC) [Mass/Vol] 35.1 g/dL 32-36 [facility] Mean platelet volume determi nationOrdered By: Cody Canseco on 09-20-2024 Platelet mean volume (Bld) [Entitic vol] 9.4 fL 6.2-12.0 [facility] Microscopic analysis of urin e for red blood cells (RBC)Ordered By: Cody Canseco on 09-20-2024 Microscopic analysis of urine for red blood cells (RBC) 10-25 SEEN /hpf 0-5 [facility] Monocyte percentageOrdered B y: Cody Canseco on 09-20-2024 Monocytes/100 WBC (Bld) 7.4 % 0-10 [facility] Mucus LM Ql (Urine sed)Order ed By: Cody Canseco on 09-20-2024 Mucus Ql (Urine sed) 0 SEEN /hpf [facility] Neutrophil percentageOrdered By: Cody Canseco on 09-20-2024 Neutrophils/100 WBC (Bld) 59.9 % 47-70 [facility] Nucleated red blood cell per centageOrdered By: Cody Canseco on 09-20-2024 Nucleated RBC/100 WBC (Bld) [Ratio] 0 % 0-5 [facility] Partial Thromboplast Timeon 09-20-2024 aPTT Coag (Bld) [Time] 27.1 s Normal 24.1-36.2 [facility] Comment on above: Performed By: #### L 500.2500, L300.3900, L100.0100, L300.4310, L700.8000 #### [facility] [address] [place], [address] Platelet countOrdered By: Yenny Canseco on 09-20-2024 Platelets (Bld) [#/Vol] 261 10*3/uL 150-450 [facility] Potassium measurement (mass/ volume)Ordered By: Cody Canseco on 09-20-2024 Potassium (Unsp spec) [Mass/Vol] 4.1 mmol/L 3.3-5.1 [facility] Protein Test strip Ql (U)Ord ered By: Cody Canseco on 09-20-2024 Protein Ql (U) 15 mg/dl High Negative [facility] Prothrombin Time w/INRon INR Coag (PPP) [Relative time] 0.9 {INR} Normal [facility] Comment on above: Performed By: #### L 500.2500, L300.3900, L100.0100, L300.4310, L700.8000 #### [facility] [address] [place], [address] PT Coag (PPP) [Time] 12.7 s Normal 11.7-14.9 [facility] Comment on above: Performed By: #### L 500.2500, L300.3900, L100.0100, L300.4310, L700.8000 #### [facility] [address] [place], [address] Prothrombin timeOrdered By: Cody Canseco on 09-20-2024 PT Coag (PPP) [Time] 12.7 s 11.7-14.9 [facility] RBC Auto (Bld) [#/Vol]Ordere d By: Cody Canseco on 09-20-2024 RBC (Bld) [#/Vol] 4.72 10*6/uL 4.2-5.4 [facility] Serum creatinine measurement (mass/volume)Ordered By: Cody Canseco on 09-20-2024 Creatinine [Mass/Vol] 0.70 mg/dL 0.70-1.20 [facility] Serum glucose measurement (m ass/volume)Ordered By: Cody Canseco on 09-20-2024 Glucose [Mass/Vol] 111 mg/dL High 70-99 [facility] Serum human chorionic gonado tropin detection for pregnancyOrdered By: Cody Canseco on 09-20-2024 HCG ( test) Ql 32 mIU/mL High <9 [facility] Comment on above: Gestational Age0.2-1 Week: 5-50 mIU/mL1-2 Weeks: 50-500 mIU/mL2-3 Weeks: 100-5000 mIU/mL3-4 Weeks: 500-10,000 mIU/mL4-5 Weeks:1000-50,000 mIU/mL5-6 Weeks: 10,000-100,000 mIU/mL6-8 Weeks: 15,000-200,000 mIU/mL2-3 Months:10,000-100,000 mIU/mL Serum or plasma calcium rachid urement (mass/volume)Ordered By: Cody Canseco on 09-20-2024 Calcium [Mass/Vol] 9.4 mg/dL 7.6-11.0 [facility] Serum or plasma urea nitroge n measurement (mass/volume)Ordered By: Cody Canseco on 09-20-2024 Urea nitrogen [Mass/Vol] 12 mg/dL 4-19 [facility] Sodium levelOrdered By: Narendra Canseco on 09-20-2024 Sodium [Moles/Vol] 139 mmol/L 133-145 [facility] Squamous epithelial cells de tection in urine sediment by light microscopyOrdered By: Cody Canseco on 09-20-2024 Epithelial cells.squamous LM Ql (Urine sed) 10-25 SEEN /hpf 5-10 [facility] Transvaginal w/Preg USon Transvaginal w/Preg US [facility] [address] [place], [place] [id number] Transvaginal w/Preg US MR#: [id number] Acct: [id number] Name: GIOVANNA DAY Rep #: [id number] : 1990 F 34 From: Rozina gaston MD PCP: CELSA Mitchell Status: REG ER Study: Transvaginal w/Preg US Date of Exam: 09/20/24 Exam# [id number] Ordering Dr: Cody Canseco DO PROCEDURE: TRANSVAGINAL W/PREG US 09/20/2024 REASON FOR EXAM: ? ECTOPIC TECHNIQUE: TRANSVAGINAL W/PREG US COMPARISON: 07/03/2023. FINDINGS The uterus measures 9.1 x 7 x 5.8 cm. No intrauterine is visualized. The right ovary measures 1.9 x 1.2 x 1.8 cm. Heterogeneous area measuring 3.2 x 1.5 cm and free fluid is noted inferior to the right ovary suspicious for ectopic . This needs correlation with beta HCG level and follow-up exam. The left ovary measures 2.6 x 2.5 x 1.5 cm. Left ovarian simple cyst is noted measuring 1.7 x 1.5 x 1.3 cm, possibly corpus luteum cyst. Multiple cysts with associated calcifications are noted within the cervix, probably benign and chronic. The endometrium measures 11 mm in its thickness. Normal bilateral ovarian flow without evidence of ovarian torsion. The cervix is closed. US/Transvaginal w/Preg US IMPRESSION: Heterogeneous area in the right adnexa suspicious for ectopic . This needs correlation with beta HCG level and follow-up exam. Left ovarian simple cyst, possibly corpus luteum cyst. Scattered benign chronic nabothian cysts of the cervix. Free fluid in the pelvis. Normal bilateral ovarian flow. No intrauterine is visualized. Reading [facility] CC: CELSA Cleaning; Cody Canseco DO Wire Stitcher Operator: Signed Normal [facility] Urinalysis, Completeon 09-20 BACTERIA 2+ /hpf Normal None Seen [facility] Comment on above: Order Comment: CLEAN CATCH Performed By: #### L 400.0001 ####[facility] [address] [place], [address] EPI,SQUAMOUS 10-25 SEEN Normal 5-10 [facility] Comment on above: Order Comment: CLEAN CATCH Performed By: #### L 400.0001 ####[facility] [address] [place], [address] RBC 10-25 SEEN Normal 0-5 [facility] Comment on above: Order Comment: CLEAN CATCH Performed By: #### L 400.0001 ####[facility] [address] [place], [address] WBC 0-5 SEEN Normal 0-5 [facility] Comment on above: Order Comment: CLEAN CATCH Performed By: #### L 400.0001 ####[facility] [address] [place], [address] BILIRUBIN URINE Negative Normal Negative [facility] Comment on above: Order Comment: CLEAN CATCH Performed By: #### L 400.0001 ####[facility] [address] [place], [address] GLUCOSE, UR Normal Normal Normal [facility] Comment on above: Order Comment: CLEAN CATCH Performed By: #### L 400.0001 ####[facility] [address] [place], [address] KETONE UR Negative Normal Negative [facility] Comment on above: Order Comment: CLEAN CATCH Performed By: #### L 400.0001 ####[facility] [address] [place], [address] LEUK ESTERASE 25 /ul Abnormal Negative [facility] Comment on above: Order Comment: CLEAN CATCH Performed By: #### L 400.0001 ####[facility] [address] [place], [address] OCCULT BLOOD-UR 250 /ul Abnormal Negative [facility] Comment on above: Order Comment: CLEAN CATCH Performed By: #### L 400.0001 ####[facility] [address] [place], [address] pH UR 6.5 Normal 5.0 - 8.0 [facility] Comment on above: Order Comment: CLEAN CATCH Performed By: #### L 400.0001 ####[facility] [address] [place], [address] PROT DIPSTX 15 mg/dl Abnormal Negative [facility] Comment on above: Order Comment: CLEAN CATCH Performed By: #### L 400.0001 ####[facility] [address] [place], [address] SP.GR. DIPSTX 1.010 Normal 1.002-1.030 [facility] Comment on above: Order Comment: CLEAN CATCH Performed By: #### L 400.0001 ####[facility] [address] [place], [address] UROBILI Normal Normal Normal [facility] Comment on above: Order Comment: CLEAN CATCH Performed By: #### L 400.0001 ####[facility] [address] [place], [address] Mucus Ql (Urine sed) 0 SEEN Normal [facility] Comment on above: Order Comment: CLEAN CATCH Performed By: #### L 400.0001 ####[facility] [address] [place], [place], [id number] Urine clarityOrdered By: Steve Canseco on 09-20-2024 Clarity (U) Clear Normal Clear [facility] Comment on above: Order Comment: CLEAN CATCH Performed By: #### L 400.0001 ####[facility] [address] [place], [place], [address] Urine color determinationOrd ered By: Cody Canseco on 09-20-2024 Color (U) Yellow Normal Yellow [facility] Comment on above: Order Comment: CLEAN CATCH Performed By: #### L 400.0001 ####[facility] [address] [place], [place], [address] Urine glucose detectionOrder ed By: Cody Canseco on 09-20-2024 Glucose Ql (U) Normal mg/dl Normal [facility] Urine leukocyte esterase det ection by dipstickOrdered By: Cody Canseco on 09-20-2024 Leukocyte esterase Test strip Ql (U) 25 /ul High Negative [facility] Urine nitrite test by dipsti ckOrdered By: Cody Canseco on 09-20-2024 Nitrite Ql (U) Negative Normal Negative [facility] Comment on above: Order Comment: CLEAN CATCH Performed By: #### L 400.0001 ####[facility] [address] [place], [place], [address] Urine pHOrdered By: Cody erickson on 09-20-2024 pH (U) 6.5 [pH] 5.0 - 8.0 [facility] Urine sediment bacteria coun t by microscopy (number/high power field)Ordered By: Cody Canseco on 09-20-2024 Bacteria LM.HPF (Urine sed) [#/Area] 2 /[HPF] None Seen [facility] Urine specific gravity measu rementOrdered By: Cody Canseco on 09-20-2024 Specific gravity (U) [Rel density] 1.010 1.002-1.030 [facility] Urine urobilinogen measureme ntOrdered By: Cody Canseco on 09-20-2024 Urobilinogen Ql (U) Normal mg/dl Normal [facility] White blood cell (WBC) count Ordered By: Cody Canseco on 09-20-2024 WBC (Bld) [#/Vol] 8.6 10*3/uL 4.4-11.0 [facility] White blood cell countOrdere d By: Cody Canseco on 09-20-2024 White blood cell count 0-5 SEEN /hpf 0-5 [facility] hCG Titer Quant., Serumon HCG QUANT. 32 mIU/mL High <9 non-preg [facility] Comment on above: Result Comment: Gest ational Age 0.2-1 Week: 5-50 mIU/mL 1-2 Weeks: 50-500 mIU/mL 2-3 Weeks: 100-5000 mIU/mL 3-4 Weeks: 500-10,000 mIU/mL 4-5 Weeks:1000-50,000 mIU/mL 5-6 Weeks: 10,000-100,000 mIU/mL 6-8 Weeks: 15,000-200,000 mIU/mL 2-3 Months:10,000-100,000 mIU/mL Performed By: #### L 500.2500, L300.3900, L100.0100, L300.4310, L700.8000 #### [facility] [address] [place], [address] CNPNon 08-01-2024 CNPN Telephone (RHEUMN) GIOVANNA DAY ([id number]) 1990 F Date Time Provider Department 08/01/24 SHAKA MOCK During your visit today, we recorded the following information about you: Jon Bowers Ma 08/01/2024 3:36 PM Signed Faxed written order form to [facility] [phone] Allergies As of Date: 08/01/2024 Noted Allergy Reaction NALTREXONE 05/28/2024 14 - Other: See Comments Date Reviewed: 05/28/2024 Reviewed by: Katerin Abebe OCCA - Fully Assessed Reason for Visit: Orders [681] Forms [913] Prescriptions as of 08/01/2024 - magnesium oxide [...] by JON BOWERS MA on 08/01/24 Normal [facility] BMP with eGFRon 07-15-2024 AGE 34 years Normal [facility] Comment on above: Performed By: #### 2 54226 #### [facility],[address] [place] [address] Anion gap [Moles/Vol] 15 mmol/L Normal 10 - 20 [facility] Comment on above: Performed By: #### 2 53042 #### [facility],[address] [place] [address] BMP with eGFR Normal [facility] Comment on above: Result Comment: BASI C METABOLIC PANEL Performed By: #### 2 12951 #### [facility],[address] [place] [address] Calcium [Mass/Vol] 9.2 mg/dL Normal 8.5 - 10.1 [facility] Comment on above: Performed By: #### 2 45048 #### [facility],[address] [place], [place] [id number] Chloride [Moles/Vol] 107 mmol/L Normal 98 - 107 [facility] Comment on above: Performed By: #### 2 15755 #### [facility],[address] [place] [address] CO2 [Moles/Vol] 28.4 mmol/L Normal 21.0 - 32.0 [facility] Comment on above: Performed By: #### 2 89461 #### [facility],[address] [place] [address] Creatinine [Mass/Vol] 0.72 mg/dL Normal 0.55 - 1.02 [facility] Comment on above: Performed By: #### 2 13793 #### [facility],[address] [place] [address] GFR/1.73 sq M.predicted among non-blacks MDRD (S/P/Bld) [Vol rate/Area] mL/min/{1.73_m2} Normal 60 - 999 [facility] Comment on above: Performed By: #### 2 05061 #### [facility],[address] [place] [address] Result Comment: ACCO RDING TO THE NATIONAL KIDNEY DISEASE EDUCATION PROGRAM(NKDE), A NORMAL eGFR IS A VALUE GREATER THAN OR EQUAL TO 60 ML/MIN/1.73 SQ METERS. CHRONIC KIDNEY DISEASE: <60mL/MIN/1.73 SQ METERS KIDNEY FAILURE: <15mL/MIN/1.73 SQ METERS THIS TEST SHOULD ONLY BE USED FOR PATIENTS 18 YEARS OF AGE AND OLDER. Glucose [Mass/Vol] 99 mg/dL Normal 74 - 106 [facility] Comment on above: Performed By: #### 2 25474 #### [facility],[address] [place], [place] [id number] Potassium [Moles/Vol] 4.7 mmol/L Normal 3.5 - 5.1 [facility] Comment on above: Performed By: #### 2 47738 #### [facility],[address] [place] [address] Sodium [Moles/Vol] 146 mmol/L High 136 - 145 [facility] Comment on above: Performed By: #### 2 42074 #### [facility],[address] [place] [address] Urea nitrogen [Mass/Vol] 16 mg/dL Normal 7 - 18 [facility] Comment on above: Performed By: #### 2 40711 #### [facility],[address] [place], [place] [id number] HEMOGLOBIN A1C (POM)on 07-15 Glucose [Mass/Vol] 96.8 mg/dL High 0.0 - 0.0 [facility] Comment on above: Result Comment: BLDo HEMOGLOBIN A1C REFERENCE RANGESBLDo Suggested Diagnosis HbA1c(%) HbA1C (mmol/mol Diabetic >/=6.5 >/=48 Prediabetes 5.7 - 6.4 39 - 47 Normal <5.7 <39 Performed By: #### 2 91368 #### [facility],[address] [place] [address] HbA1c (Bld) [Mass fraction] 5.0 % Normal 0.0 - 6.5 [facility] Comment on above: Performed By: #### 2 51444 #### [facility],[address] [place], [place] [id number] MAGNESIUMon 07-15-2024 Magnesium [Mass/Vol] 2.1 mg/dL Normal 1.8 - 2.4 [facility] Comment on above: Performed By: #### 2 49430 #### [facility],[address] [place] [address] CNOVon 05-28-2024 CNOV Office Visit (RHARMN ) GIOVANNA DAY ([id number]) 1990 F Date Time Provider Department 05/28/24 9:00 AM SHAKA MOCK During your visit today, we recorded the following information about you: Temperature Pulse Blood pressure Weight 98.1 degrees 104/minute 134/96 97.6 kg Last Period 05/25/24 Shaka Mock MD 05/28/2024 1:34 PM Signed +hypermobility, 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 Vasquez with [...] feels good in the morning and about snf through the day feels worse Left hip [...] are over-compensating trying to hold everything together [facility] [place] Department of Rheumatic and Immunologic Diseases This [...] total bod (more content not included)... Normal [facility] CNPNon 05-26-2024 CNPN Telephone (RHEUMN) ASCENCIONGIOVANNA ([id number]) 1990 F Date Time Provider Department 05/26/24 SHAKA MOCK During your visit today, we recorded the following information about you: Jon Bowers Ma 05/26/2024 10:03 AM Signed Received office note from Dr Vasquez. New EDS patient scheduled for 05/28 Scan on 05/26/2024 9:42 AM by Provider, Nery, PARicoC: Miscellaneous Clinical Documents Allergies As of Date: [...] by JON BOWERS MA on 05/26/24 Normal [facility] PAP IG HPV APTIMA 16/18,45on 03-24-2024 ADEQ Comment Normal . [facility] Comment on above: Order Comment: Speci men Comment: [id number] Specimen Comment: Source.............Cervix Specimen Comment: No. of containers..01 ThinPrep Vial Result Comment: Sati sfactory for evaluation. Endocervical and/or squamous metaplastic cells (endocervical component) are present. Performed By: #### L 7400.0280 #### [facility] [address] [place], [place], [address] COMM . Normal . [facility] Comment on above: Order Comment: Speci men Comment: [id number] Specimen Comment: Source.............Cervix Specimen Comment: No. of containers..01 ThinPrep Vial Performed By: #### L 7400.0280 #### [facility] [address] [place], [place], [address] COMMENT Comment Normal . [facility] Comment on above: Order Comment: Speci men Comment: [id number] Specimen Comment: Source.............Cervix Specimen Comment: No. of containers..01 ThinPrep Vial Result Comment: This liquid based ThinPrep(R) pap test was screened with the use of an image guided system. Performed By: #### L 7400.0280 #### [facility] [address] [place], [place], [address] DIAG Comment Normal . [facility] Comment on above: Order Comment: Speci men Comment: [id number] Specimen Comment: Source.............Cervix Specimen Comment: No. of containers..01 ThinPrep Vial Result Comment: NEGA TIVE FOR INTRAEPITHELIAL LESION OR MALIGNANCY. Performed By: #### L 7400.0280 #### [facility] [address] [place], [place], [address] HPV APTIMA, HR Negative Normal Negative [facility] Comment on above: Order Comment: Speci men Comment: [id number] Specimen Comment: Source.............Cervix Specimen Comment: No. of containers..01 ThinPrep Vial Result Comment: This nucleic acid amplification test detects fourteen high- risk HPV types (16,18,31,33,35,39,45,51,52,56,58,59,66,68) without differentiation. Performed By: #### L 7400.0280 #### [facility] [address] [place], [place], [address] HPV Ness Rfx Comment Normal . [facility] Comment on above: Order Comment: Speci men Comment: [id number] Specimen Comment: Source.............Cervix Specimen Comment: No. of containers..01 ThinPrep Vial Result Comment: Crit eria not met, HPV Genotype not performed. Performed at: - [facility] [id number] Reactor Kettle Operator: Rhina Angeles MD, Phone: [phone] Performed at: = - [facility] [id number] Reactor Kettle Operator: Rhina Angeles MD, Phone: [phone] Performed By: #### L 7400.0280 #### [facility] [address] [place], [address] PAPSMR Comment Normal . [facility] Comment on above: Order Comment: Speci men Comment: [id number] Specimen Comment: Source.............Cervix Specimen Comment: No. of [...] occur. Performed By: #### L 7400.0280 #### [facility] [address] [place], [place], [address] PERFORM Comment Normal . [facility] [facility] Comment on above: Order Comment: Speci men Comment: [id number] Specimen Comment: Source.............Cervix Specimen Comment: No. of containers..01 ThinPrep Vial Result Comment: Leida Lee, Grain Merchandiser (ASCP) Performed By: #### L 7400.0280 #### [facility] [address] [place], [address] Ham Facer Office Visit Reporton 03-17-2024 Ham Facer Office Visit Report [facility] [address], [address] [place] [address] OFFICE VISIT Date of Service: 03/17/24 MR#: [id number] Acct: [id number] Name: GIOVANNA DAY Rep #: [id number] : 1990 Provider: Dr. 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 Required: No Is patient in pain?: No Medications ???Medication ???Instructions ???Recorded ???Confirmed ???Type NK 03/17/24 03/17/24 History Is last menstrual period known: Yes Last Menstrual Period: 03/02/24 Post menopausal: No Patient : No : No PFSH Medical History History of back problems Hives [...] 2 current occupational status: unemployed current occupation: [employer] Smoking Status: Never smoker alcohol intake: never substance use type: does not use what type of physical activity do you participate in: walking farhan/confucianism: Pentecostalism seatbelt use: always do you feel safe at home: Yes additional social history: - Jonel History Past Pregnancies Del. Date Name GA/Weeks Outcome Route Bth Weight Gen Labor Lgth Anesthesia Del Locatn Provider FOB Unknown 2019 Taz Home Unknown 2020 Sintia Home 07/03/23 deirdre Salinas spontaneous HPI Encounter for routine gynecological examination Details: GIOVANNA DAY is a 34 year old who presents for annual exam. wants to establish care, saw M and wanting to conceive. Last PAP: has never had a PAP History of abnormal PAP: Last mammogram: not due Other preventative health care screenings: VERENICE Cleaning at [facility] [employer] in [place] Female Reproductive History Last Menstrual Period: 03/02/24 [...] acute distress, well developed and well groomed HENMT Head: normal to inspection and normocephalic Ears: [...] uterine s (more content not included)... Normal [facility] Echo Completeon 11-26-2023 Echo Complete [facility] [address] [place] [address] Echo Complete 11/26/23 0908 MR#: [id number] Acct: [id number] Name: GIOVANNA DAY Rep #: [id number] : 1990 33 From: Desirae Barnes MD Attending Dr: CELSA Mitchell Status: REG CLI Ordering Dr: Erick Cleaning NP CLINICAL TRAINING COORDINATOR-C Date: 11/26/23 Location: [facility] Sex: F C [...] Cleaning Performed By: Deana Liu RCS 11/26/23 111 Date Desirae Barnes MD CC: CLINICAL TRAINING COORDINATOR-C Erick Cleaning Date Dictated: 11/26/23907 Date Transcribed: 11/26/231113 Wire Stitcher Operator: Signed [facility] ALLERGEN FOOD ADULT/CHILD [C CL]on 11-08-2023 Clam <0.35 Normal <0.35 [facility] Comment on above: Performed By: #### 2 86257 #### [facility],[address] [place] [address] Clam-Class Class 0 Normal Class 0 [facility] Comment on above: Performed By: #### 2 42312 #### [facility],[address] [place] [address] Codfish <0.35 Normal <0.35 [facility] Comment on above: Performed By: #### 2 98056 #### [facility],[address] [place] [address] Codfish-Class Class 0 Normal Class 0 [facility] Comment on above: Performed By: #### 2 75253 #### [facility],[address] [place] [address] [place] Class Class 0 Normal Class 0 [facility] Comment on above: Performed By: #### 2 45003 #### [facility],[address] [place] [address] [place] IgE <0.35 Normal <0.35 [facility] Comment on above: Performed By: #### 2 89744 #### [facility],[address] [place] [address] Egg White Class Class 0 Normal Class 0 [facility] Comment on above: Result Comment: [facility] [address] [place] [address] Devang Pitts III, M.D. [id number] Performed By: #### 2 58362 #### [facility],[address] [place] [address] Egg White IgE <0.35 Normal <0.35 [facility] Comment on above: Performed By: #### 2 38899 #### [facility],[address] [place] [address] Milk, Cow Class Class 0 Normal Class 0 [facility] Comment on above: Performed By: #### 2 47302 #### [facility],[address] [place] [address] Milk, Cow IgE <0.35 Normal <0.35 [facility] Comment on above: Performed By: #### 2 28136 #### [facility],[address] [place] [address] Peanut Class Class 0 Normal Class 0 [facility] Comment on above: Performed By: #### 2 62380 #### [facility],[address] [place] [address] Peanut IgE <0.35 Normal <0.35 [facility] Comment on above: Performed By: #### 2 26102 #### [facility],[address] [place] [address] Scallop <0.35 Normal <0.35 [facility] Comment on above: Performed By: #### 2 16859 #### [facility],[address] [place] [address] Scallop-Class Class 0 Normal Class 0 [facility] Comment on above: Performed By: #### 2 05487 #### [facility],[address] [place] [address] Shrimp Class Class 0 Normal Class 0 [facility] Comment on above: Performed By: #### 2 86905 #### [facility],[address] [place] [address] Shrimp IgE <0.35 Normal <0.35 [facility] Comment on above: Performed By: #### 2 01779 #### [facility],[address] [place] [address] Soybean Class Class 0 Normal Class 0 [facility] Comment on above: Performed By: #### 2 33531 #### [facility],[address] [place] [address] Soybean IgE <0.35 Normal <0.35 [facility] Comment on above: Performed By: #### 2 85314 #### [facility],[address] [place] [address] [place], IgE <0.35 Normal <0.35 [facility] Comment on above: Performed By: #### 2 41949 #### [facility],[address] [place] [address] [place]-Class Class 0 Normal Class 0 [facility] Comment on above: Performed By: #### 2 44366 #### [facility],[address] [place] [address] Wheat Class Class 0 Normal Class 0 [facility] Comment on above: Performed By: #### 2 45953 #### [facility],[address] [place] [address] Wheat IgE <0.35 Normal <0.35 [facility] Comment on above: Performed By: #### 2 77930 #### [facility],[address] [place], [place] [id number] HIGH SENSITIVITY CRP [CCL]on 11-08-2023 UltraSens C-ReacProt 3.8 mg/L High <3.1 [facility] Comment on above: Result Comment: [...] for Disease Control and Prevention and the [employer]. Circulation 2003;107:499-511. [place] [address] Devang Pitts III, M.D. [id number] Performed By: #### 2 26128 #### [facility],[address] [place], [place] [address] INSULIN [CCL]on 11-08-2023 Insulin 4.9 mU/L Normal 3.0-25.0 [facility] Comment on above: Result Comment: [place] [address] Devang Pitts III, M.D. [id number] Performed By: #### 2 11630 #### [place] [id number] ALGN FOOD ADULT/CHILDon Clam IgE Qn (S) <0.35 Normal <0.35 [facility] Comment on above: Order Comment: Speci men Type: BLOOD SPECIMEN Ordering Facility: [facility] Address: [address] [place] [address] Performed By: #### F CAROLINA, 11363-9, 41077-1 #### [facility] CLIA [id number] [address] [place], [place] [address] [id number] [address] [place] Clam IgE RAST class (S) Class 0 Normal Class 0 [facility] Comment on above: Order Comment: Speci men Type: BLOOD SPECIMEN Ordering Facility: [facility] Address: [address] [place], [place] [id number] Performed By: #### F CAROLINA, , #### [facility] CLIA [id number] [address] [place] [address] [place] Codfish IgE Qn (S) <0.35 Normal <0.35 [facility] Comment on above: Order Comment: Speci men Type: BLOOD SPECIMEN Ordering Facility: [facility] Address: [address] [place] [address] Performed By: #### F CAROL[place], 45405-7, #### [facility] CLIA [id number] [address] [place] [address] [place] Codfish IgE RAST class (S) Class 0 Normal Class 0 [facility] Comment on above: Order Comment: Speci men Type: BLOOD SPECIMEN Ordering Facility: [facility] Address: [address] [place] [address] Performed By: #### Susanna FIGUEROA, , #### [facility] CLIA [id number] [address] [place] [address] [place] IgE Qn (S) <0.35 Normal <0.35 [facility] Comment on above: Order Comment: Speci men Type: BLOOD SPECIMEN Ordering Facility: [facility] Address: [address] [place] [address] Performed By: #### Susanna FIGUEROA, , #### [facility] CLIA [id number] [address] [place] [address] [place] IgE RAST class (S) Class 0 Normal Class 0 [facility] Comment on above: Order Comment: Speci men Type: BLOOD SPECIMEN Ordering Facility: [facility] Address: [address] [place] [address] Performed By: #### Susanna FIGUEROA, 86127-3, #### [facility] CLIA [id number] [address] [place] [address] [place] Cow milk IgE Qn (S) <0.35 Normal <0.35 [facility] Comment on above: Order Comment: Speci men Type: BLOOD SPECIMEN Ordering Facility: [facility] Address: [address] [place] [address] Performed By: #### Susanna FIGUEROA, 59187-0, #### [facility] CLIA [id number] [address] [place] [address] [place] Cow milk IgE RAST class (S) Class 0 Normal Class 0 [facility] Comment on above: Order Comment: Speci men Type: BLOOD SPECIMEN Ordering Facility: [facility] Address: [address] [place] [address] Performed By: #### Susanna FIGUEROA, , #### [facility] CLIA [id number] [address] [place] [address] [place] Egg white IgE Qn (S) <0.35 Normal <0.35 [facility] Comment on above: Order Comment: Speci men Type: BLOOD SPECIMEN Ordering Facility: [facility] Address: [address] [place], [place] [address] Performed By: #### Susanna FIGUEROA, , #### [facility] CLIA [id number] [address] [place] [address] [place] Egg white IgE RAST class (S) Class 0 Normal Class 0 [facility] Comment on above: Order Comment: Speci men Type: BLOOD SPECIMEN Ordering Facility: [facility] Address: [address] [place] [address] Performed By: #### Susanna FIGUEROA, , #### [facility] CLIA [id number] [address] [place] [address] [place] Peanut IgE Qn (S) <0.35 Normal <0.35 [facility] Comment on above: Order Comment: Speci men Type: BLOOD SPECIMEN Ordering Facility: [facility] Address: [address] [place] [address] Performed By: #### Susanna FIGUEROA, , #### [facility] CLIA [id number] [address] [place] [address] [place] Peanut IgE RAST class (S) Class 0 Normal Class 0 [facility] Comment on above: Order Comment: Speci men Type: BLOOD SPECIMEN Ordering Facility: [facility] Address: [address] [place] [address] Performed By: #### Susanna FIGUEROA, , #### [facility] CLIA [id number] [address] [place] [address] [place] Scallop IgE Qn (S) <0.35 Normal <0.35 [facility] Comment on above: Order Comment: Speci men Type: BLOOD SPECIMEN Ordering Facility: [facility] Address: [address] [place] [address] Performed By: #### Susanna FIGUEROA, , #### [facility] CLIA [id number] [address] [place] [address] [place] Scallop IgE RAST class (S) Class 0 Normal Class 0 [facility] Comment on above: Order Comment: Speci men Type: BLOOD SPECIMEN Ordering Facility: [facility] Address: [address] [place] [address] Performed By: #### F CAROLINA, , #### [facility] CLIA [id number] [address] [place] [id number] [place] Shrimp IgE Qn (S) <0.35 Normal <0.35 [facility] Comment on above: Order Comment: Speci men Type: BLOOD SPECIMEN Ordering Facility: [facility] Address: [address] [place] [address] Performed By: #### F CAROLINA, , #### [facility] CLIA [id number] [address] [place] [address] [place] Shrimp IgE RAST class (S) Class 0 Normal Class 0 [facility] Comment on above: Order Comment: Speci men Type: BLOOD SPECIMEN Ordering Facility: [facility] Address: [address] [place] [address] Performed By: #### F CAROLINA, , #### [facility] CLIA [id number] [address] [place] [address] [place] Soybean IgE Qn (S) <0.35 Normal <0.35 [facility] Comment on above: Order Comment: Speci men Type: BLOOD SPECIMEN Ordering Facility: [facility] Address: [address] [place] [address] Performed By: #### F CAROLINA, , #### [facility] CLIA [id number] [address] [place] [address] [place] Soybean IgE RAST class (S) Class 0 Normal Class 0 [facility] Comment on above: Order Comment: Speci men Type: BLOOD SPECIMEN Ordering Facility: [facility] Address: [address] [place] [address] Performed By: #### F CAROLINA, , #### [facility] CLIA [id number] [address] [place] [address] [place] IgE Qn (S) <0.35 Normal <0.35 [facility] Comment on above: Order Comment: Speci men Type: BLOOD SPECIMEN Ordering Facility: [facility] Address: [address] [place] [address] Performed By: #### F CAROLINA, , #### [facility] CLIA [id number] [address] [place] [address] [place] IgE RAST class (S) Class 0 Normal Class 0 [facility] Comment on above: Order Comment: Speci men Type: BLOOD SPECIMEN Ordering Facility: [facility] Address: [address] [place] [address] Performed By: #### F CAROLINA, , #### [facility] CLIA [id number] [address] [place] [address] [place] Wheat IgE Qn (S) <0.35 Normal <0.35 [facility] Comment on above: Order Comment: Speci men Type: BLOOD SPECIMEN Ordering Facility: [facility] Address: [address] [place] [address] Performed By: #### F CAROLINA, , #### [facility] CLIA [id number] [address] [place] [address] [place] Wheat IgE RAST class (S) Class 0 Normal Class 0 [facility] Comment on above: Order Comment: Speci men Type: BLOOD SPECIMEN Ordering Facility: [facility] Address: [address] [place] [address] Performed By: #### F CAROLINA, , #### [facility] CLIA [id number] [address] [place] [address] [place] CBC + DIFFon 11-05-2023 Baso # 0.03 x10EE3/UL Normal 0.00 - 0.10 [facility] Comment on above: Performed By: #### 2 97673 #### [facility],[address] [place], [place] [address] Basophils/100 WBC (Bld) 0.3 % Normal 0.0 - 2.0 [facility] Comment on above: Performed By: #### 2 39996 #### [facility],[address] [place] [address] CBC + DIFF Normal [facility] Comment on above: Result Comment: CBC- COMPLETE BLOOD COUNT Performed By: #### 2 29513 #### [facility],[address] [place] [address] EO # 0.39 x10EE3/UL Normal 0.00 - 0.50 [facility] Comment on above: Performed By: #### 2 15048 #### [facility],[address] [place] [address] Eosinophils/100 WBC (Bld) 4.6 % Normal 0.0 - 7.0 [facility] Comment on above: Performed By: #### 2 28776 #### [facility],[address] [place] [address] Erythrocyte distribution width (RBC) [Ratio] 13.7 % Normal 12.0 - 15.6 [facility] Comment on above: Performed By: #### 2 96476 #### [facility],[address] [place] [address] Hematocrit (Bld) [Volume fraction] 46.7 % High 34.0 - 46.0 [facility] Comment on above: Performed By: #### 2 77465 #### [facility],[address] [place], [place] [address] Hemoglobin (Bld) [Mass/Vol] 16.0 g/dL Normal 12.0 - 16.0 [facility] Comment on above: Performed By: #### 2 52048 #### [facility],[address] [place], [place] [address] Lymph # 2.14 x10EE3/UL Normal 0.80 - 2.80 [facility] Comment on above: Performed By: #### 2 81023 #### [facility],[address] [place] [address] Lymphocytes/100 WBC (Bld) 24.9 % Normal 20.0 - 45.0 [facility] Comment on above: Performed By: #### 2 77373 #### [facility],[address] [place] [address] MANUAL DIFF N/A Normal [facility] Comment on above: Performed By: #### 2 12173 #### [facility],[address] [place] [address] MCH (RBC) [Entitic mass] 31 pg Normal 27 - 33 [facility] Comment on above: Performed By: #### 2 20734 #### [facility],[address] [place] [address] MCHC 34 X10 3 Normal 32 - 36 [facility] Comment on above: Performed By: #### 2 30521 #### [facility],[address] [place] [address]35 MCV (RBC) [Entitic vol] 89 fL Normal 80 - 99 [facility] Comment on above: Performed By: #### 2 68440 #### [facility],[address] [place] [address] [place] # 0.43 x10EE3/UL Normal 0.20 - 1.00 [facility] Comment on above: Performed By: #### 2 59071 #### [facility],[address] [place] [address]60 MONOS % 5.0 % Normal 0.0 - 10.0 [facility] Comment on above: Performed By: #### 2 76584 #### [facility],[address] [place] [address] 67569 Morphology Tin (Bld) [Interp] N/A Normal [facility] Comment on above: Performed By: #### 2 58625 #### [facility],[address] [place] [address] Neut # 5.61 x10EE3/UL Normal 1.50 - 7.10 [facility] Comment on above: Performed By: #### 2 88971 #### [facility],[address] [place] [address] Neutrophils/100 WBC (Bld) 65.2 % Normal 46.0 - 76.0 [facility] Comment on above: Performed By: #### 2 91774 #### [facility],[address] [place] [address] PLATELET 281 x10EE3/UL Normal 150 - 450 [facility] Comment on above: Performed By: #### 2 79922 #### [facility],[address] [place] [address] 94898 Platelet mean volume (Bld) [Entitic vol] 8.4 fL Normal 6.6 - 10.5 [facility] Comment on above: Result Comment: AUTO MATED DIFFERENTIAL Performed By: #### 2 19504 #### [facility],[address] [place] [address] 05986 RBC 5.25 x 10EE6/UL Normal 4.10 - 5.30 [facility] Comment on above: Performed By: #### 2 66497 #### [facility],[address] [place] [address]506 WBC 8.6 x 10EE3/UL Normal 4.5 - 10.8 [facility] Comment on above: Performed By: #### 2 99200 #### [facility],[address] [place] [address]203 CMP with eGFRon 11-05-2023 AGE 33 years Normal [facility] Comment on above: Performed By: #### 2 60010 #### [facility],[address] [place] [address] 43924 Albumin [Mass/Vol] 3.8 g/dL Normal 3.4 - 5.0 [facility] Comment on above: Performed By: #### 2 29773 #### [facility],[address] [place] [address] 79405 Albumin/Globulin [Mass ratio] 1.5 {ratio} Normal 0.9 - 1.6 [facility] Comment on above: Performed By: #### 2 34610 #### [facility],[address] [place] [address] 52953 ALK PHOS 50 U/L Normal 46 - 116 [facility] Comment on above: Performed By: #### 2 95217 #### [facility],[address] [place] [address] 88369 ALT [Catalytic activity/Vol] 24 U/L Normal 16 - 63 [facility] Comment on above: Performed By: #### 2 48510 #### [facility],[address] [place] [address] 12463 Anion gap [Moles/Vol] 13 mmol/L Normal 10 - 20 [facility] Comment on above: Performed By: #### 2 86918 #### [facility],[address] [place] [address] 26633 AST [Catalytic activity/Vol] 16 U/L Normal 13 - 39 [facility] Comment on above: Performed By: #### 2 97281 #### [facility],[address] [place] [address] 65467 B/C RATIO 15 ratio Normal 0 - 30 [facility] Comment on above: Performed By: #### 2 95593 #### [facility],[address] [place] [address] 50381 Bilirubin [Mass/Vol] 1.8 mg/dL High 0.2 - 1.0 [facility] Comment on above: Performed By: #### 2 18404 #### [facility],[address] [place] [address] 42863 Calcium [Mass/Vol] 9.1 mg/dL Normal 8.5 - 10.1 [facility] Comment on above: Performed By: #### 2 42947 #### [facility],[address] [place] [address] 98902 Chloride [Moles/Vol] 104 mmol/L Normal 98 - 107 [facility] Comment on above: Performed By: #### 2 35149 #### [facility],[address] [place] [address] 21127 CMP with eGFR Normal [facility] Comment on above: Result Comment: COMP REHENSIVE METABOLIC PANEL Performed By: #### 2 68154 #### [facility],[address] [place] [address] CO2 [Moles/Vol] 27.7 mmol/L Normal 21.0 - 32.0 [facility] Comment on above: Performed By: #### 2 44432 #### [facility],[address] [place] [address] Creatinine [Mass/Vol] 0.71 mg/dL Normal 0.55 - 1.02 [facility] Comment on above: Performed By: #### 2 18085 #### [facility],[address] [place] [address] GFR/1.73 sq M.predicted among non-blacks MDRD (S/P/Bld) [Vol rate/Area] mL/min/{1.73_m2} Normal 60 - 999 [facility] Comment on above: Performed By: #### 2 64104 #### [facility],[address] [place] [address] Result Comment: ACCO RDING TO THE NATIONAL KIDNEY DISEASE EDUCATION PROGRAM(NKDE), A NORMAL eGFR IS A VALUE GREATER THAN OR EQUAL TO 60 ML/MIN/1.73 SQ METERS. CHRONIC KIDNEY DISEASE: <60mL/MIN/1.73 SQ METERS KIDNEY FAILURE: <15mL/MIN/1.73 SQ METERS THIS TEST SHOULD ONLY BE USED FOR PATIENTS 18 YEARS OF AGE AND OLDER. Globulin (S) [Mass/Vol] 2.6 g/dL Normal 1.5 - 3.8 [facility] Comment on above: Performed By: #### 2 56320 #### [facility],[address] [place] [address] 14458 Glucose [Mass/Vol] 92 mg/dL Normal 74 - 106 [facility] Comment on above: Performed By: #### 2 38448 #### [facility],[address] [place] [address] 15608 Potassium [Moles/Vol] 4.4 mmol/L Normal 3.5 - 5.1 [facility] Comment on above: Performed By: #### 2 07169 #### [facility],[address] [place] [address] 80709 Protein [Mass/Vol] 6.4 g/dL Normal 6.4 - 8.2 [facility] Comment on above: Performed By: #### 2 77271 #### [facility],[address] [place], [place] [address] Sodium [Moles/Vol] 140 mmol/L Normal 136 - 145 [facility] Comment on above: Performed By: #### 2 86250 #### [facility],[address] [place] [address] 29908 Urea nitrogen [Mass/Vol] 11 mg/dL Normal 7 - 18 [facility] Comment on above: Performed By: #### 2 66376 #### [facility] [facility] [place] [address]243 CRP [facility] HS-mCncon 11-05-19 24 CRP High sensitivity method [Mass/Vol] 3.8 mg/L High <3.1 [facility] Comment on above: Order Comment: Speci men Type: BLOOD SPECIMEN Ordering Facility: [facility] Address: [address] [place] [address] Result Comment: hsCR P < 1.0 mg/L, relative risk is low hsCRP 1.0-3.0 mg/L, relative risk is average hsCRP > 3.0 mg/L, relative risk is high Reference: Susu TA, Fely GA, Hao RW, et al. Markers of Inflammation and Cardiovascular Disease. Application to Clinical and Public Health Practice. A Statement for Healthcare Professionals from the Centers for Disease Control and Prevention and the [employer]. Circulation 2003;107:499-511. Performed By: #### F CAROLINA, 39757-2, #### [facility] CLIA [id number] [address] [place] [address] [place] HEMOGLOBIN A1C (POM)on 11-04 Glucose [Mass/Vol] 91.1 mg/dL High 0.0 - 0.0 [facility] Comment on above: Result Comment: BLDo HEMOGLOBIN A1C REFERENCE RANGESBLDo Suggested Diagnosis HbA1c(%) HbA1C (mmol/mol Diabetic >/=6.5 >/=48 Prediabetes 5.7 - 6.4 39 - 47 Normal <5.7 <39 Performed By: #### 2 69233 #### [facility],[address] [place] [address] HbA1c (Bld) [Mass fraction] 4.8 % Normal 0.0 - 6.5 [facility] Comment on above: Performed By: #### 2 67069 #### [facility],[address] [place] [address] Insulin SerPl-aCncon 024 Insulin Qn 4.9 u[IU]/mL Normal 3.0-25.0 [facility] Comment on above: Order Comment: Speci men Type: BLOOD SPECIMEN Ordering Facility: [facility] Address: [address] [place] [address] Performed By: #### F CAROLINA, 56227-9, #### [facility] CLIA [id number] [address] [place] [address] [place] LIPID PROFILEon 11-05-2023 Cholesterol [Mass/Vol] 193 mg/dL Normal 0 - 240 [facility] Comment on above: Performed By: #### 2 36737 #### [facility],[address] [place] [address]69 Cholesterol in HDL [Mass/Vol] 81 mg/dL High 40 - 60 [facility] Comment on above: Performed By: #### 2 44883 #### [facility],[address] [place] [address]015 Cholesterol in LDL [Mass/Vol] 102 mg/dL Normal 0 - 129 [facility] Comment on above: Performed By: #### 2 09777 #### [facility],[address] [place] [address] 12718 Cholesterol.total/Rashida sterol in HDL [Mass ratio] 2.4 {ratio} Normal 0.0 - 5.0 [facility] Comment on above: Performed By: #### 2 65014 #### [facility],[address] [place] [address] 85345 Lipid 1996 panel Normal [facility] Comment on above: Result Comment: LIPI D PROFILE Performed By: #### 2 58660 #### [facility],[address] [place] [address] 10678 Triglyceride [Mass/Vol] 49 mg/dL Normal 0 - 150 [facility] Comment on above: Performed By: #### 2 61390 #### [facility],[address] [place] [address] 19103 URIC ACIDon 11-05-2023 Urate [Mass/Vol] 3.8 mg/dL Normal 2.6 - 6.0 [facility] Comment on above: Performed By: #### 2 79594 #### [facility],[address] [place] [address] Vicente 09-27-2023 MAAME Telephone (OBGY) GIOVANNA DAY ([id number]) 1990 F Date Time Provider Department 09/27/23 JESSIE AHRMAN During your visit today, we recorded the following information about you: Yissel Knowles RN 09/27/2023 11:28 AM Signed Received fax form from [facility] physical therapy. Needs signature from Dr. Harman. Fax paperwork placed on Dr. Harman desk for signature. Vicky Moore RN 09/27/2023 2:11 PM Signed Faxed Vicky Moore [...] Encounter Status:Closed by VICKY MOORE on 09/27/23 [facility] Vicente 09-17-2023 [facility] (OB[facility]) GIOVANNA DAY ([id number]) 1990 F Date Time Provider Department 09/17/23 JESSIE HARMAN During your visit today, we recorded the following information about you: Yissel Knowles RN 09/17/2023 8:39 AM Signed Patient calling to ask for pelvic floor therapy order. Patient states she sees Truly Norris PT from [facility] in [place]. Pt has connective tissue disorder. States she wants this therapy for pelvic floor issues. Pt aware Dr Harman out of office until Sunday Pt would like faxed to [facility]. And would like a call to let her know it was completed. 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 Please inform patient. MD Jessica Westbrook Lindsey, RN 09/18/2023 2:07 PM Signed Patient notified and voiced understanding. Patient still wishes to have order faxed to [facility] in [place]. Order faxed. Beatris Ladd RN Allergies As of Date: 09/17/2023 (No Known Allergies) Date Reviewed: 08/21/2023 Reviewed by: Naima Early LPN - Fully Assessed Reason for Visit: Orders [681] Primary Visit Diagnosis:Pelvic floor tension [M62.89] Order(s):CONSULT TO PHYSICAL THERAPY [9032] Order #: [id number]: 1 FUTURE Prescriptions as of 09/18/2023 - [...] Status:Closed by BEATRIS LADD on 09/18/23 Normal [facility] CBC W Auto Differential pane l (Bld)on 07-10-2023 Basophils (Bld) [#/Vol] <0.11 k/uL [facility] Bas[facility]/100 WBC (Bld) 0.3 % C [facility] Differential cell count method Nom (Bld) Auto [facility] Eosinophils (Bld) [#/Vol] 0.23 10*3/uL <0.46 k/uL [facility] Eosinophils/100 WBC (Bld) 3.0 % [facility] Erythrocyte distribution width (RBC) [Ratio] 13.2 % 11.5 - 15.0 % [facility] Hematocrit (Bld) [Volume fraction] 33.1 % Low 36.0 - 46.0 % [facility] Hemoglobin (Bld) [Mass/Vol] 11.4 g/dL Low 11.5 - 15.5 g/dL [facility] Immature granulocytes (Bld) [#/Vol] 0.04 10*3/uL <0.10 k/uL [facility] Immature granulocytes/100 WBC (Bld) 0.5 % [facility] Lymphocytes (Bld) [#/Vol] 2.15 10*3/uL 1.00 - 4.00 k/uL [facility] Lymphocytes/100 WBC (Bld) 27.7 % [facility] MCH (RBC) [Entitic mass] 31.1 pg 26.0 - 34.0 pg [facility] MCHC (RBC) [Mass/Vol] 34.4 g/dL 30.5 - 36.0 g/dL [facility] MCV (RBC) [Entitic vol] 90.2 fL 80.0 - 100.0 fL [facility] Monocytes (Bld) [#/Vol] 0.40 10*3/uL <0.87 k/uL [facility] Monocytes/100 WBC (Bld) 5.1 % C [facility] Neutrophils (Bld) [#/Vol] 4.93 10*3/uL 1.45 - 7.50 k/uL [facility] Neutrophils/100 WBC (Bld) 63.4 % [facility] Nucleated RBC (Bld) [#/Vol] <0.01 k/uL [facility] Nucleated RBC/100 WBC (Bld) [Ratio] 0.0 /100 WBC [facility] Platelet mean volume (Bld) [Entitic vol] 9.1 fL 9.0 - 12.7 fL [facility] Platelets (Bld) [#/Vol] 350 10*3/uL 150 - 400 k/uL [facility] RBC (Bld) [#/Vol] 3.67 10*6/uL Low 3.90 - 5.2 0 m/uL [facility] WBC (Bld) [#/Vol] 7.77 10*3/uL 3.70 - 11. 00 k/uL [facility] TSH BLDon 07-10-2023 TSH Qn 0.875 m[IU]/L 0.270 - 4.200 mIU/L [facility] VITAMIN D 25 HYDROXYon 07-09 25-hydroxyvitamin D3 [Mass/Vol] 57.5 ng/mL 31.0 - 80.0 ng/mL [facility] Basophil percentageOrdered B y: Michael Alfaro on 07-03-2023 Chloride [Moles/Vol] 109 mmol/L 98-107 [facility] Glucose [Mass/Vol] 116 mg/dL 74-106 [facility] Comment on above: Fasting Glucose resu lt from 100 to 125 mg/dL suggests IMPAIRED HOMEOSTASIS per A.D.A. criteria. Hemoglobin (Bld) [Mass/Vol] 15.2 g/dL 12.0-15.0 [facility] Potassium [Moles/Vol] 3.8 mmol/L 3.5-5.1 [facility] Sodium [Moles/Vol] 139 mmol/L 136-145 [facility] WBC (Bld) [#/Vol] 13.4 10*3/uL 4.4-11.0 [facility] Determination of erythrocyte mean corpuscular volume (MCV)Ordered By: Michaelcory Alfaro on 07-03-2023 MCV (RBC) [Entitic vol] 89.1 fL 81-99 [facility] Erythrocyte distribution wid th ratioOrdered By: Michael Alfaro on 07-03-2023 Erythrocyte distribution width (RBC) [Ratio] 12.6 % 11.6-14.6 [facility] Erythrocyte distribution wid th standard deviationOrdered By: Michael Alfaro on 07-03-2023 Erythrocyte distribution width (RBC) [Entitic vol] 41.4 fL 35.1-43.9 [facility] Hematocrit Auto (Bld) [Volum e fraction]Ordered By: Michaelcory Alfaro on 07-03-2023 Hematocrit (Bld) [Volume fraction] 42.6 % 37-47 [facility] Laboratory - Chemistry and C hemistry - challengeOrdered By: Michael Alfaro on 07-03-2023 CO2 [Moles/Vol] 23.0 mmol/L 21.0-32.0 [facility] Urea nitrogen/Creatinine [Mass ratio] 11.5 mg/mg 10-20 [facility] Laboratory - Hematology and Cell countsOrdered By: Michael Alfaro on 07-03-2023 MCH (RBC) [Entitic mass] 31.8 pg 27.0-32.0 [facility] MCHC (RBC) [Mass/Vol] 35.7 g/dL 32-36 [facility] Platelet mean volume (Bld) [Entitic vol] 9.3 fL 6.2-12.0 [facility] Platelets (Bld) [#/Vol] 295 10*3/uL 150-450 [facility] No Panel InformationOrdered By: Michael Alfaro on 07-03-2023 Estimated GFR (MDRD) Amer 143 mL/min >60 [facility] Comment on above: GFR Calc Estimated GFR (MDRD) Non-Af Amer 118 mL/min >60 [facility] Comment on above: Non- GFR Calc RBC Auto (Bld) [#/Vol]Ordere d By: Michael Alfaro on 07-03-2023 RBC (Bld) [#/Vol] 4.78 10*6/uL 4.2-5.4 [facility] Serum or plasma calcium rachid urement (mass/volume)Ordered By: Michael Alfaro on 07-03-2023 Calcium [Mass/Vol] 9.2 mg/dL 8.5-10.1 [facility] Serum or plasma creatinine m easurement (mass/volume)Ordered By: Michael Alfaro on 07-03-2023 Creatinine [Mass/Vol] 0.61 mg/dL 0.55-1.02 [facility] Comment on above: The validity of the calculated GFR & GFRAA in patients over 70 years has not been determined. Clinical correlation is essential. Serum or plasma urea nitroge n measurement (mass/volume)Ordered By: Michael Alfaro on 07-03-2023 Urea nitrogen [Mass/Vol] 7 mg/dL 7-18 [facility] Thin prep Papanicolaou smear with manual screeningOrdered By: Michael Alfaro on 07-03-2023 Thin prep Papanicolaou smear with manual screening 7 5-15 [facility] FERRITINon 05-09-2023 Ferritin [Mass/Vol] 93 ng/mL Normal 16-154 [facility] Comment on above: Performed By: #### 8 99, 866, 44191, 457 #### [facility] [address], [address] [place] [address] Whipped Topping Mixer: Hasmukh Leon MD T3, FREEon 05-09-2023 Free T3 [Mass/Vol] 3.3 pg/mL Normal 2.3-4.2 [facility] Comment on above: Performed By: #### 8 99, 86, 33914, 457 #### [facility] [address], [address] [place] [address] Whipped Topping Mixer: Hasmukh Leon MD T4, FREEon 05-09-2023 Free T4 [Mass/Vol] 1.2 ng/dL Normal 0.8-1.8 [facility] Comment on above: Performed By: #### 8 99, 866, 19580, 457 #### [facility] [place] [address] Whipped Topping Mixer: Hasmukh Leon MD TSHon 05-09-2023 TSH Qn 0.78 m[IU]/L Normal [facility] Comment on above: Result Comment: Refe rence Range > or = 20 Years 0.40-4.50 Ranges First trimester 0.26-2.66 Second trimester 0.55-2.73 Third trimester 0.43-2.91 Performed By: #### 8 99, 866, 74746, 457 #### [facility] [place] [address] Whipped Topping Mixer: Hasmukh Leon MD Laboratory - Chemistry and C hemistry - challengeon 05-08-2023 Ferritin [Mass/Vol] 93 ng/mL Normal 16 - 154 ng/mL [facility] Free T3 [Mass/Vol] 3.3 pg/mL Normal 2.3 - 4.2 pg/mL [facility], [facility] Free T4 [Mass/Vol] 1.2 ng/dL Normal 0.8 - 1.8 ng/dL [facility], [facility].; [facility], [facility]. TSH Qn 0.78 m[IU]/L Normal [facility], [facility]. VITAMIN B6/PYRIDOXINon 06-17 VITAMIN B6 190.5 nmol/L High 20.0-125.0 [facility] Comment on above: Order Comment: Speci james Type: BLOOD SPECIMEN Ordering Facility: [facility] Address: [facility] [place] [address] Result Comment: INTE RPRETIVE INFORMATION: Vitamin B6 (Pyridoxal 5-Phosphate) Pyridoxal 5'-phosphate measured in a specimen collected following an 8-hour or overnight fast accurately indicates vitamin B6 nutritional status. Non-fasting specimen concentration reflects recent vitamin intake. This test was developed and its performance characteristics determined by [facility]. It has not been cleared or approved by the US Food and Drug Administration. This test was performed in a CLIA certified laboratory and is intended for clinical purposes. Performed By: [facility] [address] [place] [address] Agricultural Research Engineer: Ortega Espinoza MD, PhD Performed By: #### V ITB6 #### [facility] [employer] CLIA [id number] [address] [place] [address] 1,25-dihydroxyvitamin D3 [Ma ss/Vol]on 06-15-2022 VIT D1,25 DIHYDROXY 60.7 pg/mL Normal 19.9-79.3 [facility] Comment on above: Order Comment: Speci james Type: BLOOD SPECIMEN Ordering Facility: [facility] Address: [facility] [place] [address] Performed By: #### 1 649-3 #### [facility] CLIA [id number] [address] [place] [address] [place] HbA1c (Bld)on 06-15-2022 Average glucose Estimated from glycated hemoglobin (Bld) [Mass/Vol] 94 mg/dL Normal [facility] Comment on above: Order Comment: Scott ramirez Type: BLOOD SPECIMEN Ordering Facility: [facility] Address: [facility] [place] [address] Result Comment: eAG: (Estimated average glucose) is a calculated value from HgbA1c and is merchandising representative of the average blood glucose level in the last 2-3 month period. Performed By: #### 5 5454-3 #### [facility] CLIA [id number] [address] [place] [address] [place] HbA1c (Bld) [Mass fraction] 4.9 % Normal 4.3-5.6 [facility] Comment on above: Order Comment: Scott ramirez Type: BLOOD SPECIMEN Ordering Facility: [facility] Address: [address] [place] [address] Result Comment: Miguel Angel ican Diabetes Association guidelines indicate that patients with HgbA1c in the range 5.7-6.4% are at increased risk for development of diabetes, and intervention by lifestyle modification may be beneficial. HgbA1c greater or equal to 6.5% is considered diagnostic of diabetes. Performed By: #### 5 5454-3 #### [facility] CLIA [id number] [address] [place] [address] [place] HGB A1Con 07-16-2021 Average glucose Estimated from glycated hemoglobin (Bld) [Mass/Vol] 88 mg/dL Normal [facility] Comment on above: Order Comment: Scott ramirez Type: BLOOD SPECIMEN Ordering Facility: [facility] Address: [facility] [place] [address] Result Comment: eAG: (Estimated average glucose) is a calculated value from HgbA1c and is merchandising representative of the average blood glucose level in the last 2-3 month period. Performed By: #### 2 0448-7, HBA1C #### [facility] CLIA [id number] [address] [place] [address] [place] HbA1c (Bld) [Mass fraction] 4.7 % Normal 4.3-5.6 [facility] Comment on above: Order Comment: Scott ramirez Type: BLOOD SPECIMEN Ordering Facility: [facility] Address: [address] [place] [address] Result Comment: Amer ican Diabetes Association guidelines indicate that patients with HgbA1c in the range 5.7-6.4% are at increased risk for development of diabetes, and intervention by lifestyle modification may be beneficial. HgbA1c greater or equal to 6.5% is considered diagnostic of diabetes. Performed By: #### 2 0448-7, HBA1C #### [facility] CLIA [id number] [address] [place] [address] [place] Insulin SerPl-aCncon 16- 022 Insulin Qn 12.9 u[IU]/mL Normal 3.0-25.0 [facility] Comment on above: Order Comment: Speci men Type: BLOOD SPECIMEN Ordering Facility: [facility] Address: [address] [place] [address] Performed By: #### 2 0448-7, HBA1C #### [facility] CLIA [id number] [address] [place] [address] [place] LYME AB SCREEN + REFLEX TO I MMUNOBLOT; <4 WKS POST SYMPTOMSon 11-23-2019 LYME ANTIBODIES SCREEN 0.20 BETSY Normal 0.00-1.20 [facility] Comment on above: Result Comment: When the [...] antibody to B. burgdorferi detected. Performed By: [facility] [address] [place] [address] Agricultural Research Engineer: Jignesh Bazzi MD, MS Performed By: #### L YMED #### [facility] [address] [place] [address] Provider Note - ED v2on 08-31 Provider [...] medications, allergies, medical history, and surgical history ALLERGIES/INTOLERANCE S: No Known Allergies HEALTH HISTORY: No documented data. OUTPATIENT MEDICATIONS: Home Medications Review Status for Reconciliation: Complete Med Status: Patient Currently Takes Medications Drug Name: amoxicillin-clavulana te 875 mg-125 mg oral tablet Instructions: 875 milligram(s) orally 2 times a day SIGNIFICANT EVENTS: No documented data. EAR SPECIALIST: Is : yes Is : no RESULTS/VITAL SIGNS VITAL SIGNS: T PRBP SpO2O2(LPM) %FiO2 Method 18-Sep-2019 08:26:[id number]/ 73 100 MEDICAL DECISION MAKING/ED COURSE MDM/ED COURSE: [...] left foot. Patient denies use of any dtit-xer-fyvzhjn medications at home prior to her for [...] anterior aspect of the left foot Integumentary: [place], warm, with some erythema noted on the [...] ill patient: no Electronic Signatures: Judah Morales (CIRCUIT COURT CLERK-ELDER COUNSELOR) (Signed 18-Sep-2019 08:57) Authored: Provider Note - ED v2 Last Updated: 18-Sep-2019 08:57 by Judah Morales (CIRCUIT COURT CLERK-ELDER COUNSELOR) [facility] Vital Signs Date Time Vital Sign Value Performing Clinician Facility 09-20-2024 06:20-0400 Body temperature 98.2 [degF] Erick Cleaning CLINICAL TRAINING COORDINATOR-C Work Phone: [facility] 09-20-2024 06:20-0400 Diastolic blood pressure 71 mm[Hg] Erick Cleaning CLINICAL TRAINING COORDINATOR-C Work Phone: [facility] 09-20-2024 06:20-0400 Heart rate 85 /min Erick Cleaning CLINICAL TRAINING COORDINATOR-C Work Phone: [facility] 09-20-2024 06:20-0400 Respiratory rate 16 /min Erick Cleaning CLINICAL TRAINING COORDINATOR-C Work Phone: [facility] 09-20-2024 06:20-0400 SaO2% (BldA) [Mass fraction] 99 % Erick Cleaning CLINICAL TRAINING COORDINATOR-C Work Phone: [facility] 09-20-2024 06:20-0400 Systolic blood pressure 127 mm[Hg] Erick Cleaning CLINICAL TRAINING COORDINATOR-C Work Phone: [facility] 09-20-2024 02:45-0400 Body height 162.56 cm Erick Cleaning CLINICAL TRAINING COORDINATOR-C Work Phone: [facility] 09-20-2024 02:45-0400 Body mass index (BMI) [Ratio] 39.5 kg/m2 Erick Cleaning CLINICAL TRAINING COORDINATOR-C Work Phone: [facility] 09-20-2024 02:45-0400 Body weight 104.5 kg Erick Cleaning CLINICAL TRAINING COORDINATOR-C Work Phone: [facility] 05-28-2024 09:38-0500 Body temperature 98.1 [degF] Shaka Mock MD Work Phone: [facility] 05-28-2024 09:38-0500 Body weight 97.57 kg Shaka Mock MD Work Phone: [facility] 05-28-2024 09:38-0500 Diastolic blood pressure 96 mm[Hg] Shaka Mock MD Work Phone: [facility] 05-28-2024 09:38-0500 Heart rate 104 /min Shaka Mock MD Work Phone: [facility] 05-28-2024 09:38-0500 Systolic blood pressure 134 mm[Hg] Shaka Mock MD Work Phone: [facility] 09-08-2023 11:05-0400 Body height 162.6 cm James Grewal [address] CLERK-ELDER COUNSELOR Work Phone: [facility] 09-08-2023 11:05-0400 Body mass index (BMI) [Ratio] 39.48 kg/m2 James Grewal [address] CLERK-ELDER COUNSELOR Work Phone: [facility] 09-08-2023 11:05-0400 Body temperature 97.59 [degF] James Grewal CIRCUIT COURT CLERK-ELDER COUNSELOR Work Phone: [facility] 09-08-2023 11:05-0400 Body weight 104.33 kg James Grewal [address] CLERK-ELDER COUNSELOR Work Phone: [facility] 09-08-2023 11:05-0400 Diastolic blood pressure 79 mm[Hg] James Platata CIRCUIT COURT CLERK-ELDER COUNSELOR Work Phone: [facility] 09-08-2023 11:05-0400 Heart rate 75 /min James Aleks [address] [facility] CLERK-ELDER COUNSELOR Work Phone: [facility] 09-08-2023 11:05-0400 Respiratory rate 16 /min James Aleks [address] [facility] CLERK-ELDER COUNSELOR Work Phone: [facility] 09-08-2023 11:05-0400 SaO2% (BldA) [Mass fraction] 97 % James Platata [address] [facility] CLERK-ELDER COUNSELOR Work Phone: [facility] 09-08-2023 11:05-0400 Systolic blood pressure 113 mm[Hg] James Platata [address] [facility] CLERK-ELDER COUNSELOR Work Phone: [facility] 08-21-2023 10:20-0400 Body weight 103.42 kg Jason Dykes MD Work Phone: [facility] 08-21-2023 10:20-0400 Diastolic blood pressure 78 mm[Hg] Jason Dykes MD Work Phone: [facility] 08-21-2023 10:20-0400 Systolic blood pressure 112 mm[Hg] Jason Dykes MD Work Phone: [facility] 07-10-2023 14:27-0400 Body weight 101.52 kg Jessie Harman MD Work Phone: [facility] 07-10-2023 14:27-0400 Diastolic blood pressure 70 mm[Hg] Jessie Harman MD Work Phone: [facility] 07-10-2023 14:27-0400 Systolic blood pressure 102 mm[Hg] Jessie Harman MD Work Phone: [facility] 07-03-2023 14:56-0400 Body temperature 97.4 [degF] [facility] 07-03-2023 14:56-0400 Diastolic blood pressure 72 mm[Hg] [facility] 07-03-2023 14:56-0400 Heart rate 96 /min [facility] 07-03-2023 14:56-0400 Respiratory rate 16 /min [facility] 07-03-2023 14:56-0400 SaO2% (BldA) [Mass fraction] 100 % [facility] 07-03-2023 14:56-0400 Systolic blood pressure 114 mm[Hg] [facility] 07-03-2023 11:53-0400 Body temperature 98.4 [degF] [facility] 07-03-2023 11:53-0400 Diastolic blood pressure 78 mm[Hg] [facility] 07-03-2023 11:53-0400 Heart rate 105 /min [facility] 07-03-2023 11:53-0400 Respiratory rate 16 /min [facility] 07-03-2023 11:53-0400 SaO2% (BldA) [Mass fraction] 98 % [facility] 07-03-2023 11:53-0400 Systolic blood pressure 147 mm[Hg] [facility] 07-03-2023 10:30-0400 Body height 162.56 cm [facility] 05-08-2023 14:03-0500 Body height 162.56 cm Darrell Shepard RN [employer] [facility], [facility].; [email or web address] [facility]. 05-08-2023 14:03-0500 Body mass index (BMI) [Ratio] 39.14 kg/m2 Darrell Shepard RN [employer] [facility].; [employer] [facility]. 05-08-2023 14:03-0500 Body surface area Derived from formula 2.07 m2 Darrell Shepard RN [employer] [facility] [facility].; [email or web address] [facility]. 05-08-2023 14:03-0500 Body weight 103.42 kg Darrell Shepard RN [employer] [facility].; [email or web address] [facility]. 05-08-2023 14:03-0500 Diastolic blood pressure 82 mm[Hg] Darrell Shepard RN [employer] [facility].; [employer]. Comment on above: Patient Position: Sitting; Cuff Location : Left Arm; Cuff Size: Standard 05-08-2023 14:03-0500 Heart rate 92 /min Darrell Shepard RN [facility], [facility].; [facility]. Comment on above: Pattern: Regular 05-08-2023 14:03-0500 Systolic blood pressure 127 mm[Hg] Darrell Shepard RN [facility], [facility].; [facility], [facility]. Comment on above: Patient Position: Sitting; Cuff Location : Left Arm; Cuff Size: Standard Encounters Encounter Date Encounter Type Care Provider Facility Start: 09-20-2024 End: 09-20-2024 Emergency department patient visit Erick Cleaning CLINICAL TRAINING COORDINATOR-C Work Phone: -Emergency Department Work Phone: Start: 08-01-2024 End: 08-01-2024 Telephone encounter Shaka Mock MD Work Phone: Rheumatology Comment on above: Orders; Forms Start: 07-15-2024 End: 07-15-2024 ambulatory [facility] Start: 05-28-2024 End: 05-28-2024 ambulatory LEENA ELDER Facility:[facility] Start: 05-28-2024 End: 05-28-2024 Patient [...] Rheumatology Comment on above: Received [facility] Records Start: 03-17-2024 End: 03-17-2024 ambulatory No Primary Care Physician Facility:[facility] Start: 03-17-2024 End: 03-17-2024 ambulatory Jessica Benson Facility:[facility] Start: 11-26-2023 ambulatory Erick Cleaning NP Facility :[facility] Start: 11-26-2023 End: 11-26-2023 ambulatory Erick Cleaning NP Facility:[facility] Start: 11-05-2023 End: [facility]05[facility] Start: 11-05-2023 Encounter for genera l adult medical examination without abnormal findings ERICK CLEANING [facility] Start: 09-27-2023 End: 09-27-[address] Functional Medicine Comment on above: Weight gain (Primary Dx); Dietary counseling and surveillance Start: 09-27-2023 End: 09-27-2023 Telemedicine consultation with patient Alondra Hero SANTANA Functional Medicine Start: 09-27-2023 Telephone encounter Jessie nova MD Work Phone: OB/Gynecology Comment on above: Orders Start: 09-17-2023 Telephone encounter Jessie nova MD Work Phone: OB/Gynecology Comment on above: Orders Start: 09-08-2023 End: 09-08-2023 Patient encounter procedure [facility] [address] [facility] CLERK-ELDER COUNSELOR Work Phone: [facility] Comment on above: Exposure to pertussi s (Primary Dx) Start: 09-08-2023 End: 09-08-2023 ambulatory [facility] Start: 08-24-2023 ambulatory Jessie Miranda Work Phone: OB/Gynecology Start: 08-24-2023 Patient encounter procedure Jessie Harman MD Work Phone: OB/Gynecology Comment on above: Referral Start: 08-23-2023 ambulatory Jessie Miranda Work Phone: OB/Gynecology Comment on above: Fluid retention Start: 08-21-2023 End: 08-21-2023 ambulatory JESSIE HARMAN Facility:[facility] Start: 08-21-2023 End: 08-21-2023 Patient [...] 07-03-2023 Admission to same day surgery center [facility] Start: 07-03-2023 End: 07-03-2023 ambulatory [facility] Work Phone: Start: 05-08-2023 End: 05-10-2023 Office outpatient new 20 minutes Crystal Uptain CNM Work Phone[facility] Start: 05-08-2023 Review Crystal Uptain CNM Work Phone: [facility] Start: 03-05-2023 End: 03-05-2023 ambulatory Ernesto Shah MD Work Phone: Infectious Disease Comment on above: Diseases of the oral soft tissues, excluding lesions specific for gingiva and tongue (Primary Dx); Lesion of tongue Start: 03-05-2023 End: 03-05-2023 Telemedicine consultation with patient Ernesto Shah MD Work Phone: [facility] Start: 02-16-2023 End: 02-16-2023 ambulatory Estela Fontanez APRN.ELDER COUNSELOR Work Phone: Functional Medicine Comment on above: Mold exposure (Prima ry Dx); Thrush Start: 02-16-2023 End: 02-16-2023 Telemedicine consultation with patient Estela Fontanez APRN.ELDER COUNSELOR Work Phone: [facility] Start: 01-15-2023 Orders Only Estela Fontanez APRN.ELDER COUNSELOR Work Phone: Functional Medicine Start: 01-12-2023 End: 01-12-2023 ambulatory Estela Fontanez APRN.ELDER COUNSELOR Work Phone: Functional Medicine Comment on above: Thrush (Primary Dx); Chronic fatigue Start: 01-12-2023 End: 01-12-2023 Telemedicine consultation with patient Estela Huseyin CIRCUIT COURT CLERK.ELDER COUNSELOR Work Phone: [facility] Start: 12-28-2022 End: 12-28-2022 ambulatory [address] Work Phone: Functional Medicine Comment on above: Thrush (oral) (Prima ry Dx); Intestinal dysbiosis; Dietary counseling and surveillance Start: 12-28-2022 End: 12-28-2022 Telemedicine consultation with patient Kendal Anderson Augustus RD Work Phone: [facility] Start: 12-18-2022 Orders Only Estela Fontanez CIRCUIT COURT CLERK.ELDER COUNSELOR Work Phone: Functional Medicine Comment on above: Risk of exposure to Lyme disease (Primary Dx) Start: 12-13-2022 End: 12-13-2022 ambulatory Estela Fontanez [address] CLERK.ELDER COUNSELOR Work Phone: Functional Medicine Comment on above: Hormone imbalance (P rimary Dx); Intestinal dysbiosis; Thrush; Mold exposure Tick bite Start: 12-13-2022 End: 12-13-2022 Telemedicine consultation with patient Estela Fontanez APRN.ELDER COUNSELOR Work Phone: [facility] Start: 12-07-2022 ambulatory Whitley amaro MD [...] with patient Whitley Pollard MD Work Phone: [facility] Start: 09-20-2022 End: 09-20-[address] Work Phone: [facility] Start: 09-20-2022 End: 09-20-2022 FQHC visit, estab pt Kendal Coffman RD Work Phone: Functional Medicine Comment on above: Established Patient Procedures Date Procedure Procedure Detail Performing Clinician Start: 09-20-2024 Urnls dip stick/tabl et reagent auto microscopy Erick Cleaning CLINICAL TRAINING COORDINATOR-C Work Phone: Start: 09-20-2024 Transvaginal obstetr ic ultrasonography Erick Cleaning CLINICAL TRAINING COORDINATOR-C Work Phone: Start: 09-20-2024 Estimated creatinine clearance Erick Cleaning CLINICAL TRAINING COORDINATOR-C Work Phone: Start: 07-03-2023 Dilation and curetta ge of uterus Start: 07-03-2023 Pelvic echography H/O: surgery S/P D&C (status post dilation and curettage) Erick Cleaning CLINICAL TRAINING COORDINATOR-C Work Phone: Unlisted procedure dentoalveolar structures Crystal K Uptain CNM Work Phone: Comment on above: No post-op complicat ions. Plan of Treatment Date Care Activity Detail Author Start: 2038 Zoster Vaccines (1 o f 2) Zoster Vaccines (1 of 2) [facility] Start: 12-01-2024 Influenza vaccination Influenz a Vaccine (Season Ended) [facility] Start: 09-20-2024 [facility] Start: 05-28-2024 End: 05-28-2024 Patient encounter procedure 05/28/2024 9:00 AM EST Office Visit [facility] [address] [address] Shaka Mock MD [address] [place] [address] [facility] Comment on above: [facility] Start: 12-02-2023 Covid-19 Vaccine ( season) Covid-19 Vaccine ( season) [facility] Start: 12-02-2023 Influenza vaccination [facility] Start: 08-21-2023 End: 11-20-2023 Hemoglobin A1c in Blood HEMOGLOBIN A1C Lab Routine History of loss, not currently Expected: 08/21/2023, Expires: 11/20/2023 [place] Work Phone: Comment on above: Expected: 08/21/2023 , Expires: 11/20/2023 Start: 07-03-2023 Ambulation without limitation [facility] Start: 07-03-2023 Medication education [facility] Start: 07-03-2023 Patient discharge [facility] Start: 07-03-2023 Taking patient vital signs [facility] Start: 07-03-2023 Vital signs measurements [facility] Start: 07-03-2023 [facility] Start: 07-03-2023 Planned voiding [facility] Start: 07-03-2023 Dilation and curetta ge of uterus Dilation and Curettage, Suction (Not Applicable) [facility] Start: 07-03-2023 [facility] Start: 07-03-2023 Pelvic echography Pelvic (Non Pregna nt) [facility] Start: 07-03-2023 US Pelvis [facility] Start: 05-10-2023 Us uterus limited 1/> fetuses LIMITED OBSTETRICAL ULTRASOUND (92108) Start: 10-May-2023 Intent [facility], [facility]. Start: 04-02-2023 Behavioral Health Screening Behavioral Health Screening [facility] Start: 03-05-2023 End: 06-04-2023 HIV 1+2 Ab [Presence] in Serum or Plasma by Immunoassay HIV 1 2 COMBO(AG/AB),WITH REFLEX TO DIFFERENTIATION Lab Routine Diseases of the oral soft tissues, excluding lesions specific for gingiva and tongue Lesion of tongue Expected: 03/05/2023, Expires: 06/04/2023 [place] Work Phone: Comment on above: Expected: 03/05/2023 , Expires: 06/04/2023 Start: 03-05-2023 End: 06-04-2023 SYPHILIS TOTAL W/REFLEX SYPHILIS TOTAL W/REFLEX Lab Routine Diseases of the oral soft tissues, excluding lesions specific for gingiva and tongue Lesion of tongue Expected: 03/05/2023, Expires: 06/04/2023 [place] Work Phone: Comment on above: Expected: 03/05/2023 , Expires: 06/04/2023 Start: 03-05-2023 End: 06-04-2023 T-cell helper (CD4) subset panel - Blood CD4 ABSOLUTE COUNT Lab Routine Diseases of the oral soft tissues, excluding lesions specific for gingiva and tongue Lesion of tongue Expected: 03/05/2023, Expires: 06/04/2023 [place] Work Phone: Comment on above: Expected: 03/05/2023 , Expires: 06/04/2023 Start: 01-13-2023 End: 03-15-2023 DHEA-S BLD DHEA-S BLD Lab Routine Hormone imbalance Expected: 01/13/2023, Expires: 03/15/2023 [place] Work Phone: Comment on above: Expected: 01/13/2023 , Expires: 03/15/2023 Start: 01-13-2023 End: 03-15-2023 ESTROGEN FRACTION BL ESTROGEN FRACTION BL Lab Routine Hormone imbalance Expected: 01/13/2023, Expires: 03/15/2023 [place] Work Phone: Comment on above: Expected: 01/13/2023 , Expires: 03/15/2023 Start: 01-13-2023 End: 03-15-2023 Follitropin [Units/volume] in Serum or Plasma FSH BLD Lab Routine Hormone imbalance Expected: 01/13/2023, Expires: 03/15/2023 [place] Work Phone: Comment on above: Expected: 01/13/2023 , Expires: 03/15/2023 Start: 01-13-2023 End: 03-15-2023 Lutropin [Units/volume] in Serum or Plasma LUTEINIZING HORMONE Lab Routine Hormone imbalance Expected: 01/13/2023, Expires: 03/15/2023 [place] Work Phone: Comment on above: Expected: 01/13/2023 , Expires: 03/15/2023 Start: 01-13-2023 End: 03-15-2023 Sex hormone binding globulin [Moles/volume] in Serum or Plasma SEX-HORMONE BINDING Lab Routine Hormone imbalance Expected: 01/13/2023, Expires: 03/15/2023 [place] Work Phone: Comment on above: Expected: 01/13/2023 , Expires: 03/15/2023 Start: 01-12-2023 End: 03-14-2023 MISC SEND OUT TST 1 MISC SEND OUT TST 1 Lab Routine Chronic fatigue Expected: 01/12/2023, Expires: 03/14/2023 [place] Work Phone: Comment on above: Expected: 01/12/2023 , Expires: 03/14/2023 Start: 12-18-2022 End: 02-17-2023 BABESIA GIOVANNI IGG/IGM BABESIA GIOVANNI IGG/IGM Lab Routine Risk of exposure to Lyme disease Expected: 12/18/2022, Expires: 02/17/2023 [place] Work Phone: Comment on above: Expected: 12/18/2022 , Expires: 02/17/2023 Start: 12-18-2022 End: 02-17-2023 BARTONELLA AB PANEL BARTONELLA AB PANEL Lab Routine Risk of exposure to Lyme disease Expected: 12/18/2022, Expires: 02/17/2023 [place] Work Phone: Comment on above: Expected: 12/18/2022 , Expires: 02/17/2023 Start: 12-18-2022 End: 02-17-2023 BARTONELLA PCR BARTONELLA PCR Lab Routine Risk of exposure to Lyme disease Expected: 12/18/2022, Expires: 02/17/2023 [place] Work Phone: Comment on above: Expected: 12/18/2022 , Expires: 02/17/2023 Start: 12-18-2022 End: 02-17-2023 Borrelia burgdorferi IgG and IgM panel - Serum LYME AB LATE >30 DAYS SYMPTOMS Lab Routine Risk of exposure to Lyme disease Expected: 12/18/2022, Expires: 02/17/2023 [place] Work Phone: Comment on above: Expected: 12/18/2022 , Expires: 02/17/2023 Start: 12-18-2022 End: 02-17-2023 EHRLICHIA CHAF ABS EHRLICHIA CHAF ABS Lab Routine Risk of exposure to Lyme disease Expected: 12/18/2022, Expires: 02/17/2023 [place] Work Phone: Comment on above: Expected: 12/18/2022 , Expires: 02/17/2023 Start: 12-13-2022 End: 02-12-2023 Progesterone [Mass/volume] in Serum or Plasma PROGESTERONE BLD Lab Routine Hormone imbalance Expected: 12/13/2022, Expires: 02/12/2023 [place] Work Phone: Comment on above: Expected: 12/13/2022 , Expires: 02/12/2023 Start: 12-01-2022 Covid-19 Vaccine ( season) Covid-19 Vaccine ( season) [facility] Start: 12-01-2022 Influenza vaccination [facility] Start: 04-02-2022 DEPRESSION ASSESSMENT DEPRESSION ASS ESSMENT [facility] Start: 2018 HPV TESTING HPV TESTING [facility] Start: 2018 Screening for malignant neoplasm of cervix HPV Testing [facility] Start: 2010 DTaP/Tdap/Td Vaccine s (1 - Tdap) DTaP/Tdap/Td Vaccines (1 - Tdap) [facility] Start: 2009 PAP TESTING PAP TESTING [facility] Start: 2009 Screening for malignant neoplasm of cervix [facility] Start: 2007 Hepatitis B Vaccine (1 of 3 - 19+ 3-dose series) Hepatitis B Vaccine (1 of 3 - 19+ 3-dose series) [facility] Start: 2007 Hepatitis B Vaccines (1 of 3 - 19+ 3-dose series) Hepatitis B Vaccines (1 of 3 - 19+ 3-dose series) [facility] Start: 2007 Urine microalbumin profile [facility] Start: 2006 Anxiety Screening Anxiety Screening [facility] Start: 2006 Depression Screening Depression Scre ening [facility] Start: 2006 HEPATITIS C SCREENING HEPATITIS C [facility] Start: 2006 Hepatitis C screening Hepatitis C [facility] Start: 2006 HIV SCREENING HIV SCREENING [place] Start: 2006 HIV screening HIV Screening [place] Start: 2001 Varicella vaccination Varicell a Vaccines (1 of 2 - 13+ 2-dose series) [facility] Start: 1989 MMR Vaccines (1 of 1 - Standard series) MMR Vaccines (1 of 1 - Standard series) [facility] Start: 1988 COVID-19 VACCINE (#1) COVID-19 VACCI NE (#1) [facility] Start: 1988 HEPATITIS B (1 of 3 - 3-dose series) HEPATITIS B (1 of 3 - 3-dose series) [facility] Start: 1988 Hepatitis B Vaccine (1 of 3 - 3-dose series) Hepatitis B Vaccine (1 of 3 - 3-dose series) [facility] Start: 1988 HIV screening HIV Screening [facility] Start: 1988 Lipid panel Lipid Panel [facility] Start: 1988 Yearly Adult Physical Yearly Adult P [facility] Patient Education [facility] Work Phone: Patient referral [facility] Work Phone: [facility] Payers Date Payer Category Payer Self-pay [id number] 2023 Unknown [id number] 2022 Blue Cross Blue Shield BLUE CARD PPO OOS [id number] 2022 Unknown [id number] 2022 Unknown [id number] 2022 Unknown [id number] 2021 Private Health Insurance [employer] OAP [id number] 2021-Present [phone] [address] [place] [address] Open Access [id number] 1988 Unknown [id number] 1988 Unknown [id number] Unknown [id number] Unknown [id number] Unknown [id number] Unknown [id number] Unknown [id number] Social History Date Type Detail Facility Start: 12-19-2018 End: 09-20-2024 Tobacco smoking status NHIS Never smoked tobacco [facility] Start: 12-19-2018 End: 07-10-2023 Tobacco use and exposure Smokeless tobacco non-user [facility] Start: 12-19-2018 End: 07-10-2023 Alcohol intake Not Asked [facility] Start: 1990 Sex Assigned At Not on file [facility] Start: 12-19-2018 End: 05-28-2024 History of Social function [facility] Start: 12-19-2018 End: 05-28-2024 Tobacco use panel [facility] National Score (1-100), lower number is lower risk Not on file [facility] Start: 1990 Female [facility] Start: 07-03-2023 Tobacco smokin g consumption unknown [facility] Start: 08-21-2023 End: 05-28-2024 Alcohol intake Ex-drinker (finding) [facility] Start: 08-29-2023 End: 09-08-2023 Exposure to SARS-CoV-2 (event) Not sure [facility] NEGATED: Highlighted row No Social History Information Available No Social History Information Available [facility]. Work Phone: Mental Status Date Assessment Result Facility 07-03-2023 Cognitive function Voice/Name [facility] Work Phone: Clinical Notes 09-20-2022 to 09-20-2024 Telephone Encounter - Jon Bowers Ma - 08/01/2024 3:35 PM EDTTelephone Encounter - oJn Bowers Ma - 08/01/2024 3:35 PM Shaka Vasquez MD - 05/28/2024 9:00 AM ESTPatient Instructions Note Date & Type Note Facility 09-20-2024 Discharge summary [facility] 09-20-2024 Radiology Diagnostic study note [facility] Services [address] [place], [place] [address] Transvaginal w/Preg US MR#: [id number] Acct: [id number] Name: GIOVANNA DAY Rep #: [id number] : 1990 F 34 From: La Mchugh MD PCP: CELSA Mitchell Status: REG ER Study:Transvaginal w/Preg US Date of Exam: 09/20/24 Exam# [id number] Ordering Dr: Yenny Canseco DO PROCEDURE: TRANSVAGINAL W/PREG US 09/20/2024 REASON FOR EXAM: ? ECTOPIC TECHNIQUE: TRANSVAGINAL W/PREG US COMPARISON: 07/03/2023. FINDINGS The uterus measures 9.1 x 7 x 5.8 cm. No intrauterine is visualized. The right ovary measures 1.9 x 1.2 x 1.8 cm. Heterogeneous area measuring 3.2 x 1.5 cm and free fluid is noted inferior to the right ovary suspicious for ectopic . This needs correlation with beta HCG level and follow-up exam. The left ovary measures 2.6 x 2.5 x 1.5 cm. Left ovarian simple cyst is noted measuring 1.7 x 1.5 x 1.3 cm, possibly corpus luteum cyst. Multiple cysts with associated calcifications are noted within the cervix, probably benign and chronic. The endometrium measures 11 mm in its thickness. Normal bilateral ovarian flow without evidence of ovarian torsion. The cervix is closed. US/Transvaginal w/Preg US IMPRESSION: Heterogeneous area in the right adnexa suspicious for ectopic . This needs correlation with beta HCG level and follow-up exam. Left ovarian simple cyst, possibly corpus luteum cyst. Scattered benign chronic nabothian cysts of the cervix. Free fluid in the pelvis. Normal bilateral ovarian flow. No intrauterine is visualized. Reading Location: [id number] CC: CELSA Cleaning; Cody Canseco DO ~ Wire Stitcher Operator: Signed [facility] 08-01-2024 Telephone encounter Note Faxed written order form to [facility] [phone] [facility] 08-01-2024 Miscellaneous Notes Faxed written order form to [facility] [phone] documented in this encounter [facility] 05-28-2024 History of Present illness Narrative +hypermobility, saw Dr. Vasquez in [place], diagnosed as hypermobility spectrum + loss, referred [...] she needed to be established with a substance abuse services director [place] [address] Vasquez with [...] feels good in the morning and about snf through the day feels worse Left hip [...] are over-compensating trying to hold everything together [facility] [place] Department of Rheumatic and Immunologic Diseases This [...] outlined in orders. Shaka Mock, Rheumatology Staff [id number] documented in this encounter [facility] 05-28-2024 Note HNO ID: [id number] Author: SHAKA MOCK MD Service: ? Author Type: Physician Type: Progress Notes Filed: 05/28/2024 13:34 Note Text: +hypermobility, saw Dr. Vasquez in [place], diagnosed as hypermobility spectrum + loss, referred [...] she needed to be established with a substance abuse services director Diagn[place] [address] Vasquez with [...] feels good in the morning and about snf through the day feels worse Left hip [...] are over-compensating trying to hold everything together [facility] [place] Department of Rheumatic and Immunologic Diseases This [...] ab ORAL S (more content not included)... [facility] 05-26-2024 Telephone encounter Note Received office note from Dr Vasquez. New EDS patient scheduled for 05/28 Scan on 05/26/2024 9:42 AM by ProviderNery PA-C: Miscellaneous Clinical Documents [facility] 05-26-2024 Miscellaneous Notes Received office note from Dr Vasquez. New EDS patient scheduled for 05/28 Scan on 05/26/2024 9:42 AM by ProviderNery PARicoC: Miscellaneous Clinical Documents documented in this encounter [facility] 09-28-[address] - 09/28/2023 9:51 AM EDT [facility] MEDICINE FOLLOW UP NUTRITION INSTRUCTIONS Nutrition Follow-up: [...] Calories: 1700 calories per day (using adjusted [place] body weight) Protein: 60 grams per day [...] several options). You can also use KetoMojo (https://keto-mojo.[employer]/) to track ketone levels. Optimal levels of blood ketones are between 0.6-4.0. Once you are into ketosis you should slowly increase your carbs by 5-10g per week to determine your threshold, increase until you drop out of ketosis (as determined by ketone testing). ADDITIONAL INSTRUCTIONS: How to Contact Your Functional Medicine Team (Open M-F 8am-5pm): 1. Private Outlethart is the BEST form of communication to reach the Functional Medicine Team, see test results and request refills. Please allow 72 business hours for a response. Directions for signing up are included in your New Patient Folder. (Or you can go to [email or web address]) 2. For nutrition related questions or concerns, [email or web address] message your physician and include Attn: Alondra Monahan RD at the top of the message. [employer] messaging is meant to support implementation of [...] Supplements: Supplements can be ordered from the [facility]'s Online Store: [email or web address] New patients to the Healthy Living Shop will need to enter the provider code [id number] documented in this encounter [facility] 09-27-2023 History of Present illness Narrative [facility] Functional [facility] Nutrition Therapy: Follow-Up Assessment (Individual) VIRTUALVISITPN I have communicated my name and active licensure. The patient's identity and physical location were verified at the time of this visit. Either the patient or their legal merchandising representative has been informed of the risks and benefits of -- and alternatives to -- treatment through a remote evaluation and consents to proceed with the evaluation remotely. Patient is located in the [facility] at the time of the virtual [...] Abs Lymph 1.00 - 4.00 k/uL 2.15 [place]% % 5.1 Abs [place] <0.87 k/uL 0.40 Eosin% % 3.0 Abs [...] Calories: 1700 calories per day (using adjusted [place] body weight) Protein: 60 grams per day [...] Alondra Monahan RD documented in this encounter [facility] 09-27-2023 Note HNO ID: [id number] Author: ALONDRA MONAHAN RD Service: ? Author Type: Registered Dietitian Type: Progress Notes Filed: 10/08/2023 06:42 Note Text: [facility] Functional Medicine Nutrition Therapy: Follow-Up Assessment (Individual) VIRTUALVISITPN I have communicated my name and active licensure. The patient's identity and physical location were verified at the time of this visit. Either the patient or their legal merchandising representative has been informed of the risks and benefits of -- and alternatives to -- treatment through a remote evaluation and consents to proceed with the evaluation remotely. Patient is located in the [facility] at the time of the virtual [...] Abs Lymph 1.00 - 4.00 k/uL 2.15 [place]% % 5.1 Abs [place] <0.87 k/uL 0.40 Eosin% % 3.0 Abs [...] Calories: 1700 calories per day (using adjusted [place] body weight) Protein: 60 grams per day Carbohydrate: 26=5 grams per day (net carbs) Fats: 151 grams per day Other: Adequate hydration - at least 90 oz of fluids per day (water, sparkling water, herbal teas, unsweetened nut milks, bone broth). [place] (more content not included)... [facility] 09-27-2023 Telephone encounter Note Faxed Vicky Moore RN [facility] 09-27-2023 Miscellaneous Notes Faxed Vicky Moore RN Received fax form from [facility] physical therapy. Needs signature from Dr. Harman. Fax paperwork placed on Dr. Harman desk for signature. documented in this encounter [facility] 09-27-2023 Telephone encounter Note Received fax form from [facility] physical therapy. Needs signature from Dr. Harman. Fax paperwork placed on Dr. Harman desk for signature. [facility] 09-18-2023 Telephone encounter Note Patient notified and voiced understanding. Patient still wishes to have order faxed to [facility] in [place]. Order faxed. Beatris Ladd RN [facility] 09-18-2023 Miscellaneous Notes Patient notified and voiced understanding. Patient still wishes to have order faxed to [facility] in [place]. Order faxed. 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 Please inform patient. Jessie Harman MD Patient calling to ask for pelvic floor therapy order. Patient states she sees Roxanne Pisano PT from [facility] in [place]. Pt has connective tissue disorder. States she wants this therapy for pelvic floor issues. Pt aware Dr Harman out of office until Sunday Pt would like faxed to [facility]. And would like a call to let her know it was completed. 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 Please inform patient. Jessie Harman MD [facility] 09-17-2023 Telephone encounter Note Patient calling to ask for pelvic floor therapy order. Patient states she sees Truly Norris PT from [facility] in [place]. Pt has connective tissue disorder. States she wants this therapy for pelvic floor issues. Pt aware Dr Harman out of office until Sunday Pt would like faxed to [facility]. And would like a call to let her know it was completed. [facility] 09-08-2023 History of Present illness Narrative [facility] James Grewal APRN-ELDER COUNSELOR Visit Note - 09/08/2023 12:02 PM This note was generated with voice recognition software and may contain errors including spelling, grammar, syntax, and misrecognization of what was dictated. Patient: Giovanna Day, , 33 y.o., female PCP: No primary care provider on file. -- ALLERGIES: No Known Allergies CURRENT MEDICATIONS: Current Outpatient Medications Medication Instructions azithromycin (Zithromax Z-Fede) 250 mg tablet Take 2 tablets by mouth at once on day 1, then 1 tablet once a day on days 2-5. Take with a meal. calcium carbonate (Tums) 250 mg (skull valley 100 mg) chewable split tablet oral, Daily RT magnesium oxide 400 mg magnesium capsule oral nystatin (Mycostatin) 500,000 unit tablet vitamin-B complex split tablet oral, Daily RT -- PAST MEDICAL HX: Has hypermobility spectrum disorder/connective tissue disorder. No other known health issues. SURGICAL HX: History reviewed. No pertinent surgical history. FAMILY HX: No pertinent history. SOCIAL HX: reports that she has never smoked. She has never used smokeless tobacco. ; has children. -- CHIEF COMPLAINT: Chief Complaint Patient presents with exposure to pertussis Patient is a symptomatic at this time with exposure to pertussis X approx 3 weeks ago on August 11, 2023 HISTORY OF PRESENT ILLNESS: The history was obtained from patientFermin Velarde is a 33 y.o. female, who presents [...] Musculoskeletal: Grossly normal; appropriate for age. Integumentary: [place], warm, dry, and intact. No rashes or skin discoloration appreciated. Good skin turgor. Neurologic: Alert and oriented, no gross deficits. Cognition and Speech: Oriented, Speech clear and coherent. Psychiatric: Cooperative, Appropriate mood & affect. -- Medical Decision Making LABORATORY or RADIOLOGICAL IMAGING [...] and answered. RITCHIE Santillan Advanced Practice Provider [facility] documented in this encounter [facility] Work Phone: 08-28-2023 Telephone encounter Note Faxed requested records to [facility]. [facility] 08-28-2023 Miscellaneous Notes Faxed requested records to [facility]. She had a preconception consult. I don't think she needs another one. She could plan to see [facility] when she conceives. Jessie Harman MD Please see pt's mychart note and further advise. Pt aware that you are not in the office today but will return 08/28/23. Beena Desai LPN documented in this encounter [facility] 08-28-2023 Telephone encounter Note She had a preconception consult. I don't think she needs another one. She could plan to see [facility] when she conceives. Jessie Harman MD [facility] Work Phone: 08-24-2023 Telephone encounter Note Please see pt's mychart note and further advise. Pt aware that you are not in the office today but will return 08/28/23. Beena Desai LPN [facility] 08-23-2023 Telephone encounter Note Fluid retention would not be related to the miscarriage. I recommend she follow up with her pcp Jessie Harman MD [facility] Work Phone: 08-23-2023 Miscellaneous Notes Fluid retention would not be related to the miscarriage. I recommend she follow up with her pcp Jessie Harman MD documented in this encounter [facility] 08-21-2023 Note HNO ID: [id number] Author: JASON DYKES MD Service: ? Author Type: Physician Type: Progress Notes Filed: 08/21/2023 12:50 Note Text: [facility] [place] OUTPATIENT VISIT DATE August 21, 2023 OUTPATIENT VISIT TYPE CONSULT REFERRING PROVIDER: Jessie Harman MD Recommendations from today's consultation will be conveyed through the electronic medical record. History of Present Illness: 33 year old presenting for consultation with Maternal- Medicine at the [facility] in the setting of recent 16 week loss. Her history is reviewed with the patient as noted below. G1: Normal , home delivery G2: Normal , home delivery G3: Measured small at 8 weeks based on ultrasound by home cook restaurant, bleeding started at 10 weeks, continued on and off, eventually miscarried at home 16w3d. Presented to [facility], [facility] for retained placenta. Not aware of any [...] diagnostic criteria. She does not currently have substance abuse services director or provider she is following up with [...] Apgar5: None, Living: None, Comments: seen by cook restaurant-presented to [facility] after passing tissue and having heavy bleeding-DAND [...] draw (may have (more content not included)... [facility] 08-21-2023 History of Present illness Narrative Images from the original note were not included. [facility] [place] OUTPATIENT VISIT DATE August 21, 2023 OUTPATIENT VISIT TYPE CONSULT REFERRING PROVIDER: Jessie Harman MD Recommendations from today's consultation will be conveyed through the electronic medical record. History of Present Illness: 33 year old presenting for consultation with Maternal- Medicine at the [facility] in the setting of recent 16 week loss. Her history is reviewed with the patient as noted below. G1: Normal , home delivery G2: Normal , home delivery G3: Measured small at 8 weeks based on ultrasound by home cook restaurant, bleeding started at 10 weeks, continued on and off, eventually miscarried at home 16w3d. Presented to [facility], had D&C for retained placenta. Not aware [...] diagnostic criteria. She does not currently have substance abuse services director or provider she is following up with [...] Apgar5: None, Living: None, Comments: seen by cook restaurant-presented to [facility] after passing tissue and having heavy bleeding-D& [...] (may have been done at admission at [facility] in which case not necessary). While hypermobile [...] Giovanna to rheumatology/immunology for care here at [facility] for mixed connective tissue disease assessment [...] Recommendations: Problem List Items Addressed This Visit EAR SPECIALIST History of loss, not currently Overview G1: term (home delivery) G2: term (home delivery) G3: 16 week loss, had been on and off bleeding since 10 weeks, had D&C for retained POCs at [facility] Current Assessment & Plan If conceives, plan [...] with more than 50% of the total [id number] time of the visit in counseling / coordination of care. Jason Dykes MD August 21, 2023 12:49 PM documented in this encounter [facility] 07-10-2023 History of Present illness Narrative Giovanna Day is a 33 year old female who presents for post-op visit. HPI: Patient presents 1 week after D&C. She reports feeling tired. When she stands up she feels dizzy at times but this seems to be slowly getting better. Her vaginal bleeding is just spotting. OB History No obstetric history on file. Steam Tunnel Feeder History LMP: 12/11/2018, Having periods Age at Menarche: Age at First : Age at Menopause: Steam Tunnel Feeder History Comments: Sexual Activity: Not Asked; No [...] Jessie Harman MD documented in this encounter [facility] 07-09-2023 Miscellaneous Notes Patient does not have a fever. Scheduled with Dr. Harman tomorrow. Advised to go to ED if heavy bleeding, chest pain or shortness of breath. Cami Moore RN Does she have a fever? If no fever and bleeding minimal, recommend sooner appointment with . Thanks, Danisha Islas APRN.CNM Patient had a suction D&C after mab with MARYELLEN at [facility] 07/03/23. Calling c/o extreme weakness, feeling shaky, headaches and reports being pale. Bleeding is currently light spotting. Asking if labs can be done. Please advise. F/u scheduled with MARYELLEN 07/17/23. Cami Moore RN documented in this encounter [facility] 07-03-2023 History and physical note Note Date/Time July 03, 2023 12:1 6pm [facility] Medical Records Department [address] [place] [address] History & Physical Exam 07/03/23 1213 MR#: [id number] Acct: [id number] Name: GIOVANNA DAY Rep #:[id number] : 1990 33 From: Jessie Harman MD PCP: Care Physician,No Primary Status :REG [facility] Location: [facility] HPI - General General Date of Service: 07/03/23 Chief Complaint: Vaginal bleeding and pain HPI Narrative GIOVANNA DAY, is a 33 F who presents with vaginal bleeding. She reports passing the fetus at 9:30am today. Then patient starting to have heaving bleeding and intense cramping. Patient was seeing a heel layer and reports being 16&3. Previously she had 2 FT vaginal deliveries at home without complications, [facility] Medical History (Updated 07/03/23 @ [...] Harman MD; No Primary Care Physician~ Signed [facility] Work Phone: [phone]) 748-959504-02-2024 Procedure [facility] 03-05-2023 History of Present illness Narrative* Ernesto Shah MD - 03/05/2023 9:03 AM [...] visit. Either the patient or their legal merchandising representative has been informed of the risks [...] pain would last for a couple hours. [place] foods does not seem to bother her. [...] symmetric. [place]. She never had an HIV test done and has no concerns for STD. PAST MEDICAL HISTORY and PAST SURGICAL HISTORY: reviewed and noted below. FAMILY HISTORY: Parents and siblings are healthy. SOCIAL HISTORY: She is [id number] mother. She has 2 children (2 and 3 years). She used to work asan [employer]. . Pets: outside cats. IMMUNIZATION HISTORY There [...] mouth twice daily with meals. G.I. Detox ([employer]) 1-2 capsules with full glass of water 2 times daily between meals NAC 600mg 90 ct. (Pure Encapsulations) Take 1 capsule twice daily, between meals. The Whole Probiotic (Wudya) Take 1 capsule by mouth once daily. [...] new or changing mole, new growth) Examination: LMP 12/11/2018 Vital signs: not available Gen: no [...] Ernesto Shah MD Infectious Disease Office PAGER: [phone] Approximately 47 minutes spent for this video visit. [facility] Instructions* Patient Instructions* Estela Fontanez APRN.ELDER COUNSELOR - 02/16/2023 11:21 AM EST Plan and [...] encounter. I recommend the supplements from the [facility] Healthy Living Store Online Store at [email or web address] as we have thoroughly evaluated the research and use only highest quality supplements. Please use code: functional. Future Plans: Follow up: Please schedule a follow up visit with the following Caregivers: As scheduled LIFESTYLE PRESCRIPTION Functional Nutrition: Per paralegal instructor Sleep: Sleep goal for most adults is [...] Health Coaching: Please consider scheduling with our [place] for Functional Medicine health coaches for a phone or virtual visit for accountability, goal setting and help with behavior car changer the next 6-8 weeks to be successful with your goals. [phone]. Smart phone apps to begin a meditative [...] on your diet plan discussed with our paralegal instructor, allowing for gentle detoxification and decreasing inflammation - while we are gathering your lab resultsand combining those with your complete history to formulate a very personalized treatment plan. LAB results: Due to the complexity of the testing performed, we are not able to review labs via [email or web address] or over the phone, but please know, [...] Also make sure to schedule with the paralegal instructor (this will not happen automatically) as you [...] appointment. You can access them on the [employer] website and it can be beneficial if you review them prior to your next visit. [email or web address]. Read about NutrEval if this was ordered. *Estela Fontanez APRN.BARTOLO [facility] History of Present illness Narrative* Estela Fontanez APRN.CNP - 02/16/2023 11:00 AM EST Follow-up Visit - virtual I have communicated my name and active licensure. The patient's identity and physical location wereverified at the time of this visit. Either the patient or their legal merchandising representative has been informed of the risks [...] mouth twice daily with meals. G.I. Detox ([employer]) 1-2 capsules with full glass of water 2 times daily between meals NAC 600mg 90 ct. (Pure Encapsulations) Take 1 capsule twice daily, between meals. nystatin (MYCOSTATIN, NILSTAT) 500,000 unit tab Take 2 tablets by mouth twice daily. The Whole Probiotic (Wudya) Take 1 capsule by mouth once daily. [...] Severe depression February 16, 2023 Estela Fontanez APRN.ELDER COUNSELOR Subjective: Goals: Update progress CD 57 in [...] proibiotic, NAC January 12, 2023 Estela Fontanez APRN.ELDER COUNSELOR Subjective: Goals; Review labs Things are the [...] PGX, saccharomyces December 13, 2022 Estela Fontanez APRN.ELDER COUNSELOR Subjective: Goals: Update progress Check hormones Last seen 09/[address] Pollard. Patient is new to me today. Feels the same. Has had thrush for 4 years. Took Diflucan and nystatin Has been taking Biocidin for 6 weeks. Will start probiotic when biocidin is completed. Had mold in house and had remediated last year. Had cold symptoms before it was remediated. [place] better when she left house. Menses monthly. 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 #60 pounds total #245 now ( # 160-180 pre children) At home now Weight- cutting out carbs, high protein helps the most [place] shaky, eating helped, tested glucose 120 fasting [...] LMP 12/11/2018 Bioelectrical Impedance Analysis Results by The Society. Recent Results from: 02/16/23 at 11:20 AM [...] encounter. I recommend the supplements from the [facility] Change.org Online Store at [email or web address] as we have thoroughly evaluated the research and use only highest quality supplements. Please use code: functional. Future Plans: Follow up: Please schedule a follow up visit with the following Caregivers: As scheduled LIFESTYLE PRESCRIPTION Functional Nutrition: Per paralegal instructor Sleep: Sleep goal for most adults is [...] Health Coaching: Please consider scheduling with our [place] for Functional Medicine health coaches for a phone or virtual visit for accountability, goal setting and help with behavior car changer the next 6-8 weeks to be successful with your goals. [phone]. Smart phone apps to begin a meditative [...] on your diet plan discussed with our paralegal instructor, allowing for gentle detoxification and decreasing inflammation [...] Also make sure to schedule with the paralegal instructor (this will not happen automatically) as you [...] appointment. You can access them on the [employer] website and it can be beneficial if you review them prior to your next visit. [email or web address]. Read about NutrEval if this was ordered. *Estela Fontanez APRN.CNP I spent a total of 30 minutes on the date of the service which included sdoy-ex-qjkr patient care. [facility] Instructions* Patient Instructions* Estela Fontanez APRN.CNP - 01/12/2023 9:54 AM EDT Plan and Lifestyle Prescription Plan/Instructions/Resources: Reviewed labs and plan with patient. Discussed opportunities to communicate with myself and team ifneeded before next appointment, ie, MyChart, telephone, virtual visits. [facility] labs - CD 57 For thrush: Stop [...] 5 mg daily. This will be sent to\[facility]. They will contact you [...] 0 I recommend the supplements from the [facility] Cardiovascular Provider [employer] Store Online Store at [email or web address] as we have thoroughly evaluated the research and use only highest quality supplements. Please use code: functional. Future Plans: Follow up: Please schedule a follow up visit with the following Caregivers: As scheduled LIFESTYLE PRESCRIPTION Functional Nutrition: Per paralegal instructor Sleep: Sleep goal for most adults is [...] accountability, goal setting and help with behavior car changer the next 6-8 weeks to be successful with your goals. [phone]. Smart phone apps to begin a meditative practice: Headspace (free for first 10 days) Insight Meditation Timer- (Free)-Great all-around homar to use for guided meditations of many different types and lengths or just to use as a tool to time and track your meditation practice. This is myingaolute favorite! Calm- (Free) Walking Meditations-($1.99)- Get your walk AND meditation done together. A good way to start out for individuals who feel they just can't sit still to begin a meditative practice. During the next 6-8 weeks you'll be working on your diet plan discussed with our paralegal instructor, allowing for gentle detoxification and decreasing inflammation - while we are gathering your lab resultsand combining those with your complete history to formulate a very personalized treatment plan. LAB results: Due to the complexity of the testing performed, we are not able to review labs via [email or web address] or over the phone, but please know, [...] Also make sure to schedule with the paralegal instructor (this will not happen automatically) as you did with your first visit so that she can review nutritional aspects of your treatment plan. By your 3rd visit, as things are improving, we will likely transition you to one of our very capable Certified Nurse Practitioners/Physician Assistants for further follow-up. Potential future labs: Any [employer] labs ordered take about 4 weeks to return. Do them as soon as possible so that we have the results before your next appointment. You can access them on the [employer] website and it can be beneficial if you review them prior to your next visit. [email or web address] [email or web address]. Read about NutrEval if this was ordered. *Estela Fontanez APRN.CNP documented in this encounter[facility]10[facility] History of Present illness Narrative* Estela Fontanez APRN.CNP - 01/12/2023 9:30 AM EDT Follow-up Visit - virtual I have communicated my name and active licensure. The patient's identity and physical location wereverified at the time of this visit. Either the patient or their legal merchandising representative has been informed of the risks [...] mouth twice daily with meals. G.I. Detox ([employer]) 1-2 capsules with full glass of water 2 times daily between meals NAC 600mg 90 ct. (Pure Encapsulations) Take 1 capsule twice daily, between meals. fluconazole (DIFLUCAN) 150 mg tablet Take one x 1, repeat in 3 days x 1. nystatin (MYCOSTATIN, NILSTAT) 500,000 unit tab Take 2 tablets by mouth twice daily. The Whole Probiotic (Wudya) Take 1 capsule by mouth once daily. Treatment 3-6 months Biocidin Advanced Formula ([employer]ru[employer]) gut microbial (bacteria/yeast) balance Take 5 Drops by mouth three times daily. Biocidin - Begin with 1 drop and gradually increase up to 5 drops 3 times per day for 6-8 weeks Digestive Enzymes Ultra 180 ct. (Pure Encapsulations) Take 2 capsules twice daily. Dentalcidin (BusyFlow) For adults and children 2 years of age and older, use approx. a 1/2 inch ribbon on your toothbrush. Dentalcidin LS - Liposomal Oral Care Solution (Bus[employer]Flow) Swish using 2 pumps for 1 minute [...] Severe depression January 12, 2023 Estela Fontanez APRN.ELDER COUNSELOR Subjective: Goals; Review labs Things are the [...] PGX, saccharomyces December 13, 2022 Estela Fontanez APRN.ELDER COUNSELOR Subjective: Goals: Update progress Check hormones Last seen 09/[address] Pollard. Patient is new to me today. Feels the same. Has had thrush for 4 years. Took Diflucan and nystatin Has been taking Biocidin for 6 weeks. Will start probiotic when biocidin is completed. Had mold in house and had remediated last year. Had cold symptoms before it was remediated. [place] better when she left house. Menses monthly. 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 #60 pounds total #245 now ( # 160-180 pre children) At home now Weight- cutting out carbs, high protein helps the most [place] shaky, eating helped, tested glucose 120 fasting [...] LMP 12/11/2018 Bioelectrical Impedance Analysis Results by [email or web address]. Recent Results from: 01/12/23 at 9:50 [...] next appointment, ie, MyChart, telephone, virtual visits. [facility] labs - CD 57 For thrush: Stop [...] 5 mg daily. This will be sent to\[facility]. They will contact you for payment information and then mail the prescription to you. Check out Wings [email or web address] Message me if you want the prescription [...] 0 I recommend the supplements from the [facility] Healthy Living Store Online Store at [email or web address].Ascalon [email or web address] as we have thoroughly evaluated the research and use only highest quality supplements. Please use code: functional. Future Plans: Follow up: Please schedule a follow up visit with the following Caregivers: As scheduled LIFESTYLE PRESCRIPTION Functional Nutrition: Per paralegal instructor Sleep: Sleep goal for most adults is [...] Health Coaching: Please consider scheduling with our [place] [facility] health coaches for a phone or virtual visit for accountability, goal setting and help with behavior car changer the next 6-8 weeks to be successful with your goals. [phone]. Smart phone apps to begin a meditative [...] on your diet plan discussed with our paralegal instructor, allowing for gentle detoxification and decreasing inflammation - while we are gathering your lab resultsand combining those with your complete history to formulate a very personalized treatment plan. LAB results: Due to the complexity of the testing performed, we are not able to review labs via [email or web address].comt or over the phone, but please know, [...] Also make sure to schedule with the paralegal instructor (this will not happen automatically) as you did with your first visit so that she can review nutritional aspects of your treatment plan. By your 3rd visit, as things are improving, we will likely transition you to one of our very capable Certified Nurse Practitioners/Physician Assistants for further follow-up. Potential future labs: Any [employer] labs ordered take about 4 weeks to return. Do them as soon as possible so that we have the results before your next appointment. You can access them on the [employer] website and it can be beneficial if you review them prior to your next visit. [email or web address] [email or web address]. Read about NutrEval if this was ordered. *Estela Fontanez APRN.BARTOLO I spent a total of 30 minutes on the date of the service which included [id number] patient care. documented in this encounterCleveland [id number] Instructions* Patient Instructions* Kendal Gutierrez, MAX - 12/28/2022 5:25 PM EDT [facility] FOLLOW UP NUTRITION INSTRUCTIONS Nutrition Follow-up: In 3 [address]ff[address]. Your Prescribed Nutrition Plan: Anti-Catherine Food Plan While addressing the presence of catherine, please refer to the following nutritional recommendations: Overall Guidelines Use the [facility] Anti-Catherine Food Plan to select whole [...] Bok Darrell *1 small or 1 cup Marshallese cabbage Green beans, *25 beans Greens(beet, dany, kale, mustard, turnip) Kohlrabi Lettuce, all Microgreens Mushroom (oyster) Parsnip Radicchio, *5 cups Radish Rutabaga Scallion (no white part or bulb) Seaweed (mary) Squash (delicata, kabocha, ob downs, spaghetti) Swazi chard Thyme Turnip, *2/3 turnip Water chestnuts Watercress Yam, *2 cups Zucchini squash, *1/3 cup 3. Work with [facility] health coaches for lifestyle support 4. [...] Patient Folder. (Or you can go to [email or web address]) 2. For nutrition related questions or concerns, Private Outlethart message your physician and include Attn: Kendal Coffman RD at the top of the message. SimpleGeo messaging is meant to support implementation of [...] Supplements: Supplements can be ordered from the [facility]'s Online Store: [email or web address] [email or web address] New patients to the Healthy Living Shop will need to enter the provider code FUNCTIONAL to registertheir account. documented in this encounterMercy Memorial Hospital09-28-2023 History of Present illness Narrative* Kendal Gutierrez RD - 12/28/2022 10:07 AM EDT [facility] Functional [facility] Nutrition Therapy: Follow-Up Assessment (Individual) VIRTUALVISITPN [...] evaluation remotely. Patient is located in the [facility] at the time of the virtual visit. 10:09a Patient Name: Giovanna Day Past Medical History: No past medical history on file. Allergies: Patient has no known allergies. Current Medications/Supplements Current Outpatient Medications on File Prior to Visit Medication Sig Saccharomyces Boulardii 60 ct. (Klaire/Prothera) Take 1 capsule by mouth twice daily with meals. G.I. Detox (Caspian Learning) 1-2 capsules with full glass of water 2 times daily between meals NAC 600mg 90 ct. (Pure Encapsulations) Take 1 capsule twice daily, between meals. fluconazole (DIFLUCAN) 150 mg tablet Take one x 1, repeat in 3 days x 1. nystatin (MYCOSTATIN, NILSTAT) 500,000 unit tab Take 2 tablets by mouth twice daily. The Whole Probiotic (Wudya) Take 1 capsule by mouth once daily. Treatment 3-6 months Biocidin Advanced Formula (TruTouch Technologies) gut microbial (bacteria/yeast) balance Take 5 Drops by mouth three times daily. Biocidin - Begin with 1 drop and gradually increase up to 5 drops 3 times per day for 6-8 weeks Digestive Enzymes Ultra 180 ct. (Pure Encapsulations) Take 2 capsules twice daily. Dentalcidin (BusyFlow) For adults and children 2 years of age and older, use approx. a 1/2 inch ribbon on your toothbrush. Dentalcidin LS - Liposomal Oral Care Solution (BusyFlow) Swish using 2 pumps for 1 minute [...] or cramping after eating cabbage or broccoli Carmichaels sprouts trigger bloating Used to eat fresh [...] nutritional recommendations: Overall Guidelines Use the [facility] Anti-Catherine Food Plan to select whole and [...] Bok Darrell *1 small or 1 cup Marshallese cabbage Green beans, *25 beans Greens(beet, dany, kale, mustard, turnip) Kohlrabi Lettuce, all Microgreens Mushroom (oyster) Parsnip Radicchio, *5 cups Radish Rutabaga Scallion (no white part or bulb) Seaweed (mary) Squash (delicata, kabocha, bo downs, spaghetti) Swazi chard Thyme Turnip, *2/3 turnip Water chestnuts Watercress Yam, *2 cups Zucchini squash, *1/3 cup 3. Work with [facility] health coaches for lifestyle support 4. [...] by: Kendal Coffman RD documented in this encounterMercy Memorial Hospital09-13-2023 Instructions* Patient Instructions* Estela Fontanez APRN.CNP - 12/13/2022 2:30 PM EDT Plan and Lifestyle Prescription Plan/Instructions/Resources: Reviewed labs and plan with patient. Discussed opportunities to communicate with myself and team ifneeded before next appointment, ie, MyChart, telephone, virtual visits. [facility] labs - we will e-mail these to you Day 21-23 - progesterone Day 2-3 - all the rest of the hormones Continue current supplement For gut balancing: Finish Biocidin and start probiotic Continue Nystatin until next appt Saccharomyces Boulardii 60 ct. (Klaire/Prothera) Sig: Take 1 capsule by mouth twice daily with meals. Follow up with life scientists for support with macronutrients [facility] Mycotoxin test - we will send this to you To do test: 1. Take 500 mg glutathione twice daily for 3 days prior to testing. Liposomal glutathione (Postdeck) may be purchased on our [place] 2. On the day of the test get in an infrared sauna for 30 minutes (if no sauna then OK to use Hot bath/vigorous exercise - as long as you are sweating) 2. 30min later collect urine in vials provided in kit 3. Mail kit. After mold testing, begin: G.I. Detox (Caspian Learning) Si-2 capsules with full glass of water [...] to clean the air. You can visit www.Violet to learn more. If you wish to [...] the air circulate. Outside air generally is cell cleaner than indoor air. 4. Drink water: [...] following. Visual contrast test -Please go to [facility] and do the test for visual contrast [...] be done to evaluate home for mold. [email or web address]/products.html B Immunolytics-[email or web address]/ They run mold culture plates. Please go [...] we have used Contact Guerrero Forte with [employer]. He can come to your home or offer you a virtual consult for home inspection of water damage/mold. [phone]. (Located in [place]) Contact Yes We can mold inspectors. They are a virtual and in person group for mold remediation. This is if you want to stay in your house forever. They do a great job for the mold sensitive patient. Https://[employer]/ Ruth Graf [employer] (AgileMD) -[phone]. No cost for initial phone call. She is located in [facility] [employer], [facility] Generally the indoor environmental coordinator, IEP, is the mold filler and drainer and will be the guide for the [...] mold - Website: The Mold Medic - www.Webcollage.Advanced BioEnergy. Judah Johnson Medications/Supplements Recommended: Medication orders placed this encounter G.I. Detox (8bit Research) Si-2 capsules with full glass of water 2 times daily between meals NAC 600mg 90 ct. (Pure Encapsulations) Sig: Take 1 capsule twice daily, between meals. Saccharomyces Ronaldoulardii 60 ct. (Klaire/Prothera) Sig: Take 1 capsule by mouth twice daily with meals. I recommend the supplements from the [facility] Healthy Living Store Online Store at [email or web address].Ascalon International/ as we have thoroughly evaluated the research and use only highest quality supplements. Please use code: functional. Future Plans: Follow up: Please schedule a follow up visit with the following Caregivers: As scheduled LIFESTYLE PRESCRIPTION Functional Nutrition: Per paralegal instructor Sleep: Sleep goal for most adults is [...] Health Coaching: Please consider scheduling with our [place] [facility] health coaches for a phone or virtual visit for accountability, goal setting and help with behavior car changer the next 6-8 weeks to be successful with your goals. [phone]. Smart phone apps to begin a meditative [...] on your diet plan discussed with our paralegal instructor, allowing for gentle detoxification and decreasing inflammation [...] Also make sure to schedule with the paralegal instructor (this will not happen automatically) as you did with your first visit so that she can review nutritional aspects of your treatment plan. By your 3rd visit, as things are improving, we will likely transition you to one of our very capable Certified Nurse Practitioners/Physician Assistants for further follow-up. Potential future labs: Any [employer] labs ordered take about 4 weeks to return. Do them as soon as possible so that we have the results before your next appointment. You can access them on the [employer] website and it can be beneficial if you review them prior to your next visit. www.[email or web address] Media.Ansible. Read about NutrEval if this was ordered. *Estela Fontanez APRN.CNP documented in this encounterMercy Memorial Hospital09-13-2023 History of Present illness Narrative* Estela Fontanez APRN.CNP - 12/13/2022 2:00 PM EDT Follow-up Visit - virtual I have communicated my name and active licensure. The patient's identity and physical location wereverified at the time of this visit. Either the patient or their legal merchandising representative has been informed of the risks [...] by mouth twice daily. The Whole Probiotic (Wudya) Take 1 capsule by mouth once daily. Treatment 3-6 months Biocidin Advanced Formula (TruTouch Technologies) gut microbial (bacteria/yeast) balance Take 5 Drops by mouth three times daily. Biocidin - Begin with 1 drop and gradually increase up to 5 drops 3 times per day for 6-8 weeks Digestive Enzymes Ultra 180 ct. (Pure Encapsulations) Take 2 capsules twice daily. Dentalcidin (BusyFlow) For adults and children 2 years of age and older, use approx. a 1/2 inch ribbon on your toothbrush. Dentalcidin LS - Liposomal Oral Care Solution (BusyFlow) Swish using 2 pumps for 1 minute [...] Severe depression December 13, 2022 Estela Fontanez APRN.ELDER COUNSELOR Subjective: Goals: Update progress Check hormones Last seen 09/[address] Pollard. Patient is new to me today. Feels the same. Has had thrush for 4 years. Took Diflucan and nystatin Has been taking Biocidin for 6 weeks. Will start probiotic when biocidin is completed. Had mold in house and had remediated last year. Had cold symptoms before it was remediated. [place] better when she left house. Menses monthly. 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 #60 pounds total #245 now ( # 160-180 pre children) At home now Weight- cutting out carbs, high protein helps the most [place] shaky, eating helped, tested glucose 120 fasting [...] LMP 12/11/2018 Bioelectrical Impedance Analysis Results by [email or web address] Inc. Recent Results from: 12/13/22 at 14:29 [...] MyChart, telephone, virtual visits. [facility] labs - we will e-mail these to you Day 21-23 - progesterone Day 2-3 - all the rest of the hormones Continue current supplement For gut balancing: Finish Biocidin and start probiotic Continue Nystatin until next appt Saccharomyces Boulardii 60 ct. (Klaire/Prothera) Sig: Take 1 capsule by mouth twice daily with meals. Follow up with life scientists for support with macronutrients [facility] Mycotoxin test - we will send this to you To do test: 1. Take 500 mg glutathione twice daily for 3 days prior to testing. Liposomal glutathione (Postdeck) may be purchased on our [employer] Shop 2. On the day of the test get in an infrared sauna for 30 minutes (if no sauna then OK to use Hot bath/vigorous exercise - as long as you are sweating) 2. 30min later collect urine in vials provided in kit 3. Mail kit. After mold testing, begin: G.I. Detox (Caspian Learning) Si-2 capsules with full glass of water [...] to clean the air. You can visit www.Violet to learn more. If you wish to [...] the air circulate. Outside air generally is cell cleaner than indoor air. 4. Drink water: [...] following. Visual contrast test -Please go to [facility] and do the test for visual contrast [...] be done to evaluate home for mold. https://www.mycOpenCurriculum.com/products.html B Immunolytics-https://immunolytics.com/ They run mold culture plates. Please go to the website to learn more C.. Professional indoor home inspections-these are qualified people who come to help assess the mold and the damage in the house. You can visit several websites: 1. Www.environmentalanalysis.net 2. www.Noesis Energyld.com 3. International Society of Environmental Acquired Illness [...] we have used Contact Guerrero Forte with [employer]. He can come to your home or offer you a virtual consult for home inspection of water damage/mold. [phone]. (Located in [place]) Contact Yes We can mold inspectors. They are a virtual and in person group for mold remediation. This is if you want to stay in your house forever. They do a great job for the mold sensitive patient. Https://[employer]/ Ruth Graf [employer] (AgileMD) -[phone]. No cost for initial phone call. She is located [place] [facility] [place] [facility] [employer], [facility] Generally the indoor environmental coordinator, IEP, is the mold filler and drainer and will be the guide for the [...] mold - Website: The Mold Medic - www.Webcollage.Advanced BioEnergy. Judah Johnson Medications/Supplements Recommended: Medication orders placed this encounter G.I. Detox (Refocus Imaging Botanical Research) Si-2 capsules with full glass of water 2 times daily between meals NAC 600mg 90 ct. (Pure Encapsulations) Sig: Take 1 capsule twice daily, between meals. Saccharomyces Boulardii 60 ct. (Klaire/Prothera) Sig: Take 1 capsule by mouth twice daily with meals. I recommend the supplements from the [facility] Healthy Living Store Online Store at https://store.Deal Decor.Advanced BioEnergy/ as we have thoroughly evaluated the research and use only highest quality supplements. Please use code: functional. Future Plans: Follow up: Please schedule a follow up visit with the following Caregivers: As scheduled LIFESTYLE PRESCRIPTION Functional Nutrition: Per paralegal instructor Sleep: Sleep goal for most adults is [...] Health Coaching: Please consider scheduling with our [place] [facility] health coaches for a phone or virtual visit for accountability, goal setting and help with behavior car changer the next 6-8 weeks to be successful with your goals. [phone]. Smart phone apps to begin a meditative [...] on your diet plan discussed with our paralegal instructor, allowing for gentle detoxification and decreasing inflammation - while we are gathering your lab resultsand combining those with your complete history to formulate a very personalized treatment plan. LAB results: Due to the complexity of the testing performed, we are not able to review labs via SimpleGeo or over the phone, but please know, [...] Also make sure to schedule with the paralegal instructor (this will not happen automatically) as you [...] appointment. You can access them on the [employer] website and it can be beneficial if you review them prior to your next visit. www.Olive Media.net. Read about NutrEval if this was ordered. *Estela Fontanez APRN.CNP I spent a total of 30 minutes on the date of the service which included [id number] patient care. documented in this encounterMercy Memorial Hospital07-19-2023 History of Present illness Narrative* Whitley Pollard MD - 10/18/2022 11:00 AM EDT [place] Virtual Functional Medicine Follow-up Visit This Team Access Model visit is a virtual encounter. It required patient- provider interaction for the medical decision making as documented below. I have communicated my name and active licensure. The patient's identity and physical location wereverified at the time of this visit. 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 #60 pounds total #245 now ( # 160-180 pre children) At home now Weight- cutting out carbs, high protein helps the most [place] shaky, eating helped, tested glucose 120 fasting [...] orders placed this encounter Biocidin Advanced Formula (TruTouch Technologies) gut microbial (bacteria/yeast) balance Sig: Take 5 [...] 120 tablet Refill: 2 The Whole Probiotic (BioKeystok) Sig: Take 1 capsule by mouth once daily. Treatment 3-6 months Current Outpatient Medications Medication Sig fluconazole (DIFLUCAN) 150 mg tablet Take one x 1, repeat in 3 days x 1. nystatin (MYCOSTATIN, NILSTAT) 500,000 unit tab Take 2 tablets by mouth twice daily. The Whole Probiotic (Biohm) Take 1 capsule by mouth once daily. Treatment 3-6 months Biocidin Advanced Formula (TruTouch Technologies) gut microbial (bacteria/yeast) balance Take 5 Drops [...] visit. I recommend the supplements from the [facility] Change.org Online Store as we have thoroughly evaluated the research and use only highest quality supplements. Get started by following four easy steps: Visit the following webpage: [email or web address] Create an account: Enter your first name, [...] For issues with your MRN please call [phone] Provider Code: Functional (not case sensitive) Future Plans: Follow up: Please schedule a follow up visit with the following Caregivers: Provider: Virtual visit with Dr Pollard in 10-12 weeks or first available. Please call or go to [employer] Gamessandy to schedule a follow up visit. Nutrition: as needed Health golf coach: as needed LIFESTYLE PRESCRIPTION Functional Nutrition: [...] Health Coaching: Please consider scheduling with our [place] [facility] health coaches for a phone or virtual visit for accountability, goal setting and help with behavior car changer the next 6-8 weeks to be successful with your goals. [phone]. Smart phone apps to begin a meditative [...] on your diet plan discussed with our paralegal instructor, allowing for gentle detoxification and decreasing inflammation - while we are gathering your lab resultsand combining those with your complete history to formulate a very personalized treatment plan. LAB results: Due to the complexity of the testing performed, we are not able to review labs via Baojia.comt or over the phone, but please know, if any of your labs are critical we will contact you. Otherwise, we will review all your labs at your next visit. Make sure to schedule with the paralegal instructor (this will not happen automatically) as you did with your first visit so that she can review nutritional aspects of your treatment plan. Potential future labs: Any [employer] labs ordered take about 6 -8 weeks to return. Do them as soon as possible so that we have the results before your next appointment. You can access them on the InsideViewbsite and it can be beneficial if you review them prior to your next visit. www.Olive Media.net. Read about NutrEval/GI Effects if this was ordered. Now Technologies Billing Questions: [email or web address] Please log into the link if you have questions regarding how to perform any of the Now Technologies Testing Kits ( such as GI Effects, Nutreval, Hydrogen Breath Test ). Please obtain blood draws for the [employer] Diagnostics NutrEval Profile and other test kits ordered by your provider at the [place] [facility] at designated [facility] Labs and times.The designated labs are as follows: ~[place] : Q2 @ CF Sunday-Sunday 8am-1 pm and 1:30pm-4:30 pm G-10 Sunday-Sunday 8am-5pm. ~[facility] : Labs Sunday-Sunday 8am-1pm. ~Or at a local lab where you live: Rewarding Return Whitley Pollard MD Time spend with patient: I spent 30 minutes in the visit with more than 50% of the time spent counseling in regards to above. documented in this encounter[facility]06[facility]23 Instructions* Patient Instructions* Kendal Coffman RD - 09/20/2022 2:09 PM EDT [facility] FOLLOW UP NUTRITION INSTRUCTIONS Nutrition Follow-up: In as needed with Kendal Coffman RD. Your Prescribed Nutrition Plan: Elimination->Reintroduction->Gluten-Free, whole foods based with avoidance of known sensitivities Check with [facility] medical provider regarding: -Questions about adrenal status/testing -Supplemental turmeric (I.e. Meriva form) -[place]-Check 2. Modify eating patterns further with goal of blood glucose balancing: #1: Start Your Meals with fiber: seeds (ant/flax/hemp), small handful of nuts, non-starchy vegetables sharon raw broccoli or brussels sprouts, supplemental fiber (I.e. PGX) #2: Eat Your Protein Next #3: Consume your carbohydrate last #4: 6 cups of non-starchy vegetables daily Ant Fresca recipe: https://www.VenuCare Medical.co/ant-fresca/ 3. Consider continuous glucose monitor to measure glucose levels throughout the day and night X 2-4weeks More information about CGM's: https://www.Carebaseline.com/diabetesmine/etoh-hj-elickgcjva-rykwvnk-xajlugf-qzd-c hoosing-one#Jeok-zkhrnvk-JSY-systems https://www.WebGen Systems/blog/eoow-kqc-jmnjwsfmif-ojdiilf-kmermsofki-sjzxuln-and-ho u-ow-oeofpp-a-cgm/ CGM Manufacturers: Freestyle Weston 2 and 3 [...] the level of support you choose. Link: https://www.MODLOFT.iBiz Software/ Group Phoebe Ingenica Utilizes CGM Dexcom G6 or Freestyle Weston Dietitian support (for an additional cost) Food tracking via homar Oh: $199 per month + $199 annual membership fee Link: https://www.Maichang/ Signos: Uses Dexcom G6 paired with Signos homar Uses AI generated tips for support Food tracking via homar Oh: based on 1, 3, or 6 month plans based on your current goals. 1 month- $399, 3 months $747, 6 months $1194 Link: https://www.Ablexis/ Veristable Veri Utilizes Freestlye Weston paired with Veri Homar No dietitian support Food tracking via homar Oh: $199 per month, or $169 per month (depending on the number of sensors) Link:https://www.Anchanto.co/ April PAMELA Utilizes Gregory FreeStyle Weston Homar not available yet Oh: $288/month Link:https://www.april.ai/ Sputnik[employer] Uses Gregory Weston Sense Sport Glucose Biosensor Aimed for athletes No food tracking No dietitian support Oh: $240/month Link: https://www.Healthcare Bluebook.Advanced BioEnergy/en-EN/ *Information updated as of 03/2022 4. Incorporate [...] catechins/EGCG per serving, per Consumer Labs Maureen Ashby Matcha (247.4mg Catechins) Wastewater Treatment Supervisor JayIQumulusabi AdMaster Green Tea (brewed) (241.5mg) Sferra Matcha Green Tea powder (212.6mg) Pique Tea Crystals Ashlee (powder) (202.4mg) [facility] Pure Green Tea (brewed) (202.3mg) Twinings of Courtney Green tea (brewed) (141.5mg) 5. Please reintroduce [...] the following two-day period). Sample challenge doses: [place] (organic) : Fresh or frozen corn kernels [...] protein: any low-lactose cheese I.e. cheddar, parmesan, Swazi, camembert, gouda, provolone 1oz Note: for a [...] Patient Folder. (Or you can go to https://[place] Cycling.[facility].org) 2. For nutrition related questions or concerns, MyChart message your physician and include Attn: Kendal Coffman RD at the top of the message. SimpleGeo messaging is meant to support implementation of [...] Supplements: Supplements can be ordered from the [facility]'s Online Store: https://store.Deal Decor.Advanced BioEnergy/#login New patients to the Healthy Living Shop will need to enter the provider code FUNCTIONAL to registertheir account. documented in this encounterMercy [facility] Hospital06-[facility]23 History of Present illness Narrative* Kendal Coffman RD - 09/20/2022 1:01 PM EDT [facility] Nutrition Therapy: Follow-Up [...] evaluation remotely. Patient is located in the [facility] [place] at the time of the virtual visit. [...] with avoidance of known sensitivities Check with [facility] medical provider regarding: -Questions about adrenal status/testing -Supplemental turmeric (I.e. Meriva form) -[place]-Check 2. Modify eating patterns further with goal of blood glucose balancing: #1: Start Your Meals with fiber: seeds (ant/flax/hemp), small handful of nuts, non-starchy vegetables sharon raw broccoli or brussels sprouts, supplemental fiber (I.e. PGX) #2: Eat Your Protein Next #3: Consume your carbohydrate last #4: 6 cups of non-starchy vegetables daily Ant Fresca recipe: https://www.Melon #usemelon/ant-fresca/ 3. Consider continuous glucose monitor to measure glucose levels throughout the day and night X 2-4weeks More information about CGM's: https://www.Carebaseline.com/diabetesmine/axja-br-zriveabwct-nsdqgvg-tubmgvb-hid-c hoosing-one#Cpau-vikwmch-HNG-systems https://www.Talentory.com.com/blog/ofpy-jzg-rfndvqrlxk-yreoqob-ocfjmczeum-xoaddik-and-ho l-wv-aydelm-a-cgm/ CGM Manufacturers: Freestyle Weston 2 and 3 [...] Utilizes CGM (Freestyle Weston) paired with the JJS Mediase homar Free Dietitian support for one month Food tracking via homar Oh:$175-$350 per month, dependent on the level of support you choose. Link: https://www.nutrisense.io/ Levels Utilizes CGM Dexcom G6 or Freestyle Weston Dietitian support (for an additional cost) Food tracking via homar Oh: $199 per month + $199 annual membership fee Link: https://www.Maichang/ Signos: Uses Dexcom G6 paired with Signos homar Uses AI generated tips for support Food tracking via homar Oh: based on 1, 3, or 6 month plans based on your current goals. 1 month- $399, 3 months $747, 6 months $1194 Link: https://www.Ablexis/ Veristable Veri Utilizes Freestlye Weston paired with Veri Homar No dietitian support Food tracking via homar Oh: $199 per month, or $169 per month (depending on the number of sensors) Link:https://www.REGEN Energy/ April PAMELA Utilizes Printio.ruStUrban Planet Media & Entertainment Weston Homar not available yet Oh: $288/month Link:https://ThisLife.april.AquaGenesis/ HelloBooks Uses Gregory Weston Sense Sport Glucose Biosensor Aimed for athletes No food tracking No dietitian support Oh: $240/month Link: https://www.Bell Biosystems/en-EN/ *Information updated as of 03/2022 4. Incorporate [...] catechins/EGCG per serving, per Consumer Labs Maureen Ashby Matcha (247.4mg Catechins) Wastewater Treatment Supervisor JayIQumulusabi AdMaster Green Tea (brewed) (241.5mg) Sferra Matcha Green Tea powder (212.6mg) Pique Tea Crystals Ashlee (powder) (202.4mg) [facility] Pure Green Tea (brewed) (202.3mg) Twinings [facility] Green tea (brewed) (141.5mg) 5. Please [...] the following two-day period). Sample challenge doses: [place] (organic) : Fresh or frozen corn kernels [...] protein: any low-lactose cheese I.e. cheddar, parmesan, Swazi, camembert, gouda, provolone 1oz Note: for a [...] by: Kendal Coffman RD documented in this encounterMercy Memorial HospitalDischar summary Author Jessie Harman [facility] July 03, 2023 1:17pm Note Date/Time July 03, 2023 1:17 pm [facility] Medical Records Department [address] [place] [address] Instructions for Home/Discharge Instructions 07/03/23 1316 MR#: [id number] Acct: [id number] Name: GIOVANNA DAY Rep #:[id number] : 1990 33 From: Jessie Harman MD PCP: Care Physician,No Primary Status :REG [facility] Discharge Instructions Diet Discharge Diet: No restrictions [...] Up: Sin Elder MD [Med Staff - Selenium Plant Operator] - Disposition Disposition (needs filled in before D/C Order can be placed): Home, Self Care 07/03/23 1317<Electronically signed by Jessie Harman MD>Jessie Harman MD CC: No Primary Care Physician ~ Signed [facility] Work Phone: Discharge summary Author Cody Canseco [facility] Note Date/Time September 20, 2024 6:21 am [facility] Medical Records Department [address] [place] [address] Emergency Department Summary 09/20/24 MR#: [id number] Acct: [id number] Name: GIOVANNA DAY Rep #:[id number] : 1990 34 From: Cody Canseco DO PCP: CELSA Mitchell Status:REG ER Location: ED HPI HPI - Female History of Present Illness Chief Complaint: Vag Bleeding Informant: patient and spouse/S.O. Narrative Narrative: Patient is a 34-year-old female who is a G4, P2 with 1 spontaneous miscarriage. She states the miscarriage occurred at 16 weeks and was roughly a year and a half ago. She did have complications with that as she had retained products of conception. She states her last menstrual cycle was approximately August 14. She states she is approximately 5 weeks . She states that yesterday she noticed some pink tinge blood with using the bathroom. She contacted her OB/GYNbecause of this and her history of miscarriage. She has an appointment scheduled for next week but was advised if she has worsening bleeding or pain she may need to go to the ER. The patient reports that around 930 this evening she tried to sleep but was having increasing right sided pain that is sharp in nature. She states she then noticed that the blood had changed from pink-tingedto bright red. She denies any history of bleeding disorder or blood thinner use. She states there is been no dysuria or flank pain. With concern she is having a complication such as another miscarriage she presents for evaluation. [facility] Medical History History of back problems Hives Gastrointestinal problem Hx of migraine headaches Connective tissue disease Home Medications ?Medication ?Instructions ?Recorded ?Last Taken ?Type ondansetron 4 mg disintegrating 4 mg PO TID PRN nausea and 09/20/24 Unknown Rx tablet vomiting #21 tabs oxycodone-acetaminophen 5 mg-325 1 tab PO Q6H PRN pain 5 days #20 09/20/24 Unknown Rx mg tablet (Percocet) tabs Allergy/AdvReac Type Severity Reaction Status Date / Time No Known Allergies Allergy Verified 09/20/24 02:44 Family History Grandfather Alcoholism Cancer skin cancer Grandmother Alcoholism Sister Anemia Mother Cancer, Onset Age: 40 cervical cancer Hypertension Brother Seizures Surgical History S/P D&C (status post dilation and curettage) Social History number of children: 2 current occupational status: unemployed 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 Smoking Status: Never smoker alcohol intake: never substance use type: does not use what type of physical activity do you participate in: walking farhan/confucianism: Pentecostalism seatbelt use: always do you feel safe at home: Yes additional social history: - Jonel STAFFORD ROS ED Constitutional Constitutional ED: Denies chills or fever(s) Eyes Eyes: Denies change in vision ENT ENT ED: Denies sore throat Cardiovascular Cardiovascular: Denies chest pain Respiratory/Chest Respiratory/Chest: Denies cough or dyspnea Gastrointestinal Gastrointestinal: Reports abdominal pain and nausea; Denies diarrhea or vomiting Genitourinary Genitourinary ED: Reports other Details: Positive vaginal bleeding ; Denies dysuria Musculoskeletal Musculoskeletal: Reports other Details: No CVA pain ; Denies myalgias Integumentary Denies rash Neurologic Neurologic: Denies headache(s) Hematologic/Lymphatic Hematologic/Lymphatic: Denies easy bleeding or easy bruising EXAM Physical Exam Const Vital Signs: 09/20/24 02:45 09/20/24 04:43 09/20/24 06:00 Temperature 98.5 F Temperature Source Oral Pulse Rate 95 98 89 Respiratory Rate 18 16 18 Blood Pressure 136/67 H 128/72 H 157/93 H Blood Pressure Mean 90 90 114 Pulse Ox 100 98 98 Oxygen Delivery Method Room Air Room Air Room Air Positive well nourished and well developed General Appearance ED: well developed; Negative for pallor HEENT HEENT Narrative: Normocephalic atraumatic Eyes PERRL and EOMs intact bilaterally General Eye ED: Negative for scleral icterus Neck supple Neck Narrative: No nuchal rigidity or meningeal signs Resp normal respiratory effort and clear to auscultation bilaterally Resp Narrative: No nasal flaring retractions tachypnea or accessory muscle use Cardio regular rate and regular rhythm Rate: other Other Details: Heart is regular rate and rhythm without murmurs rubsor gallops Radial and carotid pulses are equal and symmetric GI soft to palpation, non-distended and no masses GI Narrative: Abdomen is soft and nondistended with normal active bowel sounds There is pain on palpation in the suprapubic region that extends along the rightlateral abdomen. There is no voluntary guarding or rigidity however. No peritoneal signs. No rigidity or pulsatile mass Auscultation: normoactive bowel sounds Palpation: soft Back/Spine no CVA tenderness Extremity normal to inspection and full ROM Extremity Narrative: No asymmetric edema no pitting edema negative Homans' sign bilaterally Neuro oriented x3, CN's II-XII intact bilaterally and no sensory deficits noted Sensorium / Orientation: alert Motor Exam: strength 5/5 throughout Psych Mood & Affect: tearful Skin no rashes or lesions noted and no wounds Skin Narrative: Capillary refill is less than 3 seconds No overlying soft tissue skin changes to suggest trauma or infection General Skin Exam: Negative for jaundice or pallor MDM MDM MDM Narrative Medical decision making narrative: Patient arrived to the ER with stable vitals. She reported that she was approximately 4 to 5 weeks and in the last 24 hours is developed sharp right sided pain with minimal blood. Based on her early status and worsening pain there is concern that this is from an ectopic . Secondary to this basic laboratory studies urine sample and a transvaginal ultrasound were performed. Patient's white count is normal going against a secondary infection such as appendicitis. She denies any dysuria; there is +2 bacteria in the urine sample but there is contamination with skin cells and therefore without urinary symptoms I do not feel this is a true UTI and there isno need for antibiotics. The ultrasound showed a heterogeneous mass in the right adnexa which correlates with her pain and nothing within the uterus. Thisis most likely an ectopic . Her hCG value is low at 34 indicating thisis early and at this time her vitals are stable and she has no signs of acute blood loss anemia. I discussed the case with EAR SPECIALIST on-call (cook restaurant Logan) who recommends that as there is nothing within the uterus and there is a change to the right adnexa which correlates with her symptoms that this is most likely an ectopic and she recommends methotrexate at this time. Therefore the patient was given IM methotrexate for the ectopic . However without hypotension acute blood loss anemia or systemic infection she does not need to undergo emergent surgery and there is no need for admission. The patient was informed of the ectopic and does agree to treatment at this time. She understands she needs to follow-up with EAR SPECIALIST on Sunday to track her hCG valuesand to have repeat evaluation. History & Record Review Discussion w/independent historian: Patient and Significant other Lab Data Attestation: I reviewed the patient's lab results. Labs: Laboratory Results - last 24 hr 09/20/24 09/20/24 09/20/24 02:50 03:01 04:00 WBC 8.6 RBC 4.72 Hgb 14.8 Hct 42.2 MCV 89.4 MCH 31.4 MCHC 35.1 RDW Std Deviation 41.3 RDW Coeff of Judah 12.6 Plt Count 261 MPV 9.4 Immature Gran % (Auto) 0.200 Neut % (Auto) 59.9 Lymph % (Auto) 30.0 [place] % (Auto) 7.4 Eos % (Auto) 2.3 Baso % (Auto) 0.2 Absolute Neuts (auto) 5.2 Absolute Lymphs (auto) 2.59 Nucleated RBC % 0 PT 12.7 INR 0.9 APTT 27.1 Sodium 139 Potassium 4.1 Chloride 105 Carbon Dioxide 23.3 Anion Gap 11 BUN 12 Creatinine 0.70 Estim Creat Clear Calc 130.88 Est GFR (MDRD) Non-Af 115 BUN/Creatinine Ratio 17.0 Glucose 111 H Calcium 9.4 HCG, Quant 32 H Urine Color Yellow Urine Clarity Clear Urine pH 6.5 Ur Specific [place] 1.010 Urine Protein 15 H Urine Glucose (UA) Normal Urine Ketones Negative Urine Occult Blood 250 H Urine Nitrite Negative Urine Bilirubin Negative Urine Urobilinogen Normal Ur Leukocyte Esterase 25 H Urine RBC 10-25 SEEN Urine WBC 0-5 SEEN Ur Squamous Epith Cells 10-25 SEEN Urine Bacteria 2+ Urine Mucus 0 SEEN Radiography Diagnostic Testing: Clinical Impression(s) from Imaging Studies Obstetrics Ultrasound 09/20/24 02:57 IMPRESSION: Heterogeneous area in the right adnexa suspicious for ectopic . This needs correlation with beta HCG level and follow-up exam. Left ovarian simple cyst, possibly corpus luteum cyst. Scattered benign chronic nabothian cysts of the cervix. Free fluid in the pelvis. Normal bilateral ovarian flow. No intrauterine is visualized. Reading Location: [place] [address] Management Discussion w/another healthcare provider: Marble Installer Supervisor Discharge Plan Triage Chief Complaint: Vag Bleeding ED Provider: Cody Canseco Dx/Rx/DC Orders Clinical Impression: Ectopic Instructions: Ectopic Prescriptions: New oxycodone-acetaminophen [Percocet] 5-325 mg tablet 1 tab PO Q6H PRN (Reason: pain) 5 Days Qty: 20 0RF ondansetron 4 mg tablet,disintegrating 4 mg PO TID PRN (Reason: nausea and vomiting) Qty: 21 0RF Primary Care Provider: Erick Cleaning NP Referrals: Jessica Benson MD [Med Staff - Active Staff] - (Ectopic ) Erick Cleaning NP, CLINICAL TRAINING COORDINATOR-C [Primary Care Provider] - Activity Restrictions/Additional Instructions: Please contact your EAR SPECIALIST's office on Sunday morning so that you can have a repeat marker obtained which will help guide treatment regarding your ectopic . Use the prescribed medication for pain control. If you develop severe pain despite taking the medication worsening bleeding or fever over 100.4 please return to the ER for repeat evaluation. Print Language: Maltese Disposition Disposition: Home, Self Care What to do if you have Problems For any increased pain, shortness of breath, bleeding, nausea or vomiting, chestpain, or any unexpected problems, contact your Primary Care Provider. Call [email or web address] [facility] ([phone]) or report to the closest Emergency Room. Call 911 if necessary. 09/20/24 06 <Electronically signed by Cody Canseco DO> Cosigner Signature (if applicable): CC: CELSA Cleaning ~ Signed [facility] Work Phone: Evaluation note* Diagnosis Weight gain- Primary Abnormal weight gain Bloating Flatulence, eructation, and gas pain Dietary counseling and surveillance Dietary surveillance and counseling [facility] Diagnosis Bloating- Primary Flatulence, eructation, and gas pain Thrush (oral) Intestinal dysbiosis documented in this encounter [facility] note* Diagnosis Hormone imbalance- Primary Unspecified endocrine disorder Intestinal dysbiosis Thrush Candidiasis of mouth Mold exposure Contact with and (suspected) exposure to mold documented in this encounter [facility] note* Diagnosis Risk of exposure to Lyme disease- Primary Other specified personal history presenting hazards to health documented in this encounter [facility] note* Diagnosis Thrush (oral)- Primary Intestinal dysbiosis Dietary counseling and surveillance Dietary surveillance and counseling documented in this encounter [facility] note* Diagnosis Thrush- Primary Candidiasis of mouth Chronic fatigue Other malaise and fatigue documented in this encounter [facility] note* Diagnosis Mold exposure- Primary Contact with and (suspected) exposure to mold Thrush Candidiasis of mouth documented in this encounter [facility] note* Diagnosis Diseases of the oral soft tissues, excluding lesions specific for gingiva and tongue- Primary Lesion of tongue Other specified conditions of the tongue documented in this encounter [facility] note* Diagnosis Onset Date Resolution Status Acute hypotension acute Incomplete spontaneous acute Sinus tachycardia [facility] Work Phone: Evaluation note* Diagnosis Onset Date Resolution Status Acute hypotension acute Connective tissue disease ac cathryn Incomplete acute Incomplete spontaneous acute Sinus tachycardia [facility] Work Phone: Evaluation note* Diagnosis Other fatigue- Primary Complete miscarriage Complete spontaneous without mention of complication Prior loss, antepartum, second trimester documented in this encounter [facility] note* Diagnosis Connective tissue disorder (HCC)- Primary [...] 10 weeks next [facility]* Diagnosis Exposure to pertussis- Primary documented in this encounter [facility] Work Phone: Evaluation note* Diagnosis Pelvic floor tension- Primary [facility]* Diagnosis Weight gain- Primary Abnormal weight gain Dietary counseling and surveillance Dietary surveillance and counseling documented in this encounter [facility] note* Diagnosis Connective tissue disorder (HCC)- Primary [...] pain Generalized pain documented in this encounter [facility] noteNo assessment information availableWKettering Health [facility] Work Phone: Hospital Discharge instructions Additional Instructions Please contact your EAR SPECIALIST's office on Sunday morning so that you can have a repeat marker obtained which will help guide treatment regarding your ectopic . Use the prescribed medication for pain control. If you develop severe pain despite taking the medication worsening bleeding or fever over 100.4 please return to the ER for repeat evaluation. [facility] Work Phone: Summary Purpose Family History No Family History Records Found Cervical Cancer Status:Active Comments:Mother. Hypertension Status:Active Comments:Mother. Relationship Condition Age at Onset Recorded Date/T landy grandfather Alcoholism Unknown Malignant neoplasm Unknown grandmother Alcoholism Unknown sister Anemia Unknown mother Malignant neoplasm 40 Hypertension Unknown brother Seizure Unknown Advance Directives No Advanced Directives Records Found Advance Directive Response Recorded Date/ Time Living Will No July 03, 2023 11:06am Power of Shell Mold Bonder No July 02 11:06am Advance Directive Response Recorded Date/ Time Do you have a Healthcare Power of [employer]? No September 20, 2024 2:47am Reason for Referral Specialty Diagnoses / Procedures Referred By Contac t Referred To Contact Infectious Diseases Diagnoses Thrush Procedures CONSULT TO INFECTIOUS DISEASES OFFICE/OUTPATIENT [facility] 60-74 MINUTES Estela Fontanez APRN.ELDER COUNSELOR [address] [place] [id number] Referral ID Status Reason Start Date Expiration Date Visits Requested Visits Authorized [id number] Authorized PCP Requested Referral 02/16/2024 1 1 Specialty Diagnoses / Procedures Referred By Contac t Referred To Contact Ent - Otolaryngology Diagnoses Diseases of the oral soft tissues, excluding lesions specific for gingiva and tongue Lesion of tongue Procedures CONSULT TO ENT OFFICE/OUTPATIENT [facility] 60-74 MINUTES Ernesto Shah MD [address] [employer] [address] [id number] Referral ID Status Reason Start Date Expiration Date Visits Requested Visits Authorized [id number] Authorized PCP Requested Referral 03/05/2023 03/04/2024 1 1 Specialty Diagnoses / Procedures Referred By Contac t Referred To Contact Diagnoses Complete miscarriage Prior loss, antepartum, second trimester Procedures CONSULT TO MATERNAL MEDI OFFICE/OUTPATIENT [facility] 60 MINUTES Jessie Harman MD [address] [place] [address] Referral ID Status Reason Start Date Expiration Date Visits Requested Visits Authorized [id number] Authorized PCP Requested Referral Auto-Generate d Referral 07/10/2023 07/09/2024 1 1 Specialty Diagnoses / Procedures Referred By Contac t Referred To Contact Rheumatology Diagnoses Connective tissue disorder (HCC) Procedures CONSULT TO RHEUM/IMMUN DISEASE OFFICE/OUTPATIENT [facility] 60 [place] [address] [place] [id number] Referral ID Status Reason Start Date Expiration Date Visits Requested Visits Authorized [id number] Authorized PCP Requested Referral 08/21/2023 08/20/2024 1 1 Specialty Diagnoses / Procedures Referred By Latoya ortiz Referred To Contact [facility] Diagnoses Pelvic floor tension Procedures CONSULT TO PHYSICAL THERAPY PHYSICAL THERAPY EVALUATION HIGH COMPLEX 45 MINS Jessie Harman MD [address] [place] [address] [facility] [address] [place] [address] Referral ID Status Reason Start Date Expiration Date Visits Requested Visits Authorized [id number] Pending Review Auto-Generat ed Referral 09/18/2023 09/16/2024 1 1 Chief Complaint and Reason for Visit Chief Complaint IMCOMPLETE Reason for Visit Acute hypotension Incomplete spontaneous Sinus tachycardia Chief Complaint IMCOMPLETE Reason for Visit Acute hypotension Connective tissue disease Incomplete Incomplete spontaneous Sinus tachycardia Chief Complaint Admit Date miscarriage September 20, 2024 2:43 am Additional Source Comments INFORMATION SOURCE (unrecogn ized section and content) DATE CREATED AUTHOR 11/24/2019 [facility] DATE CREATED AUTHOR AUTHOR'S ORGANIZ ATION 06/23/2022 [facility] DATE CREATED AUTHOR AUTHOR'S ORGANIZ ATION 05/10/2023 [facility] DATE CREATED AUTHOR AUTHOR'S ORGANIZ ATION 09/09/2023 [facility] DATE CREATED AUTHOR AUTHOR'S ORGANIZ ATION 07/17/2024 [facility] DATE CREATED AUTHOR AUTHOR'S ORGANIZ ATION 08/07/2024 [facility] DATE CREATED AUTHOR AUTHOR'S ORGANIZ ATION 09/22/2024 [facility] Source Comments (unrecognize d section and content) In the event this informatio n is protected by the Federal Confidentiality of Alcohol and Drug Abuse Patient Records regulations: The Federal rules restrict any use of the information to criminally investigate or prosecute any alcohol or drug abuse patient.[facility] the event this information is protected by the Federal Confidentiality of Alcohol and Drug Abuse Patient Records regulations: The Federal rules restrict any use of the information to criminally investigate or prosecute any alcohol or drug abuse patient.[facility] the event this information is protected by the Federal Confidentiality of Alcohol and Drug Abuse Patient Records regulations: The Federal rules restrict any use of the information to criminally investigate or prosecute any alcohol or drug abuse patient.[facility] the event this information is protected by the Federal Confidentiality of Alcohol and Drug Abuse Patient Records regulations: The Federal rules restrict any use of the information to criminally investigate or prosecute any alcohol or drug abuse patient.[facility] the event this information is protected by the Federal Confidentiality of Alcohol and Drug Abuse Patient Records regulations: The Federal rules restrict any use of the information to criminally investigate or prosecute any alcohol or drug abuse patient.[facility] Hospital[facility] the event this information is protected by the Federal Confidentiality of Alcohol and Drug Abuse Patient Records regulations: The Federal rules restrict any use of the information to criminally investigate or prosecute any alcohol or drug abuse patient.[facility] Hospital[facility] the event this information is protected by the Federal Confidentiality of Alcohol and Drug Abuse Patient Records regulations: The Federal rules restrict any use of the information to criminally investigate or prosecute any alcohol or drug abuse patient.[facility] HospitalIn the event this information is protected by the Federal Confidentiality of Alcohol and Drug Abuse Patient Records regulations: The Federal rules restrict any use of the information to criminally investigate or prosecute any alcohol or drug abuse patient.[facility] Hospital[facility] the event this information is protected by the Federal Confidentiality of Alcohol and Drug Abuse Patient Records regulations: The Federal rules restrict any use of the information to criminally investigate or prosecute any alcohol or drug abuse patient.[facility] the event this information is protected by the Federal Confidentiality of Alcohol and Drug Abuse Patient Records regulations: The Federal rules restrict any use of the information to criminally investigate or prosecute any alcohol or drug abuse patient.[facility] HospitalIn the event this information is protected by the Federal Confidentiality of Alcohol and Drug Abuse Patient Records regulations: The Federal rules restrict any use of the information to criminally investigate or prosecute any alcohol or drug abuse patient.[facility] HospitalIn the event this information is protected by the Federal Confidentiality of Alcohol and Drug Abuse Patient Records regulations: The Federal rules restrict any use of the information to criminally investigate or prosecute any alcohol or drug abuse patient.[facility] HospitalIn the event this information is protected by the Federal Confidentiality of Alcohol and Drug Abuse Patient Records regulations: The Federal rules restrict any use of the information to criminally investigate or prosecute any alcohol or drug abuse patient.[facility] the event this information is protected by the Federal Confidentiality of Alcohol and Drug Abuse Patient Records regulations: The Federal rules restrict any use of the information to criminally investigate or prosecute any alcohol or drug abuse patient.[facility] HospitalIn the event this information is protected by the Federal Confidentiality of Alcohol and Drug Abuse Patient Records regulations: The Federal rules restrict any use of the information to criminally investigate or prosecute any alcohol or drug abuse patient.[facility] HospitalIn the event this information is protected by the Federal Confidentiality of Alcohol and Drug Abuse Patient Records regulations: The Federal rules restrict any use of the information to criminally investigate or prosecute any alcohol or drug abuse patient.[facility] HospitalIn the event this information is protected by the Federal Confidentiality of Alcohol and Drug Abuse Patient Records regulations: The Federal rules restrict any use of the information to criminally investigate or prosecute any alcohol or drug abuse patient.[facility] HospitalIn the event this information is protected by the Federal Confidentiality of Alcohol and Drug Abuse Patient Records regulations: The Federal rules restrict any use of the information to criminally investigate or prosecute any alcohol or drug abuse patient.[facility] HospitalIn the event this information is protected by the Federal Confidentiality of Alcohol and Drug Abuse Patient Records regulations: The Federal rules restrict any use of the information to criminally investigate or prosecute any alcohol or drug abuse patient.[facility] HospitalIn the event this information is protected by the Federal Confidentiality of Alcohol and Drug Abuse Patient Records regulations: The Federal rules restrict any use of the information to criminally investigate or prosecute any alcohol or drug abuse patient.[facility] HospitalIn the event this information is protected by the Federal Confidentiality of Alcohol and Drug Abuse Patient Records regulations: The Federal rules restrict any use of the information to criminally investigate or prosecute any alcohol or drug abuse patient.[facility] HospitalIn the event this information is protected by the Federal Confidentiality of Alcohol and Drug Abuse Patient Records regulations: The Federal rules restrict any use of the information to criminally investigate or prosecute any alcohol or drug abuse patient.[facility] HospitalIn the event this information is protected by the Federal Confidentiality of Alcohol and Drug Abuse Patient Records regulations: The Federal rules restrict any use of the information to criminally investigate or prosecute any alcohol or drug abuse patient.[facility] HospitalIn the event this information is protected by the Federal Confidentiality of Alcohol and Drug Abuse Patient Records regulations: The Federal rules restrict any use of the information to criminally investigate or prosecute any alcohol or drug abuse patient.[facility] Reason for Visit (unrecogniz ed section and content) Reason Comments Established Patient Reason Comments Established Patient Reason Comments Mouth/Lip Problem Reason Comments f/u d&c Reason Comments Follow Up Discuss possible ane ender Reason Comments Consult Preconception counse jairo Specialty Diagnoses / Procedures Referred By Contac t Referred To Contact Diagnoses Complete miscarriage Prior loss, antepartum, second trimester Procedures CONSULT TO MATERNAL MEDI OFFICE/OUTPATIENT NEW [facility] 60 MINUTES Jessie Harman MD [address] [place] [address] Referral ID Status Reason Start Date Expiration Date V isits Requested Visits Authorized [id number] Closed PCP Requested Referral Auto-Generated Referral 07/10/2023 [...] Dr. Jessie Harman MD Attending Provider Active Rotor Casting Machine Setup Operator Relationship Specialty Start Date End Date Leena Elder MD [address] [place], [place] [id number] PCP - General 11/20/09 Rotor Casting Machine Setup Operator Relationship Specialty Start Date End Date Leena Elder MD [address] [place], [place] [id number] PCP - General 11/20/09 Rotor Casting Machine Setup Operator Relationship Specialty Start Date End Date Leena Elder MD [address] [place], [place] [address], [place] [address] PCP - General 11/20/09 Rotor Casting Machine Setup Operator Relationship Specialty Start Date End Date Leena Elder MD [address] [place] [address] PCP - General 11/20/09 Rotor Casting Machine Setup Operator Relationship Specialty Start Date End Date Leena Elder MD [address] [place] [address] PCP - General 11/20/09 Rotor Casting Machine Setup Operator Relationship Specialty Start Date End Date Leena Elder MD [address] [place] [address] PCP - General 11/20/09 Rotor Casting Machine Setup Operator Relationship Specialty Start Date End Date Leena Elder MD [address] [place] [address] PCP - General 11/20/09 Rotor Casting Machine Setup Operator Relationship Specialty Start Date End Date Leena Elder MD [address] [place] [address] PCP - General 11/20/09 Rotor Casting Machine Setup Operator Relationship Specialty Start Date End Date Leena Elder MD [address] [place] [address] PCP - General 11/20/09 Rotor Casting Machine Setup Operator Relationship Specialty Start Date End Date Leena Elder MD [address] [place], [place] [address] PCP - General 11/20/09 Rotor Casting Machine Setup Operator Relationship Specialty Start Date End Date Leena Elder MD [address] [place], [place] [address] PCP - General 11/20/09 Team Status: Active Member Role Status Dates Dr. Michael Alfaro MD Emergency Provider Active No Primary Care Physician Primary Care Provider Active Dr. Jessie Harman MD Attending Provider Active Rotor Casting Machine Setup Operator Relationship Specialty Start Date End Date Leena Elder MD [address] [place] [address] PCP - General 11/20/09 Rotor Casting Machine Setup Operator Relationship Specialty Start Date End Date Leena Elder MD [address] [place] [address] PCP - General 11/20/09 Rotor Casting Machine Setup Operator Relationship Specialty Start Date End Date Leena Elder MD [address] [place] [address] PCP - General 11/20/09 Rotor Casting Machine Setup Operator Relationship Specialty Start Date End Date Leena Elder MD [address] [place] [address] PCP - General 11/20/09 Rotor Casting Machine Setup Operator Relationship Specialty Start Date End Date Leena Elder MD [address] [place] [address] PCP - General 11/20/09 Rotor Casting Machine Setup Operator Relationship Specialty Start Date End Date Generic Provider, [place] [address] PCP - General Plug Cutting Machine Operator 09/08/23 Rotor Casting Machine Setup Operator Relationship Specialty Start Date End Date Leena Elder MD [address] [place] [address] PCP - General 11/20/09 Rotor Casting Machine Setup Operator Relationship Specialty Start Date End Date Leena Elder MD [address] [place], [place] [address] PCP - General 11/20/09 Rotor Casting Machine Setup Operator Relationship Specialty Start Date End Date Leena Elder MD [address] [place], [place] [address] PCP - General 11/20/09 Rotor Casting Machine Setup Operator Relationship Specialty Start Date End Date Leena Elder MD [address] [facility] [place] [place] [address] PCP - General 11/20/09 Rotor Casting Machine Setup Operator Relationship Specialty Start Date End Date Leena Elder MD [address] [facility] [place] [place] [id number] PCP - General 11/20/09 Team Status: Active Member Role Status Dates Erick Cleaning CLINICAL TRAINING COORDINATOR, CLINICAL TRAINING COORDINATOR-C Primary Care Provider Active Team Status: Inactive Member Role Status Dates Erick Cleaning CLINICAL TRAINING COORDINATOR, CLINICAL TRAINING COORDINATOR-C Primary Care Provider Active Start: September 20, 2024 End: September 20, 2024 Dr. Cody Canseco , DO Emergency Provider Active Start: September 20, 2024 End: September 20, 2024 Goals (unrecognized section and content) Goals may be documented in a n alternate sectionGoals may be documented in an alternate sectionGoals may be documented in an [...] BE BASED ON THE PRIMARY CLINICAL RECORDS. [facility] [address] [facility]. provides no warranty or guarantee of the accuracy or completeness of information in this document.
[2024-09-23 09:50] LABS: hCG Titer Quant., Serum 4 mIU/mL (<9 non-preg)
== END | disposition home or self-care (01) ==
LOC: LAB 07:20
PROVIDERS: PCP Nurse Practitioner Family; Referring Provider Obstetrics & Gynecology; Visit Provider Obstetrics & Gynecology
DX: O00.90 Unspecified ectopic pregnancy without intrauterine pregnancy (principal)
CPT/HCPCS: 36415; 84702

== ENCOUNTER 2024-09-25 14:33 | Emergency (ER) | payer BC, SELFPAY ==
[2024-09-25] VITALS (7 sets, daily range): BP systolic 125–143; BP diastolic 68–91; PULSE 88–107; RESP 16–20; TEMP 36.4–36.9; O2SAT 97–100; BMI 37.8
--- NOTE | 2024-09-25 14:39 | US_ITS ---
EXAM: US , Transvaginal CLINICAL INDICATION: RECENT ECTOPIC, RLQ PAIN TECHNIQUE: Real-time transvaginal obstetrical ultrasound of the maternal pelvis and a first trimester with image documentation. Transvaginal imaging was used for better evaluation of the fetus and adnexa. COMPARISON: US 1st Trimester Endovaginal dated 09/20/2024 FINDINGS: GESTATION: See below. PLACENTA/AMNIOTIC FLUID: Cannot be adequately evaluated due to the early gestational age. UTERUS/CERVIX: Unremarkable. No myometrial mass. The uterus measures 7.8 x 7.2 x 5.6 cm. The endometrial stripe measures 0.4 cm in thickness. OVARIES: Heterogeneous region in the right ovary, similar to the prior exam. Ectopic can not be excluded. The right ovary measures 2.6 x 1.4 x 1.4 cm. The left ovary measures 2.5 x 2.6 x 1.3 cm. FREE FLUID: No free fluid. US/Transvaginal Non- IMPRESSION: Heterogeneous region in the right ovary, similar to the prior exam. Ectopic pr egnancy can not be excluded. Reading Location: [id number]
[2024-09-25 15:15] LABS: Absolute Lymphocyte Count 2.17 X10^3/uL (0.83-4.51); Absolute Neutrophil Count 7.2 X10^3/uL (2.0-7.7); Basophil# 0.03 X10^3/uL; Basophil% 0.3 % (0-1); Eosinophil# 0.12 X10^3/uL; Eosinophils% 1.2 % (0-5); Hematocrit 44.8 % (37-47); Hemoglobin 15.9 g/dL (12.0-15.0); Lymphocyte # 2.17 X10^3/ul (0.83-4.51); Lymphocyte % 21.4 % (19-41); Mean Corp Hgb Conc 35.5 g/dL (32-36); Mean Corpuscular Hgb 31.3 pg (27.0-32.0); Mean Corpuscular Volume 88.2 fL (81-99); Monocyte# 0.57 X10^3/uL; Monocyte% 5.6 % (0-10); NRBC Flagged by Analyzer 0 % (0-5); Neutrophil # 7.22 X10^3/uL (2.7-7.7); Neutrophil % 71.1 % (47-70); Platelet Count 318 K/mm3 (150-450); RBC Distribution Width CV 12.2 % (11.6-14.6); RBC Distribution Width SD 39.6 fl (35.1-43.9); Red Blood Count 5.08 M/mm3 (4.2-5.4); White Blood Count 10.2 K/mm3 (4.4-11.0)
--- NOTE | 2024-09-25 15:31 | EX.ED.DYSGE1 ---
HPI History of Present Illness Chief Complaint: Abd Pain Informant: patient Narrative Narrative: Patient is a 34-year-old female G4, P2 with recent diagnosis of ectopic that was treated with methotrexate 5 days ago (09/20/2024) presenting with worsening/recurrent right lower quadrant abdominal pain. Patient states she followed up in the office on Sunday (2 days ago) and her quant had gone from 32-4. She states immediately after the methotrexate she had cramping and bleeding that was more like a light.. She notes today she is only having spotting. Since last night and into today she has had recurrence of her severe right lower quadrant abdominal pain. She came to the ER for further evaluation. States feels lightheaded and shaky denies any dizziness. She has some mild nausea but not currently having any vomiting. States on Sunday she was having a migraine with associated vomiting which is not overly atypical for her. No report of any fevers. No new abdominal pain. States this pain feels like how it was on Sunday night when she was given the methotrexate. No other complaints or concerns reported at this time. [facility] Medical History History of back problems Hives Gastrointestinal problem Hx of migraine headaches Connective tissue disease Home Medications ?Medication ?Instructions ?Recorded ?Last Taken ?Type ondansetron 4 mg disintegrating 4 mg PO TID PRN nausea and 09/20/24 Unknown Rx tablet vomiting #21 tabs oxycodone-acetaminophen 5 mg-325 1 tab PO Q6H PRN pain 5 days #20 09/20/24 Unknown Rx mg tablet (Percocet) tabs Allergy/AdvReac Type Severity Reaction Status Date / Time No Known Allergies Allergy Verified 09/20/24 02:44 Family History Grandfather Alcoholism Cancer skin cancer Grandmother Alcoholism Sister Anemia Mother Cancer, Onset Age: 40 cervical cancer Hypertension Brother Seizures Surgical History S/P D&C (status post dilation and curettage) Social History number of children: 2 current occupational status: unemployed current occupation: [employer] Smoking Status: Never smoker alcohol intake: never substance use type: does not use what type of physical activity do you participate in: walking farhan/buddhism: Mormonism seatbelt use: always do you feel safe at home: Yes additional social history: - Jon[facility] ED Constitutional Constitutional ED: Reports chills; Denies fever(s) Respiratory/Chest Respiratory/Chest: Denies cough Gastrointestinal Gastrointestinal: Reports abdominal pain and nausea; Denies diarrhea, melena or vomiting Genitourinary Genitourinary ED: Reports other Details: slight spotting ; Denies dysuria Musculoskeletal Musculoskeletal: Denies arthralgias or myalgias Integumentary Denies rash Hematologic/Lymphatic Hematologic/Lymphatic: Denies easy bleeding or easy bruising EXAM Physical Exam Const Vital Signs: 09/25/24 14:34 09/25/24 14:35 09/25/24 15:35 Temperature 97.8 F 98.2 F 98.4 F Temperature Source Temporal Oral Oral Pulse Rate 107 H 91 93 Respiratory Rate 20 H 18 16 Blood Pressure 135/91 H 125/74 H 128/71 H Blood Pressure Mean 105 91 90 Pulse Ox 98 98 98 Oxygen Delivery Method Room Air Room Air 09/25/24 16:26 09/25/24 16:34 09/25/24 18:05 Temperature 97.6 F L Temperature Source Temporal Pulse Rate 89 88 Respiratory Rate 16 18 Blood Pressure 134/78 H 134/78 H 134/74 H Blood Pressure Mean 96 96 94 Pulse Ox 97 98 Oxygen Delivery Method Room Air Positive well nourished and well developed General Appearance ED: well developed and NAD HEENT Reports moist mucous membranes HEENT Narrative: Flushed cheeks Neck supple Chest Wall inspection of chest normal Resp normal respiratory effort and clear to auscultation bilaterally Cardio regular rate, regular rhythm and no murmurs GI non-distended Inspection: Negative for abdominal distention Palpation: soft and tender RLQ; Negative for guarding or mass Extremity normal to inspection General Extremety ED: Negative for edema General Extremity: Negative for edema Neuro oriented x3 Sensorium / Orientation: alert Psych Mood & Affect: anxious Skin no rashes or lesions noted and no wounds MDM MDM MDM Narrative Medical decision making narrative: Patient evaluated for recurrent right lower quadrant abdominal pain. She was treated for ectopic with methotrexate 5 days ago. Differential includes failed treatment/ruptured ectopic , renal colic, WOJCIECH, symptomatic anemia, hemorrhage, PIV and pelvic pain. Patient initially tachycardic upon arrival but states that she did have to walk up the hill because of the limited parking when she arrived. Vital signs otherwise remained stable in the emergency room. Tachycardia improved without any further intervention emergency room. CBC, BMP and quant are obtained. These are all normal. Her quant is now 1. Pelvic ultrasound is obtained which does show a heterogenous region of the right ovary similar to prior exam cannot exclude ectopic . No other acute process no free fluid is noted. Case is discussed with on-call CLINICAL TRIAL EDUCATOR, Dr. Haja Carballo. She states with the quant being 1 this is not consistent with that topic . I am in agreement with this. Patient still has some mild pain in her right lower abdomen on physical exam. Did offer CT of the abdomen and pelvis in case there is another cause such as renal colic or appendicitis. I do think appendicitis is less likely given that symptoms are going on for 5 days and she has normal white blood cell count. Patient is interested in obtaining liver panel because she knows that liver dysfunction can be a side effect of the methotrexate. This is added on and normal. Patient would like to defer CT imaging at this time as she does not think the pain is too bad at this time and would feel more comfortable going home and following up with her pain persist. Discussed that at this time I cannot explain her pain but she is encouraged to return to the emergency room. At this time there does not appear to be an acute surgical or medical process going on. Is possible she could have some localized swelling associated with the recent ectopic that is causing the discomfort. She will continue follow-up outpatient with CLINICAL TRIAL EDUCATOR and she has appointment tomorrow. Is given return precautions. Discharged home in stable condition. Is offered prescription for nausea medicine but declines. Is offered pain meds in the ER but declines. Discussed that her pain could still be from colitis or possibly renal colic. Lab Data Attestation: I reviewed the patient's lab results. Labs: Laboratory Results - last 24 hr 09/25/24 15:00 WBC 10.2 RBC 5.08 Hgb 15.9 H Hct 44.8 MCV 88.2 MCH 31.3 MCHC 35.5 RDW Std Deviation 39.6 RDW Coeff of [place] 12.2 Plt Count 318 MPV 9.0 Immature Gran % (Auto) 0.400 Neut % (Auto) 71.1 H Lymph % (Auto) 21.4 [place] % (Auto) 5.6 Eos % (Auto) 1.2 Baso % (Auto) 0.3 Absolute Neuts (auto) 7.2 Absolute Lymphs (auto) 2.17 Nucleated RBC % 0 Sodium 140 Potassium 4.1 Chloride 104 Carbon Dioxide 22.6 Anion Gap 14 BUN 13 Creatinine 0.75 Estim Creat Clear Calc 119.10 Est GFR (MDRD) Non-Af 106 BUN/Creatinine Ratio 17.8 Glucose 106 H Lactic Acid < 1.0 Calcium 9.9 Total Bilirubin 0.91 Direct Bilirubin 0.32 H AST 20 ALT 20 Alkaline Phosphatase 53 Total Protein 7.3 Albumin 4.7 Globulin 2.7 HCG, Quant 1 Radiography Diagnostic Testing: Clinical Impression(s) from Imaging Studies Transvaginal US 09/25/24 14:39 IMPRESSION: Heterogeneous region in the right ovary, similar to the prior exam. Ectopic can not be excluded. Reading Location: [facility] Management Discussion w/another healthcare provider: Electrolytic De Scaler (CLINICAL TRIAL EDUCATOR) Discharge Plan Triage Chief Complaint: Abd Pain ED Provider: Nikki Pabon Dx/Rx/DC Orders Clinical Impression: Abdominal pain, right lower quadrant, Status post ectopic Instructions: ED Abdominal Pain Unkn Cause Fem Prescriptions: No Action oxycodone-acetaminophen [Percocet] 5-325 mg tablet 1 tab PO Q6H PRN (Reason: pain) 5 Days Qty: 20 0RF ondansetron 4 mg tablet,disintegrating 4 mg PO TID PRN (Reason: nausea and vomiting) Qty: 21 0RF Primary Care Provider: Prerna Cleaning NP Referrals: Prerna Cleaning NP, [facility] [Primary Care Provider] - Activity Restrictions/Additional Instructions: Please continue to follow-up with your CLINICAL TRIAL EDUCATOR as scheduled. Alternate ibuprofen and Tylenol for pain. There does not appear to be a complication associated with your recent ectopic on your workup today and your hormone level is back to 1 which is considered negative. If your symptoms worsen please return to emergency room and we cannot perform CT scan as we previously discussed. Print Language: Serbian Disposition Disposition: Home, Self Care
[2024-09-25 15:54] LABS: Anion Gap 14 (5-15); BUN 13 mg/dL (4-19); BUN/Creat Ratio 17.8 RATIO (10-20); Calcium,Total 9.9 mg/dL (7.6-11.0); Carbon Dioxide 22.6 mmol/L (21.0-32.0); Chloride 104 mmol/L (98-108); Creatinine, Serum 0.75 mg/dL (0.70-1.20); EST Glomerular Filtration Rate 106 (>60); Glucose 106 mg/dL (70-99); Potassium 4.1 mmol/L (3.3-5.1); Sodium Level 140 mmol/L (133-145)
[2024-09-25 16:09] LABS: hCG Titer Quant., Serum 1 mIU/mL (<9 non-preg)
[2024-09-25 16:28] LABS: Lactic Acid < 1.0 mmol/L (0.0-2.0)
[2024-09-25 18:40] LABS: AST(SGOT) 20 U/L (<=31); Alanine Aminotransfer ALT/SGPT 20 U/L (<=34); Albumin, Serum 4.7 g/dL (3.5-5.0); Alkaline Phosphatase 53 U/L (35-104); Bilirubin, Direct 0.32 mg/dL (0.00-0.30); Globulin 2.7 g/dL (2.2-4.2); Protein, Total 7.3 g/dL (5.9-8.4); Total Bilirubin 0.91 mg/dL (0.00-1.30)
== END 2024-09-25 19:34 | disposition home or self-care (01) ==
PROVIDERS: Emergency Provider Emergency Medicine; PCP Nurse Practitioner Family; Visit Provider Emergency Medicine
DX: R10.31 Right lower quadrant pain (principal); Z87.59 Personal history of other complications of pregnancy, childbirth and the puerperium
CPT/HCPCS: 76830; 80048; 80076; 83605; 84702; 85025; 99282